=== PATIENT | male | born 1990 | race Caucasian/White ===

== ENCOUNTER 2021-12-08 22:01 | Emergency (ER) | payer MEDICAID, SELFPAY ==
[2021-12-08 22:11] VITALS: BP 129/67; PULSE 93; RESP 18; O2SAT 97; BMI 51.7
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
--- NOTE | 2021-12-08 22:15 | XRR_ITS ---
PROCEDURE INFORMATION: Exam: XR Chest Exam date and time: 12/08/2021 10:15 PM Age: 31 years old Clinical indication: Other: AMS TECHNIQUE: Imaging protocol: XR of the chest. Views: 1 view. COMPARISON: No relevant prior studies available. FINDINGS: Lungs: No CHF/pulmonary edema. Poor inspiration somewhat limits evaluation, especially of the lung bases. Visible lungs appear essentially clear. Pleural spaces: No visible pneumothorax. No definite pleural fluid. Heart/Mediastinum: Heart size is appears upper range of normal. Bones/joints: No significant acute finding. XR/XR chest 1V portable [id number] IMPRESSION: 1. No definite CHF or pneumonia. 2. Other findings discussed above.
--- NOTE | 2021-12-08 22:17 | ECG_ITS ---
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 Measurements Intervals [place] Rate: 84 P: 40 TN: 165 QRS: 76 QRSD: 87 T: 72 QT: 380 QTc: 451 Interpretive Statements SINUS RHYTHM Compared to ECG 03/11/2016 22:43:04 Sinus tachycardia no longer present Electronically Signed On 12-09-2021 16:11:25 DIRECTOR OF SUSTAINABILITY PROGRAMS by Greta Mitchell M.D. [id number]
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
[2021-12-08 22:30] LABS: Basophils % 0.6 %; Eosinophils # 0.3 10^3/uL (0.0-0.8); Eosinophils % 4.2 %; Hematocrit 44.2 % (42.0-52.0); Hemoglobin 14.5 g/dL (11.7-16.6); Lymphocytes # 3.2 10^3/uL (0.8-4.8); Lymphocytes % 46.3 %; Mean Corpuscular HGB Conc 32.8 g/dL (30.0-36.0); Mean Corpuscular Hemoglobin 32.4 pg (28.0-34.0); Mean Corpuscular Volume 98.7 fl (80-94); Mean Platelet Volume 9.6 fL (7.4-10.4); Monocytes # 0.6 10^3/uL (0.2-0.9); Monocytes % 8.8 %; Neutrophils # 2.72 10^3/uL (1.8-7.7); Neutrophils % 39.7 %; Nucleated Red Blood Cells % 0 %; Platelet Count 288 10^3/cmm (130-400); Red Blood Count 4.48 10^6/uL (4.1-5.3); Red Cell Distribution Width 12.5 % (12.1-15.1); White Blood Count 6.9 10^3/uL (4.0-10.0)
[2021-12-08 22:35] LABS: Add Urine Microscopic? NO; Charge for UA Resulting for Rev
[2021-12-08 22:46] LABS: Amphetamines Screen Urine Positive (Negative); Barbiturates Screen Urine Negative (Negative); Benzodiazepines Screen Urine Negative (Negative); Cocaine Screen Urine Negative (Negative); Opiate Screen Urine Negative (Negative); PCP Screen Urine Negative (Negative); THC Screen Urine Positive (Negative)
[2021-12-08 23:01] LABS: Troponin T (5th) Once 15 ng/L (0-15)
[2021-12-08 23:03] LABS: Bilirubin Urine 1+ (Negative); Blood Urine Neg (Negative); Glucose Urine UA Norm (Normal); Ketones Urine Negative (Negative); Leukocyte Esterase Urine Negative (Negative); Nitrate Urine Negative (Negative); Protein Urine Neg (Negative); Urine Appearance Clear (CLEAR); Urine Color Yellow (Yellow); Urobilinogen Urine 4+ mg/dL (Negative); pH Urine 5 (5-7)
[2021-12-08 23:10] LABS: Procalcitonin 0.05 ng/mL (0-0.5); Thyroid Stimulating Hormone 1.98 uIU/mL (0.27-4.20)
[2021-12-08 23:21] LABS: Alanine Aminotransferase 90 U/L (0-41); Albumin Level 3.8 g/dL (3.5-5.2); Alkaline Phosphatase 75 IU/L (40-130); Anion Gap 13.4 (5-19); Aspartate Amino Transferase 98 U/L (0-40); Blood Urea Nitrogen 11 mg/dL (6-20); C Reactive Protein 15.5 mg/L (0.0-4.9); Calcium 9.1 mg/dL (8.5-10.5); Carbon Dioxide 25 mmol/L (22-29); Chloride 102 mmol/L (98-107); Creatine Phosphokinase 182 U/L (39-308); Globulin 3.2 g/dL (1.3-4.6); Glomerular Filtration Rate 193.9 mL/min (90-130); Glucose 92 mg/dL (65-115); Osmolality Calculated 281 mOsm/kg (285-295); Potassium 4.4 mmol/L (3.5-5.1); Sodium 136 mmol/L (136-145); Total Bilirubin 0.4 mg/dL (0.15-1.2)
[2021-12-08 23:23] LABS: Alcohol Level < 10 mg/dL (0-10)
--- NOTE | 2021-12-25 12:41 | DCPLANNER ---
customer manager had message to speak with patient about getting established with a primary care physician. customer manager unable to speak with patient or leave a voicemail at this time.
== END 2021-12-09 | disposition home or self-care (01) ==
PROVIDERS: Emergency Provider Nurse Practitioner Family; PCP Nurse Practitioner Family
DX: R40.0 Somnolence (principal)
CPT/HCPCS: 70450; 71045; 80053; 80306; 80307; 81003; 82550; 83605; 84145; 84443; 84484; 85025; 86140; 87040; 93005; 99283

== ENCOUNTER 2023-01-15 09:47 | Inpatient (IN) | payer MEDICAID, SELFPAY ==
[2023-01-15] VITALS (103 sets, daily range): BP systolic 119–247; BP diastolic 60–196; PULSE 59–130; RESP 8–32; TEMP 36.8; O2SAT 71–100; BMI 54.2
--- NOTE | 2023-01-15 09:53 | ED_ITS ---
Was one of the attending physicians on duty in the emergency department at the time this patient was seen by the advanced nurse practitioner. She briefly reviewed her care and requested advice on how to proceed given his current clinical scenario. She had originally consulted general surgeon at our facility who had recommended transfer to a ERCP capable facility. She consulted Brenda HARDING who reviewed the case with her and did not feel that ERCP was indicated given his clinical picture and that it suggested more pancreatitis. I advised her to reconsult our general surgeon here for his evaluation situation given additional information. I did not personally see or evaluate this patient or have a physician patient relationship. I purely provided consultative advice and per department protocol Bridge orders for admission of this patient. HPI - Abdominal Pain General: Chief Complaint: Abdominal Pain Stated Complaint: abd pain Time Seen by Provider: 01/15/23 09:50 Source: patient and EMS Mode of arrival: EMS Limitations: no limitations History of Present Illness: Patient is a 32-year-old male with a history of homelessness, drug and alcohol abuse, morbid obesity, uncontrolled hypertension, biliary colic, and schizophrenia here after he was brought by EMS for concerns of right upper quadrant abdominal pain. Patient states he had been vomiting all evening. He states approximately a decade ago he was told that he needed to have his gallbladder taken out. He states he will intermittently have flares but has never been this severe. He is having normal bowel movements. Patient reports daily alcohol use. He states he will occasionally use marijuana. EMS states they picked him up from a park where he has been sleeping. He arrives very hypertensive with a BP of 217/153. He tells me he has chronic hypertension and it is not unusual for his systolic readings to be over 200 and diastolic over 100. He takes atenolol daily. elicited complaint: abdominal pain Onset (ago): day(s) Pain Consistency: constant Location: RUQ Severity: severe Quality: sharp Radiation: none Migration to: no migration Relieving factors: eating Associated Symptoms: Reports hematemesis, nausea and vomiting; Denies chills, diarrhea, dysuria, fever(s), hematochezia, hematuria and melena Review of Systems Const: Denies: fever(s), chills, body aches, fatigue or malaise Card: Denies: chest pain Resp: Denies: dyspnea GI: Reports: abdominal pain, nausea, vomiting and hematemesis; Denies: diarrhea, hematochezia or melena : Denies: flank pain, dysuria or hematuria Musc: Denies: neck pain, back pain, extremity pain or joint pain Skin/Breast: Denies: rash Neuro: Denies: headache(s), numbness in extremities, weakness in extremities or sensory changes [facility] ED PFSH: Medical History (Updated 01/15/23 @ 20:01 by Henrique Romero MD) Alcohol use disorder Biliary colic Homelessness HTN (hypertension) Morbid obesity Schizophrenia Smoking addiction Substance use disorder Surgical History H/O esophagogastroduodenoscopy Family History Other Colon cancer Social History Smoking and tobacco status: current every day smoker Alcohol intake: current Substance/Drug Use: current Housing: Homeless Marital status: Physical Exam Const: COMMON NORMALS: patient oriented x3, no limitations and alert GENERAL APPEARANCE: cooperative and in distress (appears uncomfortable secondary to pain) NUTRITIONAL APPEARANCE: obese morbidly obese (BMI is over 54) ORIENTATION/CONSCIOUSNESS: Yes awake, Yes oriented to person, Yes oriented to place and Yes oriented to time HENMT: COMMON NORMALS: normocephalic and atraumatic HEAD & SCALP: normal to inspection, normocephalic and atraumatic Eye: COMMON NORMALS: no scleral icterus Chest: COMMONS NORMALS: normal inspection of the chest and normal palpation of entire chest wall Resp: COMMON NORMALS: normal respiratory effort and clear to auscultation bilaterally AUSCULTATION: clear to auscultation bilaterally Cardio: COMMON NORMALS: regular rhythm RATE: tachycardic RHYTHM: regular rhythm GI: COMMON NORMALS: Normal to inspection, nondistended, normoactive bowel sounds present and Soft to palpation INSPECTION: Yes normal to inspection AUSCULTATION: Yes normoactive bowel sounds PALPATION: Yes Soft to palpation, Yes Tenderness to palpation present (GI) (throughout upper abdomen), Yes Guarding due to palpation present (GI) and No Rigid due to palpation OTHER: exam somewhat limited secondary to body habitus : COMMON NORMALS: Yes no CVA tenderness BLADDER/KIDNEY EXAM: Yes no CVA tenderness Back/Pelvis: COMMON NORMALS: no CVA tenderness Extremity: COMMON NORMALS: normal to inspection GENERAL: Yes normal exam except as noted Neuro: EMILIE COMA SCALE: document GCS findings [place] coma scale eye opening: Spontaneous Emilie coma scale verbal response: Orientated Emilie coma scale motor response: Obey commands Emilie coma scale total score: 15 COMMON NORMALS: patient oriented x3, moves all extremities, no focal motor deficits and no sensory deficits noted SENSORIUM/ORIENTATION: Yes alert, Yes oriented to person, Yes oriented to place and Yes oriented to time Skin: COMMON NORMALS: no rashes or lesions noted GENERAL SKIN EXAM: no rashes or lesions noted Course ED course: Patient is noted to have LFTs with a T. bili of 1.6 as well as elevated AST/ALT at 192/143. Lipase is over 1500. US of his gallbladder was extremely limited secondary to his morbid obesity status. MRCP was obtained due to concerns for choledocholithiasis. Unfortunately this too was suboptimal and the CBD could not be visualized to exclude choledocholithiasis. He did have a distended gallbladder with several stones. Hepatitis panel was added on due elevated LFTs and positive for hepatitis C. Despite patient denying drug use (other than marijuana) he is positive for opiates, amphetamines, benzodiazepines, and marijuana. He does seem to be under the influence of amphetamines as he is very antsy, pacing around his room, constantly taking off his monitor, and was found bathing himself in sterilization wipes. BP/HR have been very elevated some of which I believe is secondary to amphetamine use. I have spoken to general surgeon Dr. Trimble and because we cannot rule out a stone in his CBD he needs transfer to [facility] with ERCP capability. Consultations: Consultation #1: Dr. Trimble-recommends transfer to facility with ERCP capability Consultation #2: Dr. Méndez-[facility]/general surgery; states he does not feel patient has CBD stone and recommends admission here for treatment of acute pancreatitis Consultation #3: Dr. Trimble-spoke to Dr. Trimble again after speaking to Brenda HARDING and he is agreeable to treating patient here; recommends admit to hospitalist and he will consult on patient Vital Signs: Vital signs: Vital Signs Temperature 98.2 F 01/15/23 09:49 Pulse Rate 83 04/14/23 05:44 Respiratory Rate 22 H 01/16/23 04:10 Blood Pressure 141/88 01/16/23 04:10 Pulse Oximetry 94 01/16/23 04:10 Oxygen Delivery Me thod Room Air 01/15/23 18:10 MDM - Abdominal Pain Medical Decision Making Plan was initially to transfer patient based on the possible concern for a choledocholithiasis however after speaking with Dr. Méndez/GI at [facility] he does not feel patient has a CBD stone and can reasonably be treated here for acute pancreatitis. I spoke to Dr. Trimble again who is agreeable to consult on the patient. Request hospitalist admission. I spoke to Dr. Romero who will admit the patient. Lab Data 01/16/23 02:09 01/16/23 02:09 Labs/Radiology: Radiology Impressions Gallbladder Ultrasound 01/15/23 10:00 IMPRESSION: 1. Poor visualization of the gallbladder. No stones are identified. 2. Very limited evaluation of the RIGHT upper quadrant due to patient's body habitus. 3. Hepatomegaly and hepatic steatosis. Incompletely visualized liver. Cholangiopancreatography MRI 01/15/23 10:59 IMPRESSION: 1. Suboptimal evaluation of the bile ducts. Common bile duct cannot be visualized to exclude choledocholithiasis. The pancreatic duct does not appear dilated although this is also limited. 2. Mild gallbladder hydrops with gallstones. 3. There is a small amount of fluid in the peritoneal cavity. Predominantly along the pancreatic tail and LEFT paracolic gutter. This is a minimal amount of ascites. Laboratory Results WBC 9.4 10^3/uL (4.0-10.0) 01/15/23 09:57 RBC 4.75 10^6/uL (4.1-5.3) 01/15/23 09:57 Hgb 16.1 g/dL (11.7-16.6) 01/15/23 09:57 Hct 46.6 % (42.0-52.0) 01/15/23 09:57 MCV 98.1 fl (80-94) H 01/15/23 09:57 MCH 33.9 pg (28.0-34.0) 01/15/23 09:57 MCHC 34.5 g/dL (30.0-36.0) 01/15/23 09:57 RDW 12.7 % (12.1-15.1) 01/15/23 09:57 Plt Count 218 10^3/cmm (130-400) 01/15/23 09:57 MPV 9.8 fL (7.4-10.4) 01/15/23 09:57 Neut % (Auto) 80.7 % 01/15/23 09:57 Lymph % (Auto) 12.7 % 01/15/23 09:57 [place] % (Auto) 5.7 % 01/15/23 09:57 Eos % (Auto) 0.2 % 01/15/23 09:57 Baso % (Auto) 0.4 % 01/15/23 09:57 Neut # (Auto) 7.60 10^3/uL (1.8-7.7) 01/15/23 09:57 Lymph # (Auto) 1.2 10^3/uL (0.8-4.8) 01/15/23 09:57 [place] # (Auto) 0.5 10^3/uL (0.2-0.9) 01/15/23 09:57 Eos # (Auto) 0.0 10^3/uL (0.0-0.8) 01/15/23 09:57 Baso # (Auto) 0.0 10^3/uL (0.0-0.1) 01/15/23 09:57 Nucleated RBC % (auto) 0 % 01/15/23 09:57 Nucleated RBCs # 0.0 /100WBC 01/15/23 09:57 PT 13.50 SECONDS (12.1-14.9) 01/15/23 17:05 INR 1.00 (0.8-1.2) 01/15/23 17:05 APTT 27.3 SECONDS (23.9-36.7) 01/15/23 17:05 Sodium 136 mmol/L (136-145) 01/15/23 09:57 Potassium 3.7 mmol/L (3.5-5.1) 01/15/23 09:57 Chloride 97 mmol/L (98-107) L 01/15/23 09:57 Carbon Dioxide 21 mmol/L (22-29) L 01/15/23 09:57 Anion Gap 21.7 (5-19) H 01/15/23 09:57 BUN 11 mg/dL (6-20) 01/15/23 09:57 Creatinine 0.6 mg/dL (0.7-1.2) L 01/15/23 09:57 GFR Calculation 156.1 mL/min (90-130) H 01/15/23 09:57 Glucose 125 mg/dL (65-115) H 01/15/23 09:57 Calculated Osmolality 283 mOsm/kg (285-295) L 01/15/23 09:57 Lactic Acid 1.4 mmol/L (0.5-2.2) 01/15/23 10:31 Calcium 9.3 mg/dL (8.5-10.5) 01/15/23 09:57 Total Bilirubin 1.6 mg/dL (0.15-1.2) H 01/15/23 09:57 AST 192 U/L (0-40) H 01/15/23 09:57 ALT 143 U/L (0-41) H 01/15/23 09:57 Alkaline Phosphatase 92 U/L (40-130) 01/15/23 09:57 Ammonia 38 umol/L (16-60) 01/15/23 17:05 Creatine Kinase 333 U/L (39-308) H* 01/15/23 09:57 CK-MB (CK-2) 4.2 ng/mL (0-10.4) 01/15/23 09:57 CK-MB (CK-2) Rel Index % (0.0-5.3) 01/15/23 09:57 Total Protein 8.4 g/dL (6.6-8.7) 01/15/23 09:57 Albumin 4.3 g/dL (3.5-5.2) 01/15/23 09:57 Globulin 4.1 g/dL (1.3-4.6) 01/15/23 09:57 Lipase 1539 U/L (13-60) H 01/15/23 09:57 Urine Color [place] (Yellow) 01/15/23 10:52 Urine Appearance Hazy (CLEAR) A 01/15/23 10:52 Urine pH 7 (5-7) 01/15/23 10:52 Ur Specific [place] 1.010 (1.005-1.030) 01/15/23 10:52 Urine Protein 1+ (Negative) H 01/15/23 10:52 Urine Glucose (UA) Norm (Normal) 01/15/23 10:52 Urine Ketones 1+ (Negative) H 01/15/23 10:52 Urine Blood 2+ (Negative) H 01/15/23 10:52 Urine Nitrate Negative (Negative) 01/15/23 10:52 Urine Bilirubin TNP 01/15/23 10:52 Urine Urobilinogen TNP 01/15/23 10:52 Ur Leukocyte Esterase 2+ (Negative) H 01/15/23 10:52 Urine RBC 0-4 /hpf (0-2) H 01/15/23 10:52 Urine WBC 10-15 /hpf (0-5) H 01/15/23 10:52 Ur Squamous Epith Cells 0-4 /hpf (0-5) H 01/15/23 10:52 Amorphous Sediment Not Reportable 01/15/23 10:52 Urine Bacteria 1+ /hpf (NONE) H 01/15/23 10:52 Hyaline Casts 0-4 /lpf H 01/15/23 10:52 Urine Mucus 2+ /hpf 01/15/23 10:52 Urine Opiates Screen Positive ng/mL (Negative) H 01/15/23 10:52 Ur Barbiturates Screen Negative ng/mL (Negative) 01/15/23 10:52 Ur Phencyclidine Scrn Negative ng/mL (Negative) 01/15/23 10:52 Ur Amphetamines Screen Positive ng/mL (Negative) H 01/15/23 10:52 U Benzodiazepines Scrn Positive ng/mL (Negative) H 01/15/23 10:52 Urine Cocaine Screen Negative ng/mL (Negative) 01/15/23 10:52 U Marijuana (THC) Screen Positive ng/mL (Negative) H 01/15/23 10:52 Ethyl Alcohol < 10 mg/dL (0-10) 01/15/23 09:57 Hepatitis A IgM Ab Non-reactive (Nonreactive) 01/15/23 10:45 Hep Bs Antigen Non-reactive (Nonreactive) 01/15/23 10:45 Hep B Core IgM Ab Non-reactive (Nonreactive) 01/15/23 10:45 Hepatitis C Antibody Reactive (Nonreactive) H 01/15/23 10:45 Discharge Plan Discharge Patient Disposition: Admitted As Inpatient Admit Provider: Henrique Romero Clinical Impression: Hepatitis C, Severe uncontrolled hypertension, Elevated LFTs, Elevated lipase, Cholelithiasis, Polysubstance abuse, Rhabdomyolysis, Chronic alcohol abuse Condition: Stable Coding Level of Care Code ED Glass Worker for Levi Bullard
--- NOTE | 2023-01-15 10:00 | US_ITS ---
WS: [id number] RIGHT UPPER QUADRANT ULTRASOUND HISTORY: RUQ pain COMPARISON: 10/21/2018 Extremely limited evaluation of the RIGHT upper quadrant due to patient's body habitus. Liver: 21.7 cm in length. Liver is enlarged but very limited visualization. Marked hepatic steatosis. Portal Vein: Not visualized. Gallbladder: Distended gallbladder. There may be some sludge. It would be difficult to exclude stones . The gallbladder wall is not well visualized. CBD: Not visualized. Pancreas: Not visualized. Right kidney: 11.8 cm in length. Poorly visualized. No obvious hydronephrosis. Aorta and IVC: Not well visualized. No ascites. US/US gall bladder 13413 IMPRESSION: 1. Poor visualization of the gallbladder. No stones are identified. 2. Very limited evaluation of the RIGHT upper quadrant due to patient's body h abitus. 3. Hepatomegaly and hepatic steatosis. Incompletely visualized liver.
[2023-01-15 10:07] LABS: Basophils % 0.4 %; Eosinophils % 0.2 %; Hematocrit 46.6 % (42.0-52.0); Hemoglobin 16.1 g/dL (11.7-16.6); Lymphocytes # 1.2 10^3/uL (0.8-4.8); Lymphocytes % 12.7 %; Mean Corpuscular HGB Conc 34.5 g/dL (30.0-36.0); Mean Corpuscular Hemoglobin 33.9 pg (28.0-34.0); Mean Corpuscular Volume 98.1 fl (80-94); Mean Platelet Volume 9.8 fL (7.4-10.4); Monocytes # 0.5 10^3/uL (0.2-0.9); Monocytes % 5.7 %; Neutrophils % 80.7 %; Nucleated Red Blood Cells % 0 %; Platelet Count 218 10^3/cmm (130-400); Red Blood Count 4.75 10^6/uL (4.1-5.3); Red Cell Distribution Width 12.7 % (12.1-15.1); White Blood Count 9.4 10^3/uL (4.0-10.0)
[2023-01-15 10:28] LABS: Alanine Aminotransferase 143 U/L (0-41); Albumin Level 4.3 g/dL (3.5-5.2); Alkaline Phosphatase 92 U/L (40-130); Anion Gap 21.7 (5-19); Aspartate Amino Transferase 192 U/L (0-40); Blood Urea Nitrogen 11 mg/dL (6-20); Calcium 9.3 mg/dL (8.5-10.5); Carbon Dioxide 21 mmol/L (22-29); Chloride 97 mmol/L (98-107); Globulin 4.1 g/dL (1.3-4.6); Glomerular Filtration Rate 156.1 mL/min (90-130); Glucose 125 mg/dL (65-115); Osmolality Calculated 283 mOsm/kg (285-295); Potassium 3.7 mmol/L (3.5-5.1); Sodium 136 mmol/L (136-145); Total Bilirubin 1.6 mg/dL (0.15-1.2); Total Protein 8.4 g/dL (6.6-8.7)
[2023-01-15] MEDS: morphine 4 mg/mL SDV 1 mL IVP ×2 (10:33→17:05)
[2023-01-15] MEDS: hyDRALAzine 20 mg/mL INJ 1 mL 10 MG IVP ×2 (10:34→13:49)
[2023-01-15] MEDS: ondansetron 2 mg/ML SDV 2 mL 4 MG IVP (10:34)
[2023-01-15 10:35] LABS: Lipase 1539 U/L (13-60)
--- NOTE | 2023-01-15 10:59 | MR_ITS ---
WS: [id number] MRCP (MAGNETIC RESONANCE CHOLANGIOPANCREATOGRAPHY) HISTORY: RUQ pain, elevated LFTs/lipase COMPARISON: Prior gallbladder ultrasound 01/15/2023. TECHNIQUE: Multiple sequences are performed to evaluate the intra and extrahepatic ducts. This is a very limited evaluation of the bile ducts due to patient's body habitus and difficulty susp ending respirations. The gallbladder is moderately distended. Gallbladder measures approximately 4 cm in transverse diamet er. There are several stones within the gallbladder. No significant evidence for pericholecystic flui d. Unfortunately the common bile duct cannot be evaluated due to difficulty suspending respiration. T he pancreatic duct does not appear dilated. Liver is enlarged and dense with hepatic steatosis. There is a small amount of ascites surrounding th e pancreatic body and extending along the paracolic gutter on the LEFT. No fluid collections otherwise. The kidneys appear negative. No adrenal mass. No ascites. MR/MR MRCP 06038 IMPRESSION: 1. Suboptimal evaluation of the bile ducts. Common bile duct cannot be visuali zed to exclude choledocholithiasis. The pancreatic duct does not appear dilated although this is also limited. 2. Mild gallbladder hydrops with gallstones. 3. There is a small amount of fluid in the peritoneal cavity. Predominantly al wilfrido the pancreatic tail and LEFT paracolic gutter. This is a minimal amount of ascites.
[2023-01-15 11:11] LABS: Amphetamines Screen Urine Positive (Negative); Barbiturates Screen Urine Negative (Negative); Benzodiazepines Screen Urine Positive (Negative); Cocaine Screen Urine Negative (Negative); Opiate Screen Urine Positive (Negative); PCP Screen Urine Negative (Negative); THC Screen Urine Positive (Negative)
[2023-01-15 11:23] LABS: Urine Appearance Hazy (CLEAR); Urine Color Orange (Yellow); pH Urine 7 (5-7)
[2023-01-15 11:24] LABS: Blood Urine 2+ (Negative); Glucose Urine UA Norm (Normal); Ketones Urine 1+ (Negative); Leukocyte Esterase Urine 2+ (Negative); Protein Urine 1+ (Negative)
[2023-01-15 11:25] LABS: Add Urine Microscopic? YES; Nitrate Urine Negative (Negative)
[2023-01-15 11:27] LABS: Bacteria Urine 1+ /hpf; RBC Urine 0-4 /hpf (0-2); Squamous Epithelial Cell Urine 0-4 /hpf (0-5)
[2023-01-15 11:28] LABS: Add Urine Culture? Yes; Hyaline Casts Urine 0-4 /lpf; Mucus Urine 2+ /hpf
[2023-01-15] MEDS: HYDROmorphone 1 mg/mL INJ 1 mL IVP ×2 (11:29→13:49)
[2023-01-15] MEDS: sodium chloride 0.9% 1,000 ML 999 ML IV ×2 (11:30→13:33)
[2023-01-15] MEDS: piperacillin-tazobactam 3.375 GM in sodium chloride 0.9% (plus) 50 ML IV ×2 (11:30→20:05)
[2023-01-15 11:33] LABS: Lactic Sepsis W/Reflex 1.4 mmol/L (0.5-2.2)
[2023-01-15 11:48] LABS: Alcohol Level < 10 mg/dL (0-10)
[2023-01-15 11:49] LABS: Creatine Phosphokinase 333 U/L (39-308)
[2023-01-15 12:21] LABS: CKMB 4.2 ng/mL (0-10.4)
[2023-01-15 12:31] LABS: Hepatitis A Antibody IgM Non-Reactive (Nonreactive); Hepatitis B Core IgM Non-Reactive (Nonreactive); Hepatitis B Surface Antigen Non-Reactive (Nonreactive); Hepatitis C Virus Antibody Reactive (Nonreactive)
[2023-01-15] MEDS: metoprolol tartrate 1 mg/1 mL SDV 5 mL 5 MG IVP (13:30)
--- NOTE | 2023-01-15 14:34 | PC.NURSE ---
answered call light. entered room to find pt standing, attached to IVF, requested pt to return to bed due to fall risk. pt states he was cleaning himself with sani-cloth wipes. educated pt that those wipes are not for skin use and showed pt container where it shows not to use on skin. provided pt with babywipes to clean himself with.
[2023-01-15] MEDS: labetalol 5 mg/mL SDV 20mL 10 MG IVP (15:25)
[2023-01-15 17:36] LABS: Partial Thromboplastin Time 27.3 SECONDS (23.9-36.7)
[2023-01-15 17:40] LABS: Ammonia 38 umol/L (16-60)
[2023-01-15] MEDS: PHENobarbital 130 mg/mL SDV 1 mL 260 MG IV ×2 (19:28→21:48)
[2023-01-15] MEDS: lactated ringers 1,000 ML 100 ML IV (19:28)
--- NOTE | 2023-01-15 19:35 | P.HP_ITS ---
Providers/Chief Complaint Admitting Physician: Henrique Romero Primary Care Provider: Gilson Rivas Chief Complaint: abd pain History of Present Illness 32-year-old gentleman came in for evaluation due to severe pain across his upper abdomen, nausea and few episodes of vomiting starting yesterday or day before yesterday. He has history of homelessness, alcoholism, methamphetamine abuse, fentanyl abuse, marijuana, smoking, morbid obesity. History of withdrawal. Reported history of recurrent gallbladder colic, with some recommendation in the past to have his gallbladder removed although had not followed up reportedly. Gallbladder intermittently flares. On presentation additionally severely hypertensive requiring multiple medications, blood pressure as high as 217/153, received several doses of hydralazine, metoprolol, labetalol, morphine with improvement. He is found to have lipase elevation 1539. T. bili elevated 1.6, AST ALT elevated 192, 143. CK elevated at 333. Gallbladder ultrasound was attempted in ER but very limited evaluation. Noted hepatomegaly and hepatic steatosis. Incompletely visualized liver. MRCP was obtained as well, finding of suboptimal evaluation of bile ducts, common bile duct cannot be visualized to exclude choledocholithiasis, pancreatic duct does not appear dilated although this is also limited. Mild gallbladder hydrops with gallstones. Small mount of fluid in peritoneal cavity. Predominantly along the pancreatic tail and left paracolic gutter. Minimal ascites. Surgery was consulted. GI/general currency exchange specialist contacted at [facility] in ER with consideration of arranging for ERCP, but specialist on review of patient condition and findings did not find that CBD obstruction was likely, recommending admission for treatment here. Surgeon agreeing will consult on patient here with hospitalist admit. He is having sinus tachycardia initially 100 teens-120s, with improvement to 105 with initial treatment including fluid challenge. UA with 10-15 WBC. He reports having intertrigo under his pannus and in groins, and feels he may have a UTI as well. Urine directory positive for opiates, phentermine, benzodiazepine, marijuana. Hepatitis C is found positive. He was not aware of having hepatitis. He states he used to inject, but last time it was probably several years back, nothing more recent. He does admit to smoking methamphetamine, occasionally snorting fentanyl, although less frequently and not so much recently, and smoking marijuana. He has gone through withdrawal before. He is currently jittery, restless, with tremor, bothered by nausea, pain. Last drink was 2 days ago. Normally drinks about a gallon or gallon and a half. In case he could not make his own decisions he names his father Kaiser Spears as his surrogate decision-maker. Father's phone number is [phone]. Review of Systems Const: Denies: malaise ENMT: Denies: throat pain Card: Denies: chest pain, edema, pre-syncope or dyspnea on exertion Resp: Denies: dyspnea, productive cough, change in phlegm color or hemoptysis GI: Reports: abdominal pain, nausea and vomiting; Denies: diarrhea, constipation, hematochezia or melena : Reports: other (dysuria); Denies: flank pain, difficulty urinating, urinary frequency or hematuria Musc: Denies: back pain, joint swelling or joint redness Skin/Breast: Denies: rash or new lesions Neuro: Denies: headache(s), numbness in extremities, weakness in extremities or seizure-like activity Medications/Allergies Home Medications Medication Instructions Recorded Confirmed Last Taken Type Unable to Assess 01/15/23 01/15/23 Unknown History Allergies Allergy/AdvReac Type Severity Reaction Status Date / Time fentanyl Allergy Severe ADR-Seizure Verified 01/15/23 19:54 diphenhydramine Allergy Intermediate headache, Verified 01/15/23 19:54 [From Benadryl] restless leg cyclobenzaprine Allergy Nausea, Verified 01/15/23 19:55 [From Flexeril] vomiting, headache PFSH Acute PFSH: Medical History (Updated 01/15/23 @ 20:01 by Henrique Romero MD) Alcohol use disorder Biliary colic Homelessness HTN (hypertension) Morbid obesity Schizophrenia Smoking addiction Substance use disorder Surgical History H/O esophagogastroduodenoscopy Family History Other Colon cancer Social History Smoking and tobacco status: current every day smoker Alcohol intake: current Housing: Homeless Marital status: Vitals/I&O/Wt Last Vital Signs Temp 98.2 F 01/15/23 09:49 Pulse 105 H 01/15/23 18:06 Resp 16 01/15/23 18:06 BP 165/104 01/15/23 18:06 Pulse Ox 94 01/15/23 18:06 O2 Del Method Room Air 01/15/23 18:10 01/15/23 01/15/23 01/15/23 06:59 14:59 22:59 Intake Total 2049 Balance 2049 Weight last 48 hrs Weight 181.437 kg Physical Exam Const: COMMON NORMALS: patient oriented x3 and alert GENERAL APPEARANCE: cooperative and ill appearing NUTRITIONAL APPEARANCE: obese morbidly obese ORIENTATION/CONSCIOUSNESS: Yes awake OTHER: Rapid speech, mild slurring Upper extremity tremors HENMT: COMMON NORMALS: oropharynx normal Neck/C-Spine: COMMON NORMALS: no JVD Resp: COMMON NORMALS: normal respiratory effort and clear to auscultation bilaterally AUSCULTATION: clear to auscultation bilaterally Cardio: COMMON NORMALS: no JVD, regular rhythm, S1 normal heart sound present, S2 normal heart sound present and No murmurs present (Cardio) RATE: tachycardic RHYTHM: regular rhythm HEART SOUNDS: S1 normal heart sound present and S2 normal heart sound present GI: COMMON NORMALS: Normal to inspection, nondistended, normoactive bowel sounds present, Soft to palpation and non-tender PALPATION: Yes Soft to palpation Extremity: COMMON NORMALS: no joint enlargement and no pedal edema Neuro: COMMON NORMALS: patient oriented x3 and moves all extremities SENSORIUM/ORIENTATION: Yes alert Skin: COMMON NORMALS: no rashes or lesions noted GENERAL SKIN EXAM: no rashes or lesions noted Data 01/15/23 09:57 01/15/23 09:57 Micro: Microbiology 01/15/23 11:15 Blood Culture - Preliminary Blood SPECIMEN COLLECTED 01/15/23 11:06 Blood Culture - Preliminary Blood SPECIMEN COLLECTED A&P Assessment and plan (1) Acute pancreatitis: N.p.o., IV fluid, control medications, IV Dilaudid, Tylenol in case of milder pain, antiemetic. IV hydration. Follow-up lipase requested. Further assessment regarding biliary colic, cholelithiasis. Troponin, EKG series. PPI Lovenox VTE prophylaxis (2) Biliary colic: Unable to meaningfully visualize structures on ultrasound. MRCP suboptimal evaluation of the bile ducts. Mild gallbladder hydrops with gallstones. Surgery was contacted in ER and on consult. Conferring with GI/currency exchange specialist at [facility] who reviewed patient condition findings currently MRCP not indicated. Difficult to exclude cholecystitis. Empirically continue Zosyn. Follow blood cultures. History of recurrent biliary colic, patient reports was told previously had to have gallbladder removed. (3) Substance withdrawal: Possible polysubstance withdrawal, definitely alcohol withdrawal, last drink over 2 days ago. Normally drinks a gallon-gallon and a half of liquor in a day. Also frequently uses methamphetamine, discussed with him possible withdrawal from the substance which may be quite severe also protracted. Occasionally snorts fentanyl, possibility of opioid withdrawal as well. Smokes marijuana. Denies any other substance use. Remotely used to inject drugs in the past, but has not done that in the last 2 years at least. Smokes cigarettes as well. Discussed with him treatment of withdrawal. He is transferred to ICU due to withdrawal for further close monitoring and treatment. Phenobarbital loading dose, continue subsequently with taper. Dilaudid is ordered as needed which she is receiving currently due to pain. Timing, folic acid, multivitamin. Telemetry monitoring. Nicotine patch, nicotine lozenges. (4) Nausea and vomiting: With acute pancreatitis, cannot exclude also gastritis with EtOH use. Pancreatitis as above. PPI. Troponin, EKG series. (5) UTI (urinary tract infection): Suspected UTI. Zosyn. Follow-up urine culture. (6) Severe uncontrolled hypertension: Severe hypertension on presentation, blood pressure as high as 217/153. Treat withdrawal as above. Blood pressure should improve with that. Did respond to initial multiple antihypertensive agents. We will add labetalol as needed with parameters. Follow-up blood pressures. (7) Intertrigo: Nystatin cream (8) Smoking addiction: Discussed with him nicotine patch, lozenges and he is happy to have both. Would benefit from cessation. (9) Substance use disorder: Follow-up blood culture. Polysubstance use disorder, case management consultation once he is in better condition to help him with some option for rehabilitation. (10) Alcohol use disorder: Replace vitamins as above. Case management consultation to help with rehabilitation and presents once he is in better condition. (11) Elevated LFTs: Possibility of mild EtOH hepatitis with AST 192, ALT 143. T. bili 1.6. Maddrey discriminant function 3.9. No steroid. Repeat LFTs requested. Hepatitis panel noted, positive hepatitis C Additionally noted hepatic steatosis (12) Rhabdomyolysis: CK 333. Methamphetamine use, currently suspected polysubstance withdrawal. Treat as above. Repeat CK. Troponin EKG series (13) Hepatitis C: Will need follow-up (14) Hepatic steatosis: Will need follow-up, control of risk factors, weight loss. Would benefit from alcohol cessation. Attestations Medical Necessity Statement*: Admission of over 2 midnights anticipated for assessment management of polysubstance withdrawal, biliary colic, acute pancreatitis and additional comorbidities as above. Coding Level of Care Code Critical Care >/= 30 minutes Critical care time (in minutes): 40 The high probability of a clinically significant, sudden or life threatening deterioration, as referenced in this documentation, required my full and direct attention, intervention and personal management. The critical care time shown is in addition to time spent performing any reported separately billable procedures and includes the following: [x] Data and vital sign review and interpretation [x ] Patient assessment, examination and intervention [x] Medication orders and management [x] Patient/Family updates as able [x] Care Coordination and Documentation. Diagnoses Acute pancreatitis K85.90 Biliary colic K80.50 Substance withdrawal F19.939 Nausea and vomiting R11.2 UTI (urinary tract infection) N39.0 Severe uncontrolled hypertension I10 Intertrigo L30.4 Smoking addiction F17.200 Substance use disorder F19.90 Alcohol use disorder F10.90 Elevated LFTs R79.89 Rhabdomyolysis M62.82 Hepatitis C B19.20 Hepatic steatosis K76.0
[2023-01-15] MEDS: enoxaparin 40 mg/0.4 mL Syringe SUBCUT (20:05)
[2023-01-15] MEDS: pantoprazole 40 mg SDV IVP (20:05)
[2023-01-15] MEDS: HYDROmorphone 1 mg/mL INJ 1 mL 0.5 MG IVP (20:06)
[2023-01-15] MEDS: nystatin cream 30 gm 1 APPLIC TOPICAL (20:20)
[2023-01-15 20:49] LABS: Troponin(5th) Baseline 7 ng/L (0-15)
[2023-01-15 22:26] LABS: Troponin 5 2HR 7.38 ng/L (0-15)
[2023-01-15 22:47] LABS: Troponin 5 2HR Delta 0.38 ABS# (0-10)
[2023-01-15] MEDS: dexmedetomidine 400 MCG in sodium chloride 0.9% (100 ml) 100 ML IV (22:50)
--- NOTE | 2023-01-15 23:17 | ECG_ITS ---
[facility] Test Date: 2023-01-15 Pat Name: Radhames Spears Department: Room: ICU02 Gender: Male Booker: : 1990 Requested By: Henrique Romero Order Number: [id number] Yeimy MD: Endy Lee M.D. Measurements Intervals [place] Rate: 93 P: 26 NV: 160 QRS: 69 QRSD: 98 T: 69 QT: 372 QTc: 463 Interpretive Statements SINUS RHYTHM Compared to ECG 12/08/2021 22:19:10 No significant changes Electronically Signed On 01-16-2023 13:55:13 CDT by Endy Lee M.D. [email or web address] [id number]
[2023-01-16] VITALS (92 sets, daily range): BP systolic 90–152; BP diastolic 65–99; PULSE 72–91; RESP 14–29; O2SAT 73–98
[2023-01-16] MEDS: PHENobarbital 130 mg/mL SDV 1 mL 260 MG IV (00:46)
--- NOTE | 2023-01-16 02:00 | ECG_ITS ---
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 Measurements Intervals [place] Rate: 83 P: 17 OR: 153 QRS: 78 QRSD: 92 T: 70 QT: 394 QTc: 465 Interpretive Statements SINUS RHYTHM Compared to ECG 01/15/2023 23:17:49 No significant changes Electronically Signed On 01-16-2023 13:54:13 CDT by Endy Lee M.D. [id number]
[2023-01-16 02:24] LABS: Basophils % 0.5 %; Eosinophils # 0.2 10^3/uL (0.0-0.8); Eosinophils % 1.7 %; Hematocrit 42.3 % (42.0-52.0); Lymphocytes % 22.3 %; Mean Corpuscular HGB Conc 33.1 g/dL (30.0-36.0); Mean Corpuscular Hemoglobin 34.4 pg (28.0-34.0); Mean Corpuscular Volume 103.9 fl (80-94); Mean Platelet Volume 9.7 fL (7.4-10.4); Monocytes # 0.8 10^3/uL (0.2-0.9); Monocytes % 8.8 %; Neutrophils # 5.85 10^3/uL (1.8-7.7); Neutrophils % 66.4 %; Nucleated Red Blood Cells % 0 %; Platelet Count 157 10^3/cmm (130-400); Red Blood Count 4.07 10^6/uL (4.1-5.3); Red Cell Distribution Width 13.1 % (12.1-15.1); White Blood Count 8.8 10^3/uL (4.0-10.0)
[2023-01-16] MEDS: dexmedetomidine 400 MCG in sodium chloride 0.9% (100 ml) 100 ML 23.59 MCG IV ×5 (02:29→22:11)
[2023-01-16 02:40] LABS: Alanine Aminotransferase 99 U/L (0-41); Albumin Level 3.7 g/dL (3.5-5.2); Alkaline Phosphatase 73 U/L (40-130); Aspartate Amino Transferase 115 U/L (0-40); Blood Urea Nitrogen 12 mg/dL (6-20); Calcium 8.4 mg/dL (8.5-10.5); Carbon Dioxide 26 mmol/L (22-29); Chloride 101 mmol/L (98-107); Creatine Phosphokinase 216 U/L (39-308); Globulin 3.1 g/dL (1.3-4.6); Glucose 94 mg/dL (65-115); Osmolality Calculated 286 mOsm/kg (285-295); Sodium 138 mmol/L (136-145); Total Bilirubin 1.7 mg/dL (0.15-1.2); Total Protein 6.8 g/dL (6.6-8.7)
[2023-01-16 02:44] LABS: Troponin 5 6HR 6.81 ng/L (0-15)
[2023-01-16 02:50] LABS: Troponin 5 6HR Delta -0.19 ng/L (0-12)
[2023-01-16 03:01] LABS: Lipase 578 U/L (13-60)
[2023-01-16] MEDS: piperacillin-tazobactam 3.375 GM in sodium chloride 0.9% (plus) 50 ML IV ×3 (05:04→19:33)
[2023-01-16] MEDS: lactated ringers 1,000 ML 100 ML IV ×2 (05:27→15:20)
[2023-01-16] MEDS: PHENobarbital 130 mg/mL SDV 1 mL 64.8 MG IV ×2 (09:14→19:34)
[2023-01-16] MEDS: folic acid 1 mg Tablet PO (09:15)
[2023-01-16] MEDS: nicotine 21 mg Patch 1 PATCH TRANSDERMA (09:15)
[2023-01-16] MEDS: thiamine 100 mg Tablet PO (09:15)
[2023-01-16] MEDS: nystatin cream 30 gm 1 APPLIC TOPICAL ×2 (09:16→17:41)
[2023-01-16] MEDS: multivitamin therapeutic Tablet 1 TAB PO (09:16)
--- NOTE | 2023-01-16 09:30 | PC.NURSE ---
clarified to continue phenobarb order given this am
--- NOTE | 2023-01-16 11:14 | PC.CHAP ---
Pastoral Care Encounter/Spiritual Assessment Type of Contact [] Declined linux developer visit [] Patient/Family/Request visit [] Outpatient visit [] Follow-up visit [] Physician referral [] Code/Alert [x] Routine visit [] Staff referral [] Actively dying [x] Patient sleeping [] Family support [] [] Out of room [] Palliative care [] [] Receiving care in room [] Pre-surgical visit [] Trauma [] Long length of stay [] ICU visit [] Other: Relational/Emotional Strength [] Patient feels connected with others/family/visitors/staff [] Distress [] Loneliness/isolation [] Abandonment Spirituality of Patient [] Person of Mariia [] Attends Uatsdin of their Mariia [] Believes in Prayer [] Reads Bible or Rastafarian materials [] There are Spiritual issues to be addressed Pet Training Instructor Interventions [] Prayer [] Active listening [] Non-anxious presence [] Spiritual/emotional support [] Crisis/trauma care [] Spiritual counseling [] Bereavement support [] Provided bereavement packet [] Provided Bible/devotional materials [] Provided toy/stuffed animal, coloring book to patient or family member [] Provided Communion [] Anointing/[place] [] Salvation [] Completed spiritual assessment [] Other: Impact on Illness or Injury [] Angry [] Fearful [] Anxious [] Often cries [] Exhaustion [] Unable to work [] Unable to attend bahai [] Unable to walk/stand [] Unable to read [] Unable to drive [] Unable to eat/drink [] Unable to sleep [] Unable to be with family [] Patient intubated [] Other: Summary Time spent with patient
--- NOTE | 2023-01-16 15:35 | P.PN_ITS ---
Subjective Subjective: He is feeling slightly better today. Still in pain, pain is epigastric. But not vomiting, no nausea. He is hungry, wants to try to advance diet. He is doing better today in terms of jitteriness, tremulousness, restlessness. Vitals/I&O/Wt Last Vital Signs Temp 98.2 F 01/15/23 09:49 Pulse 81 01/16/23 14:00 Resp 22 H 01/16/23 12:00 BP 99/73 01/16/23 12:00 Pulse Ox 96 01/16/23 12:00 O2 Del Method Room Air 01/15/23 18:10 01/16/23 01/16/23 01/16/23 06:59 14:59 22:59 Intake Total 1539.172 / 3709.172 304 / 304 988.333 / 1292.333 Output Total 500 / 1100 600 / 600 Balance 1039.172 / 2609.172 -296 / -296 988.333 / 692.333 Weight last 48 hrs Weight 181.437 kg Physical Exam Const: COMMON NORMALS: patient oriented x3 and alert GENERAL APPEARANCE: cooperative and ill appearing NUTRITIONAL APPEARANCE: obese morbidly obese ORIENTATION/CONSCIOUSNESS: Yes awake OTHER: Rapid speech, mild slurring Upper extremity tremors HENMT: COMMON NORMALS: oropharynx normal Neck/C-Spine: COMMON NORMALS: no JVD Resp: COMMON NORMALS: normal respiratory effort and clear to auscultation bilaterally AUSCULTATION: clear to auscultation bilaterally Cardio: COMMON NORMALS: no JVD, regular rhythm, S1 normal heart sound present, S2 normal heart sound present and No murmurs present (Cardio) RATE: tachycardic RHYTHM: regular rhythm HEART SOUNDS: S1 normal heart sound present and S2 normal heart sound present GI: COMMON NORMALS: Soft to palpation PALPATION: Yes Soft to palpation and Yes Tenderness to palpation present (GI) (Epigastrium) Extremity: COMMON NORMALS: no joint enlargement and no pedal edema Neuro: COMMON NORMALS: patient oriented x3 and moves all extremities SENSORIUM/ORIENTATION: Yes alert Skin: COMMON NORMALS: no rashes or lesions noted GENERAL SKIN EXAM: no rashes or lesions noted Data 01/16/23 02:09 01/16/23 02:09 Micro: Microbiology 01/15/23 11:15 Blood Culture - Preliminary Blood NEGATIVE TO DATE 01/15/23 11:06 Blood Culture - Preliminary Blood NEGATIVE TO DATE A&P Assessment and plan (1) Acute pancreatitis: He is feeling slightly better today and wants to try to advance his diet to liquid. IV fluid, control medications, IV Dilaudid, Tylenol in case of milder pain, an tiemetic. Continue IV hydration. Lipase noted improving, down to 578 today. Follow-up requested. Further assessment regarding biliary colic, cholelithiasis. Troponin, EKG series. PPI Lovenox VTE prophylaxis (2) Biliary colic: Symptomatically appears to be somewhat better. T. bili is noted increased up to 1.7. Alk phos is normal. AST down to 115, ALT down to 99. Continue empiric antibiotic. Discussed with surgery - finding low suspicion for cholecystitis, follow up in office. Follow blood cultures. On review so far no growth. History of recurrent biliary colic, patient reports was told previously had to have gallbladder removed. (3) Substance withdrawal: Yesterday going into withdrawal, has responded well to loading dose of p henobarbital, continue with taper dose. His symptoms quite significantly improved, tachycardia has resolved. He is feeling better subjectively today as well. IV phenobarbital taper, today for now continuing 64.8 every 12 hours for 4 doses, switch to 32.4 on 01/18. Close monitoring for now. Monitoring. Polysubstance withdrawal, definitely alcohol withdrawal, last drink over 2 days ago. Normally drinks a gallon-gallon and a half of liquor in a day. Also frequently uses methamphetamine, discussed with him possible withdrawal from the substance which may be quite severe also protracted. Occasionally snorts fentanyl, possibility of opioid withdrawal as well. Smokes marijuana. Denies any other substance use. Remotely used to inject drugs in the past, but has not done that in the last 2 years at least. Smokes cigarettes as well. Discussed with him treatment of withdrawal. He is transferred to ICU due to withdrawal for further close monitoring and treatment. Phenobarbital loading dose, continue subsequently with taper. Dilaudid is ordered as needed which she is receiving currently due to pain. Timing, folic acid, multivitamin. Telemetry monitoring. Nicotine patch, nicotine lozenges. Discussed with case management to offer him options for rehabilitation. (4) Nausea and vomiting: Resolved. Trial of oral intake. With acute pancreatitis, cannot exclude also gastritis with EtOH use. Pancreatitis as above. PPI. Troponin, EKG series. (5) UTI (urinary tract infection): Suspected UTI. Zosyn. Follow-up urine culture. So far nothing on urine culture. (6) Severe uncontrolled hypertension: Significantly improved with treatment of withdrawal. Today on the soft side. 99/73. Hold off any further antihypertensives. Severe hypertension on presentation, blood pressure as high as 217/153. Treat withdrawal as above. Blood pressure should improve with that. Follow-up blood pressures. (7) Intertrigo: Nystatin cream (8) Smoking addiction: Discussed with him nicotine patch, lozenges and he is happy to have both. Would benefit from cessation. (9) Substance use disorder: Follow-up blood culture. Polysubstance use disorder, case management consultation once he is in better condition to help him with some option for rehabilitation. (10) Alcohol use disorder: Replace vitamins as above. Case management consultation to help with rehabilitation Discussed with case management (11) Elevated LFTs: Mild EtOH induced hepatitis. Pancreatitis. Improving, but T. bili did note rising up to 1.7. Alk phos is normal. AST and ALT with improvement. Repeat LFTs requested. Maddrey discriminant function 3.9. No steroid. Hepatitis panel noted, positive hepatitis C Additionally noted hepatic steatosis (12) Rhabdomyolysis: Rhabdomyolysis noted resolved. CK down to 216. Methamphetamine use, currently suspected polysubstance withdrawal. Troponin EKG series On my interpretation without evidence of AMI or ischemia. (13) Hepatitis C: Will need follow-up (14) Hepatic steatosis: Will need follow-up, control of risk factors, weight loss. Would benefit from alcohol cessation. Plan Homelessness: Case management consultation, discussed. Attestations Medical Necessity Statement*: Continue admission for assessment management of acute pancreatitis, poly substance withdrawal, UTI. Diagnoses Acute pancreatitis K85.90 Biliary colic K80.50 Substance withdrawal F19.939 Nausea and vomiting R11.2 UTI (urinary tract infection) N39.0 Severe uncontrolled hypertension I10 Intertrigo L30.4 Smoking addiction F17.200 Substance use disorder F19.90 Alcohol use disorder F10.90 Elevated LFTs R79.89 Rhabdomyolysis M62.82 Hepatitis C B19.20 Hepatic steatosis K76.0
--- NOTE | 2023-01-16 16:13 | PM.CONSULT ---
Providers/Reason For Consult Consulting Physician/Specialty*: Dr. Toan Trimble, DO/General surgery Reason for Consult*: pancreatitis and cholelithiasis Attending Physician: Henrique Romero Primary Care Provider: Gilson Rivas History of Present Illness History of Present Illness Radhames Spears is a 32 year old male who is homeless and an alcoholic on multiple illicit drugs, who presented to the hospital with abdominal pain and nausea. He was found to have pancreatitis as well as cholelithiasis and a bilirubin of 1.6. He is morbidly obese and common bile duct cannot be readily identified on ultrasound or MRCP. He reports left upper quadrant abdominal pain. Pain is constant and dull. Palpation makes pain worse. Nothing makes pain better. The pain does not radiate. Review of Systems General: Reports: 10 or more systems reviewed and unremarkable except in HPI and below Medications/Allergies Home Medications Medication Instructions Recorded Confirmed Last Taken Type Unable to Assess 01/15/23 01/15/23 Unknown History Allergies Allergy/AdvReac Type Severity Reaction Status Date / Time fentanyl Allergy Severe ADR-Seizure Verified 01/15/23 19:54 diphenhydramine Allergy Intermediate headache, Verified 01/15/23 19:54 [From Benadryl] restless leg cyclobenzaprine Allergy Nausea, Verified 01/15/23 19:55 [From Flexeril] vomiting, headache Current Medications Generic Name Dose Route Start Last Admin Trade Name Freq PRN Reason Stop Dose Admin Enoxaparin Sodium 40 mg 01/15/23 20:30 01/15/23 20:05 Enoxaparin 40 Mg/0.4 Ml Syringe SUBCUT 40 mg Q24H CA Administration Folic Acid 1 mg 01/16/23 09:00 01/16/23 09:15 Folic Acid 1 Mg Tablet PO 1 mg DAILY CA Administration Hydromorphone HCl 0.5 mg 01/15/23 18:54 01/15/23 20:06 Hydromorphone 1 Mg/Ml Inj 1 Ml IVP 0.5 mg Q4H PRN Administration SEVERE PAIN Lactated Ringer's 1,000 mls @ 100 mls/hr 01/15/23 19:15 01/16/23 15:20 Lactated Ringers IV 100 mls/hr .Q10H CA Administration Piperacillin Sod/Tazobactam 50 mls @ 12.5 mls/hr 01/15/23 20:00 01/16/23 11:31 Sod 3.375 gm/ Sodium Chloride IV 12.5 mls/hr Q8H CA Administration Protocol Dexmedetomidine HCl 400 mcg/ 104 mls @ 0 mls/hr 01/15/23 22:45 01/16/23 12:09 Sodium Chloride IV 0.5 mcg/kg/hr .Q0M CA 23.59 mls/hr Administration Protocol Per Protocol Multivitamins Therapeutic 1 tab 01/16/23 09:00 01/16/23 09:16 Multivitamin Therapeutic Tablet PO 1 tab DAILY CA Administration Nicotine 1 patch 01/16/23 09:00 01/16/23 09:15 Nicotine 21 Mg Patch TRANSDERMA 1 patch DAILY CA Administration Nystatin 1 applic 01/15/23 19:56 01/16/23 09:16 Nystatin Cream 30 Gm TOPICAL 1 applic BID CA Administration Pantoprazole Sodium 40 mg 01/15/23 20:00 01/15/23 20:05 Pantoprazole 40 Mg Sdv IVP 40 mg Q24H CA Administration Phenobarbital Sodium 64.8 mg 01/16/23 08:30 01/16/23 09:14 Phenobarbital 130 Mg/Ml Sdv 1 Ml IV 01/17/23 20:31 64.8 mg Q12H CA Administration Thiamine Mononitrate 100 mg 01/16/23 09:00 01/16/23 09:15 Thiamine 100 Mg Tablet PO 100 mg DAILY CA Administration PFSH Acute PFSH: Medical History Alcohol use disorder Biliary colic Homelessness HTN (hypertension) Morbid obesity Schizophrenia Smoking addiction Substance use disorder Surgical History H/O esophagogastroduodenoscopy Family History Other Colon cancer Social History Smoking and tobacco status: current every day smoker Alcohol intake: current Housing: Homeless Marital status: Vitals/I&O/Wt Last Vital Signs Temp 98.2 F 01/15/23 09:49 Pulse 81 01/16/23 14:00 Resp 22 H 01/16/23 12:00 BP 99/73 01/16/23 12:00 Pulse Ox 96 01/16/23 12:00 O2 Del Method Room Air 01/15/23 18:10 01/16/23 01/16/23 01/16/23 06:59 14:59 22:59 Intake Total 1539.172 / 3709.172 304 / 304 988.333 / 1292.333 Output Total 500 / 1100 600 / 600 Balance 1039.172 / 2609.172 -296 / -296 988.333 / 692.333 Weight last 48 hrs Weight 400 lb Physical Exam Narrative: General : Patient is well developed , morbidly obese, no acute distress, oriented x3 Head : Normal cephalic, a-traumatic. Ears : Pinnae and external canal are normal. Hearing is normal. Eyes : PERRLA, Sclera and injection are normal. No conjunctival discharge. Nose : Mucous membranes are without erythema. Throat : buccal mucosa is normal, gums are without significant recession or hypertrophy. Lungs : Equal chest rise bilaterally, no use of accessory muscles, trachea is midline. Cor : Rate and rhythm are normal. Abdomen : Soft, ND, tender to palpation left upper quadrant. Negative Jackson's, no g/r/m Extremities : No edema, no cyanosis or clubbing, dorsalis pedis pulses are present bilaterally, non-tender to palpation of calves. Upper extremities are normal bilaterally. Back : non-tender to palpation, no CVA tenderness. Neuro : CN II - XII intact, Upper and lower extremities have equal and full strength Data 01/16/23 02:09 01/16/23 02:09 Micro: Microbiology 01/15/23 11:15 Blood Culture - Preliminary Blood NEGATIVE TO DATE 01/15/23 11:06 Blood Culture - Preliminary Blood NEGATIVE TO DATE A&P Assessment and plan (1) Acute pancreatitis: (2) Alcohol use disorder: (3) Substance use disorder: (4) Hepatitis C: (5) Elevated LFTs: (6) Cholelithiasis: Plan No acute surgical intervention Follow-up as outpatient for possible cholecystectomy in the future IV fluids Medical management per hospitalist Coding Level of Care Code Acute Code for Chg Fwd Diagnoses Acute pancreatitis K85.90 Alcohol use disorder F10.90 Substance use disorder F19.90 Hepatitis C B19.20 Elevated LFTs R79.89 Cholelithiasis K80.20
[2023-01-16] MEDS: HYDROmorphone 1 mg/mL INJ 1 mL 0.5 MG IVP ×2 (17:34→23:22)
[2023-01-16 18:12] LABS: Glucose Point of Care 121 mg/dL (70-110)
[2023-01-16] MEDS: pantoprazole 40 mg SDV IVP (19:33)
[2023-01-16] MEDS: enoxaparin 40 mg/0.4 mL Syringe SUBCUT (19:34)
[2023-01-17] VITALS (50 sets, daily range): BP systolic 106–155; BP diastolic 70–117; PULSE 69–118; RESP 12–26; TEMP 36.9; O2SAT 90–97
[2023-01-17] MEDS: lactated ringers 1,000 ML 100 ML IV ×2 (02:29→12:40)
[2023-01-17] MEDS: dexmedetomidine 400 MCG in sodium chloride 0.9% (100 ml) 100 ML 23.59 MCG IV ×2 (02:30→08:05)
[2023-01-17] MEDS: piperacillin-tazobactam 3.375 GM in sodium chloride 0.9% (plus) 50 ML IV ×2 (03:25→12:40)
[2023-01-17] MEDS: HYDROmorphone 1 mg/mL INJ 1 mL 0.5 MG IVP ×6 (03:55→22:43)
[2023-01-17 04:17] LABS: Basophils % 0.4 %; Eosinophils # 0.4 10^3/uL (0.0-0.8); Eosinophils % 3.9 %; Hematocrit 40.1 % (42.0-52.0); Lymphocytes # 2.5 10^3/uL (0.8-4.8); Lymphocytes % 27.1 %; Mean Corpuscular HGB Conc 32.4 g/dL (30.0-36.0); Mean Corpuscular Hemoglobin 33.6 pg (28.0-34.0); Mean Corpuscular Volume 103.6 fl (80-94); Mean Platelet Volume 10.3 fL (7.4-10.4); Monocytes # 0.8 10^3/uL (0.2-0.9); Monocytes % 8.4 %; Neutrophils % 59.9 %; Nucleated Red Blood Cells % 0 %; Platelet Count 144 10^3/cmm (130-400); Red Blood Count 3.87 10^6/uL (4.1-5.3); Red Cell Distribution Width 12.7 % (12.1-15.1); White Blood Count 9.3 10^3/uL (4.0-10.0)
[2023-01-17 04:48] LABS: Alanine Aminotransferase 68 U/L (0-41); Albumin Level 3.3 g/dL (3.5-5.2); Alkaline Phosphatase 67 U/L (40-130); Anion Gap 12.5 (5-19); Aspartate Amino Transferase 89 U/L (0-40); Blood Urea Nitrogen 9 mg/dL (6-20); Carbon Dioxide 24 mmol/L (22-29); Chloride 97 mmol/L (98-107); Globulin 3.1 g/dL (1.3-4.6); Glomerular Filtration Rate 156.1 mL/min (90-130); Glucose 90 mg/dL (65-115); Lipase 125 U/L (13-60); Osmolality Calculated 268 mOsm/kg (285-295); Potassium 3.5 mmol/L (3.5-5.1); Sodium 130 mmol/L (136-145); Total Bilirubin 1.1 mg/dL (0.15-1.2); Total Protein 6.4 g/dL (6.6-8.7)
[2023-01-17] MEDS: thiamine 100 mg Tablet PO ×2 (07:51→07:55)
[2023-01-17] MEDS: PHENobarbital 130 mg/mL SDV 1 mL 64.8 MG IV ×2 (07:54→19:36)
[2023-01-17] MEDS: folic acid 1 mg Tablet PO (07:55)
[2023-01-17] MEDS: nicotine 21 mg Patch 1 PATCH TRANSDERMA (07:55)
--- NOTE | 2023-01-17 08:48 | PC.NURSE ---
restless agitated c/o pain in abdomen iv pain med given and phenobarbital continue to be restless and agitated increase precedex at this time
[2023-01-17] MEDS: HYDROmorphone 1 mg/mL INJ 1 mL 0.4 MG IVP (10:03)
[2023-01-17] MEDS: nystatin cream 30 gm 1 APPLIC TOPICAL ×2 (10:04→17:46)
[2023-01-17] MEDS: dexmedetomidine 400 MCG in sodium chloride 0.9% (100 ml) 100 ML 14.15 MCG IV (13:32)
--- NOTE | 2023-01-17 14:06 | PM.PN ---
Subjective Subjective: Patient seen and examined. Still reporting epigastric abdominal pain. Vitals/I&O/Wt Last Vital Signs Temp 98.2 F 01/15/23 09:49 Pulse 72 01/17/23 08:30 Resp 24 H 01/17/23 13:20 BP 154/101 01/17/23 08:30 Pulse Ox 95 01/17/23 08:30 O2 Del Method Room Air 01/15/23 18:10 01/16/23 01/17/23 01/17/23 22:59 06:59 14:59 Intake Total 1936.333 / 2240.333 1255.83 / 3496.163 1254.000 / 1254.000 Output Total 1050 / 1650 400 / 2050 Balance 886.333 / 590.333 855.83 / 6824.509 4895.000 / 1254.000 Physical Exam Narrative: General: Morbidly obese, no acute distress, awake alert oriented x3 Abdomen: Soft, nondistended, tender to palpation over epigastrium, no guarding rebound or masses Data 01/17/23 03:19 01/17/23 03:19 Micro: Microbiology 01/15/23 11:15 Blood Culture - Preliminary Blood NEGATIVE TO DATE 01/15/23 11:06 Blood Culture - Preliminary Blood NEGATIVE TO DATE A&P Assessment and plan (1) Acute pancreatitis: (2) Alcohol use disorder: (3) Substance use disorder: (4) Hepatitis C: (5) Elevated LFTs: (6) Cholelithiasis: Plan No acute surgical intervention Follow-up as outpatient for possible cholecystectomy in the future IV fluids Medical management per hospitalist Attestations Medical Necessity Statement*: Per primary Coding Level of Care Code Acute Code for g Fwd Diagnoses Acute pancreatitis K85.90 Alcohol use disorder F10.90 Substance use disorder F19.90 Hepatitis C B19.20 Elevated LFTs R79.89 Cholelithiasis K80.20
[2023-01-17] MEDS: FUROsemide 10 mg/mL SDV 2mL 20 MG IVP (14:45)
--- NOTE | 2023-01-17 15:51 | P.PN_ITS ---
Subjective Subjective: He is having more abdominal pain today, says that he stopped eating due to it. It is epigastric, bandlike across the upper abdomen. He is requiring more IV pain medication. Vitals/I&O/Wt Last Vital Signs Temp 98.2 F 01/15/23 09:49 Pulse 79 01/17/23 15:30 Resp 22 H 01/17/23 15:35 BP 128/88 01/17/23 15:00 Pulse Ox 96 01/17/23 15:35 O2 Del Method Room Air 01/15/23 18:10 01/17/23 01/17/23 01/17/23 06:59 14:59 22:59 Intake Total 1255.83 / 3496.163 1494.000 / 1494.000 Output Total 400 / 0 Balance 855.83 / 6345.779 5745.000 / 1494.000 Physical Exam Const: COMMON NORMALS: patient oriented x3 and alert GENERAL APPEARANCE: cooperative and ill appearing NUTRITIONAL APPEARANCE: obese morbidly obese ORIENTATION/CONSCIOUSNESS: Yes awake OTHER: No tremor HENMT: COMMON NORMALS: oropharynx normal Neck/C-Spine: COMMON NORMALS: no JVD Resp: COMMON NORMALS: normal respiratory effort and clear to auscultation bilaterally AUSCULTATION: clear to auscultation bilaterally Cardio: COMMON NORMALS: no JVD, regular rhythm, S1 normal heart sound present, S2 normal heart sound present and No murmurs present (Cardio) RATE: tachycardic RHYTHM: regular rhythm HEART SOUNDS: S1 normal heart sound present and S2 normal heart sound present GI: COMMON NORMALS: Normal to inspection, nondistended, normoactive bowel sounds present, Soft to palpation and non-tender PALPATION: Yes Soft to palpation and Yes Tenderness to palpation present (GI) (Epigastrium) Extremity: COMMON NORMALS: no joint enlargement and no pedal edema Neuro: COMMON NORMALS: patient oriented x3 and moves all extremities SENSORIUM/ORIENTATION: Yes alert Skin: COMMON NORMALS: no rashes or lesions noted GENERAL SKIN EXAM: no rashes or lesions noted Data 01/17/23 03:19 01/17/23 03:19 Micro: Microbiology 01/15/23 11:15 Blood Culture - Preliminary Blood NEGATIVE TO DATE 01/15/23 11:06 Blood Culture - Preliminary Blood NEGATIVE TO DATE A&P Assessment and plan (1) Acute pancreatitis: Discussed with him improving lipase, but he is having persistent pain, worse today, requiring more frequent IV Dilaudid. Says he stopped eating. Will scale back diet to clear liquid for when he is ready. Continue PPI. Later in the afternoon he reports feeling like he is swelling all over including his throat. Stop IVF. Give a dose of IV 20 mg Lasix. No oropharyngeal swelling on exam. Maintaining blood pressure without any significant change. He is receiving Zosyn at this time. Stop Zosyn. Added to allergies just in case. Discussed with RN to monitor for anaphylaxis. Antiemetic as needed, so far has not required. Lipase continues to improve, down to 125 today. Further assessment regarding biliary colic, cholelithiasis. Troponin, EKG series. PPI Lovenox VTE prophylaxis (2) Biliary colic: Hyperbilirubinemia resolved. Zosyn had to be stopped as above. He has no le ukocytosis, afebrile. Hold off antibiotic for now, consider if needed resumption with alternative agent. Blood culture reviewed so far without any growth. T. bili 1.1, AST down to 89, ALT down to 68, alk phos is normal. Discussed with surgery - finding low suspicion for cholecystitis, follow up in office. History of recurrent biliary colic, patient reports was told previously had to have gallbladder removed. (3) Substance withdrawal: On review C-lite doing well. However, was started on Precedex last night, he is weaning down, but still requiring it per RN report otherwise starts getting very restless. Wean off Precedex. Continue phenobarbital taper. Yesterday going into withdrawal, has responded well to loading dose of phenobarbital, continue with taper dose. His symptoms quite significantly improved, tachycardia has resolved. He is feeling better subjectively today as well. IV phenobarbital taper, today for now continuing 64.8 every 12 hours for 4 doses, switch to 32.4 on 01/18. Close monitoring for now. Monitoring. Polysubstance withdrawal, definitely alcohol withdrawal, last drink over 2 days ago. Normally drinks a gallon-gallon and a half of liquor in a day. Also frequently uses methamphetamine, discussed with him possible withdrawal from the substance which may be quite severe also protracted. Occasionally snorts fentanyl, possibility of opioid withdrawal as well. Smokes marijuana. Denies any other substance use. Remotely used to inject drugs in the past, but has not done that in the last 2 years at least. Smokes cigarettes as well. Discussed with him treatment of withdrawal. He is transferred to ICU due to withdrawal for further close monitoring and treatment. Phenobarbital loading dose, continue subsequently with taper. Dilaudid is ordered as needed which she is receiving currently due to pain. Timing, folic acid, multivitamin. Telemetry monitoring. Nicotine patch, nicotine lozenges. Discussed with case management to offer him options for rehabilitation. (4) Nausea and vomiting: Resolved. With acute pancreatitis, cannot exclude also gastritis with EtOH use. Pancreatitis as above. PPI. Troponin, EKG series. (5) UTI (urinary tract infection): Suspected UTI. Stop Zosyn. So far nothing on urine culture. Follow-up urine culture. (6) Severe uncontrolled hypertension: Blood pressure at target. Severe hypertension on presentation, blood pressure as high as 217/153. Treat withdrawal as above. Blood pressure should improve with that. Follow-up blood pressures. (7) Intertrigo: Nystatin cream (8) Smoking addiction: Discussed with him nicotine patch, lozenges and he is happy to have both. Would benefit from cessation. (9) Substance use disorder: Follow-up blood culture. Per discussion with CM declines rehabilitation (10) Alcohol use disorder: Replace vitamins as above. Per discussion with CM declines for rehabilitation (11) Elevated LFTs: Mild EtOH induced hepatitis. Pancreatitis. Improving, but T. bili did note rising up to 1.7. Alk phos is normal. AST and ALT with improvement. Repeat LFTs requested. Maddrey discriminant function 3.9. No steroid. Hepatitis panel noted, positive hepatitis C Additionally noted hepatic steatosis (12) Rhabdomyolysis: Rhabdomyolysis noted resolved. CK down to 216. Methamphetamine use, currently suspected polysubstance withdrawal. Troponin EKG series On my interpretation without evidence of AMI or ischemia. (13) Hepatitis C: Will need follow-up (14) Hepatic steatosis: Will need follow-up, control of risk factors, weight loss. Would benefit from alcohol cessation. Plan Homelessness: Case management consultation, discussed. Attestations Medical Necessity Statement*: Continue admission for assessment management of acute pancreatitis, requiring parenteral opioid, polysubstance withdrawal, tapering off Precedex. Coding Level of Care Code Critical Care >/= 30 minutes Critical care time (in minutes): 35 The high probability of a clinically significant, sudden or life threatening deterioration, as referenced in this documentation, required my full and direct attention, intervention and personal management. The critical care time shown is in addition to time spent performing any reported separately billable procedures and includes the following: [x] Data and vital sign review and interpretation [x ] Patient assessment, examination and intervention [x] Medication orders and management [x] Patient/Family updates as able [x] Care Coordination and Docume ntation. Diagnoses Acute pancreatitis K85.90 Biliary colic K80.50 Substance withdrawal F19.939 Nausea and vomiting R11.2 UTI (urinary tract infection) N39.0 Severe uncontrolled hypertension I10 Intertrigo L30.4 Smoking addiction F17.200 Substance use disorder F19.90 Alcohol use disorder F10.90 Elevated LFTs R79.89 Rhabdomyolysis M62.82 Hepatitis C B19.20 Hepatic steatosis K76.0
[2023-01-17] MEDS: HYDROmorphone 1 mg/mL INJ 1 mL IVP ×2 (17:07→19:25)
--- NOTE | 2023-01-17 19:07 | CTR_ITS ---
PROCEDURE INFORMATION: Exam: CT Abdomen And Pelvis Without Contrast Exam date and time: 01/17/2023 8:57 PM Age: 32 years old Clinical indication: Abdominal pain; Epigastric; Additional info: Abdinal pain worsened, pancreatitis TECHNIQUE: Imaging protocol: Computed tomography of the abdomen and pelvis without contrast. Radiation optimization: All CT scans at this facility use at least one of these dose optimization techniques: automated exposure control; mA and/or kV adjustment per patient size (includes targeted exams where dose is matched to clinical indication); or iterative reconstruction. REPORTING DATA: Count of CT and Cardiac NM exams in prior 12 months: This patient has received 0 known CTs and 0 known cardiac nuclear medicine studies in the 12 months prior to the current study. COMPARISON: MR MRCP [id number] 01/15/2023 12:20 PM RADIATION DOSE METRICS: Total DLP (mGy-cm): 1520.73 FINDINGS: Lungs: [id number] lung base atelectasis. Diaphragm: Tiny hiatal hernia. Liver: Large and very fatty liver. Gallbladder and bile ducts: Large gallbladder. Few gallstones are visualized. Pancreas: There is moderate fat stranding around the proximal pancreas with enlargement. No fluid collection noted. Spleen: The spleen is not enlarged. No suspicious mass is noted. Adrenal glands: Normal. No mass. Kidneys and ureters: No solid renal mass or hydronephrosis. Stomach and bowel: Fecal filled colon. No high-grade small bowel obstruction. Appendix: No evidence of appendicitis. Intraperitoneal space: Mild abdominal and pelvic free fluid. Vasculature: No AAA or acute vascular lesion identified. Lymph nodes: A few reactive nodes about the pancreas and periportal region. Urinary bladder: Unremarkable as visualized. Reproductive: Unremarkable as visualized. Bones/joints: No acute fracture. Advanced for age at least mild diffuse spine DJD. Congenital and acquired moderately severe lumbar spinal stenosis. Soft tissues: No acute or suspicious finding noted. CT/CT abdomen pelvis wo con [id number] IMPRESSION: 1. Aaoy-on-racrjvng pancreatitis, especially of the proximal pancreas. No fluid collection. Mild free fluid. These findings do seem progressed from the 01/15/2023 MRI. 2. Cholelithiasis. 3. Large and fatty liver. 4. Lung base atelectasis and other chronic findings above.
[2023-01-17] MEDS: pantoprazole 40 mg SDV IVP (19:25)
[2023-01-17] MEDS: enoxaparin 40 mg/0.4 mL Syringe SUBCUT (19:36)
[2023-01-17] MEDS: nicotine 4 mg lozenge MUCOUS MEM (20:20)
[2023-01-17] MEDS: ondansetron 2 mg/ML SDV 2 mL 4 MG IVP (20:35)
[2023-01-17 21:45] LABS: HEP C RNA Viral Load Quant 14300000 IU/mL (NOT DETECTED); HEP C RNA Viral Load Quant 7.16 Log IU/mL (NOT DETECTED)
--- NOTE | 2023-01-17 22:39 | PC.NURSE ---
Patient complaining of severe pain. Dr. Sosa on unit. Dilaudid order changed to [address] Sosa.
--- NOTE | 2023-01-17 23:13 | PC.NURSE ---
Rash Red bumpy rash noticeable on patient's right arm and right leg. Patient states he has poison boo; Dr. Sosa contacted and order placed for 1% hydrocortisone topical cream BID.
[2023-01-17] MEDS: hydrocortisone 1% cream 28 gm 1 APPLIC TOPICAL (23:56)
[2023-01-18] VITALS (44 sets, daily range): BP systolic 142–180; BP diastolic 81–112; PULSE 77–135; RESP 15–27; TEMP 36.6–37; O2SAT 87–97
--- NOTE | 2023-01-18 00:17 | PC.NURSE ---
Tick removed from patients left axially region.
[2023-01-18] MEDS: HYDROmorphone 1 mg/mL INJ 1 mL 2 MG IVP ×7 (01:46→23:41)
[2023-01-18] MEDS: ondansetron 2 mg/ML SDV 2 mL 4 MG IVP ×2 (05:26→19:50)
[2023-01-18] MEDS: nicotine 4 mg lozenge MUCOUS MEM (05:56)
[2023-01-18 06:00] LABS: Basophils % 0.5 %; Eosinophils # 0.3 10^3/uL (0.0-0.8); Eosinophils % 3.4 %; Hematocrit 40.3 % (42.0-52.0); Hemoglobin 13.2 g/dL (11.7-16.6); Lymphocytes % 23.5 %; Mean Corpuscular HGB Conc 32.8 g/dL (30.0-36.0); Mean Corpuscular Hemoglobin 33.9 pg (28.0-34.0); Mean Corpuscular Volume 103.6 fl (80-94); Mean Platelet Volume 10.3 fL (7.4-10.4); Monocytes # 0.8 10^3/uL (0.2-0.9); Monocytes % 9.5 %; Neutrophils # 5.29 10^3/uL (1.8-7.7); Neutrophils % 62.5 %; Nucleated Red Blood Cells % 0 %; Platelet Count 178 10^3/cmm (130-400); Red Blood Count 3.89 10^6/uL (4.1-5.3); Red Cell Distribution Width 12.8 % (12.1-15.1); White Blood Count 8.5 10^3/uL (4.0-10.0)
[2023-01-18 06:27] LABS: Alanine Aminotransferase 71 U/L (0-41); Albumin Level 3.4 g/dL (3.5-5.2); Alkaline Phosphatase 68 U/L (40-130); Anion Gap 15.5 (5-19); Aspartate Amino Transferase 90 U/L (0-40); Blood Urea Nitrogen 8 mg/dL (6-20); Calcium 8.5 mg/dL (8.5-10.5); Carbon Dioxide 23 mmol/L (22-29); Chloride 98 mmol/L (98-107); Globulin 3.5 g/dL (1.3-4.6); Glomerular Filtration Rate 156.1 mL/min (90-130); Glucose 63 mg/dL (65-115); Lipase 108 U/L (13-60); Osmolality Calculated 272 mOsm/kg (285-295); Potassium 3.5 mmol/L (3.5-5.1); Sodium 133 mmol/L (136-145); Total Bilirubin 1.1 mg/dL (0.15-1.2); Total Protein 6.9 g/dL (6.6-8.7)
[2023-01-18] MEDS: PHENobarbital 32.4 mg Tablet PO ×2 (08:53→20:08)
[2023-01-18] MEDS: nicotine 21 mg Patch 1 PATCH TRANSDERMA (08:53)
[2023-01-18] MEDS: multivitamin therapeutic Tablet 1 TAB PO (08:54)
[2023-01-18] MEDS: folic acid 1 mg Tablet PO (08:54)
[2023-01-18] MEDS: thiamine 100 mg Tablet PO (08:54)
[2023-01-18] MEDS: hydrocortisone 1% cream 28 gm 1 APPLIC TOPICAL ×2 (10:37→17:50)
[2023-01-18] MEDS: nystatin cream 30 gm 1 APPLIC TOPICAL ×2 (10:38→17:50)
--- NOTE | 2023-01-18 11:05 | PM.PN ---
Subjective Subjective: Patient began having worsening epigastric and left upper quadrant pain with clear liquids yesterday so liquids were held. He also reported the feeling of swelling, so IV fluids were shut off and he was given Lasix. Vitals/I&O/Wt Last Vital Signs Temp 98 F 01/18/23 10:00 Pulse 90 01/18/23 10:00 Resp 19 H 01/18/23 10:00 BP 143/94 01/18/23 10:00 Pulse Ox 97 01/18/23 07:00 O2 Del Method Room Air 01/17/23 20:00 01/17/23 01/18/23 01/18/23 22:59 06:59 14:59 Intake Total 777.353 / 2271.353 Output Total 1625 / 1625 300 / 1925 Balance -847.647 / 646.353 -300 / 346.353 Weight last 48 hrs Weight 401 lb 3.2 oz Physical Exam Narrative: General: Morbidly obese, no acute distress, awake alert oriented x3 Abdomen: Soft, nondistended, tender to palpation over epigastrium, no guarding rebound or masses Data 01/18/23 04:53 01/18/23 04:53 A&P Assessment and plan (1) Acute pancreatitis: (2) Alcohol use disorder: (3) Substance use disorder: (4) Hepatitis C: (5) Elevated LFTs: (6) Cholelithiasis: Plan No acute surgical intervention Follow-up as outpatient for possible cholecystectomy in the future IV fluids are typically the treatment for pancreatitis Recommend clear liquids when patient can tolerate Medical management per hospitalist Attestations Medical Necessity Statement*: Per primary Coding Level of Care Code Acute Code for Chg Fwd Diagnoses Acute pancreatitis K85.90 Alcohol use disorder F10.90 Substance use disorder F19.90 Hepatitis C B19.20 Elevated LFTs R79.89 Cholelithiasis K80.20
--- NOTE | 2023-01-18 12:40 | PC.NURSE ---
requesting frequent pain medication for abd pain now requesting mashed potates as it will make my abdomen feel better doctor notified
[2023-01-18] MEDS: sucralfate 1 gm Tablet PO ×3 (12:59→20:08)
--- NOTE | 2023-01-18 14:41 | PC.NURSE ---
large amt of liguids taken now off npo caution pt at this time continue to drink liquids
--- NOTE | 2023-01-18 17:32 | PC.NURSE ---
continue to request pain medication every 4 hours... taking full liquids large amts at this time
[2023-01-18] MEDS: pantoprazole 40 mg SDV IVP (19:45)
[2023-01-18] MEDS: enoxaparin 40 mg/0.4 mL Syringe SUBCUT (19:47)
--- NOTE | 2023-01-18 19:56 | P.PN_ITS ---
Subjective Subjective: He states he still hurting this morning. Did not want to eat. States he is also itching/burning all over his arms, legs from poison boo. Requesting for poison boo shot . Vitals/I&O/Wt Last Vital Signs Temp 98 F 01/18/23 10:00 Pulse 91 01/18/23 19:00 Resp 19 H 01/18/23 19:40 BP 150/100 01/18/23 19:00 Pulse Ox 95 01/18/23 19:40 O2 Del Method Room Air 01/17/23 20:00 01/18/23 01/18/23 01/18/23 06:59 14:59 22:59 Intake Total 980 / 980 1100 / 2080 Output Total 300 / 1925 300 / 300 550 / 850 Balance -300 / 346.353 680 / 680 550 / 1230 Weight last 48 hrs Weight 181.981 kg Physical Exam Const: COMMON NORMALS: patient oriented x3 and alert GENERAL APPEARANCE: cooperative and ill appearing NUTRITIONAL APPEARANCE: obese morbidly obese ORIENTATION/CONSCIOUSNESS: Yes awake OTHER: No tremor HENMT: COMMON NORMALS: oropharynx normal Neck/C-Spine: COMMON NORMALS: no JVD Resp: COMMON NORMALS: normal respiratory effort and clear to auscultation bilaterally AUSCULTATION: clear to auscultation bilaterally Cardio: COMMON NORMALS: no JVD, regular rhythm, S1 normal heart sound present, S2 normal heart sound present and No murmurs present (Cardio) RATE: tachycard ic RHYTHM: regular rhythm HEART SOUNDS: S1 normal heart sound present and S2 normal heart sound present GI: COMMON NORMALS: Normal to inspection, nondistended, normoactive bowel sounds present, Soft to palpation and non-tender PALPATION: Yes Soft to palpation and Yes Tenderness to palpation present (GI) (Epigastrium) Extremity: COMMON NORMALS: no joint enlargement and no pedal edema Neuro: COMMON NORMALS: patient oriented x3 and moves all extremities SENSORIUM/ORIENTATION: Yes alert Skin: COMMON NORMALS: no rashes or lesions noted GENERAL SKIN EXAM: no rashes or lesions noted Data 01/18/23 04:53 01/18/23 04:53 A&P Assessment and plan (1) Acute pancreatitis: Pain worsened again this morning. Not eating. Made NPO. Discussed with him lipase does look better. He does feel he is having acid reflux as well, discussed with him he is on twice daily PPI, add sucralfate. Later in the day requesting for mashed potatoes. Still requiring IV Dilaudid for pain. Pain medication dose was increased drew mckeon. CT results appreciated. Follow-up lipase. CBC. CMP. Swelling has resolved. Antiemetic as needed Lipase continues to improve, down to 108 Lovenox VTE prophylaxis (2) Biliary colic: Hyperbilirubinemia resolved. Zosyn had to be stopped as above. He has no leslie kocytosis, afebrile. Hold off antibiotic for now, consider if needed resumption with alternative agent. Reassess CMP, CBC. Monitor symptoms. Blood culture reviewed so far without any growth. Liver parameters appreciated. Discussed with surgery - finding low suspicion for cholecystitis, follow up in office. History of recurrent biliary colic, patient reports was told previously had to have gallbladder removed. (3) Substance withdrawal: Stop Precedex. Continue phenobarbital taper. Transfer out of ICU. Polysubstance withdrawal, definitely alcohol withdrawal, last drink over 2 days ago. Normally drinks a gallon-gallon and a half of liquor in a day. Also frequently uses methamphetamine, discussed with him possible withdrawal from the substance which may be quite severe also protracted. Occasionally snorts fentanyl, possibility of opioid withdrawal as well. Smokes marijuana. Denies any other substance use. Remotely used to inject drugs in the past, but has not done that in the last 2 years at least. Smokes cigarettes as well. Timing, folic acid, multivitamin. Telemetry monitoring. Nicotine patch, nicotine lozenges. Discussed with case management to offer him options for rehabilitation. (4) Nausea and vomiting: Resolved. With acute pancreatitis, cannot exclude also gastritis with EtOH use. Pancreatitis as above. PPI. Troponin, EKG series. (5) UTI (urinary tract infection): Suspected UTI. Stop Zosyn. So far nothing on urine culture. Follow-up urine culture. (6) Severe uncontrolled hypertension: Better than presentation, but now fluctuating with some increase. Add amlodipine. Severe hypertension on presentation, blood pressure as high as 217/153. Treat withdrawal as above. Blood pressure should improve with that. Follow-up blood pressures. (7) Intertrigo: Nystatin cream (8) Smoking addiction: Discussed with him nicotine patch, lozenges and he is happy to have both. Would benefit from cessation. (9) Substance use disorder: Follow-up blood culture. Per discussion with CM declines rehabilitation (10) Alcohol use disorder: Replace vitamins as above. Per discussion with CM declines for rehabilitation (11) Elevated LFTs: Mild EtOH induced hepatitis. Pancreatitis. Improving, but T. bili did note rising up to 1.7. Alk phos is normal. AST and ALT with improvement. Repeat LFTs requested. Maddrey discriminant function 3.9. No steroid. Hepatitis panel noted, positive hepatitis C Additionally noted hepatic steatosis (12) Rhabdomyolysis: Rhabdomyolysis noted resolved. CK down to 216. Methamphetamine use, currently suspected polysubstance withdrawal. Troponin EKG series On my interpretation without evidence of AMI or ischemia. (13) Hepatitis C: Will need follow-up (14) Hepatic steatosis: Will need follow-up, control of risk factors, weight loss. Would benefit from alcohol cessation. Plan Homelessness: Case management consultation, discussed. Attestations Medical Necessity Statement*: Continue admission for assessment and management of acute pancreatitis, polysubstance withdrawal. Diagnoses Acute pancreatitis K85.90 Biliary colic K80.50 Substance withdrawal F19.939 Nausea and vomiting R11.2 UTI (urinary tract infection) N39.0 Severe uncontrolled hypertension I10 Intertrigo L30.4 Smoking addiction F17.200 Substance use disorder F19.90 Alcohol use disorder F10.90 Elevated LFTs R79.89 Rhabdomyolysis M62.82 Hepatitis C B19.20 Hepatic steatosis K76.0
[2023-01-18] MEDS: acetaminophen 325 mg Tablet 650 MG PO (21:56)
[2023-01-19] VITALS (12 sets, daily range): BP systolic 134–166; BP diastolic 83–96; PULSE 85–98; RESP 15–20; TEMP 36.7–36.9; O2SAT 91–98
[2023-01-19] MEDS: HYDROmorphone 1 mg/mL INJ 1 mL 2 MG IVP ×2 (03:57→08:07)
[2023-01-19 04:04] LABS: Basophils % 0.6 %; Eosinophils # 0.3 10^3/uL (0.0-0.8); Eosinophils % 4.5 %; Hematocrit 40.4 % (42.0-52.0); Hemoglobin 13.2 g/dL (11.7-16.6); Lymphocytes # 1.9 10^3/uL (0.8-4.8); Mean Corpuscular HGB Conc 32.7 g/dL (30.0-36.0); Mean Corpuscular Hemoglobin 34.4 pg (28.0-34.0); Mean Corpuscular Volume 105.2 fl (80-94); Mean Platelet Volume 9.9 fL (7.4-10.4); Monocytes # 0.8 10^3/uL (0.2-0.9); Monocytes % 11.6 %; Neutrophils # 3.55 10^3/uL (1.8-7.7); Neutrophils % 53.8 %; Nucleated Red Blood Cells % 0 %; Platelet Count 181 10^3/cmm (130-400); Red Blood Count 3.84 10^6/uL (4.1-5.3); Red Cell Distribution Width 12.8 % (12.1-15.1); White Blood Count 6.6 10^3/uL (4.0-10.0)
[2023-01-19 04:28] LABS: Alanine Aminotransferase 66 U/L (0-41); Albumin Level 3.2 g/dL (3.5-5.2); Alkaline Phosphatase 66 U/L (40-130); Anion Gap 14.8 (5-19); Aspartate Amino Transferase 82 U/L (0-40); Blood Urea Nitrogen 5 mg/dL (6-20); Calcium 8.4 mg/dL (8.5-10.5); Carbon Dioxide 25 mmol/L (22-29); Chloride 95 mmol/L (98-107); Globulin 3.7 g/dL (1.3-4.6); Glomerular Filtration Rate 192.7 mL/min (90-130); Glucose 84 mg/dL (65-115); Lipase 105 U/L (13-60); Osmolality Calculated 268 mOsm/kg (285-295); Potassium 3.8 mmol/L (3.5-5.1); Sodium 131 mmol/L (136-145); Total Bilirubin 0.9 mg/dL (0.15-1.2); Total Protein 6.9 g/dL (6.6-8.7)
[2023-01-19] MEDS: sucralfate 1 gm Tablet PO ×4 (06:10→20:50)
[2023-01-19] MEDS: folic acid 1 mg Tablet PO (08:07)
[2023-01-19] MEDS: thiamine 100 mg Tablet PO (08:07)
[2023-01-19] MEDS: nicotine 21 mg Patch 1 PATCH TRANSDERMA (08:07)
[2023-01-19] MEDS: PHENobarbital 32.4 mg Tablet PO ×2 (08:08→20:50)
[2023-01-19] MEDS: ondansetron 2 mg/ML SDV 2 mL 4 MG IVP (08:08)
[2023-01-19] MEDS: multivitamin therapeutic Tablet 1 TAB PO (08:08)
[2023-01-19] MEDS: amlodipine 5 mg Tablet PO (08:08)
[2023-01-19] MEDS: hydrocortisone 1% cream 28 gm 1 APPLIC TOPICAL ×2 (08:11→17:43)
[2023-01-19] MEDS: nystatin cream 30 gm 1 APPLIC TOPICAL ×2 (08:20→17:42)
--- NOTE | 2023-01-19 10:19 | PC.CHAP ---
Pastoral Care Encounter/Spiritual Assessment Type of Contact [] Declined [employer] visit [] Patient/Family/Request visit [] Outpatient visit [] Follow-up visit [] Physician referral [] Code/Alert [x] Routine visit [] Staff referral [] Actively dying [] Patient sleeping [] Family support [] [] Out of room [] Palliative care [] [] Receiving care in room [] Pre-surgical visit [] Trauma [] Long length of stay [] ICU visit [] Other: Relational/Emotional Strength [x] Patient feels connected with others/family/visitors/staff [] Distress [] Loneliness/isolation [] Abandonment Spirituality of Patient [x] Person of Mariia [] Attends Anabaptism of their Mariia [x] Believes in Prayer [x] Reads Bible or Anabaptist materials [] There are Spiritual issues to be addressed [employer]ch[employer] Interventions [x] Prayer [] Active listening [] Non-anxious presence [] Spiritual/emotional support [] Crisis/trauma care [] Spiritual counseling [] Bereavement support [] Provided bereavement packet [] Provided Bible/devotional materials [] Provided toy/stuffed animal, coloring book to patient or family member [] Provided Communion [] Anointing/[place] [] Salvation [x] Completed spiritual assessment [] Other: Impact on Illness or Injury [] Angry [] Fearful [] Anxious [] Often cries [] Exhaustion [] Unable to work [] Unable to attend nondenominational [] Unable to walk/stand [] Unable to read [] Unable to drive [] Unable to eat/drink [] Unable to sleep [] Unable to be with family [] Patient intubated [] Other: Summary Time spent with patient 10 min
--- NOTE | 2023-01-19 13:57 | P.PN_ITS ---
Subjective Subjective: Patient tolerating liquid diet today. Vitals/I&O/Wt Last Vital Signs Temp 98.3 F 01/19/23 11:34 Pulse 98 01/19/23 11:34 Resp 18 01/19/23 12:36 BP 161/83 01/19/23 11:34 Pulse Ox 91 01/19/23 11:34 O2 Del Method Room Air 01/19/23 11:34 O2 Flow Rate 2 01/18/23 20:00 01/18/23 01/19/23 01/19/23 22:59 06:59 14:59 Intake Total 1550 / 2530 240 / 240 Output Total 800 / 1100 750 / 1850 Balance 750 / 1430 -750 / 680 240 / 240 Weight last 48 hrs Weight 412 lb Weight 401 lb 3.2 oz Physical Exam Narrative: General: Morbidly obese, no acute distress, awake alert oriented x3 Abdomen: Soft, nondistended, tender to palpation over epigastrium, no guarding rebound or masses Data 01/19/23 03:24 01/19/23 03:24 A&P Assessment and plan (1) Acute pancreatitis: (2) Alcohol use disorder: (3) Substance use disorder: (4) Hepatitis C: (5) Elevated LFTs: (6) Cholelithiasis: Plan No acute surgical intervention Follow-up as outpatient for possible cholecystectomy in the future IV fluids are typically the treatment for pancreatitis Advance diet as tolerated Medical management per hospitalist Attestations Medical Necessity Statement*: Per primary Coding Level of Care Code Acute Code for [facility] Fwd Diagnoses Acute pancreatitis K85.90 Alcohol use disorder F10.90 Substance use disorder F19.90 Hepatitis C B19.20 Elevated LFTs R79.89 Cholelithiasis K80.20
--- NOTE | 2023-01-19 20:31 | P.PN_ITS ---
Subjective Subjective: He is overall doing better, now eating, but still hurting in epigastrium. Nursing staff reports has been requesting pain medications every 4 hours. Vitals/I&O/Wt Last Vital Signs Temp 98.5 F 01/19/23 19:30 Pulse 85 01/19/23 19:30 Resp 19 H 01/19/23 19:30 BP 159/96 01/19/23 19:30 Pulse Ox 95 01/19/23 19:30 O2 Del Method Room Air 01/19/23 15:47 O2 Flow Rate 2 01/18/23 20:00 01/19/23 01/19/23 01/19/23 06:59 14:59 22:59 Intake Total 240 / 240 Output Total 750 / 1850 600 / 600 Balance -750 / 680 -360 / -360 Weight last 48 hrs Weight 186.88 kg Weight 181.981 kg Physical Exam Const: COMMON NORMALS: patient oriented x3 and alert GENERAL APPEARANCE: cooperative and ill appearing NUTRITIONAL APPEARANCE: obese morbidly obese ORIENTATION/CONSCIOUSNESS: Yes awake OTHER: No tremor HENMT: COMMON NORMALS: oropharynx normal Neck/C-Spine: COMMON NORMALS: no JVD Resp: COMMON NORMALS: normal respiratory effort and clear to auscultation bilaterally AUSCULTATION: clear to auscultation bilaterally Cardio: COMMON NORMALS: no JVD, regular rhythm, S1 normal heart sound present, S2 normal heart sound present and No murmurs present (Cardio) RATE: tachycardic RHYTHM: regular rhythm HEART SOUNDS: S1 normal heart sound present and S2 normal heart sound present GI: COMMON NORMALS: Normal to inspection, nondistended, normoactive bowel sounds present and Soft to palpation PALPATION: Yes Soft to palpation and Yes Tenderness to palpation present (GI) (Epigastrium) Extremity: COMMON NORMALS: no joint enlargement and no pedal edema Neuro: COMMON NORMALS: patient oriented x3 and moves all extremities SENSORIUM/ORIENTATION: Yes alert Skin: COMMON NORMALS: no rashes or lesions noted GENERAL SKIN EXAM: no rashes or lesions noted Data 01/19/23 03:24 01/19/23 03:24 A&P Assessment and plan (1) Acute pancreatitis: Still in pain but does not appear quite as uncomfortable, eating. Just will request for talent development consultant transfer as soon as they become available. Switch over to p.o. Dilaudid. Follow-up lipase, liver parameters. Noted lipase slow improvement but still slightly better. Discussed with him. CBC without leukocytosis. Afebrile. Continue PPI, sucralfate for possible degree of gastritis. Swelling has resolved. Antiemetic as needed Lipase continues to improve, down to 108 Lovenox VTE prophylaxis (2) Biliary colic: Liver parameters reviewed noted improving. Hyperbilirubinemia resolved. Off antibiotic. He has no leukocytosis, afebrile. Hold off antibiotic for now, consider if needed resumption with alternative agent. Reassess CMP, CBC. Monitor symptoms. Blood culture reviewed so far without any growth. Liver parameters appreciated. Discussed with surgery - finding low suspicion for cholecystitis, follow up in office. History of recurrent biliary colic, patient reports was told previously had to have gallbladder removed. (3) Substance withdrawal: Tapering down on phenobarbital. Last dose tonight. Polysubstance withdrawal, definitely alcohol withdrawal, last drink over 2 days ago. Normally drinks a gallon-gallon and a half of liquor in a day. Also frequently uses methamphetamine, discussed with him possible withdrawal from the substance which may be quite severe also protracted. Occasionally snorts fentanyl, possibility of opioid withdrawal as well. Smokes marijuana. Denies any other substance use. Remotely used to inject drugs in the past, but has not done that in the last 2 years at least. Smokes cigarettes as well. Timing, folic acid, multivitamin. Telemetry monitoring. Nicotine patch, nicotine lozenges. Discussed with case management to offer him options for rehabilitation. (4) Nausea and vomiting: Resolved. With acute pancreatitis, cannot exclude also gastritis with EtOH use. Pancreatitis as above. PPI. Troponin, EKG series. (5) UTI (urinary tract infection): Received a short course of Zosyn. Without urinary complaints. (6) Severe uncontrolled hypertension: Increase amlodipine dose. Severe hypertension on presentation, blood pressure as high as 217/153. Treat withdrawal as above. Blood pressure should improve with that. Follow-up blood pressures. (7) Intertrigo: Nystatin cream (8) Smoking addiction: Discussed with him nicotine patch, lozenges. Would benefit from cessation. (9) Substance use disorder: Follow-up blood culture. On review so far. Per discussion with CM [facility] (10) Alcohol use disorder: Replace vitamins as above. Per discussion with CM declines for rehabilitation (11) Elevated LFTs: Mild EtOH induced hepatitis. Pancreatitis. Improving, hyperbilirubinemia resolved. Alk phos is normal. AST and ALT improving. Repeat LFTs requested. Maddrey discriminant function 3.9. No steroid. Hepatitis panel noted, positive hepatitis C Additionally noted hepatic steatosis (12) Rhabdomyolysis: Rhabdomyolysis noted resolved. Methamphetamine use, currently suspected polysubstance withdrawal. Troponin EKG series without evidence of AMI or ischemia. (13) Hepatitis C: Will need follow-up (14) Hepatic steatosis: Will need follow-up, control of risk factors, weight loss. Would benefit from alcohol cessation. Plan Homelessness: Case management consultation, discussed. Consideration of homeless [facility] in [place], although he would rather not leave the area if possible. Attestations Medical Necessity Statement*: Continue admission for assessment management of acute pancreatitis, taper off phenobarbital after polysubstance withdrawal. Diagnoses Acute pancreatitis K85.90 Biliary colic K80.50 Substance withdrawal F19.939 Nausea and vomiting R11.2 UTI (urinary tract infection) N39.0 Severe uncontrolled hypertension I10 Intertrigo L30.4 Smoking addiction F17.200 Substance use disorder F19.90 Alcohol use disorder F10.90 Elevated LFTs R79.89 Rhabdomyolysis M62.82 Hepatitis C B19.20 Hepatic steatosis K76.0
[2023-01-19] MEDS: pantoprazole 40 mg SDV IVP (20:49)
[2023-01-19] MEDS: enoxaparin 40 mg/0.4 mL Syringe SUBCUT (20:49)
[2023-01-20] VITALS (7 sets, daily range): BP systolic 144–159; BP diastolic 88–96; PULSE 66–99; RESP 16–20; TEMP 36.6–37; O2SAT 91–99
[2023-01-20] MEDS: sucralfate 1 gm Tablet PO ×2 (06:20→12:37)
[2023-01-20 07:45] LABS: Basophils % 0.6 %; Eosinophils # 0.3 10^3/uL (0.0-0.8); Eosinophils % 4.1 %; Hematocrit 39.5 % (42.0-52.0); Hemoglobin 13.1 g/dL (11.7-16.6); Lymphocytes % 29.8 %; Mean Corpuscular HGB Conc 33.2 g/dL (30.0-36.0); Mean Corpuscular Hemoglobin 33.6 pg (28.0-34.0); Mean Corpuscular Volume 101.3 fl (80-94); Mean Platelet Volume 10.2 fL (7.4-10.4); Monocytes # 0.9 10^3/uL (0.2-0.9); Monocytes % 13.1 %; Neutrophils % 52.1 %; Nucleated Red Blood Cells % 0 %; Platelet Count 219 10^3/cmm (130-400); Red Cell Distribution Width 12.5 % (12.1-15.1); White Blood Count 6.5 10^3/uL (4.0-10.0)
[2023-01-20 08:07] LABS: Alanine Aminotransferase 60 U/L (0-41); Albumin Level 3.4 g/dL (3.5-5.2); Alkaline Phosphatase 65 U/L (40-130); Aspartate Amino Transferase 68 U/L (0-40); Blood Urea Nitrogen 4 mg/dL (6-20); Calcium 8.7 mg/dL (8.5-10.5); Carbon Dioxide 27 mmol/L (22-29); Chloride 99 mmol/L (98-107); Globulin 3.4 g/dL (1.3-4.6); Glomerular Filtration Rate 192.7 mL/min (90-130); Glucose 96 mg/dL (65-115); Lipase 135 U/L (13-60); Osmolality Calculated 275 mOsm/kg (285-295); Sodium 134 mmol/L (136-145); Total Bilirubin 0.6 mg/dL (0.15-1.2); Total Protein 6.8 g/dL (6.6-8.7)
[2023-01-20] MEDS: nicotine 21 mg Patch 1 PATCH TRANSDERMA (08:15)
[2023-01-20] MEDS: folic acid 1 mg Tablet PO (08:16)
[2023-01-20] MEDS: amlodipine 5 mg Tablet 10 MG PO (08:16)
[2023-01-20] MEDS: thiamine 100 mg Tablet PO (08:16)
[2023-01-20] MEDS: multivitamin therapeutic Tablet 1 TAB PO (08:16)
[2023-01-20] MEDS: nystatin cream 30 gm 1 APPLIC TOPICAL (08:17)
[2023-01-20] MEDS: hydrocortisone 1% cream 28 gm 1 APPLIC TOPICAL (08:33)
--- NOTE | 2023-01-20 12:10 | P.DS_ITS ---
Discharge Providers Date of Admission: 01/15/23 17:31 Date of Discharge: January 20, 2023 Attending Provider at Admission: Henrique Romero Attending Provider at Discharge: Henrique Romero Primary Care Provider: Gilson Rivas Diagnoses at Discharge Discharge Diagnosis (1) Acute pancreatitis: Status: Acute (2) Biliary colic: Status: Acute (3) Substance withdrawal: Status: Acute (4) Nausea and vomiting: Status: Acute (5) UTI (urinary tract infection): Status: Acute (6) Severe uncontrolled hypertension: Status: Acute (7) Intertrigo: Status: Acute (8) Smoking addiction: Status: Acute (9) Substance use disorder: Status: Acute (10) Alcohol use disorder: Status: Acute (11) Elevated LFTs: Status: Acute (12) Rhabdomyolysis: Status: Acute (13) Hepatitis C: Status: Acute (14) Hepatic steatosis: Status: Acute Reason for Visit Reason for Visit: abd pain Brief History: 32-year-old gentleman came in for evaluation due to severe pain across his upper abdomen, nausea and few episodes of vomiting starting yesterday or day before yesterday.? He has history of homelessness, alcoholism, methamphetamine abuse, fentanyl abuse, marijuana, smoking, morbid obesity.? History of withdrawal.? Reported history of recurrent gallbladder colic, with some recommendation in the past to have his gallbladder removed although had not followed up reportedly.? Gallbladder intermittently flares.? On presentation additionally severely hypertensive requiring multiple medications, blood pressure as high as 217/153, received several doses of hydralazine, metoprolol, labetalol, morphine with improvement. He is found to have lipase elevation 1539.? T. bili elevated 1.6, AST ALT elevated 192, 143.? CK elevated at 333. Gallbladder ultrasound was attempted in ER but very limited evaluation.? Noted hepatomegaly and hepatic steatosis.? Incompletely visualized liver. MRCP was obtained as well, finding of suboptimal evaluation of bile ducts, common bile duct cannot be visualized to exclude choledocholithiasis, pancreatic duct does not appear dilated although this is also limited.? Mild gallbladder hydrops with gallstones.? Small mount of fluid in peritoneal cavity.? Predominantly along the pancreatic tail and left paracolic gutter.? Minimal ascites. Surgery was consulted.? GI/general intervention specialist contacted at [facility] in ER with consideration of arranging for ERCP, but specialist on review of patient condition and findings did not find that CBD obstruction was likely, recommending admission for treatment here.? Surgeon agreeing will consult on patient here with hospitalist admit. He is having sinus tachycardia initially 100 teens-120s, with improvement to 105 with initial treatment including fluid challenge. UA with 10-15 WBC.? He reports having intertrigo under his pannus and in groins, and feels he may have a UTI as well. Urine directory positive for opiates, amphetamine, benzodiazepine, marijuana. Hepatitis C is found positive.? He was not aware of having hepatitis.? He states he used to inject, but last time it was probably several years back, nothing more recent.? He does admit to smoking methamphetamine, occasionally snorting fentanyl, although less frequently and not so much recently, and smoking marijuana. He has gone through withdrawal before.? He is currently jittery, restless, with tremor, bothered by nausea, pain.? Last drink was 2 days ago.? Normally drinks about a gallon or gallon and a half. In case he could not make his own decisions he names his father Kaiser Spears as his surrogate decision-maker.? Father's phone number is [phone]. Hospital Course Hospital Course He was treated for acute pancreatitis, received pain and nausea medicine, kept on bowel rest, IV hydration, was assessed by surgery for biliary colic with recommendation for follow-up in outpatient side for cholecystectomy with without need for current surgical intervention. On presentation also with questionable UTI with abnormal UA. Initially empirically covered with Zosyn, however, after complaint of some swelling, diffuse in arms, legs, but also felt swelling in his throat, Zosyn was discontinued in case of possible reaction. No rash, and no hemodynamic instability noted. Just in case Zosyn added to his list of aller gies. IV fluids discontinued at that time as well and received a dose of Lasix. Symptoms resolved without any recurrence. Recently with polysubstance abuse, presentation with withdrawal treated with phenobarbital loading and taper with good response, withdrawal resolved. Offered options for rehabilitation for EtOH and polysubstance use. He is additionally homeless, offered to be set up with [facility] in [place] as needed. He is unable to go to any of the shelters here in town. Still he prefers to stay in town with his children being here and also to follow-up with physicians here. His epigastric pain was improving gradually. Still some persistence of pain, but overall much better. He has been tolerating oral intake. On presentation with significant hypertension, with improvement with resolution of withdrawal, improvement in pain. Still hypertensive, started on amlodipine and continues on 10 mg at discharge. Will need further follow-up and optimization. Encouraged to stop smoking as well. Elevated LFTs noted likely secondary to EtOH, improving. T. bili initially elevated, normalized. Epigastric pain during hospitalization with possible gastritis secondary to EtOH, was treated with PPI, sucralfate, continues on PPI. At discharge follow- up with surgery for both gallbladder and consideration of endoscopic evaluation. Incidentally found to have hepatitis C antibody for which will need further follow-up assessment and management. Incidentally noted hepatic steatosis, will benefit from lifestyle improvement, alcohol cessation, weight loss. Nystatin for intertrigo. Physical Exam Const: COMMON NORMALS: patient oriented x3 and alert GENERAL APPEARANCE: cooperative and ill appearing NUTRITIONAL APPEARANCE: obese morbidly obese ORIENTATION/CONSCIOUSNESS: Yes awake OTHER: Smiling, in good spirits, pleasant and conversant. HENMT: COMMON NORMALS: oropharynx normal Neck/C-Spine: COMMON NORMALS: no JVD Resp: COMMON NORMALS: normal respiratory effort and clear to auscultation bilaterally AUSCULTATION: clear to auscultation bilaterally Cardio: COMMON NORMALS: no JVD, regular rhythm, S1 normal heart sound present, S2 normal heart sound present and No murmurs present (Cardio) RATE: tachycardic RHYTHM: regular rhythm HEART SOUNDS: S1 normal heart sound present and S2 normal heart sound present GI: COMMON NORMALS: Normal to inspection, nondistended, normoactive bowel sounds present, Soft to palpation and non-tender PALPATION: Yes Soft to palpation and Yes Tenderness to palpation present (GI) (Improving epigastrium tenderness) Extremity: COMMON NORMALS: no joint enlargement and no pedal edema Neuro: COMMON NORMALS: patient oriented x3 and moves all extremities SENSORIUM/ORIENTATION: Yes alert Skin: COMMON NORMALS: no rashes or lesions noted GENERAL SKIN EXAM: no rashes or lesions noted Discharge Data Studies Completed and Pending Completed Studies During Hospitalization Category Date Time Status CT abdomen pelvis wo con [id number] Stat Cat Scan 01/17/23 19:07 Completed MR MRCP [id number] Stat MRI 01/15/23 10:59 Completed US gall bladder [id number] Stat Ultrasound 01/15/23 10:00 Completed Pending at discharge Category Date Time Status Complete Blood Count w/Auto AM LABS Lab 01/21/23 04:00 Ordered Comprehensive Metabolic Panel AM LABS Lab 01/21/23 04:00 Ordered Radiology Impressions Gallbladder Ultrasound 01/15/23 10:00 IMPRESSION: 1. Poor visualization of the gallbladder. No stones are identified. 2. Very limited evaluation of the RIGHT upper quadrant due to patient's body habitus. 3. Hepatomegaly and hepatic steatosis. Incompletely visualized liver. Cholangiopancreatography MRI 01/15/23 10:59 IMPRESSION: 1. Suboptimal evaluation of the bile ducts. Common bile duct cannot be visualized to exclude choledocholithiasis. The pancreatic duct does not appear dilated although this is also limited. 2. Mild gallbladder hydrops with gallstones. 3. There is a small amount of fluid in the peritoneal cavity. Predominantly along the pancreatic tail and LEFT paracolic gutter. This is a minimal amount of ascites. Abdomen/Pelvis CT 01/17/23 19:07 IMPRESSION: 1. Ekso-xy-fzgsfhbs pancreatitis, especially of the proximal pancreas. No fluid collection. Mild free fluid. These findings do seem progressed from the 01/15/2023 MRI. 2. Cholelithiasis. 3. Large and fatty liver. 4. Lung base atelectasis and other chronic findings above. Laboratory Results WBC 6.5 10^3/uL (4.0-10.0) 01/20/23 07:07 RBC 3.90 10^6/uL (4.1-5.3) L 01/20/23 07:07 Hgb 13.1 g/dL (11.7-16.6) 01/20/23 07:07 Hct 39.5 % (42.0-52.0) L 01/20/23 07:07 MCV 101.3 fl (80-94) H 01/20/23 07:07 MCH 33.6 pg (28.0-34.0) 01/20/23 07:07 MCHC 33.2 g/dL (30.0-36.0) 01/20/23 07:07 RDW 12.5 % (12.1-15.1) 01/20/23 07:07 Plt Count 219 10^3/cmm (130-400) 01/20/23 07:07 MPV 10.2 fL (7.4-10.4) 01/20/23 07:07 Neut % (Auto) 52.1 % 01/20/23 07:07 Lymph % (Auto) 29.8 % 01/20/23 07:07 [place] % (Auto) 13.1 % 01/20/23 07:07 Eos % (Auto) 4.1 % 01/20/23 07:07 Baso % (Auto) 0.6 % 01/20/23 07:07 Neut # (Auto) 3.40 10^3/uL (1.8-7.7) 01/20/23 07:07 Lymph # (Auto) 2.0 10^3/uL (0.8-4.8) 01/20/23 07:07 [place] # (Auto) 0.9 10^3/uL (0.2-0.9) 01/20/23 07:07 Eos # (Auto) 0.3 10^3/uL (0.0-0.8) 01/20/23 07:07 Baso # (Auto) 0.0 10^3/uL (0.0-0.1) 01/20/23 07:07 Nucleated RBC % (auto) 0 % 01/20/23 07:07 Nucleated RBCs # 0.0 /100WBC 01/20/23 07:07 PT 13.50 SECONDS (12.1-14.9) 01/15/23 17:05 INR 1.00 (0.8-1.2) 01/15/23 17:05 APTT 27.3 SECONDS (23.9-36.7) 01/15/23 17:05 Sodium 134 mmol/L (136-145) L 01/20/23 07:07 Potassium 4.0 mmol/L (3.5-5.1) 01/20/23 07:07 Chloride 99 mmol/L (98-107) 01/20/23 07:07 Carbon Dioxide 27 mmol/L (22-29) 01/20/23 07:07 Anion Gap 12.0 (5-19) 01/20/23 07:07 BUN 4 mg/dL (6-20) L 01/20/23 07:07 Creatinine 0.5 mg/dL (0.7-1.2) L 01/20/23 07:07 GFR Calculation 192.7 mL/min (90-130) H 01/20/23 07:07 Glucose 96 mg/dL (65-115) 01/20/23 07:07 POC Glucose 121 mg/dL (70-110) H 01/16/23 18:10 Calculated Osmolality 275 mOsm/kg (285-295) L 01/20/23 07:07 Lactic Acid 1.4 mmol/L (0.5-2.2) 01/15/23 10:31 Calcium 8.7 mg/dL (8.5-10.5) 01/20/23 07:07 Total Bilirubin 0.6 mg/dL (0.15-1.2) 01/20/23 07:07 AST 68 U/L (0-40) H 01/20/23 07:07 ALT 60 U/L (0-41) H 01/20/23 07:07 Alkaline Phosphatase 65 U/L (40-130) 01/20/23 07:07 Ammonia 38 umol/L (16-60) 01/15/23 17:05 Creatine Kinase 216 U/L (39-308) 01/16/23 02:09 CK-MB (CK-2) 4.2 ng/mL (0-10.4) 01/15/23 09:57 CK-MB (CK-2) Rel Index % (0.0-5.3) 01/15/23 09:57 Troponin T Baseline 7 ng/L (0-15) 01/15/23 20:15 Troponin T 120 Minute 7.38 ng/L (0-15) 01/15/23 22:04 Delta Troponin T 0.38 ABS# (0-10) 01/15/23 22:04 Troponin T Hi Sens 6Hr 6.81 ng/L (0-15) 01/16/23 02:09 Troponin T Hi Sens 6Hr Delta -0.19 ng/L (0-12) L 01/16/23 02:09 Total Protein 6.8 g/dL (6.6-8.7) 01/20/23 07:07 Albumin 3.4 g/dL (3.5-5.2) L 01/20/23 07:07 Globulin 3.4 g/dL (1.3-4.6) 01/20/23 07:07 Lipase 135 U/L (13-60) H 01/20/23 07:07 Urine Color [place] (Yellow) 01/15/23 10:52 Urine Appearance Hazy (CLEAR) A 01/15/23 10:52 Urine pH 7 (5-7) 01/15/23 10:52 Ur Specific [place] 1.010 (1.005-1.030) 01/15/23 10:52 Urine Protein 1+ (Negative) H 01/15/23 10:52 Urine Glucose (UA) Norm (Normal) 01/15/23 10:52 Urine Ketones 1+ (Negative) H 01/15/23 10:52 Urine Blood 2+ (Negative) H 01/15/23 10:52 Urine Nitrate Negative (Negative) 01/15/23 10:52 Urine Bilirubin TNP 01/15/23 10:52 Urine Urobilinogen TNP 01/15/23 10:52 Ur Leukocyte Esterase 2+ (Negative) H 01/15/23 10:52 Urine RBC 0-4 /hpf (0-2) H 01/15/23 10:52 Urine WBC 10-15 /hpf (0-5) H 01/15/23 10:52 Ur Squamous Epith Cells 0-4 /hpf (0-5) H 01/15/23 10:52 Amorphous Sediment Not Reportable 01/15/23 10:52 Urine Bacteria 1+ /hpf (NONE) H 01/15/23 10:52 Hyaline Casts 0-4 /lpf H 01/15/23 10:52 Urine Mucus 2+ /hpf 01/15/23 10:52 Urine Opiates Screen Positive ng/mL (Negative) H 01/15/23 10:52 Ur Barbiturates Screen Negative ng/mL (Negative) 01/15/23 10:52 Ur Phencyclidine Scrn Negative ng/mL (Negative) 01/15/23 10:52 Ur Amphetamines Screen Positive ng/mL (Negative) H 01/15/23 10:52 U Benzodiazepines Scrn Positive ng/mL (Negative) H 01/15/23 10:52 Urine Cocaine Screen Negative ng/mL (Negative) 01/15/23 10:52 U Marijuana (THC) Screen Positive ng/mL (Negative) H 01/15/23 10:52 Ethyl Alcohol < 10 mg/dL (0-10) 01/15/23 09:57 Hepatitis A IgM Ab Non-reactive (Nonreactive) 01/15/23 10:45 Hep Bs Antigen Non-reactive (Nonreactive) 01/15/23 10:45 Hep B Core IgM Ab Non-reactive (Nonreactive) 01/15/23 10:45 Hepatitis C Antibody Reactive (Nonreactive) H 01/15/23 10:45 HCV RNA (PCR) IUs/ml 7.16 Log IU/mL (NOT DETECTED) H 01/15/23 13:08 HCV RNA (PCR) IU log10 [id number] IU/mL (NOT DETECTED) H 01/15/23 13:08 Vitals Last Vital Signs Temp 98 F 01/20/23 08:00 Pulse 91 01/20/23 08:00 Resp 18 01/20/23 08:00 BP 144/91 01/20/23 08:00 Pulse Ox 99 01/20/23 08:00 O2 Del Method Nasal Cannula 01/20/23 08:00 O2 Flow Rate 2 01/18/23 20:00 Discharge Plan Discharge Patient Disposition: Home Condition: Stable Prescriptions: New hydromorphone 4 mg Tablet 4 mg PO Q6H PRN (Reason: Severe Pain) Qty: 12 0RF folic acid 1 mg Tablet 1 mg PO DAILY Qty: 90 0RF multivitamin with folic acid [Thera] 400 mcg Tablet 1 tab PO DAILY Qty: 90 0RF thiamine mononitrate (vit B1) [Vitamin B-1 (mononitrate)] 100 mg Tablet 100 mg PO DAILY Qty: 90 0RF nicotine 21 mg/24 hr Patch 24 Hour 1 patch transdermal DAILY Qty: 90 0RF nicotine (polacrilex) 4 mg Lozenge 4 mg mucous membrane Q2H PRN (Reason: Nicotine Cravings) Qty: 90 0RF nystatin 100,000 unit/gram Cream 1 applic topical BID Qty: 30 0RF Rx Instructions: Groin and under pannus amlodipine 5 mg Tablet 10 mg PO DAILY Qty: 90 0RF pantoprazole 40 mg tablet,delayed release (DR/EC) 40 mg PO DAILY 42 Days Qty: 42 0RF Discharge Orders: Discharge Order (Routine); Ordered 01/20/23 Ordered By: Henrique Romero Referrals: [facility] [Other] Toan Trimble DO [Physician] - 2 weeks Mk Garcia MD [Physician] - 01/23/23 10:00 am Discharge Diet: Advance as tolerated, Low Cholesterol and Low Fat Patient Instructions: How to Stop Smoking (DC), Pancreatitis (GEN), Gallstones (GEN), Cannabis Use Disorder (DC), Methamphetamine Use Disorder (DC), Hypertension (GEN), Skin Yeast Infection (GEN), Opioid Safety Activity Restrictions/Additional Instructions: Follow-up with your primary doctor for reassessment of acute pancreatitis, gallstones. Follow-up with surgery in office in 2 weeks to plan for gallbladder removal. Both alcohol and gallstones will put you at risk of additional episodes of acute pancreatitis. Maintain low-fat/low-cholesterol diet in the meantime. High-fat diet may trigger additional gallbladder symptoms. The cusp of the surgeon also consideration assessment with gastroscopy with suspicion of gastritis. You are started on Protonix. Avoid alcohol as it can cause worsening of gastritis. Abstain from any alcohol or any drug use. Further alcohol use and drug use will lead to serious potentially life-threatening complications. Seek rehabilitation to help you. Follow-up with your primary doctor for hypertension. Follow-up with your primary doctor for reassessment of skin yeast infection. Consider stopping smoking to prevent risk of lung disease, heart disease including heart attack, stroke, cancer and other problems associated with smoking. Follow-up with your primary doctor for treatment of hepatitis C. Follow-up with your primary doctor for reassessment of hepatic steatosis, maintain low-cholesterol diet, pursue weight loss, speak with your primary doctor regarding options to help you. Thiamine, folic acid and vitamins were prescribed to you as continue consumption of large quantities of alcohol also because risk of permanently altering brain function and dementia. Discharge Attestations Time Spent in Discharge Care*: greater than 30 min Quality Metrics Clinical Quality Measures [ No reported AMI, CVA or VTE this stay] Coding Level of Care Code Acute Code for Chg Fwd Diagnoses Acute pancreatitis K85.90 Biliary colic K80.50 Substance withdrawal F19.939 Nausea and vomiting R11.2 UTI (urinary tract infection) N39.0 Severe uncontrolled hypertension I10 Intertrigo L30.4 Smoking addiction F17.200 Substance use disorder F19.90 Alcohol use disorder F10.90 Elevated LFTs R79.89 Rhabdomyolysis M62.82 Hepatitis C B19.20 Hepatic steatosis K76.0
--- NOTE | 2023-01-20 13:09 | PC.NURSE ---
Educated patient on drug and alcohol cessation. Patient stated he would quit drinking and doing drugs but would not quit smoking. Patient provided with tent and creams that were used during his hospital stay. Patient states he has a friend that he can stay with that lives near [address] [place] [address]. The hospital cargo supervisor stated he would provide him a ride if the patient could not find one. Magnetic Resonance Imaging Director notified.
--- NOTE | 2023-01-20 13:13 | PC.NURSE ---
Discharge Note Patient discharged to [address] via [employer] vehicle accompanied by Chaplain Enriquez. Discharge instructions reviewed with patient and/or field support representative. Mobile pharmacy medications and/or prescriptions provided. Belongings/home medications returned.
== END 2023-01-20 14:50 | disposition home or self-care (01) | DRG 439 ==
LOC: ER 16:53 → ICU 17:31 → MEDSURG 01-18 23:22
PROVIDERS: Admitting Provider Internal Medicine; Emergency Provider Physician Assistant; PCP Nurse Practitioner Family; Visit Provider Internal Medicine
DX: K85.90 Acute pancreatitis without necrosis or infection, unspecified (principal); F10.939 Alcohol use, unspecified with withdrawal, unspecified; F19.939 Other psychoactive substance use, unspecified with withdrawal, unspecified; N39.0 Urinary tract infection, site not specified; M62.82 Rhabdomyolysis; Z68.43 Body mass index [BMI] 50.0-59.9, adult; K80.50 Calculus of bile duct without cholangitis or cholecystitis without obstruction; I10 Essential (primary) hypertension; L30.4 Erythema intertrigo; K70.10 Alcoholic hepatitis without ascites; K76.0 Fatty (change of) liver, not elsewhere classified; B19.20 Unspecified viral hepatitis C without hepatic coma; R00.0 Tachycardia, unspecified; R22.1 Localized swelling, mass and lump, neck; T36.0X5A Adverse effect of penicillins, initial encounter; Y92.239 Unspecified place in hospital as the place of occurrence of the external cause; E66.01 Morbid (severe) obesity due to excess calories; K29.20 Alcoholic gastritis without bleeding; F20.9 Schizophrenia, unspecified; F17.210 Nicotine dependence, cigarettes, uncomplicated; Z59.01 Sheltered homelessness
CPT/HCPCS: 36415; 36416; 74176; 74181; 76705; 80053; 80074; 80306; 80307; 81001; 82140; 82550; 82553; 82962; 83605; 83690; 84484; 85025; 85610; 85730; 87040; 87086; 87522; 93005; 96365; 96372; 96375; 96376; 99285; C9113; J0360; J1170; J1650; J1940; J2270; J2405; J2543; J2560; J3411; J3490; J7030; J7120

== ENCOUNTER 2023-04-13 08:49 | Inpatient (IN) | payer MEDICAID, SELFPAY ==
[2023-04-13] VITALS (31 sets, daily range): BP systolic 96–209; BP diastolic 68–133; PULSE 76–115; RESP 15–29; O2SAT 88–98; BMI 61.0
--- NOTE | 2023-04-13 08:56 | XRR_ITS ---
PROCEDURE INFORMATION: Exam: XR Chest Exam date and time: 04/13/2023 9:18 AM Age: 32 years old Clinical indication: Pain; Angina pectoris; Additional info: Chest pain TECHNIQUE: Imaging protocol: Radiologic exam of the chest. Views: 1 view. COMPARISON: CR XR chest 1V portable [id number] 12/08/2021 10:33 PM FINDINGS: Lungs: Unremarkable. No consolidation. Pleural spaces: Unremarkable. No pleural effusion. No pneumothorax. Heart/Mediastinum: Unremarkable. No cardiomegaly. Bones/joints: Unremarkable. XR/XR chest 1V portable [id number] IMPRESSION: No acute findings.
--- NOTE | 2023-04-13 08:57 | ECG_ITS ---
[facility] Test Date: 2023-04-13 Pat Name: Radahmes Spears Department: Room: Gender: Male Hat Measurer: : 1990 Requested By: Tiana Leon Order Number: [id number] Gaffney MD: Kashmir Trinidad M.D. Measurements Intervals [place] Rate: 104 P: 56 AK: 162 QRS: 68 QRSD: 90 T: 37 QT: 361 QTc: 476 Interpretive Statements SINUS TACHYCARDIA ABNORMAL RHYTHM ECG Compared to ECG 01/16/2023 02:12:41 Sinus rhythm no longer present Electronically Signed On 04-13-2023 16:17:54 CDT by Kashmir Trinidad M.D. [id number]
--- NOTE | 2023-04-13 08:57 | W.ED.CHESTPA ---
Documented by User: DARA Castro 04/13/23 12:37 HPI - Chest Pain General: Chief Complaint: Chest Pain Stated Complaint: chest pain Time Seen by Provider: 04/13/23 08:51 Source: patient and EMS Mode of arrival: EMS Limitations: no limitations History of Present Illness: Patient is a 32-year-old male with a history of homelessness, poly substance drug and alcohol abuse, morbid obesity, uncontrolled hypertension, biliary colic, pancreatitis and schizophrenia here for complaints of chest and abdominal pain that started about 30-45 minutes ago and awoke him from sleep. He arrives via EMS who administered two nitro in route and gave 325 aspirin. Upon arrival to the emergency department patient appears incredibly uncomfortable. He complains of pain throughout his chest and upper abdomen. I have seen patient previously for pancreatitis with a similar presentation. Patient denies nausea, vomiting, diarrhea. He has not been running fevers recently. He tells me at some point he had a heart attack and was seen a hospital in [place]-cannot elaborate on any details/treatment in regards to that event. He reports drinking a half a gallon of vodka yesterday evening. When asked what drugs he is still using he responds anything I can get my hands on . Pharmacy verifies patient has not been taking any of his home medications in months. MD complaint: chest pain Onset (ago): minute(s) Onset: awoke with symptoms Pain location: substernal and epigastric Pain radiation: none Severity: severe Pain scale (0-10): 10 Quality: sharp Relieving factors: nothing Exacerbating factors: nothing Associated symptoms: Reports abdominal pain and dyspnea; Deny fever(s), nausea, palpitations, syncope or vomiting Treatment prior to arrival: aspirin and nitroglycerin Risk Factors: Thoracic aortic dissection risk factors: longstanding hypertension Review of Systems Const: Denies: fever(s), chills, body aches, fatigue or malaise Eyes: Denies: change in vision, blurry vision, photophobia, floaters or seeing flashes Card: Reports: chest pain; Denies: palpitations, irregular heart rhythm, edema, swelling of feet/ankles, lightheadedness, syncope, pre-syncope, leg pain with exertion or acrocyanosis Resp: Reports: dyspnea; Denies: productive cough, non-productive cough, change in phlegm color, hemoptysis or chest congestion GI: Reports: abdominal pain; Denies: nausea, vomiting or diarrhea : Denies: flank pain, dysuria or hematuria Musc: Denies: neck pain, back pain, extremity pain, extremity swelling, joint pain, joint swelling, joint redness or joint warmth Skin/Breast: Denies: rash Neuro: Denies: headache(s), numbness in extremities, weakness in extremities or sensory changes PFSH ED PFSH: Medical History Alcohol use disorder Biliary colic Homelessness HTN (hypertension) Morbid obesity Schizophrenia Smoking addiction Substance use disorder Surgical History H/O esophagogastroduodenoscopy Family History Other Colon cancer Social History Smoking and tobacco status: current every day smoker Alcohol intake: current Substance/Drug Use: current Housing: Homeless Marital status: Physical Exam Const: COMMON NORMALS: patient oriented x3 and alert GENERAL APPEARANCE: cooperative and in distress (due to discomfort) NUTRITIONAL APPEARANCE: obese morbidly obese (BMI is over 60) ORIENTATION/CONSCIOUSNESS: Yes awake, Yes oriented to person, Yes oriented to place and Yes oriented to time OTHER: patient is very antsy-rolling around on the table and almost impossible to get to sit still-I saw patient on his last visit to ED and presentation was similar-there was methamphetamine use onboard on that visit HENMT: COMMON NORMALS: normocephalic and atraumatic HEAD & SCALP: normal to inspection, normocephalic and atraumatic Eye: GENERAL EYE: appearance normal, both eyes and all related structures Neck/C-Spine: COMMON NORMALS: full ROM, no lymphadenopathy, no meningeal signs and no JVD Chest: COMMONS NORMALS: normal inspection of the chest and normal palpation of entire chest wall Resp: COMMON NORMALS: normal respiratory effort and clear to auscultation bilaterally AUSCULTATION: clear to auscultation bilaterally Cardio: COMMON NORMALS: no JVD, regular rate and regular rhythm RATE: regular rate RHYTHM: regular rhythm GI: INSPECTION: Yes normal to inspection and Yes central obesity AUSCULTATION: Yes normoactive bowel sounds PALPATION: Yes Tenderness to palpation present (GI) (patient grabs my hand and flings it away at any attempt of palpation), No Guarding due to palpation present (GI) and No Rigid due to palpation : COMMON NORMALS: Yes no CVA tenderness BLADDER/KIDNEY EXAM: Yes no CVA tenderness Back/Pelvis: COMMON NORMALS: no CVA tenderness, thoracic and lumbar spine normal to inspection, no thoracic nor lumbar tenderness and thoraco-lumbar ROM normal Extremity: COMMON NORMALS: normal to inspection, full ROM, capillary refill normal, no joint enlargement, no clubbing, cyanosis or edema, no calf tenderness and no pedal edema NARRATIVE EXTREMITY EXAM: bilateral UE pressures are equal; radial pulses are equal to UEs; DP/PT pulses easily palpated to bilateral LEs GENERAL: Yes normal exam except as noted Neuro: EMILIE COMA SCALE: document GCS findings Emilie coma scale eye opening: Spontaneous [place] coma scale verbal response: Orientated [place] coma scale motor response: Obey commands Emilie coma scale total score: 15 COMMON NORMALS: patient oriented x3, moves all extremities, no focal motor deficits and no sensory deficits noted SENSORIUM/ORIENTATION: Yes alert, Yes oriented to person, Yes oriented to place and Yes oriented to time MENINGEAL SIGNS: Yes no meningeal signs Course Reevaluation(s): Reevaluation #1: Patient still complaining of incredible discomfort. His CT scan consistent with pancreatitis. He has been given 4 mg of morphine and 1 mg of dilaudid without improvement of pain. Patient's alcohol is significantly elevated at 342. He states he drinks a gallon of vodka daily. He does report significant withdrawal symptoms including tremors, vomiting, diarrhea, and seizures. This most likely will complicate his inpatient stay. Spoke to Dr. Centeno who will evaluate patient speak to hospitalist for admission. Vital Signs: Vital signs: Vital Signs Pulse Rate 110 H 04/13/23 12:28 Respiratory Rate 24 H 04/13/23 12:28 Blood Pressure 182/116 04/13/23 12:28 Pulse Oximetry 92 04/13/23 12:28 Oxygen Delivery Me thod Nasal Cannula 04/13/23 12:28 Oxygen Flow Rate 3 04/13/23 12:28 MDM - Chest Pain Medical Decision Making Patient will be an admit for pain control related to pancreatitis. Course anticipated to be complicated by acute alcohol withdrawal symptoms as patient states he drinks approximately a gallon of vodka daily and reportedly becomes very symptomatic when he does not drink including alcoholic withdrawal seizures. Course also complicated by his polysubstance abuse, high tolerance for opiate pain medications, and homelessness. ES Lab Data 04/13/23 09:38 07 09:38 Radiology Impressions Chest X-Ray 04/13/23 08:56 IMPRESSION: No acute findings. Chest/Abdomen/Pelvis CT 04/13/23 10:27 IMPRESSION: 1. Mild acute progressive pancreatitis involving the pancreatic head, uncinate process and neck since 01/17/2023. No pseudocyst. 2. Common bile duct top normal size at 8 mm. 3. Mildly hydropic gallbladder. Stones have been previously described within the gallbladder. Gallstones are not identified by CT. 4. Marked hepatic steatosis and hepatomegaly. 5. Quality of this examination is compromised by body habitus. Laboratory Results WBC 7.1 10^3/uL (4.0-10.0) 04/13/23 09:38 RBC 4.09 10^6/uL (4.1-5.3) L 04/13/23 09:38 Hgb 14.0 g/dL (11.7-16.6) 04/13/23 09:38 Hct 42.4 % (42.0-52.0) 04/13/23 09:38 MCV 103.7 fl (80-94) H 04/13/23 09:38 MCH 34.2 pg (28.0-34.0) H 04/13/23 09:38 MCHC 33.0 g/dL (30.0-36.0) 04/13/23 09:38 RDW 14.0 % (12.1-15.1) 04/13/23 09:38 Plt Count 207 10^3/cmm (130-400) 04/13/23 09:38 MPV 8.9 fL (7.4-10.4) 04/13/23 09:38 Neut % (Auto) 49.0 % 04/13/23 09:38 Lymph % (Auto) 39.9 % 04/13/23 09:38 [place] % (Auto) 7.8 % 04/13/23 09:38 Eos % (Auto) 1.7 % 04/13/23 09:38 Baso % (Auto) 1.0 % 04/13/23 09:38 Neut # (Auto) 3.50 10^3/uL (1.8-7.7) 04/13/23 09:38 Lymph # (Auto) 2.9 10^3/uL (0.8-4.8) 04/13/23 09:38 [place] # (Auto) 0.6 10^3/uL (0.2-0.9) 04/13/23 09:38 Eos # (Auto) 0.1 10^3/uL (0.0-0.8) 04/13/23 09:38 Baso # (Auto) 0.1 10^3/uL (0.0-0.1) 04/13/23 09:38 Nucleated RBC % (auto) 0 % 04/13/23 09:38 Nucleated RBCs # 0.0 /100WBC 04/13/23 09:38 Sodium 139 mmol/L (136-145) 04/13/23 09:38 Potassium 4.0 mmol/L (3.5-5.1) 04/13/23 09:38 Chloride 104 mmol/L (98-107) 04/13/23 09:38 Carbon Dioxide 22 mmol/L (22-29) 04/13/23 09:38 Anion Gap 17.0 (5-19) 04/13/23 09:38 BUN 7 mg/dL (6-20) 04/13/23 09:38 Creatinine 0.6 mg/dL (0.7-1.2) L 04/13/23 09:38 GFR Calculation 156.1 mL/min (90-130) H 04/13/23 09:38 Glucose 121 mg/dL (65-115) H 04/13/23 09:38 Calculated Osmolality 287 mOsm/kg (285-295) 04/13/23 09:38 Calcium 8.2 mg/dL (8.5-10.5) L 04/13/23 09:38 Total Bilirubin 0.4 mg/dL (0.15-1.2) 04/13/23 09:38 AST 254 U/L (0-40) H 04/13/23 09:38 ALT 121 U/L (0-41) H 04/13/23 09:38 Alkaline Phosphatase 82 U/L (40-130) 04/13/23 09:38 Troponin T Baseline 7 ng/L (0-15) 04/13/23 09:38 Troponin T 120 Minute 6.65 ng/L (0-15) 04/13/23 12:00 Delta Troponin T -0.35 ABS# (0-10) L 04/13/23 12:00 Total Protein 6.8 g/dL (6.6-8.7) 04/13/23 09:38 Albumin 3.5 g/dL (3.5-5.2) 04/13/23 09:38 Globulin 3.3 g/dL (1.3-4.6) 04/13/23 09:38 Triglycerides 145 mg/dL (0-150) 04/13/23 09:38 Lipase 296 U/L (13-60) H 04/13/23 09:38 Urine Color Dark yellow (Yellow) 04/13/23 11:30 Urine Appearance Clear (CLEAR) 04/13/23 11:30 Urine pH 6 (5-7) 04/13/23 11:30 Ur Specific [place] 1.020 (1.005-1.030) 04/13/23 11:30 Urine Protein Neg (Negative) 04/13/23 11:30 Urine Glucose (UA) Norm (Normal) 04/13/23 11:30 Urine Ketones Negative (Negative) 04/13/23 11:30 Urine Blood Neg (Negative) 04/13/23 11:30 Urine Nitrate Negative (Negative) 04/13/23 11:30 Urine Bilirubin Neg (Negative) 04/13/23 11:30 Urine Urobilinogen 1 mg/dL (Negative) H 04/13/23 11:30 Ur Leukocyte Esterase Negative (Negative) 04/13/23 11:30 Urine Opiates Screen Positive ng/mL (Negative) H 04/13/23 11:30 Ur Barbiturates Screen Negative ng/mL (Negative) 04/13/23 11:30 Ur Phencyclidine Scrn Negative ng/mL (Negative) 04/13/23 11:30 Ur Amphetamines Screen Positive ng/mL (Negative) H 04/13/23 11:30 U Benzodiazepines Scrn Negative ng/mL (Negative) 04/13/23 11:30 Urine Cocaine Screen Negative ng/mL (Negative) 04/13/23 11:30 U Marijuana (THC) Screen Positive ng/mL (Negative) H 04/13/23 11:30 Ethyl Alcohol 342 mg/dL (0-10) H* 04/13/23 09:38 Discharge Plan Discharge Patient Disposition: Admitted As Inpatient Admit Provider: George Holt Clinical Impression: Chronic alcohol abuse, Polysubstance abuse, Morbid obesity, Homelessness Acute alcohol intoxication Qualifiers: Complication of substance-induced condition: uncomplicated Qualified Code(s): F10.920 - Alcohol use, unspecified with intoxication, uncomplicated Acute alcoholic pancreatitis Qualifiers: Acute pancreatitis complication: no infection or necrosis Qualified Code(s): K85.20 - Alcohol induced acute pancreatitis without necrosis or infection Condition: Stable Coding Level of Care Code ED [place] Sequ[place] for Chg Fwd Documented by User: Augustine Centeno DO 04/13/23 13:11 HPI - Chest Pain General: Chief Complaint: Chest Pain Stated Complaint: chest pain Time Seen by Provider: 04/13/23 08:51 PFS ED PFSH: Medical History Alcohol use disorder Biliary colic Homelessness HTN (hypertension) Morbid obesity Schizophrenia Smoking addiction Substance use disorder Surgical History H/O esophagogastroduodenoscopy Family History Other Colon cancer Social History Smoking and tobacco status: current every day smoker Alcohol intake: current Substance/Drug Use: current Housing: Homeless Marital status: Physical Exam Neuro: EMILIE COMA SCALE: document GCS findings [place] coma scale total score: 15 Course Vital Signs: Vital signs: Vital Signs Pulse Rate 110 H 04/13/23 12:28 Respiratory Rate 24 H 04/13/23 12:28 Blood Pressure 182/116 04/13/23 12:28 Pulse Oximetry 92 04/13/23 12:28 Oxygen Delivery Me thod Nasal Cannula 04/13/23 12:28 Oxygen Flow Rate 3 04/13/23 12:28 MDM - Chest Pain Medical Decision Making Patient will be an admit for pain control related to pancreatitis. Course anticipated to be complicated by acute alcohol withdrawal symptoms as patient states he drinks approximately a gallon of vodka daily and reportedly becomes very symptomatic when he does not drink including alcoholic withdrawal seizures. Course also complicated by his polysubstance abuse, high tolerance for opiate pain medications, and homelessness. ES Patient seen and evaluated after initially being seen by Tiana Leon. Patient is awake alert and oriented complaining of severe abdominal pain in the epigastric left upper quadrant region. Remainder of exam is unremarkable. Patient is morbidly obese he tells me he drinks 3-1/2 L of vodka per day. He has had withdrawal seizures in the past. He has not drank for nearly 12 to 15 hours now he was given Ativan and started on a CIWA protocol I will hold n.p.o. and admit for acute pancreatitis orders written have discussed with Dr. Brooks. Medical Records I reviewed the patient's medical records. Lab Data I reviewed the patient's lab results. 04/13/23 09:38 04/13/23 09:38 Radiology Impressions Chest X-Ray 04/13/23 08:56 IMPRESSION: No acute findings. Chest/Abdomen/Pelvis CT 04/13/23 10:27 IMPRESSION: 1. Mild acute progressive pancreatitis involving the pancreatic head, uncinate process and neck since 01/17/2023. No pseudocyst. 2. Common bile duct top normal size at 8 mm. 3. Mildly hydropic gallbladder. Stones have been previously described within the gallbladder. Gallstones are not identified by CT. 4. Marked hepatic steatosis and hepatomegaly. 5. Quality of this examination is compromised by body habitus. Laboratory Results WBC 7.1 10^3/uL (4.0-10.0) 04/13/23 09:38 RBC 4.09 10^6/uL (4.1-5.3) L 04/13/23 09:38 Hgb 14.0 g/dL (11.7-16.6) 04/13/23 09:38 Hct 42.4 % (42.0-52.0) 04/13/23 09:38 MCV 103.7 fl (80-94) H 04/13/23 09:38 MCH 34.2 pg (28.0-34.0) H 04/13/23 09:38 MCHC 33.0 g/dL (30.0-36.0) 04/13/23 09:38 RDW 14.0 % (12.1-15.1) 04/13/23 09:38 Plt Count 207 10^3/cmm (130-400) 04/13/23 09:38 MPV 8.9 fL (7.4-10.4) 04/13/23 09:38 Neut % (Auto) 49.0 % 04/13/23 09:38 Lymph % (Auto) 39.9 % 04/13/23 09:38 [place] % (Auto) 7.8 % 04/13/23 09:38 Eos % (Auto) 1.7 % 04/13/23 09:38 Baso % (Auto) 1.0 % 04/13/23 09:38 Neut # (Auto) 3.50 10^3/uL (1.8-7.7) 04/13/23 09:38 Lymph # (Auto) 2.9 10^3/uL (0.8-4.8) 04/13/23 09:38 [place] # (Auto) 0.6 10^3/uL (0.2-0.9) 04/13/23 09:38 Eos # (Auto) 0.1 10^3/uL (0.0-0.8) 04/13/23 09:38 Baso # (Auto) 0.1 10^3/uL (0.0-0.1) 04/13/23 09:38 Nucleated RBC % (auto) 0 % 04/13/23 09:38 Nucleated RBCs # 0.0 /100WBC 04/13/23 09:38 Sodium 139 mmol/L (136-145) 04/13/23 09:38 Potassium 4.0 mmol/L (3.5-5.1) 04/13/23 09:38 Chloride 104 mmol/L (98-107) 04/13/23 09:38 Carbon Dioxide 22 mmol/L (22-29) 04/13/23 09:38 Anion Gap 17.0 (5-19) 04/13/23 09:38 BUN 7 mg/dL (6-20) 04/13/23 09:38 Creatinine 0.6 mg/dL (0.7-1.2) L 04/13/23 09:38 GFR Calculation 156.1 mL/min (90-130) H 04/13/23 09:38 Glucose 121 mg/dL (65-115) H 04/13/23 09:38 Calculated Osmolality 287 mOsm/kg (285-295) 04/13/23 09:38 Calcium 8.2 mg/dL (8.5-10.5) L 04/13/23 09:38 Total Bilirubin 0.4 mg/dL (0.15-1.2) 04/13/23 09:38 AST 254 U/L (0-40) H 04/13/23 09:38 ALT 121 U/L (0-41) H 04/13/23 09:38 Alkaline Phosphatase 82 U/L (40-130) 04/13/23 09:38 Troponin T Baseline 7 ng/L (0-15) 04/13/23 09:38 Troponin T 120 Minute 6.65 ng/L (0-15) 04/13/23 12:00 Delta Troponin T -0.35 ABS# (0-10) L 04/13/23 12:00 Total Protein 6.8 g/dL (6.6-8.7) 04/13/23 09:38 Albumin 3.5 g/dL (3.5-5.2) 04/13/23 09:38 Globulin 3.3 g/dL (1.3-4.6) 04/13/23 09:38 Triglycerides 145 mg/dL (0-150) 04/13/23 09:38 Lipase 296 U/L (13-60) H 04/13/23 09:38 Urine Color Dark yellow (Yellow) 04/13/23 11:30 Urine Appearance Clear (CLEAR) 04/13/23 11:30 Urine pH 6 (5-7) 04/13/23 11:30 Ur Specific [place] 1.020 (1.005-1.030) 04/13/23 11:30 Urine Protein Neg (Negative) 04/13/23 11:30 Urine Glucose (UA) Norm (Normal) 04/13/23 11:30 Urine Ketones Negative (Negative) 04/13/23 11:30 Urine Blood Neg (Negative) 04/13/23 11:30 Urine Nitrate Negative (Negative) 04/13/23 11:30 Urine Bilirubin Neg (Negative) 04/13/23 11:30 Urine Urobilinogen 1 mg/dL (Negative) H 04/13/23 11:30 Ur Leukocyte Esterase Negative (Negative) 04/13/23 11:30 Urine Opiates Screen Positive ng/mL (Negative) H 04/13/23 11:30 Ur Barbiturates Screen Negative ng/mL (Negative) 04/13/23 11:30 Ur Phencyclidine Scrn Negative ng/mL (Negative) 04/13/23 11:30 Ur Amphetamines Screen Positive ng/mL (Negative) H 04/13/23 11:30 U Benzodiazepines Scrn Negative ng/mL (Negative) 04/13/23 11:30 Urine Cocaine Screen Negative ng/mL (Negative) 04/13/23 11:30 U Marijuana (THC) Screen Positive ng/mL (Negative) H 04/13/23 11:30 Ethyl Alcohol 342 mg/dL (0-10) H* 04/13/23 09:38 Discharge Plan Discharge Patient Disposition: Admitted As Inpatient Admit Provider: George Holt Clinical Impression: Chronic alcohol abuse, Polysubstance abuse, Morbid obesity, Homelessness Acute alcohol intoxication Qualifiers: Complication of substance-induced condition: uncomplicated Qualified Code(s): F10.920 - Alcohol use, unspecified with intoxication, uncomplicated Acute alcoholic pancreatitis Qualifiers: Acute pancreatitis complication: no infection or necrosis Qualified Code(s): K85.20 - Alcohol induced acute pancreatitis without necrosis or infection Condition: Stable Coding Level of Care Code ED [place] for Levi Bullard
[2023-04-13] MEDS: morphine 4 mg/mL SDV 1 mL IVP (09:03)
[2023-04-13] MEDS: ondansetron 2 mg/ML SDV 2 mL 4 MG IVP (09:03)
[2023-04-13] MEDS: HYDROmorphone 1 mg/mL INJ 1 mL IVP (09:50)
[2023-04-13 09:54] LABS: Basophils # 0.1 10^3/uL (0.0-0.1); Eosinophils # 0.1 10^3/uL (0.0-0.8); Eosinophils % 1.7 %; Hematocrit 42.4 % (42.0-52.0); Lymphocytes # 2.9 10^3/uL (0.8-4.8); Lymphocytes % 39.9 %; Mean Corpuscular Hemoglobin 34.2 pg (28.0-34.0); Mean Corpuscular Volume 103.7 fl (80-94); Mean Platelet Volume 8.9 fL (7.4-10.4); Monocytes # 0.6 10^3/uL (0.2-0.9); Monocytes % 7.8 %; Nucleated Red Blood Cells % 0 %; Platelet Count 207 10^3/cmm (130-400); Red Blood Count 4.09 10^6/uL (4.1-5.3); White Blood Count 7.1 10^3/uL (4.0-10.0)
[2023-04-13 10:13] LABS: Alanine Aminotransferase 121 U/L (0-41); Albumin Level 3.5 g/dL (3.5-5.2); Alkaline Phosphatase 82 U/L (40-130); Aspartate Amino Transferase 254 U/L (0-40); Blood Urea Nitrogen 7 mg/dL (6-20); Calcium 8.2 mg/dL (8.5-10.5); Carbon Dioxide 22 mmol/L (22-29); Chloride 104 mmol/L (98-107); Globulin 3.3 g/dL (1.3-4.6); Glomerular Filtration Rate 156.1 mL/min (90-130); Glucose 121 mg/dL (65-115); Lipase 296 U/L (13-60); Osmolality Calculated 287 mOsm/kg (285-295); Sodium 139 mmol/L (136-145); Total Bilirubin 0.4 mg/dL (0.15-1.2); Total Protein 6.8 g/dL (6.6-8.7)
[2023-04-13 10:14] LABS: Troponin(5th) Baseline 7 ng/L (0-15)
[2023-04-13 10:20] LABS: Alcohol Level 342 mg/dL (0-10)
--- NOTE | 2023-04-13 10:27 | CT_ITS ---
WS: [id number] CT CHEST, ABDOMEN AND PELVIS WITH CONTRAST. HISTORY: reports severe pain TECHNIQUE: Contiguous 5 mm axial imaging performed through the chest, abdomen and pelvis with IV cont rast, oral contrast has not been provided. Coronal and sagittal reformats chest. Coronal and sagittal reformats through the abdomen and pelvis. All CT scans at [facility] use at least one of the se dose optimization techniques: automated exposure control; mA and/or kV adjustment per patient size (includes targeted exams where dose is matched to clinical indication); or iterative reconstruction. CONTRAST: Omnipaque 350; 100 mL IV. DLP: 1880.98 mGy.cm COMPARISON: 01/17/[address]: Lungs are clear. No pneumonia. Normal size heart. No pericardial or pleural effusions. No a denopathy. Normal size aorta. Abdomen CT: Marked enlargement of the liver. Diffuse low attenuation from hepatic steatosis. No mass identified. The portal vein is normally enhancing. Gallbladder similar attenuation as the liver. No a djacent inflammation but the gallbladder is mildly hydropic. Less dilated as compared to 01/17/2023. N ormal spleen with granulomata. Normal adrenal glands. Pancreas is abnormal. Mild progression of inflammatory changes surrounding the pancreas. There is sig nificant enlargement with fat stranding involving the uncinate process, pancreatic head and neck into the proximal body. Pancreatic duct is not dilated. No pseudocyst. Common bile duct at 8 mm. Normal kidneys. Normal aorta. No ascites or adenopathy. Nondistended stomach. Duodenal C-loop is partially encased with the inflammation related to the acute pancreatitis. No GI tract obstruction. Pelvic CT: Mildly distended urinary bladder. No free fluid or adenopathy. No destructive bone lesions. CT/CT chest abdpel [id number] IMPRESSION: 1. Mild acute progressive pancreatitis involving the pancreatic head, uncinate process and neck since 01/17/2023. No pseudocyst. 2. Common bile duct top normal size at 8 mm. 3. Mildly hydropic gallbladder. Stones have been previously described within t he gallbladder. Gallstones are not identified by CT. 4. Marked hepatic steatosis and hepatomegaly. 5. Quality of this examination is compromised by body habitus.
[2023-04-13] MEDS: alum-mag-hydroxide-sime 30 mL UDC PO (10:39)
[2023-04-13] MEDS: sucralfate 1 gm/10 mL Oral Liq UDC PO (10:39)
[2023-04-13] MEDS: sodium chloride 0.9% 1,000 ML 999 ML IV (10:44)
--- NOTE | 2023-04-13 10:57 | ECG_ITS ---
[facility] Test Date: 2023-04-13 Pat Name: Radhames Spears Department: Room: Gender: Male Manager Foreign: : 1990 Requested By: Tiana Leon Order Number: [id number] Gaffney MD: Kashmir Trinidad M.D. Measurements Intervals [place] Rate: 108 P: 55 UT: 160 QRS: 64 QRSD: 92 T: 48 QT: 351 QTc: 472 Interpretive Statements SINUS TACHYCARDIA ABNORMAL RHYTHM ECG Compared to ECG 04/13/2023 09:01:26 No significant changes Electronically Signed On 04-13-2023 16:19:11 CDT by Kashmir Trinidad M.D. [id number]
[2023-04-13] MEDS: iohexol 350 mg/mL 500 mL Btl (per mL) IV (11:18)
[2023-04-13 11:42] LABS: Add Urine Microscopic? NO; Charge for UA Resulting for Rev
[2023-04-13 11:46] LABS: Bilirubin Urine Neg (Negative); Blood Urine Neg (Negative); Glucose Urine UA Norm (Normal); Ketones Urine Negative (Negative); Leukocyte Esterase Urine Negative (Negative); Nitrate Urine Negative (Negative); Protein Urine Neg (Negative); Urine Appearance Clear (CLEAR); Urine Color Dark Yellow (Yellow); Urobilinogen Urine 1 mg/dL (Negative); pH Urine 6 (5-7)
[2023-04-13 11:53] LABS: Amphetamines Screen Urine Positive (Negative); Barbiturates Screen Urine Negative (Negative); Benzodiazepines Screen Urine Negative (Negative); Cocaine Screen Urine Negative (Negative); Opiate Screen Urine Positive (Negative); PCP Screen Urine Negative (Negative); THC Screen Urine Positive (Negative)
[2023-04-13] MEDS: LORazepam 2 mg/mL INJ 1 mL IVP ×2 (12:18→13:45)
[2023-04-13 12:37] LABS: Troponin 5 2HR 6.65 ng/L (0-15)
[2023-04-13 12:38] LABS: Troponin 5 2HR Delta -0.35 ABS# (0-10)
[2023-04-13 12:46] LABS: Triglycerides 145 mg/dL (0-150)
--- NOTE | 2023-04-13 14:02 | PC.NURSE ---
Arrived from ED, C/O of severe abdominal pain. Dr. Holt came to bedside, placed orders per MAR
[2023-04-13] MEDS: dextrose 5%-sod chloride 0.9% 1,000 ML 100 ML IV ×2 (14:07→21:34)
[2023-04-13] MEDS: heparin 5,000 unit/mL INJ 1 mL 5000 UNIT SUBCUT (14:08)
[2023-04-13] MEDS: HYDROmorphone 1 mg/mL INJ 1 mL 2 MG IVP ×2 (14:08→20:15)
[2023-04-13] MEDS: pantoprazole 40 mg SDV IVP (14:08)
[2023-04-13 14:49] LABS: Lactic Sepsis W/Reflex 1.2 mmol/L (0.5-2.2)
[2023-04-13 15:08] LABS: Procalcitonin 0.09 ng/mL (0-0.5); Thyroid Stimulating Hormone 3.22 uIU/mL (0.27-4.20); Vitamin B12 481 pg/mL (232-1245)
[2023-04-13 15:19] LABS: Iron 125 ug/dL (59-158); Percent Saturation 30.7 % (20-50); Total Iron Binding Capacity 406 mcg/dl; Unsaturated Iron Binding 281 ug/dL (112-347)
[2023-04-13] MEDS: folic acid 1 MG, multivitamin inj 10 ML, thiamine 100 MG in sodium chloride 0.9% 1,000 ML 252.8 MG IV (16:05)
--- NOTE | 2023-04-13 17:37 | PM.HP ---
Providers/Chief Complaint Admitting Physician: George Holt MD Chief Complaint: chest pain History of Present Illness Radhames Spears is a 32 year old male, morbidly obese with past medical history of alcohol abuse, alcohol induced pancreatitis, meth abuse, hepatitis C, uncontrolled hypertension who presents to the ER with abdominal pain which started today morning along with nausea. As per patient he drinks around 2 gallon of vodka daily with last alcohol use yesterday. Gives history of alcohol withdrawal seizures. Abdominal pain is epigastric radiating to back, 07/14, constructive in nature. Received Ativan for pain control in ER along with 1 mg of IV Dilaudid. Complains of nausea without any vomiting. Review of Systems General: Reports: 10 or more systems reviewed and unremarkable except in HPI and below Const: Denies: fever(s), chills, body aches, change in appetite, change in weight, malaise, night sweats, diaphoresis, change in sleep pattern, daytime sleepiness or snoring Eyes: Denies: change in vision, blurry vision, photophobia, eye discomfort or eye discharge ENMT: Denies: throat pain, enlarged tonsils, hoarseness, mouth pain, oral sores, dry mouth, tinnitus, nasal congestion or post nasal drip Card: Denies: chest pain, palpitations, irregular heart rhythm, edema, swelling of feet/ankles, lightheadedness, syncope, pre-syncope, dyspnea on exertion, orthopnea, leg pain with exertion or acrocyanosis Resp: Denies: dyspnea, productive cough, non-productive cough, wheezing, stridor, pain on inspiration, change in phlegm color, hemoptysis or chest congestion GI: Denies: abdominal pain, nausea, vomiting, hematemesis, coffee ground emesis, dysphagia, heartburn, diarrhea, constipation, bloating, GI cramping, change in bowel habits, pain on defecation, hematochezia or melena : Denies: flank pain, difficulty urinating, dysuria, urinary frequency, urinary urgency, urinary hesitancy, urinary dribbling, difficulty starting urination, change in urine stream, nocturia or hematuria Musc: Denies: neck pain, back pain, extremity pain, joint pain, joint swelling, joint redness, joint stiffness or limited range of motion Neuro: Denies: headache(s), numbness in extremities, weakness in extremities, sensory changes, lack of coordination, difficulty walking, frequent falls, dizziness, vertigo, confusion, Slurred speech present, difficulty communicating thoughts or seizure-like activity Psych: Denies: anxiety, depression, mood swings, panic attacks, hopelessness or irritability Endo: Denies: polyuria, polydipsia, tired all the time, cold intolerance, excessive sweating, flushing or heat intolerance Ajit/Lymph: Denies: easy bruising or easy bleeding All/Imm: Denies: tongue swelling, facial swelling or acute wheezing Medications/Allergies Home Medications Medication Instructions Recorded Confirmed Last Taken Type amlodipine 5 mg tablet 10 mg PO DAILY #90 tabs 01/20/23 04/13/23 Unknown Rx folic acid 1 mg tablet 1 mg PO DAILY #90 tabs 01/20/23 04/13/23 Unknown Rx hydromorphone 4 mg tablet 4 mg PO Q6H PRN Severe Pain #12 01/20/23 04/13/23 Unknown Rx tabs multivitamin with folic acid 400 1 tab PO DAILY #90 tabs 01/20/23 04/13/23 Unknown Rx mcg tablet (Thera) nicotine (polacrilex) 4 mg buccal 4 mg mucous membrane Q2H PRN 01/20/23 04/13/23 Unknown Rx lozenge Nicotine Cravings #90 ea nicotine 21 mg/24 hr daily 1 patch transdermal DAILY #90 ea 01/20/23 04/13/23 Unknown Rx transdermal patch nystatin 100,000 unit/gram topical 1 applic topical BID #30 grams 01/20/23 04/13/23 Unknown Rx cream thiamine mononitrate (vit B1) 100 100 mg PO DAILY #90 tabs 01/20/23 04/13/23 Unknown Rx mg tablet (Vitamin B-1 (mononitrate)) naloxone 4 mg/actuation nasal 1 spray intranasal Q2M PRN Opioid 04/13/23 04/13/23 Unknown History spray (Narcan) Overdose pantoprazole 40 mg tablet,delayed 40 mg PO DAILY 04/13/23 04/13/23 Unknown History release Allergies Allergy/AdvReac Type Severity Reaction Status Date / Time fentanyl Allergy Severe ADR-Seizure Verified 04/13/23 10:11 piperacillin [From Zosyn] Allergy Severe ALGY-Swell Verified 04/13/23 10:11 Lip/Tongue/Throat tazobactam [From Zosyn] Allergy Severe ALGY-Swell Verified 04/13/23 10:11 Lip/Tongue/Throat diphenhydramine Allergy Intermediate headache, Verified 04/13/23 10:11 [From Benadryl] restless leg cyclobenzaprine Allergy Nausea, Verified 04/13/23 10:11 [From Flexeril] vomiting, headache PFSH Acute PFSH: Medical History (Updated 04/13/23 @ 17:39 by George Holt MD) Alcohol use disorder Alcohol withdrawal seizure Biliary colic Homelessness HTN (hypertension) Morbid obesity Polysubstance abuse Schizophrenia Smoking addiction Substance use disorder Surgical History H/O esophagogastroduodenoscopy Family History Other Colon cancer Social History Smoking and tobacco status: current every day smoker Alcohol intake: current Substance/Drug Use: current Housing: Homeless Marital status: Vitals/I&O/Wt Last Vital Signs Pulse 106 H 04/13/23 16:00 Resp 19 H 04/13/23 16:00 BP 145/104 04/13/23 16:00 Pulse Ox 88 L 04/13/23 16:00 O2 Del Method Nasal Cannula 04/13/23 14:47 O2 Flow Rate 2 04/13/23 14:03 Weight last 48 hrs Weight 204.117 kg Physical Exam Narrative: General: Acute distress because of abdominal pain, AOx3, morbidly obese HEENT: PERRLA, pupils bilaterally equal and reactive Chest: Normal vesicular breath sounds, no added sounds, equal good air entry bilaterally CVS: S1-S2 regular, no murmurs, no tachycardia, no gallops, no rubs Abdomen: Soft, generalized tenderness more in epigastric area, no organomegaly, bowel sounds present Neuro: No focal deficits, no facial deformity, AO x3, power 5/5 in all limbs Data 04/13/23 09:38 04/13/23 09:38 Micro: Microbiology 04/13/23 14:24 Blood Culture - Preliminary Blood SPECIMEN COLLECTED 04/13/23 14:16 Blood Culture - Preliminary Blood SPECIMEN COLLECTED A&P Assessment and plan (1) Acute alcoholic pancreatitis: Most likely in setting of chronic alcohol use. Triglyceride levels normal. Patient does have history of gallstones but alkaline phosphatase on current admission normal. CT abdomen pelvis negative for duct dilatation. Continue treatment. Keep NPO. IV hydration with D5 NS at 100 cc/h. Protonix daily, Zofran as needed. Dilaudid IV 2 mg every 2 hour for pain control Qualifiers: Acute pancreatitis complication: no infection or necrosis Qualified Code(s): K85.20 - Alcohol induced acute pancreatitis without necrosis or infection (2) Acute alcohol intoxication: With history of alcohol withdrawal seizures. Start on Precedex drip. Banana bag. Start on phenobarbital 3 mg/kg body weight every 12 hours. [facility] protocol. 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 Watch for withdrawal. Check blood cultures. (4) Alcohol withdrawal seizure: (5) Morbid obesity: Watch for sleep apnea. Plan Full code. NPO. Protonix for PUD prophylaxis Heparin for DVT prophylaxis. Admit to ICU. Attestations Medical Necessity Statement*: Admission for more than 2 midnights for management of acute alcoholic pancreatitis in a patient with history of severe alcohol abuse, alcohol intoxication, amphetamine abuse with intoxication Coding Level of Care Code Critical Care >/= 30 minutes Critical care time (in minutes): 50 The high probability of a clinically significant, sudden or life threatening deterioration, as referenced in this documentation, required my full and direct attention, intervention and personal management. The critical care time shown is in addition to time spent performing any reported separately billable procedures and includes the following: [x] Data and vital sign review and interpretation [x] Patient assessment, examination and intervention [x] Medication orders and management [x] Patient/Family updates as able [x] Care Coordination and Documentation. Diagnoses Acute alcoholic pancreatitis K85.20 Acute pancreatitis complication: no infection or necrosis Acute alcohol intoxication F10.920 Complication of substance-induced condition: uncomplicated Amphetamine abuse F15.10 Alcohol withdrawal seizure F10.939; R56.9 Morbid obesity E66.01
[2023-04-13] MEDS: LORazepam 2 mg/mL INJ 1 mL IM (20:20)
[2023-04-14] VITALS (57 sets, daily range): BP systolic 100–161; BP diastolic 55–110; PULSE 72–85; RESP 13–29; TEMP 36.7–38.7; O2SAT 87–98
[2023-04-14] MEDS: HYDROmorphone 1 mg/mL INJ 1 mL 2 MG IVP ×5 (00:02→19:40)
[2023-04-14] MEDS: pantoprazole 40 mg SDV IVP ×2 (02:34→13:13)
[2023-04-14] MEDS: heparin 5,000 unit/mL INJ 1 mL 5000 UNIT SUBCUT ×2 (02:34→13:15)
[2023-04-14 04:45] LABS: Basophils % 0.3 %; Eosinophils # 0.2 10^3/uL (0.0-0.8); Eosinophils % 1.7 %; Hematocrit 44.5 % (42.0-52.0); Hemoglobin 14.4 g/dL (11.7-16.6); Lymphocytes # 0.9 10^3/uL (0.8-4.8); Lymphocytes % 7.9 %; Mean Corpuscular HGB Conc 32.4 g/dL (30.0-36.0); Mean Corpuscular Hemoglobin 33.9 pg (28.0-34.0); Mean Corpuscular Volume 104.7 fl (80-94); Monocytes # 0.6 10^3/uL (0.2-0.9); Monocytes % 5.3 %; Neutrophils # 9.91 10^3/uL (1.8-7.7); Neutrophils % 84.5 %; Nucleated Red Blood Cells % 0 %; Platelet Count 167 10^3/cmm (130-400); Red Blood Count 4.25 10^6/uL (4.1-5.3); Red Cell Distribution Width 13.6 % (12.1-15.1); White Blood Count 11.7 10^3/uL (4.0-10.0)
[2023-04-14 05:12] LABS: Alanine Aminotransferase 111 U/L (0-41); Albumin Level 3.4 g/dL (3.5-5.2); Alkaline Phosphatase 86 U/L (40-130); Anion Gap 12.9 (5-19); Aspartate Amino Transferase 204 U/L (0-40); Blood Urea Nitrogen 10 mg/dL (6-20); Calcium 8.1 mg/dL (8.5-10.5); Carbon Dioxide 24 mmol/L (22-29); Chloride 105 mmol/L (98-107); Globulin 3.5 g/dL (1.3-4.6); Glomerular Filtration Rate 156.1 mL/min (90-130); Glucose 105 mg/dL (65-115); Magnesium 1.5 mg/dL (1.7-2.3); Osmolality Calculated 283 mOsm/kg (285-295); Phosphorus 3.7 mg/dL (2.5-4.5); Potassium 4.9 mmol/L (3.5-5.1); Sodium 137 mmol/L (136-145); Total Bilirubin 1.1 mg/dL (0.15-1.2); Total Protein 6.9 g/dL (6.6-8.7)
[2023-04-14 05:19] LABS: Chol HDL Ratio 3.08 mg/dL (1.0-5.00); Cholesterol 148 mg/dL (0-200); HDL Cholesterol 48 mg/dL (60-100); LDL Cholesterol Calculated 81 mg/dL (50-129); Triglycerides 93 mg/dL (0-150); VLDL Cholestrol Calculation 19 mg/dL (0-30)
[2023-04-14 05:21] LABS: Estmated Average Glucose 108; Hemoglobin A1C 5.4 % (4.0-6.0)
[2023-04-14 05:31] LABS: Folate Level 13.1 ng/mL (4.5-32.2)
[2023-04-14] MEDS: dextrose 5%-sod chloride 0.9% 1,000 ML 100 ML IV ×2 (07:14→19:52)
[2023-04-14 10:52] LABS: Glucose Point of Care 90 mg/dL (70-110)
--- NOTE | 2023-04-14 11:18 | PC.NURSE ---
Patient complains of pain to sacrum. Nurse has attempted to reposition patient for comfort, but he is resistant position changes and repositions himself back to supine. Nurse attempted to assess backside, but due to lack of cooperation, nurse was unable to complete a full assessment. No skin issues observed at this time, nurse will attempt to asses again later.
--- NOTE | 2023-04-14 11:29 | PC.PHAR ---
Vanc trough to be drawn prior to 4th dose. Patient: Floor: Age: 32 yo Serum creatinine: 0.6 mg/dL Height: 71.7 Inches Weight (kg): 189 IBW (kg): 76.91 Dosing wt(kg): 121.7 Estimated Creatinine clearance (ml/min): 130 Clearance limited to 130 ml/min to reduce risk of overdosing. CRCL method: Cockcroft and Gault using adjusted body weight Drug selected: Vancomycin Loading dose (mg): Vd (liters): 85.2 (factor used: 0.7 L/kg) Lukas (hr-1): 0.112 Half life (hrs): 6.19 CLvanco=?? 9.542 L/hr Recommended dose: 2000 mg Interval: 8 hrs Infusion time (hrs): 1 Predicted peak (mcg/mL): 37.5 Predicted trough (mcg/mL): 17.12 Adjusted body weight was selected for vancomycin dosing. To switch back, select the total body weight option above. Recommendations: Give Vancomycin 2000 mg q 8 hrs with an expected Cpeak of 37.5 mcg/ml and an expected Ctrough of 17.12 mcg/ml AUC 0-24 /JAE Data: JAE 0.5 mcg/mL:?? AUC/JAE:? 1257.6 JAE 1.0 mcg/mL:?? AUC/JAE:? 628.8 --------- JAE 1.5 mcg/mL:?? AUC/JAE:? 419.2 JAE 2.0 mcg/mL:?? AUC/JAE:? 314.4 Renal dosing of other antibiotics (review renal dosing of other medications and list guidelines here): Thank you for the consult, will continue to follow. Signature: Dave Menchaca PharmD
[2023-04-14] MEDS: meropenem 1,000 MG in sodium chloride 0.9% (plus) 50 ML 100 MG IV ×2 (11:47→18:40)
[2023-04-14] MEDS: vancomycin 2,000 MG/400 ML PIGGYBACK 200 MG IV ×2 (13:16→20:26)
[2023-04-14] MEDS: LORazepam 2 mg/mL INJ 1 mL IVP ×2 (14:21→22:17)
--- NOTE | 2023-04-14 14:37 | PC.NURSE ---
Patient is allowed ice chips to allow for oral hydration, but also to slow intake to not aggravate pancreatitis. This has been explained to the patient but he keeps demanding sodas. Patient has been attempting to get out of bed to get something to drink so nurse provided a small cup of water with instructions to slowly sip on which patient agreed to follow, however he immediately drank the entire cup and complained of increased stomach pain a short while later. Patient did this again despite the nurse explaining that if he increases oral intake too quickly he will worsen his pancreatitis. When nurse then would only allow ice chips to slow intake but still provide oral hydration, patient would immediately eat the entire cup of ice chips and then have increased stomach pain a short while afterwards. This happened multiple times. Nurse then explained he can still have ice chips and they will be provided by the nurse when requested rather than left at bedside, this is to allow the nurse to closely track and control rate of intake to not aggravate his condition. Patient agrees to this and states he understands, but then shortly after will attempt to leave bed to get a drink. Patient is getting increasingly agitated, unable to follow safety instructions, keeps trying to get out of bed despite being too unsteady to safely walk. Nurse has attempted reorientation, reeducation, and different options for oral intake but patient keeps forgetting or disregarding teachings. Precedex increased due to agitation, see MARElizabeth
--- NOTE | 2023-04-14 16:17 | P.PN_ITS ---
Subjective Subjective: Overnight. Today morning patient is drowsy but wakes up and complete conversation. Complaining of mild pain in belly. States he is hungry and wants to drink water. Denies any vomiting. Overnight Precedex was increased to 0.8. Today morning turned down to 0.3. During the day patient was noncompliant and encouraged with oral intake and was slightly confused with concerns for alcohol withdrawal hence Precedex was turned up. Patient has remained hemodynamically stable with Tmax of 101.7 Fahrenheit earlier today morning. Currently saturating more than 95% on 4 L of oxygen supplementation. Patient having bouts of cough and bringing up expectoration. High concerns for sleep apnea. Vitals/I&O/Wt Last Vital Signs Temp 99.1 F 04/14/23 13:30 Pulse 74 04/14/23 14:20 Resp 18 04/14/23 14:20 BP 161/106 04/14/23 13:30 Pulse Ox 97 04/14/23 14:20 O2 Del Method Nasal Cannula 04/14/23 14:20 O2 Flow Rate 4 04/14/23 14:20 04/14/23 04/14/23 04/14/23 06:59 14:59 22:59 Intake Total 264.7104 / 3208.6328 2207.990 / 2207.990 55.726 / 2263.716 Output Total 450 / 1000 300 / 300 Balance -185.2896 / 2208.6328 1907.990 / 1907.990 55.726 / 1963.716 Weight last 48 hrs Weight 189.148 kg Weight 204.117 kg Physical Exam Narrative: General: Acute distress because of abdominal pain, AOx3, drowsy, morbidly obese HEENT: PERRLA, pupils bilaterally equal and reactive Chest: Normal vesicular breath sounds, no added sounds, equal good air entry bi laterally CVS: S1-S2 regular, no murmurs, no tachycardia, no gallops, no rubs Abdomen: Soft, generalized tenderness more in epigastric area, no organomegaly, bowel sounds present Neuro: No focal deficits, no facial deformity, AO x3, power 5/5 in all limbs Data 04/14/23 04:30 04/14/23 04:30 Micro: Microbiology 04/13/23 10:40 MRSA Culture - Final Nose 04/13/23 14:24 Blood Culture - Preliminary Blood NEGATIVE TO DATE 04/13/23 14:16 Blood Culture - Preliminary Blood NEGATIVE TO DATE A&P Assessment and plan (1) Acute alcoholic pancreatitis: Most likely in setting of chronic alcohol use. Triglyceride levels normal. Patient does have history of gallstones but alkaline phosphatase on current admission normal. CT abdomen pelvis negative for duct dilatation. Conservative treatment. Advance very gradually to clear liquid diet for now and monitor. If patient has more abdominal pain or nausea we will turn him back to NPO. Continue IV hydration with D5 NS at 100 cc/h. Protonix daily, Zofran as needed. Dilaudid IV 2 mg every 2 hour for pain control Qualifiers: Acute pancreatitis complication: no infection or necrosis Qualified Code(s): K85.20 - Alcohol induced acute pancreatitis without necrosis or infection (2) Acute alcohol intoxication: With history of alcohol withdrawal seizures. Wean Precedex as per mental status. Hold off on phenobarbital for now as patient is drowsy. We will continue to monitor if needed will restart. [facility] protocol. 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 Watch for withdrawal. (4) Alcohol withdrawal seizure: (5) Morbid obesity: Watch for sleep apnea. Plan Fever: Mild leukocytosis today. Urine drug screen positive for amphetamines. Blood cultures taken on admission. Follow-up blood culture. Check sputum culture. MRSA positive. Empirically for now start on IV vancomycin and meropenem. Clear liquid diet. Protonix for PUD prophylaxis Heparin for DVT prophylaxis. Continue care at ICU. Attestations Medical Necessity Statement*: Requires further hospitalization for management of alcohol withdrawal in a patient with history of alcohol intoxication, polysubstance abuse while he is being treated for acute pancreatitis Coding Level of Care Code Critical Care >/= 30 minutes Critical care time (in minutes): 50 The high probability of a clinically significant, sudden or life threatening deterioration, as referenced in this documentation, required my full and direct attention, intervention and personal management. The critical care time shown is in addition to time spent performing any reported separately billable procedures and includes the following: [x] Data and vital sign review and interpretation [x ] Patient assessment, examination and intervention [x] Medication orders and management [x] Patient/Family updates as able [x] Care Coordination and Documentation. Diagnoses Acute alcoholic pancreatitis K85.20 Acute pancreatitis complication: no infection or necrosis Acute alcohol intoxication F10.920 Complication of substance-induced condition: uncomplicated Amphetamine abuse F15.10 Alcohol withdrawal seizure F10.939; R56.9 Morbid obesity E66.01
--- NOTE | 2023-04-14 17:39 | PC.NURSE ---
Patient has only had 300mL of urine output today. BLadder scan shows 50-60mL retained. Nurse alerted Dr knight. No new orders received at this time.
--- NOTE | 2023-04-14 17:54 | PC.NURSE ---
SHift SUmmary: uneventful shift. Patient has rested in bed throughout the day. Often refusing, or undoing position changes by the nurse. Patient has been able to make minor position readjustments. Patient has been confused, usually only able to answer name and date of . precedex rate has varied throughout the day due to periods of agitation (see mar and nurse notes). Nurse has had to manage oral intake whenever patient wants something because he not been compliant with oral intake restrictions, whenever he was given ice or water with instructions to drink or eat it slowly he will immediately take in the entire amount all at once and then complain of stomach pain afterwards, but then demand more water and will repeat the same action even when repeatedly educated on what aggravates his symptoms. Urine output has only been 300mL, bladder scan shows 50mL retained.
[2023-04-15] VITALS (35 sets, daily range): BP systolic 107–185; BP diastolic 65–114; PULSE 75–110; RESP 14–26; TEMP 36.5–36.8; O2SAT 93–100
[2023-04-15] MEDS: HYDROmorphone 1 mg/mL INJ 1 mL 2 MG IVP ×2 (01:34→04:30)
[2023-04-15] MEDS: LORazepam 2 mg/mL INJ 1 mL IVP ×2 (02:02→08:03)
[2023-04-15] MEDS: heparin 5,000 unit/mL INJ 1 mL 5000 UNIT SUBCUT ×2 (02:02→13:14)
[2023-04-15] MEDS: pantoprazole 40 mg SDV IVP ×2 (02:02→13:13)
[2023-04-15] MEDS: meropenem 1,000 MG in sodium chloride 0.9% (plus) 50 ML 100 MG IV ×3 (03:29→17:08)
[2023-04-15] MEDS: vancomycin 2,000 MG/400 ML PIGGYBACK 200 MG IV ×3 (03:50→20:46)
[2023-04-15 04:39] LABS: Basophils # 0.1 10^3/uL (0.0-0.1); Basophils % 0.4 %; Eosinophils # 0.4 10^3/uL (0.0-0.8); Eosinophils % 3.8 %; Hematocrit 41.3 % (42.0-52.0); Hemoglobin 13.3 g/dL (11.7-16.6); Lymphocytes # 2.2 10^3/uL (0.8-4.8); Lymphocytes % 18.9 %; Mean Corpuscular HGB Conc 32.2 g/dL (30.0-36.0); Mean Corpuscular Hemoglobin 33.9 pg (28.0-34.0); Mean Corpuscular Volume 105.4 fl (80-94); Mean Platelet Volume 9.7 fL (7.4-10.4); Monocytes # 0.6 10^3/uL (0.2-0.9); Neutrophils # 8.31 10^3/uL (1.8-7.7); Neutrophils % 71.6 %; Nucleated Red Blood Cells % 0 %; Platelet Count 139 10^3/cmm (130-400); Red Blood Count 3.92 10^6/uL (4.1-5.3); Red Cell Distribution Width 13.2 % (12.1-15.1); White Blood Count 11.6 10^3/uL (4.0-10.0)
[2023-04-15 05:03] LABS: Alanine Aminotransferase 79 U/L (0-41); Alkaline Phosphatase 73 U/L (40-130); Anion Gap 14.1 (5-19); Aspartate Amino Transferase 144 U/L (0-40); Blood Urea Nitrogen 14 mg/dL (6-20); Calcium 8.2 mg/dL (8.5-10.5); Carbon Dioxide 21 mmol/L (22-29); Chloride 103 mmol/L (98-107); Globulin 3.7 g/dL (1.3-4.6); Glomerular Filtration Rate 130.7 mL/min (90-130); Glucose 73 mg/dL (65-115); Osmolality Calculated 277 mOsm/kg (285-295); Potassium 4.1 mmol/L (3.5-5.1); Sodium 134 mmol/L (136-145); Total Bilirubin 1.3 mg/dL (0.15-1.2); Total Protein 6.7 g/dL (6.6-8.7)
[2023-04-15 05:06] LABS: Lipase 71 U/L (13-60)
--- NOTE | 2023-04-15 06:00 | XRR_ITS ---
PROCEDURE INFORMATION: Exam: XR Chest Exam date and time: 04/15/2023 6:08 AM Age: 32 years old Clinical indication: Pain; Chest pressure TECHNIQUE: Imaging protocol: Radiologic exam of the chest. Views: 1 view. COMPARISON: CT chest abdpel w/*[id number] 04/13/2023 11:01 AM FINDINGS: Lungs: Unremarkable. No consolidation. Pleural spaces: Unremarkable. No pleural effusion. No pneumothorax. Heart/Mediastinum: Cardiomegaly. Bones/joints: Unremarkable. XR/XR chest 1V portable [id number] IMPRESSION: Cardiomegaly with no acute process
[2023-04-15] MEDS: multivitamin therapeutic Tablet 1 TAB PO (08:02)
[2023-04-15] MEDS: HYDROmorphone 1 mg/mL INJ 1 mL IVP ×6 (11:29→23:36)
[2023-04-15 12:36] LABS: Vancomycin Trough 12.8 ug/mL (10-15)
[2023-04-15 15:01] LABS: Acinetobacter baumannii Not Detected (NOT DETECT); Bacteroides fragilis Not Detected (NOT DETECT); Citrobacter Not Detected (NOT DETECT); Cronobacter sakazakii Not Detected (NOT DETECT); Enterobacter cloacae complex Not Detected (NOT DETECT); Enterobacter non cloacae Not Detected (NOT DETECT); Fusobacterium necrophorum Not Detected (NOT DETECT); Fusobacterium nucleatum Not Detected (NOT DETECT); Haemophilus influenzae Detected (NOT DETECT); Klebsiella pneumoniae group Not Detected (NOT DETECT); Morganella morganii Not Detected (NOT DETECT); Neisseria meningitidis Not Detected (NOT DETECT); Pan Candida Not Detected (NOT DETECT); Pan Gram-Positive Not Detected (NOT DETECT); Proteus mirabilis Not Detected (NOT DETECT); Pseudomonas aeruginosa Not Detected (NOT DETECT); Salmonella Not Detected (NOT DETECT); Serratia Not Detected (NOT DETECT); Serratia marcescens Not Detected (NOT DETECT); Stenotrophomonas maltophilia Not Detected (NOT DETECT)
--- NOTE | 2023-04-15 15:21 | PC.NURSE ---
[facility] accompanied by this nurse and nurse mike Sykes. Pt complained of pain and this nurse explained that next pain medication couldn't be given for another hour. Pt refused to try any other methods of pain relief at this time. KATY Amezquita was noted to be at bedside at time of transfer.
--- NOTE | 2023-04-15 16:12 | PM.PN ---
Subjective Subjective: Today morning patient seen on Precedex 0.4. Patient is awake but drowsy asking for water. Precedex was turned off during the day. Patient mentation improved and was advanced on liquid diet. Patient found to be impulsive while drinking liquids and not following the guidance of drinking slowly with multiple small meals. Patient complaining of abdominal pain after drinking but no vomiting. Having nausea. Vitals appreciated for blood pressure elevated with tachycardia. Blood work appreciated for a stable CBC, CMP showing mild hyponatremia, mild resolution of AST and ALT, elevated bilirubin to 1.3, normal alkaline phosphatase with improvement of lipase to 71. Vitals/I&O/Wt Last Vital Signs Temp 97.7 F 04/15/23 15:54 Pulse 110 H 04/15/23 15:54 Resp 19 H 04/15/23 15:54 BP 185/98 04/15/23 15:54 Pulse Ox 97 04/15/23 15:54 O2 Del Method Nasal Cannula 04/15/23 15:54 O2 Flow Rate 3 04/15/23 08:00 04/15/23 04/15/23 04/15/23 06:59 14:59 22:59 Intake Total 640.716 / 5014.172 750.068 / 165.772 0202 / 2150.068 Output Total 0 / 750 575 / 575 500 / 1075 Balance 640.716 / 4264.172 175.068 / 175.068 900 / 1075.068 Weight last 48 hrs Weight 189.148 kg Physical Exam Narrative: General: Acute distress because of abdominal pain, AOx3, drowsy, morbidly obese HEENT: PERRLA, pupils bilaterally equal and reactive Chest: Normal vesicular breath sounds, no added sounds, equal good air entry bilaterally CVS: S1-S2 regular, no murmurs, no tachycardia, no gallops, no rubs Abdomen: Soft, generalized tenderness more in epigastric area, no organomegaly, bowel sounds present Neuro: No focal deficits, no facial deformity, AO x3, power 5/5 in all limbs Data 04/15/23 04:26 04/15/23 04:26 Micro: Microbiology 04/14/23 11:00 Gram Stain - Final Sputum - Expectorated Sputum Sputum Culture - Preliminary Haemophilus Influenzae 04/13/23 10:40 MRSA Culture - Final Nose 04/13/23 14:24 Blood Culture - Preliminary Blood NEGATIVE TO DATE 04/13/23 14:16 Blood Culture - Preliminary Blood NEGATIVE TO DATE A&P Assessment and plan (1) Acute alcoholic pancreatitis: Most likely in setting of chronic alcohol use. Triglyceride levels normal. Patient does have history of gallstones but alkaline phosphatase on current admission normal. CT abdomen pelvis negative for duct dilatation. Conservative treatment. Advance to clear liquid diet today. Continue IV hydration with D5 NS at 100 cc/h. Protonix daily, Zofran as needed. Dilaudid IV 1 mg mg every 2 hour for pain control Qualifiers: Acute pancreatitis complication: no infection or necrosis Qualified Code(s): K85.20 - Alcohol induced acute pancreatitis without necrosis or infection (2) Acute alcohol intoxication: With history of alcohol withdrawal seizures. Stop Precedex drip. Start on phenobarbital as per alcohol withdrawal protocol. 130 mg twice daily. We will plan to continue for next 2 days and then come down to 65 mg twice daily. Watch for alcohol withdrawal seizures. [facility] protocol. 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 Watch for withdrawal. (4) Alcohol withdrawal seizure: (5) Morbid obesity: Watch for sleep apnea. (6) Pneumonia: Not requiring oxygen. Mild leukocytosis. Afebrile in last 24 hours. Follow-up sputum culture. MRSA positive. For now continue with IV vancomycin and meropenem. Patient is allergic to penicillins. Plan Hypertension: Goal blood pressure less than 140/90 mmHg. Blood pressure elevated. Does have a history of hypertension past. Slight component of drug withdrawal as well. For now start with home dose of amlodipine 10 mg daily. Add metoprolol 25 mg twice daily. Clear liquid diet. Protonix for PUD prophylaxis Heparin for DVT prophylaxis. Transfer to [facility] floor. Attestations Medical Necessity Statement*: Requires further hospitalization for management of acute alcoholic pancreatitis in a patient with alcohol intoxication, amphetamine abuse while diet is gradually advanced, pneumonia Diagnoses Acute alcoholic pancreatitis K85.20 Acute pancreatitis complication: no infection or necrosis Acute alcohol intoxication F10.920 Complication of substance-induced condition: uncomplicated Amphetamine abuse F15.10 Alcohol withdrawal seizure F10.939; R56.9 Morbid obesity E66.01 Pneumonia J18.9
[2023-04-15] MEDS: dextrose 5%-sod chloride 0.9% 1,000 ML 100 ML IV (17:09)
[2023-04-15] MEDS: amlodipine 10 mg Tablet PO (17:09)
[2023-04-15] MEDS: metoprolol tartrate 25 mg Tablet PO (20:52)
[2023-04-16] VITALS (12 sets, daily range): BP systolic 148–176; BP diastolic 72–100; PULSE 78–98; RESP 16–20; TEMP 36.4–37.2; O2SAT 92–98
[2023-04-16] MEDS: ketorolac 30 mg/mL INJ 15 MG IVP ×3 (01:08→22:55)
[2023-04-16] MEDS: HYDROmorphone 1 mg/mL INJ 1 mL IVP ×4 (01:36→08:31)
[2023-04-16] MEDS: pantoprazole 40 mg SDV IVP ×2 (02:03→13:16)
[2023-04-16] MEDS: meropenem 1,000 MG in sodium chloride 0.9% (plus) 50 ML 100 MG IV ×3 (02:03→17:26)
[2023-04-16] MEDS: heparin 5,000 unit/mL INJ 1 mL 5000 UNIT SUBCUT ×2 (02:08→13:16)
[2023-04-16] MEDS: dextrose 5%-sod chloride 0.9% 1,000 ML 100 ML IV ×3 (03:02→23:30)
[2023-04-16] MEDS: vancomycin 2,000 MG/400 ML PIGGYBACK 200 MG IV ×3 (04:52→21:14)
[2023-04-16 07:03] LABS: Basophils % 0.5 %; Eosinophils # 0.4 10^3/uL (0.0-0.8); Eosinophils % 5.1 %; Hematocrit 38.5 % (42.0-52.0); Hemoglobin 12.5 g/dL (11.7-16.6); Lymphocytes # 1.6 10^3/uL (0.8-4.8); Lymphocytes % 20.4 %; Mean Corpuscular HGB Conc 32.5 g/dL (30.0-36.0); Mean Corpuscular Hemoglobin 33.6 pg (28.0-34.0); Mean Corpuscular Volume 103.5 fl (80-94); Mean Platelet Volume 9.5 fL (7.4-10.4); Monocytes # 0.5 10^3/uL (0.2-0.9); Monocytes % 5.8 %; Neutrophils # 5.35 10^3/uL (1.8-7.7); Neutrophils % 67.8 %; Nucleated Red Blood Cells % 0 %; Platelet Count 139 10^3/cmm (130-400); Red Blood Count 3.72 10^6/uL (4.1-5.3); Red Cell Distribution Width 13.3 % (12.1-15.1); White Blood Count 7.9 10^3/uL (4.0-10.0)
[2023-04-16 07:21] LABS: Alanine Aminotransferase 65 U/L (0-41); Alkaline Phosphatase 75 U/L (40-130); Anion Gap 11.7 (5-19); Aspartate Amino Transferase 113 U/L (0-40); Blood Urea Nitrogen 7 mg/dL (6-20); Calcium 8.2 mg/dL (8.5-10.5); Carbon Dioxide 25 mmol/L (22-29); Chloride 100 mmol/L (98-107); Globulin 3.7 g/dL (1.3-4.6); Glomerular Filtration Rate 192.7 mL/min (90-130); Glucose 110 mg/dL (65-115); Osmolality Calculated 275 mOsm/kg (285-295); Potassium 3.7 mmol/L (3.5-5.1); Sodium 133 mmol/L (136-145); Total Bilirubin 1.1 mg/dL (0.15-1.2); Total Protein 6.7 g/dL (6.6-8.7)
[2023-04-16] MEDS: acetaminophen 325 mg Tablet 650 MG PO (08:31)
[2023-04-16] MEDS: amlodipine 10 mg Tablet PO (08:31)
[2023-04-16] MEDS: metoprolol tartrate 25 mg Tablet PO (08:31)
[2023-04-16] MEDS: multivitamin therapeutic Tablet 1 TAB PO (08:31)
[2023-04-16] MEDS: HYDROcodone-acetaminophen 5-325 mg Tablet 1 TAB PO ×2 (11:10→18:23)
[2023-04-16] MEDS: HYDROmorphone 1 mg/mL INJ 1 mL 0.5 MG IVP ×2 (13:16→20:47)
--- NOTE | 2023-04-16 15:12 | P.PN_ITS ---
Subjective Subjective: Today morning patient seen on [facility]. Patient is drowsy but awake. Tolerating clear liquid diet well with some nausea but no vomiting. Complaining of abdominal pain. States abdominal pain is getting worse again. Asking for more pain medications. Yesterday in the evening patient did have an episode of agitation when he wanted more pain medications but could not get. Patient threatened to leave AGAINST MEDICAL ADVICE but decided to do against and stayed. No further episodes of agitation since then. Blood pressures today morning slightly elevated. Otherwise patient has remained afebrile. Blood work appreciated to be stable. Vitals/I&O/Wt Last Vital Signs Temp 98.2 F 04/16/23 11:54 Pulse 82 04/16/23 11:54 Resp 18 04/16/23 11:54 BP 167/97 04/16/23 11:54 Pulse Ox 98 04/16/23 11:54 O2 Del Method Nasal Cannula 04/16/23 07:28 O2 Flow Rate 3 04/16/23 07:40 04/16/23 04/16/23 04/16/23 06:59 14:59 22:59 Intake Total 1679.333 / 4839.401 2155.5 / 2155.5 400 / 2555.5 Output Total 875 / 2550 Balance 804.333 / 2289.401 2155.5 / 2155.5 400 / 2555.5 Physical Exam Narrative: General: Acute distress because of abdominal pain, AOx3, drowsy, morbidly obese HEENT: PERRLA, pupils bilaterally equal and reactive Chest: Normal vesicular breath sounds, no added sounds, equal good air entry bilaterally CVS: S1-S2 regular, no murmurs, no tachycardia, no gallops, no rubs Abdomen: Soft, generalized tenderness more in epigastric area, no organomegaly, bowel sounds present Neuro: No focal deficits, no facial deformity, AO x3, power 5/5 in all limbs Data 04/16/23 06:25 04/16/23 06:25 Micro: Microbiology 04/14/23 11:00 Gram Stain - Final Sputum - Expectorated Sputum Sputum Culture - Preliminary Haemophilus Influenzae A&P Assessment and plan (1) Acute alcoholic pancreatitis: Most likely in setting of chronic alcohol use. Triglyceride levels normal. Patient does have history of gallstones but alkaline phosphatase on current admission normal. CT abdomen pelvis negative for duct dilatation. Conservative treatment. Advance to clear liquid diet today. Continue IV hydration with D5 NS at 100 cc/h. Protonix daily, Zofran as needed. Dilaudid IV 1 mg mg every 2 hour for pain control Qualifiers: Acute pancreatitis complication: no infection or necrosis Qualified Code(s): K85.20 - Alcohol induced acute pancreatitis without necrosis or infection (2) Acute alcohol intoxication: With history of alcohol withdrawal seizures. Stop Precedex drip. Start on phenobarbital as per alcohol withdrawal protocol. 130 mg twice daily. We will plan to continue for next 2 days and then come down to 65 mg twice daily. Watch for alcohol withdrawal seizures. [facility] protocol. 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 Watch for withdrawal. (4) Alcohol withdrawal seizure: (5) Morbid obesity: Watch for sleep apnea. (6) Pneumonia: Not requiring oxygen. Mild leukocytosis. Afebrile in last 24 hours. Follow-up sputum culture. MRSA positive. For now continue with IV vancomycin and meropenem. Patient is allergic to penicillins. (7) Haemophilus infection: Plan Hypertension: Goal blood pressure less than 140/90 mmHg. Blood pressure elevated. Does have a history of hypertension past. Slight component of drug withdrawal as well. For now start with home dose of amlodipine 10 mg daily. Add metoprolol 25 mg twice daily. Clear liquid diet. Protonix for PUD prophylaxis Heparin for DVT prophylaxis. Plan for the day: Advance diet to full liquid diet. Change pain medication to 0.5 mg every 4 hours, [place] 5 mg every 6 hours as needed. Continue with IV vancomycin and meropenem. Patient slightly drowsy. Decrease phenobarbital to 65 mg IV twice daily. Sputum culture growing haemophilus. Blood cultures so far negative. Continue with oral amlodipine and metoprolol 25 mg twice daily while monitoring blood pressures. If patient remains hemodynamically stable and afebrile and cultures remain negative, patient tolerating full liquid diet well we will plan to discharge tomorrow on full liquid diet for next 3 days followed by mechanical soft diet for a week with advice for abstinence from alcohol and amphetamines. Attestations Medical Necessity Statement*: Requires further hospitalization for management of acute alcoholic pancreatitis requiring IV pain medications while diet is gradually advanced, pneumonia in a patient with history of severe alcohol abuse, amphetamine abuse, morbid obesity Diagnoses Acute alcoholic pancreatitis K85.20 Acute pancreatitis complication: no infection or necrosis Acute alcohol intoxication F10.920 Complication of substance-induced condition: uncomplicated Amphetamine abuse F15.10 Alcohol withdrawal seizure F10.939; R56.9 Morbid obesity E66.01 Pneumonia J18.9 Haemophilus infection A49.2
[2023-04-16] MEDS: bisacodyl 5 mg Tablet 10 MG PO (18:35)
[2023-04-16] MEDS: lactulose oral liq 20 gm/30 mL UDC 10 GM PO (18:35)
[2023-04-16] MEDS: LORazepam 2 mg/mL INJ 1 mL 1 MG IVP (18:41)
[2023-04-17] VITALS (10 sets, daily range): BP systolic 163–204; BP diastolic 104–124; PULSE 81–98; RESP 16–22; TEMP 36.4–36.9; O2SAT 95–99
[2023-04-17] MEDS: HYDROmorphone 1 mg/mL INJ 1 mL 0.5 MG IVP ×5 (01:27→22:42)
[2023-04-17] MEDS: meropenem 1,000 MG in sodium chloride 0.9% (plus) 50 ML 100 MG IV ×3 (02:18→17:45)
[2023-04-17] MEDS: heparin 5,000 unit/mL INJ 1 mL 5000 UNIT SUBCUT ×2 (02:27→13:26)
[2023-04-17] MEDS: pantoprazole 40 mg SDV IVP ×2 (02:59→13:26)
[2023-04-17] MEDS: HYDROcodone-acetaminophen 5-325 mg Tablet 1 TAB PO ×3 (04:27→21:20)
[2023-04-17 04:31] LABS: Basophils % 0.4 %; Eosinophils # 0.3 10^3/uL (0.0-0.8); Eosinophils % 3.6 %; Hematocrit 38.9 % (42.0-52.0); Hemoglobin 12.8 g/dL (11.7-16.6); Lymphocytes # 1.3 10^3/uL (0.8-4.8); Lymphocytes % 18.4 %; Mean Corpuscular HGB Conc 32.9 g/dL (30.0-36.0); Mean Corpuscular Hemoglobin 33.6 pg (28.0-34.0); Mean Corpuscular Volume 102.1 fl (80-94); Mean Platelet Volume 9.6 fL (7.4-10.4); Monocytes # 0.4 10^3/uL (0.2-0.9); Monocytes % 6.4 %; Neutrophils # 4.87 10^3/uL (1.8-7.7); Neutrophils % 70.8 %; Nucleated Red Blood Cells % 0 %; Platelet Count 177 10^3/cmm (130-400); Red Blood Count 3.81 10^6/uL (4.1-5.3); Red Cell Distribution Width 13.2 % (12.1-15.1); White Blood Count 6.9 10^3/uL (4.0-10.0)
[2023-04-17 04:55] LABS: Alanine Aminotransferase 79 U/L (0-41); Albumin Level 3.2 g/dL (3.5-5.2); Alkaline Phosphatase 84 U/L (40-130); Anion Gap 13.7 (5-19); Aspartate Amino Transferase 145 U/L (0-40); Blood Urea Nitrogen 4 mg/dL (6-20); Calcium 8.5 mg/dL (8.5-10.5); Carbon Dioxide 25 mmol/L (22-29); Chloride 100 mmol/L (98-107); Globulin 3.8 g/dL (1.3-4.6); Glomerular Filtration Rate 249.3 mL/min (90-130); Glucose 89 mg/dL (65-115); Osmolality Calculated 276 mOsm/kg (285-295); Potassium 3.7 mmol/L (3.5-5.1); Sodium 135 mmol/L (136-145); Total Bilirubin 1.2 mg/dL (0.15-1.2)
[2023-04-17 04:56] LABS: Vancomycin Trough 11.4 ug/mL (10-15)
[2023-04-17] MEDS: vancomycin 2,000 MG/400 ML PIGGYBACK 200 MG IV ×3 (05:00→21:21)
[2023-04-17] MEDS: amlodipine 10 mg Tablet PO (09:31)
[2023-04-17] MEDS: metoprolol tartrate 25 mg Tablet PO ×2 (09:31→21:20)
[2023-04-17] MEDS: multivitamin therapeutic Tablet 1 TAB PO (09:32)
[2023-04-17] MEDS: dextrose 5%-sod chloride 0.9% 1,000 ML 100 ML IV ×2 (09:32→18:04)
[2023-04-17] MEDS: ketorolac 30 mg/mL INJ 15 MG IVP ×2 (09:34→17:45)
[2023-04-17] MEDS: magnesium hydroxide 30 mL UDC PO (11:42)
[2023-04-17] MEDS: nicotine 4 mg lozenge MUCOUS MEM ×2 (11:46→22:50)
[2023-04-17] MEDS: PHENobarbital 130 mg/mL SDV 1 mL 65 MG IV ×2 (13:26→23:40)
--- NOTE | 2023-04-17 15:31 | P.PN_ITS ---
Subjective Subjective: 8. Patient has remained hemodynamically stable afebrile. The morning on examination slightly more awake. Able to tolerate full liquid diet. Continues to complain of abdominal pain. Mild nausea. Continues to remain on room air. States he has not had a bowel movement in 2 weeks though small bowel movement reported regular morning by the nurse. Blood work appreciated for stable CBC with no leukocytosis, stable CMP with improvement in hyponatremia, AST mildly elevated to 145 and 113 yesterday, resolution of hyperbilirubinemia. Required 10 mg of 4 Harriet and 1.5 mg of IV Dilaudid in last 24 hours till today morning. Vitals/I&O/Wt Last Vital Signs Temp 97.8 F 04/17/23 15: Pulse 87 04/17/23 15:23 Resp 16 04/17/23 15:23 BP 163/104 04/17/23 15:23 Pulse Ox 99 04/17/23 15:23 O2 Del Method Room Air 04/17/23 15:23 O2 Flow Rate 3 04/16/23 07:40 04/17/23 04/17/23 04/17/23 06:59 14:59 22:59 Intake Total 450.5 / 4056.0 2614 / 2614 Output Total 1400 / 1400 Balance 450.5 / 4056.0 1214 / 1214 Weight last 48 hrs Weight 194.166 kg Weight 194.166 kg Physical Exam Narrative: General: Acute distress because of abdominal pain, AOx3, drowsy, morbidly obese HEENT: PERRLA, pupils bilaterally equal and reactive Chest: Normal vesicular breath sounds, no added sounds, equal good air entry bilaterally CVS: S1-S2 regular, no murmurs, no tachycardia, no gallops, no rubs Abdomen: Soft, generalized tenderness more in epigastric area, no organomegaly, bowel sounds present but sluggish Neuro: No focal deficits, no facial deformity, AO x3, power 5/5 in all limbs Data 04/17/23 03:55 04/17/23 03:55 Micro: Microbiology 04/14/23 11:00 Gram Stain - Final Sputum - Expectorated Sputum Sputum Culture - Final Haemophilus Influenzae Methicillin Resis Staph Aureus A&P Assessment and plan (1) Acute alcoholic pancreatitis: Most likely in setting of chronic alcohol use. Triglyceride levels normal. Patient does have history of gallstones but alkaline phosphatase on current admission normal. CT abdomen pelvis negative for duct dilatation. Conservative treatment. Advance to clear liquid diet today. Continue IV hydration with D5 NS at 100 cc/h. Protonix daily, Zofran as needed. Dilaudid IV 1 mg mg every 2 hour for pain control Qualifiers: Acute pancreatitis complication: no infection or necrosis Qualified Code(s): K85.20 - Alcohol induced acute pancreatitis without necrosis or infection (2) Acute alcohol intoxication: With history of alcohol withdrawal seizures. Stop Precedex drip. Start on phenobarbital as per alcohol withdrawal protocol. 130 mg twice daily. We will plan to continue for next 2 days and then come down to 65 mg twice daily. Watch for alcohol withdrawal seizures. [facility] protocol. 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 Watch for withdrawal. (4) Alcohol withdrawal seizure: (5) Morbid obesity: Watch for sleep apnea. (6) Pneumonia: Not requiring oxygen. Mild leukocytosis. Afebrile in last 24 hours. Follow-up sputum culture. MRSA positive. For now continue with IV vancomycin and meropenem. Patient is allergic to penicillins. (7) Haemophilus infection: Plan Hypertension: Goal blood pressure less than 140/90 mmHg. Blood pressure elevated. Does have a history of hypertension past. Slight component of drug withdrawal as well. For now start with home dose of amlodipine 10 mg daily. Add metoprolol 25 mg twice daily. Clear liquid diet. Protonix for PUD prophylaxis Heparin for DVT prophylaxis. Plan for the day: Continue on full liquid diet. Continue with current pain management of 0.5 of Dilaudid every 4 hour and Harriet 5 mg for 6-hour. Blood culture negative, sputum culture growing heavy haemophilus and MRSA. For now continue with IV vancomycin and meropenem. Plan to discharge on oral Bactrim for 10 more days to finish a course of antibiotics. Continue with current antihypertensive including amlodipine and metoprolol. Plan to discharge in next 24 hours if remains hemodynamically stable and continues to have low pain medication requirement. Attestations Medical Necessity Statement*: Requires further hospitalization for management of acute alcoholic pancreatitis in a patient with history of severe alcohol abuse, amphetamine abuse, sepsis in setting of haemophilus and MRSA pneumonia Diagnoses Acute alcoholic pancreatitis K85.20 Acute pancreatitis complication: no infection or necrosis Acute alcohol intoxication F10.920 Complication of substance-induced condition: uncomplicated Amphetamine abuse F15.10 Alcohol withdrawal seizure F10.939; R56.9 Morbid obesity E66.01 Pneumonia J18.9 Haemophilus infection A49.2
[2023-04-17] MEDS: acetaminophen 325 mg Tablet 650 MG PO (16:58)
[2023-04-18] VITALS (8 sets, daily range): BP systolic 165–201; BP diastolic 85–123; PULSE 84–95; RESP 17–20; TEMP 36.8–37.2; O2SAT 90–96
[2023-04-18] MEDS: pantoprazole 40 mg SDV IVP (01:57)
[2023-04-18] MEDS: meropenem 1,000 MG in sodium chloride 0.9% (plus) 50 ML 100 MG IV ×2 (01:57→10:39)
[2023-04-18] MEDS: heparin 5,000 unit/mL INJ 1 mL 5000 UNIT SUBCUT (01:57)
[2023-04-18] MEDS: ketorolac 30 mg/mL INJ 15 MG IVP (01:58)
[2023-04-18] MEDS: dextrose 5%-sod chloride 0.9% 1,000 ML 100 ML IV (03:59)
[2023-04-18] MEDS: vancomycin 2,000 MG/400 ML PIGGYBACK 200 MG IV (04:01)
[2023-04-18] MEDS: HYDROcodone-acetaminophen 5-325 mg Tablet 1 TAB PO ×2 (04:01→11:17)
[2023-04-18] MEDS: HYDROmorphone 1 mg/mL INJ 1 mL 0.5 MG IVP (07:55)
[2023-04-18] MEDS: amlodipine 10 mg Tablet PO (09:19)
[2023-04-18] MEDS: multivitamin therapeutic Tablet 1 TAB PO (09:19)
[2023-04-18] MEDS: metoprolol tartrate 25 mg Tablet PO (09:19)
--- NOTE | 2023-04-18 12:09 | P.DS_ITS ---
Discharge Providers Date of Admission: 04/13/23 12:29 Date of Discharge: April 18, 2023 Attending Provider at Admission: George Holt MD Attending Provider at Discharge: Siva Cartrwight MD Consults: None Diagnoses at Discharge Discharge Diagnosis (1) Acute alcoholic pancreatitis: Status: Resolved Qualifiers: Acute pancreatitis complication: no infection or necrosis Qualified Code(s): K85.20 - Alcohol induced acute pancreatitis without necrosis or infection (2) Acute alcohol intoxication: Status: Resolved Qualifiers: Complication of substance-induced condition: uncomplicated Qualified Code(s): F10.920 - Alcohol use, unspecified with intoxication, uncomplicated (3) Amphetamine abuse: Status: Acute (4) Alcohol withdrawal seizure: Status: Acute (5) Morbid obesity: Status: Acute (6) Pneumonia: Status: Resolved (7) Haemophilus infection: Status: Resolved Reason for Visit Reason for Visit: chest pain Hospital Course Hospital Course Radhames Spears is a 32-year-old female with a past medical history significant for uncontrolled hypertension, alcohol use disorder with abuse, alcohol indued pancreatitis, methamphetamine abuse, hepatitis C, and tobacco use disorder who presented with chest pain, found to have acute alcoholic pancreatitis, acute alcoholic intoxication with alcohol abuse, and community acquired pneumonia. Patient was treated with IV antibiotics, CIWA, IV analgesics and supportive care. Symptoms improved. Patient tolerating regular fluid intake. Patient discharged in stable condition. Physical Exam Const: COMMON NORMALS: no acute distress and alert HENMT: COMMON NORMALS: normocephalic HEAD & SCALP: normocephalic Eye: COMMON NORMALS: EOMs intact bilaterally Neck/C-Spine: COMMON NORMALS: supple and no JVD Chest: COMMONS NORMALS: normal inspection of the chest Resp: COMMON NORMALS: normal respiratory effort and No use of accessory muscles Cardio: COMMON NORMALS: no JVD, S1 normal heart sound present, S2 normal heart sound present, No murmurs present (Cardio) and No rub (Cardio) HEART SOUNDS: S1 normal heart sound present and S2 normal heart sound present GI: COMMON NORMALS: Normal to inspection, nondistended, normoactive bowel sounds present and non-tender Extremity: COMMON NORMALS: normal to inspection Neuro: SENSORIUM/ORIENTATION: Yes alert Discharge Data Studies Completed and Pending Completed Studies During Hospitalization Category Date Time Status CT chest abdomen pelvis [CT chest abdpel w/*[id number] Cat Scan 04/13/23 10:27 Completed ] Stat XR chest 1V portable [id number] Routine Exams 04/15/23 06:00 Completed XR chest 1V portable [id number] Urgent Exams 04/13/23 08:56 Completed Pending at discharge Category Date Time Status Blood Culture Stat Lab 04/13/23 14:24 Results Radiology Impressions Chest/Abdomen/Pelvis CT 04/13/23 10:27 IMPRESSION: 1. Mild acute progressive pancreatitis involving the pancreatic head, uncinate process and neck since 01/17/2023. No pseudocyst. 2. Common bile duct top normal size at 8 mm. 3. Mildly hydropic gallbladder. Stones have been previously described within the gallbladder. Gallstones are not identified by CT. 4. Marked hepatic steatosis and hepatomegaly. 5. Quality of this examination is compromised by body habitus. Chest X-Ray 04/15/23 06:00 IMPRESSION: Cardiomegaly with no acute process Laboratory Results WBC 6.9 10^3/uL (4.0-10.0) 04/17/23 03:55 RBC 3.81 10^6/uL (4.1-5.3) L 04/17/23 03:55 Hgb 12.8 g/dL (11.7-16.6) 04/17/23 03:55 Hct 38.9 % (42.0-52.0) L 04/17/23 03:55 MCV 102.1 fl (80-94) H 04/17/23 03:55 MCH 33.6 pg (28.0-34.0) 04/17/23 03:55 MCHC 32.9 g/dL (30.0-36.0) 04/17/23 03:55 RDW 13.2 % (12.1-15.1) 04/17/23 03:55 Plt Count 177 10^3/cmm (130-400) 04/17/23 03:55 MPV 9.6 fL (7.4-10.4) 04/17/23 03:55 Neut % (Auto) 70.8 % 04/17/23 03:55 Lymph % (Auto) 18.4 % 04/17/23 03:55 [place] % (Auto) 6.4 % 04/17/23 03:55 Eos % (Auto) 3.6 % 04/17/23 03:55 Baso % (Auto) 0.4 % 04/17/23 03:55 Neut # (Auto) 4.87 10^3/uL (1.8-7.7) 04/17/23 03:55 Lymph # (Auto) 1.3 10^3/uL (0.8-4.8) 04/17/23 03:55 [place] # (Auto) 0.4 10^3/uL (0.2-0.9) 04/17/23 03:55 Eos # (Auto) 0.3 10^3/uL (0.0-0.8) 04/17/23 03:55 Baso # (Auto) 0.0 10^3/uL (0.0-0.1) 04/17/23 03:55 Nucleated RBC % (auto) 0 % 04/17/23 03:55 Nucleated RBCs # 0.0 /100WBC 04/17/23 03:55 Sodium 135 mmol/L (136-145) L 04/17/23 03:55 Potassium 3.7 mmol/L (3.5-5.1) 04/17/23 03:55 Chloride 100 mmol/L (98-107) 04/17/23 03:55 Carbon Dioxide 25 mmol/L (22-29) 04/17/23 03:55 Anion Gap 13.7 (5-19) 04/17/23 03:55 BUN 4 mg/dL (6-20) L 04/17/23 03:55 Creatinine 0.4 mg/dL (0.7-1.2) L 04/17/23 03:55 GFR Calculation 249.3 mL/min (90-130) H 04/17/23 03:55 Glucose 89 mg/dL (65-115) 04/17/23 03:55 POC Glucose 90 mg/dL (70-110) 04/14/23 10:48 Estimat Average Glucose 108 04/14/23 04:30 Hemoglobin A1c 5.4 % (4.0-6.0) 04/14/23 04:30 Calculated Osmolality 276 mOsm/kg (285-295) L 04/17/23 03:55 Lactic Acid 1.2 mmol/L (0.5-2.2) 04/13/23 14:16 Calcium 8.5 mg/dL (8.5-10.5) 04/17/23 03:55 Phosphorus 3.7 mg/dL (2.5-4.5) 04/14/23 04:30 Magnesium 1.5 mg/dL (1.7-2.3) L 04/14/23 04:30 Iron 125 ug/dL (59-158) 04/13/23 14:16 TIBC 406 mcg/dl 04/13/23 14:16 % Saturation 30.7 % (20-50) 04/13/23 14:16 Unsat Iron Binding 281 ug/dL (112-347) 04/13/23 14:16 Total Bilirubin 1.2 mg/dL (0.15-1.2) 04/17/23 03:55 AST 145 U/L (0-40) H 04/17/23 03:55 ALT 79 U/L (0-41) H 04/17/23 03:55 Alkaline Phosphatase 84 U/L (40-130) 04/17/23 03:55 Troponin T Baseline 7 ng/L (0-15) 04/13/23 09:38 Troponin T 120 Minute 6.65 ng/L (0-15) 04/13/23 12:00 Delta Troponin T -0.35 ABS# (0-10) L 04/13/23 12:00 Troponin T Hi Sens 6Hr 7.40 ng/L (0-15) 04/13/23 15:37 Troponin T Hi Sens 6Hr Delta 0.40 ng/L (0-12) 04/13/23 15:37 Total Protein 7.0 g/dL (6.6-8.7) 04/17/23 03:55 Albumin 3.2 g/dL (3.5-5.2) L 04/17/23 03:55 Globulin 3.8 g/dL (1.3-4.6) 04/17/23 03:55 Triglycerides 93 mg/dL (0-150) 04/14/23 04:30 Cholesterol 148 mg/dL (0-200) 04/14/23 04:30 LDL Cholesterol, Calc 81 mg/dL (50-129) 04/14/23 04:30 Total VLDL Cholesterol 19 mg/dL (0-30) 04/14/23 04:30 HDL Cholesterol 48 mg/dL (60-100) L 04/14/23 04:30 Cholesterol/HDL Ratio 3.08 mg/dL (1.0-5.00) 04/14/23 04:30 Lipase 71 U/L (13-60) H 04/15/23 04:26 Vitamin B12 481 pg/mL (232-1245) 04/13/23 14:16 Folate 13.1 ng/mL (4.5-32.2) 04/14/23 04:30 Procalcitonin 0.09 ng/mL (0-0.5) 04/13/23 14:16 TSH 3.22 uIU/mL (0.27-4.20) 04/13/23 14:16 Urine Color Dark yellow (Yellow) 04/13/23 11:30 Urine Appearance Clear (CLEAR) 04/13/23 11:30 Urine pH 6 (5-7) 04/13/23 11:30 Ur Specific [place] 1.020 (1.005-1.030) 04/13/23 11:30 Urine Protein Neg (Negative) 04/13/23 11:30 Urine Glucose (UA) Norm (Normal) 04/13/23 11:30 Urine Ketones Negative (Negative) 04/13/23 11:30 Urine Blood Neg (Negative) 04/13/23 11:30 Urine Nitrate Negative (Negative) 04/13/23 11:30 Urine Bilirubin Neg (Negative) 04/13/23 11:30 Urine Urobilinogen 1 mg/dL (Negative) H 04/13/23 11:30 Ur Leukocyte Esterase Negative (Negative) 04/13/23 11:30 Vancomycin Trough 11.4 ug/mL (10-15) 04/17/23 03:55 Urine Opiates Screen Positive ng/mL (Negative) H 04/13/23 11:30 Ur Barbiturates Screen Negative ng/mL (Negative) 04/13/23 11:30 Ur Phencyclidine Scrn Negative ng/mL (Negative) 04/13/23 11:30 Ur Amphetamines Screen Positive ng/mL (Negative) H 04/13/23 11:30 U Benzodiazepines Scrn Negative ng/mL (Negative) 04/13/23 11:30 Urine Cocaine Screen Negative ng/mL (Negative) 04/13/23 11:30 U Marijuana (THC) Screen Positive ng/mL (Negative) H 04/13/23 11:30 Ethyl Alcohol 342 mg/dL (0-10) H* 04/13/23 09:38 Vitals Last Vital Signs Temp 98.2 F 04/18/23 08:00 Pulse 95 04/18/23 08:00 Resp 20 H 04/18/23 08:00 BP 165/85 04/18/23 08:00 Pulse Ox 96 04/18/23 08:00 O2 Del Method Room Air 04/18/23 04:00 O2 Flow Rate 3 04/18/23 08:00 Discharge Plan Discharge Patient Disposition: Home Condition: Stable Prescriptions: New Bactrim DS 800-160 mg tablet 1 tab PO BID 7 Days Qty: 14 0RF Vistaril 25 mg capsule 25 mg PO Q8H PRN (Reason: anxiety) Qty: 90 0RF Continued amlodipine 5 mg Tablet 10 mg PO DAILY Qty: 90 0RF nystatin 100,000 unit/gram Cream 1 applic topical BID Qty: 30 0RF Rx Instructions: Groin and under pannus nicotine 21 mg/24 hr Patch 24 Hour 1 patch transdermal DAILY Qty: 90 0RF folic acid 1 mg Tablet 1 mg PO DAILY Qty: 90 0RF nicotine (polacrilex) 4 mg Lozenge 4 mg mucous membrane Q2H PRN (Reason: Nicotine Cravings) Qty: 90 0RF thiamine mononitrate (vit B1) [Vitamin B-1 (mononitrate)] 100 mg Tablet 100 mg PO DAILY Qty: 90 0RF multivitamin with folic acid [Thera] 400 mcg Tablet 1 tab PO DAILY Qty: 90 0RF pantoprazole 40 mg tablet,delayed release (DR/EC) 40 mg PO DAILY Narcan 4 mg/actuation spray,non-aerosol 1 spray INTRANASAL Q2M PRN (Reason: Opioid Overdose) Changed hydromorphone 4 mg Tablet 4 mg PO Q4H PRN (Reason: Severe Pain) Qty: 15 0RF Discharge Orders: Discharge Order (Routine); Ordered 04/18/23 Ordered By: Siva Cartwright Referrals: Gilson Rivas FNP [Nurse Practitioner] - 1-3 days (Clinic will call with appointment. ) Discharge Diet: Advance as tolerated and Usual diet Discharge Activity: Resume usual activity and Increase activity as tolerated Patient Instructions: Alcohol Withdrawal, Sulfamethoxazole/Trimethoprim (By mouth), Hydroxyzine (By mouth), Hydromorphone (By mouth), Abuse of Alcohol (GEN), Methamphetamine Use Disorder (GEN), Opioid Safety Activity Restrictions/Additional Instructions: 1. Alcohol cessation 2. Take medications as prescribed 3. Follow up with PCP Discharge Attestations Time Spent in Discharge Care*: greater than 30 min Quality Metrics Clinical Quality Measures [ No reported AMI, CVA or VTE this stay] Coding Level of Care Code Acute Code for [facility] Fwd Diagnoses Acute alcoholic pancreatitis K85.20 Acute pancreatitis complication: no infection or necrosis Acute alcohol intoxication F10.920 Complication of substance-induced condition: uncomplicated Amphetamine abuse F15.10 Alcohol withdrawal seizure F10.939; R56.9 Morbid obesity E66.01 Pneumonia J18.9 Haemophilus infection A49.2
[2023-04-18] MEDS: sulfamethoxazole-trimeth DS 160-800 mg Tablet 1 TAB PO (13:21)
--- NOTE | 2023-04-18 13:30 | PC.NURSE ---
Discharge Note Patient discharged to the [facility] (homeless) via walking accompanied by self. Discharge instructions reviewed with patient and/or truck sales representative. Mobile pharmacy medications and/or prescriptions provided. Belongings/home medications returned. Gave po antibiotic
== END 2023-04-18 13:38 | disposition home or self-care (01) | DRG 438 ==
LOC: ER 12:03 → ICU 13:10 → MEDSURG 04-15 15:13
PROVIDERS: Physician Assistant; Admitting Provider Student in an Organized Health Care Education/Training Program; Emergency Provider Family Medicine; Visit Provider Internal Medicine
DX: K85.20 Alcohol induced acute pancreatitis without necrosis or infection (principal); J18.9 Pneumonia, unspecified organism; Z68.43 Body mass index [BMI] 50.0-59.9, adult; E87.1 Hypo-osmolality and hyponatremia; F10.129 Alcohol abuse with intoxication, unspecified; Y90.9 Presence of alcohol in blood, level not specified; I10 Essential (primary) hypertension; F19.10 Other psychoactive substance abuse, uncomplicated; B19.20 Unspecified viral hepatitis C without hepatic coma; E66.01 Morbid (severe) obesity due to excess calories; F20.9 Schizophrenia, unspecified; F17.200 Nicotine dependence, unspecified, uncomplicated; B95.62 Methicillin resistant Staphylococcus aureus infection as the cause of diseases classified elsewhere; B96.3 Hemophilus influenzae [H. influenzae] as the cause of diseases classified elsewhere; Z88.0 Allergy status to penicillin; Z59.00 Homelessness unspecified
CPT/HCPCS: 36415; 36416; 71045; 71260; 74177; 80053; 80061; 80202; 80306; 80307; 81003; 82607; 82746; 82962; 83036; 83540; 83550; 83605; 83690; 83735; 84100; 84145; 84443; 84478; 84484; 85025; 87040; 87070; 87077; 87186; 87205; 87641; 93005; 94664; 96372; 96374; 96375; 99285; C9113; J1170; J1644; J1885; J2060; J2185; J2270; J2405; J2560; J3372; J3411; J3490; J7030; J7042; J7050; Q9967

== ENCOUNTER 2023-05-01 11:12 | Emergency (ER) | payer MEDICAID, SELFPAY ==
[2023-05-01 11:13] VITALS: BP 132/114; PULSE 107; RESP 18; TEMP 37.5; O2SAT 92; BMI 56.0
[2023-05-01 11:30] LABS: Basophils # 0.1 10^3/uL (0.0-0.1); Basophils % 1.2 %; Eosinophils # 0.2 10^3/uL (0.0-0.8); Hematocrit 42.7 % (42.0-52.0); Hemoglobin 14.8 g/dL (11.7-16.6); Lymphocytes % 51.3 %; Mean Corpuscular HGB Conc 34.7 g/dL (30.0-36.0); Mean Corpuscular Hemoglobin 34.2 pg (28.0-34.0); Mean Corpuscular Volume 98.6 fl (80-94); Mean Platelet Volume 9.7 fL (7.4-10.4); Monocytes % 9.9 %; Neutrophils # 3.44 10^3/uL (1.8-7.7); Neutrophils % 35.2 %; Nucleated Red Blood Cells % 0 %; Platelet Count 349 10^3/cmm (130-400); Red Blood Count 4.33 10^6/uL (4.1-5.3); Red Cell Distribution Width 12.9 % (12.1-15.1); White Blood Count 9.8 10^3/uL (4.0-10.0)
[2023-05-01] MEDS: sodium chloride 0.9% 1,000 ML 999 ML IV (11:33)
[2023-05-01 11:47] VITALS: BP 132/114; PULSE 105; RESP 21; O2SAT 92
[2023-05-01] MEDS: ketorolac 30 mg/mL INJ IVP (11:47)
--- NOTE | 2023-05-01 11:49 | ED_ITS ---
HPI - Weakness General: Chief complaint: Weakness Stated complaint: heat exhaustion Time Seen by Provider: 05/01/23 11:22 History of Present Illness: Patient presents to the ER by EMS with complaints of heat exhaustion headache and possible pancreatitis. Patient states he has been staying sanding wood outside since about 6 AM this morning. He started getting hot and sweaty having a headache like is going to pass out. Patient does have a history of pancreatitis and states he has not been drinking any water. He feels tired now and states that his stomach hurts. Patient refused IV Toradol after stating he wanted pain medicine. Review of Systems General: Reports: 10 or more systems reviewed and unremarkable except in HPI and below PFSH ED PFSH: Medical History Alcohol use disorder Alcohol withdrawal seizure Biliary colic Homelessness HTN (hypertension) Morbid obesity Polysubstance abuse Schizophrenia Smoking addiction Substance use disorder Surgical History H/O esophagogastroduodenoscopy Family History Other Colon cancer Social History Smoking and tobacco status: current every day smoker Alcohol intake: current Substance/Drug Use: current Housing: Homeless Marital status: Physical Exam Const: COMMON NORMALS: no acute distress, average body habitus, patient oriented x3, no limitations, healthy appearing, alert and well nourished HENMT: COMMON NORMALS: normocephalic, atraumatic, hearing grossly normal bilaterally, external ears normal, Normal external nose present and moist oral mucous membranes HEAD & SCALP: normocephalic and atraumatic NOSE: Normal external nose present EXTERNAL EAR: Yes external ears normal Eye: COMMON NORMALS: Equal, round and reactive pupils present, EOMs intact bilaterally, conjunctivae normal and no scleral icterus CONJUNCTIVA: Yes conjunctivae normal PUPIL: Yes Equal, round and reactive pupils present Neck/C-Spine: COMMON NORMALS: full ROM, no lymphadenopathy, supple, no meningeal signs, no JVD and Thyroid normal THYROID: Thyroid normal Chest: COMMONS NORMALS: normal inspection of the chest and normal palpation of entire chest wall Resp: COMMON NORMALS: normal respiratory effort, No retractions and No use of accessory muscles Cardio: COMMON NORMALS: no JVD, regular rate, regular rhythm, S1 normal heart sound present, S2 normal heart sound present, No gallops present (Cardio), No clicks present (Cardio), No murmurs present (Cardio) and No rub (Cardio) RATE: regular rate RHYTHM: regular rhythm HEART SOUNDS: S1 normal heart sound present and S2 normal heart sound present GI: COMMON NORMALS: Normal to inspection, nondistended, normoactive bowel sounds present, Soft to palpation, No hepatosplenomegaly present and no masses; negative for non-tender (Generalized tenderness) PALPATION: Yes Soft to palpation and Yes No hepatosplenomegaly present : COMMON NORMALS: Yes no CVA tenderness BLADDER/KIDNEY EXAM: Yes no CVA tenderness Back/Pelvis: COMMON NORMALS: no CVA tenderness Neuro: COMMON NORMALS: patient oriented x3 SENSORIUM/ORIENTATION: Yes alert MENINGEAL SIGNS: Yes no meningeal signs Course Vital Signs: Vital signs: Vital Signs Temperature 99.5 F 05/01/23 11:13 Pulse Rate 102 H 05/01/23 12:32 Respiratory Rate 21 H 05/01/23 11:47 Blood Pressure 128/97 05/01/23 12:32 Pulse Oximetry 90 05/01/23 12:32 Oxygen Delivery Me thod Room Air 05/01/23 11:47 MDM - Weakness Medical Decision Making Patient presents to the ER with complaints of probable heat exhaustion and pancreatitis. Patient was tachycardic with a heart rate of about 107 bpm, patient was given 2 L normal saline and 40 mEq of oral potassium. Patient's potassium was down at 3.0. Patient's lipase was slightly elevated at 83, we did obtain an abdomen and pelvis CT scan that showed his previously described pancreatitis has improved. Patient feels much better after getting of the 2 L of fluid. Patient asked if he can eat and drink. Patient be discharged home on oral potassium. Differential Diagnosis Likely dehydration; Unlikely acute myocardial infarction, anemia, hypoglycemia, hypothyroidism, rhabdomyolysis or sepsis Medical Records I reviewed the patient's medical records. Lab Data I reviewed the patient's lab results. 05/01/23 11:03 05/01/23 11:03 Radiology Impressions Abdomen/Pelvis CT 05/01/23 11:55 IMPRESSION: 1. Previously described pancreatitis has improved compared to previous. Small amount of residual induration and edema in the pancreas. 2. No peripancreatic fluid collections. 3. Hepatomegaly with diffuse fatty infiltration. 4. No other suspicious findings. Laboratory Results WBC 9.8 10^3/uL (4.0-10.0) 05/01/23 11:03 RBC 4.33 10^6/uL (4.1-5.3) 05/01/23 11:03 Hgb 14.8 g/dL (11.7-16.6) 05/01/23 11:03 Hct 42.7 % (42.0-52.0) 05/01/23 11:03 MCV 98.6 fl (80-94) H 05/01/23 11:03 MCH 34.2 pg (28.0-34.0) H 05/01/23 11:03 MCHC 34.7 g/dL (30.0-36.0) 05/01/23 11:03 RDW 12.9 % (12.1-15.1) 05/01/23 11:03 Plt Count 349 10^3/cmm (130-400) 05/01/23 11:03 MPV 9.7 fL (7.4-10.4) 05/01/23 11:03 Neut % (Auto) 35.2 % 05/01/23 11:03 Lymph % (Auto) 51.3 % 05/01/23 11:03 [place] % (Auto) 9.9 % 05/01/23 11:03 Eos % (Auto) 2.0 % 05/01/23 11:03 Baso % (Auto) 1.2 % 05/01/23 11:03 Neut # (Auto) 3.44 10^3/uL (1.8-7.7) 05/01/23 11:03 Lymph # (Auto) 5.0 10^3/uL (0.8-4.8) H 05/01/23 11:03 [place] # (Auto) 1.0 10^3/uL (0.2-0.9) H 05/01/23 11:03 Eos # (Auto) 0.2 10^3/uL (0.0-0.8) 05/01/23 11:03 Baso # (Auto) 0.1 10^3/uL (0.0-0.1) 05/01/23 11:03 Nucleated RBC % (auto) 0 % 05/01/23 11:03 Nucleated RBCs # 0.0 /100WBC 05/01/23 11:03 Sodium 138 mmol/L (136-145) 05/01/23 11:03 Potassium 3.0 mmol/L (3.5-5.1) L 05/01/23 11:03 Chloride 96 mmol/L (98-107) L 05/01/23 11:03 Carbon Dioxide 24 mmol/L (22-29) 05/01/23 11:03 Anion Gap 21.0 (5-19) H 05/01/23 11:03 BUN 6 mg/dL (6-20) 05/01/23 11:03 Creatinine 0.7 mg/dL (0.7-1.2) 05/01/23 11:03 GFR Calculation 130.7 mL/min (90-130) H 05/01/23 11:03 Glucose 155 mg/dL (65-115) H 05/01/23 11:03 Calculated Osmolality 287 mOsm/kg (285-295) 05/01/23 11:03 Calcium 9.2 mg/dL (8.5-10.5) 05/01/23 11:03 Magnesium 1.7 mg/dL (1.7-2.3) 05/01/23 11:03 Total Bilirubin 0.4 mg/dL (0.15-1.2) 05/01/23 11:03 AST 193 U/L (0-40) H 05/01/23 11:03 ALT 167 U/L (0-41) H 05/01/23 11:03 Alkaline Phosphatase 93 U/L (40-130) 05/01/23 11:03 Creatine Kinase 181 U/L (39-308) 05/01/23 11:03 Total Protein 8.1 g/dL (6.6-8.7) 05/01/23 11:03 Albumin 4.1 g/dL (3.5-5.2) 05/01/23 11:03 Globulin 4.0 g/dL (1.3-4.6) 05/01/23 11:03 Lipase 83 U/L (13-60) H 05/01/23 11:03 Urine Color Dark yellow (Yellow) 05/01/23 11:49 Urine Appearance Clear (CLEAR) 05/01/23 11:49 Urine pH 5 (5-7) 05/01/23 11:49 Ur Specific [place] 1.020 (1.005-1.030) 05/01/23 11:49 Urine Protein Trace (Negative) 05/01/23 11:49 Urine Glucose (UA) Norm (Normal) 05/01/23 11:49 Urine Ketones Negative (Negative) 05/01/23 11:49 Urine Blood Neg (Negative) 05/01/23 11:49 Urine Nitrate Negative (Negative) 05/01/23 11:49 Urine Bilirubin Neg (Negative) 05/01/23 11:49 Urine Urobilinogen 1 mg/dL (Negative) H 05/01/23 11:49 Ur Leukocyte Esterase Negative (Negative) 05/01/23 11:49 Urine RBC 0-4 /hpf (0-2) H 05/01/23 11:49 Urine WBC 0-4 /hpf (0-5) H 05/01/23 11:49 Ur Squamous Epith Cells 5-10 /hpf (0-5) H 05/01/23 11:49 Amorphous Sediment Not Reportable 05/01/23 11:49 Urine Bacteria None /hpf (NONE) 05/01/23 11:49 Hyaline Casts 0-4 /lpf H 05/01/23 11:49 Urine Mucus 1+ /hpf 05/01/23 11:49 Discharge Plan Discharge Patient Disposition: Home Clinical Impression: Dehydration, Acute hypokalemia Condition: Stable Prescriptions: New potassium chloride 20 mEq tablet extended release 20 meq PO BID Qty: 10 0RF No Action amlodipine 5 mg Tablet 10 mg PO DAILY Qty: 90 0RF nystatin 100,000 unit/gram Cream 1 applic topical BID Qty: 30 0RF Rx Instructions: Groin and under pannus nicotine 21 mg/24 hr Patch 24 Hour 1 patch transdermal DAILY Qty: 90 0RF folic acid 1 mg Tablet 1 mg PO DAILY Qty: 90 0RF nicotine (polacrilex) 4 mg Lozenge 4 mg mucous membrane Q2H PRN (Reason: Nicotine Cravings) Qty: 90 0RF thiamine mononitrate (vit B1) [Vitamin B-1 (mononitrate)] 100 mg Tablet 100 mg PO DAILY Qty: 90 0RF multivitamin with folic acid [Thera] 400 mcg Tablet 1 tab PO DAILY Qty: 90 0RF pantoprazole 40 mg tablet,delayed release (DR/EC) 40 mg PO DAILY Narcan 4 mg/actuation spray,non-aerosol 1 spray INTRANASAL Q2M PRN (Reason: Opioid Overdose) Vistaril 25 mg capsule 25 mg PO Q8H PRN (Reason: anxiety) Qty: 90 0RF hydromorphone 4 mg Tablet 4 mg PO Q4H PRN (Reason: Severe Pain) Qty: 15 0RF Discharge Orders: Discharge ED (Routine); Ordered 05/01/23 Ordered By: Jai Rosenthal Patient Instructions: Dehydration - Adult, Hypokalemia (ED) Activity Restrictions/Additional Instructions: Push plenty of fluids. Take all your medicine as prescribed. Follow-up with your family practice doctor in approximately 7 days or sooner as needed. Coding Level of Care Code ED Ssn/Ssbn Assistant Navigator for Levi Bullard
[2023-05-01 11:51] LABS: Alanine Aminotransferase 167 U/L (0-41); Albumin Level 4.1 g/dL (3.5-5.2); Alkaline Phosphatase 93 U/L (40-130); Aspartate Amino Transferase 193 U/L (0-40); Blood Urea Nitrogen 6 mg/dL (6-20); Calcium 9.2 mg/dL (8.5-10.5); Carbon Dioxide 24 mmol/L (22-29); Chloride 96 mmol/L (98-107); Creatine Phosphokinase 181 U/L (39-308); Glomerular Filtration Rate 130.7 mL/min (90-130); Glucose 155 mg/dL (65-115); Lipase 83 U/L (13-60); Magnesium 1.7 mg/dL (1.7-2.3); Osmolality Calculated 287 mOsm/kg (285-295); Sodium 138 mmol/L (136-145); Total Bilirubin 0.4 mg/dL (0.15-1.2); Total Protein 8.1 g/dL (6.6-8.7)
--- NOTE | 2023-05-01 11:55 | CT_ITS ---
WS: [id number] CT ABDOMEN PELVIS TECHNIQUE: Contrast-enhanced CT of the abdomen and pelvis with coronal and sagittal reformatted image s. CLINICAL INFORMATION: elevated lfts, lipase, abd pain, n/v COMPARISON: None. DLP: 1413.[address] scans at [facility] use at least one of these dose optimization techniques: automated e xposure control; mA and/or kV adjustment per patient size (includes targeted exams where dose is matc hed to clinical indication); or iterative reconstruction. FINDINGS: Previously described pancreatitis is significantly improved with a tiny amount of residual induration and edema in the pancreas. No evidence of progression. No pancreatic fluid collections or pseudocysts. Normal pancreatic parenchymal enhancement. Portal vein and splenic vein are patent. Hepatomegaly. Diffuse fatty infiltration liver. Normal GE junction. Normal pancreatic parenchymal enh ancement. Normal celiac and SMA. Normal caliber abdominal aorta. Adrenal glands are normal. No hydron ephrosis in either kidney. Normal caliber abdominal aorta. CT/CT abdomen pelvis w con* [id number] IMPRESSION: 1. Previously described pancreatitis has improved compared to previous. Small amount of residual induration and edema in the pancreas. 2. No peripancreatic fluid collections. 3. Hepatomegaly with diffuse fatty infiltration. 4. No other suspicious findings.
[2023-05-01 12:00] LABS: Add Urine Microscopic? YES; Bilirubin Urine Neg (Negative); Blood Urine Neg (Negative); Glucose Urine UA Norm (Normal); Ketones Urine Negative (Negative); Leukocyte Esterase Urine Negative (Negative); Nitrate Urine Negative (Negative); Protein Urine Trace (Negative); Urine Appearance Clear (CLEAR); Urine Color Dark Yellow (Yellow); Urobilinogen Urine 1 mg/dL (Negative); pH Urine 5 (5-7)
[2023-05-01 12:01] LABS: Add Urine Culture? No; Hyaline Casts Urine 0-4 /lpf; Mucus Urine 1+ /hpf; RBC Urine 0-4 /hpf (0-2); WBC Urine 0-4 /hpf (0-5)
[2023-05-01] MEDS: iohexol 350 mg/mL 500 mL Btl (per mL) IV (12:08)
[2023-05-01 12:32] VITALS: BP 128/97; PULSE 102; O2SAT 90
[2023-05-01] MEDS: potassium chloride ER 20 mEq Tablet 40 MEQ PO (13:30)
[2023-05-01 14:13] VITALS: BP 128/97; PULSE 102; O2SAT 90
--- NOTE | 2023-05-01 14:14 | PC.NURSE ---
I went to administer 2nd bag of fluids for patient, upon arrival to room, pt had taken his own IV out and was standing with his belongings and stated that he was ready to go. I notified Dr. Rosenthal and discharged pt.
== END 2023-05-01 14:15 | disposition home or self-care (01) ==
PROVIDERS: Emergency Provider Emergency Medicine
DX: E87.6 Hypokalemia (principal); E86.0 Dehydration; I10 Essential (primary) hypertension; E66.01 Morbid (severe) obesity due to excess calories; Z68.43 Body mass index [BMI] 50.0-59.9, adult; F17.200 Nicotine dependence, unspecified, uncomplicated; Z79.899 Other long term (current) drug therapy
CPT/HCPCS: 74177; 80053; 81001; 82550; 83690; 83735; 85025; 96361; 96374; 99285; J1885; J7030; Q9967

== ENCOUNTER 2023-05-09 21:46 | Emergency (ER) | payer MEDICAID, SELFPAY ==
[2023-05-09 21:56] VITALS: BP 125/102; PULSE 116; RESP 24; TEMP 36.7; O2SAT 95; BMI 61.0
--- NOTE | 2023-05-09 22:00 | ED_ITS ---
HPI - Chest Pain General: Chief Complaint: Chest Pain Stated Complaint: CP Time Seen by Provider: 05/09/23 21:48 History of Present Illness: 32-year-old male patient comes in today with complaints of chest pain and shortness of breath. Patient has a history of pancreatitis and alcoholism. Patient is also homeless. Patient endorses drinking about a half a gallon of vodka today without anything to eat. Patient reports pain started about 2 hours ago. Patient was brought in by EMS and was given nitro and aspirin in route. EKG shows a sinus tachycardia with a rate in the 120s. Patient has been prescribed medication for blood pressure but does not take anything routinely at this time. Associated symptoms: Reports abdominal pain and nausea; Deny dyspnea or vomiting Review of Systems General: Reports: 10 or more systems reviewed and unremarkable except in HPI a nd below Card: Reports: chest pain Resp: Denies: dyspnea GI: Reports: abdominal pain and nausea; Denies: vomiting : Denies: difficulty urinating Skin/Breast: Denies: rash PFSH ED PFSH: Medical History Alcohol use disorder Alcohol withdrawal seizure Biliary colic Homelessness HTN (hypertension) Morbid obesity Polysubstance abuse Schizophrenia Smoking addiction Substance use disorder Surgical History H/O esophagogastroduodenoscopy Family History Other Colon cancer Social History Smoking and tobacco status: current every day smoker Alcohol intake: current Substance/Drug Use: current Housing: Homeless Marital status: Physical Exam Const: COMMON NORMALS: alert HENMT: COMMON NORMALS: normocephalic HEAD & SCALP: normocephalic MOUTH: Normal oral and palatal mucosa present THROAT: posterior oropharynx abnormal erythema Neck/C-Spine: COMMON NORMALS: full ROM Chest: COMMONS NORMALS: normal inspection of the chest Resp: COMMON NORMALS: normal respiratory effort and clear to auscultation bilaterally AUSCULTATION: clear to auscultation bilaterally Cardio: COMMON NORMALS: regular rhythm RATE: tachycardic RHYTHM: regular rhythm GI: COMMON NORMALS: Soft to palpation and non-tender (Epigastric) PALPATION: Yes Soft to palpation : COMMON NORMALS: Yes no CVA tenderness BLADDER/KIDNEY EXAM: Yes no CVA tenderness Back/Pelvis: COMMON NORMALS: no CVA tenderness and thoracic and lumbar spine normal to inspection Extremity: COMMON NORMALS: normal to inspection Neuro: SENSORIUM/ORIENTATION: Yes alert Skin: COMMON NORMALS: turgor normal GENERAL SKIN EXAM: turgor normal Course Vital Signs: Vital signs: Vital Signs Temperature 98.1 F 05/09/23 21:56 Pulse Rate 103 H 05/10/23 01:26 Respiratory Rate 18 05/10/23 00:00 Blood Pressure 138/101 05/10/23 01:26 Pulse Oximetry 92 05/10/23 01:26 Oxygen Delivery Me thod Nasal Cannula 05/10/23 01:26 Oxygen Flow Rate 2 05/10/23 01:26 MDM - Chest Pain Medical Decision Making 32-year-old male patient was brought in by EMS for complaints of chest pain and shortness of breath. Patient is homeless and endorses drinking a large amount of alcohol today without eating. Patient does have also have a history of pancreatitis. On exam patient is in mild to moderate pain that is episodic. Patient reports nothing makes pain better or worse. Vital signs are normal except for some elevation in pulse at 120s. Lungs are clear to auscultation. No edema is noted. Differential diagnosis includes but not limited to ACS, pancreatitis, alcoholic gastritis, PE, anxiety, substance abuse disorder, gallbladder disease. Laboratory values noted a normal white blood cell count. CMP was unremarkable except for some mild elevation in AST's ALT's. Calcium was low at 7.8. Magnesium was then done and noted to be 1.3. Patient most likely has low mag nesium secondary to his alcohol abuse. Encourage patient to decrease alcohol use and try to eat more healthy diet. Patient was given 2 L of IV fluids with improvement of symptoms. Patient was treated for gastritis with pantoprazole. Patient was written a prescription for magnesium 200 mg twice a day. Patient reported understanding of care plan and need for follow-up. Lab Data 05/09/23 23:00 05/09/23 23:00 Laboratory Results WBC 7.3 10^3/uL (4.0-10.0) 05/09/23 23:00 Corrected WBC Cancelled 05/09/23 22:05 RBC 3.88 10^6/uL (4.1-5.3) L 05/09/23 23:00 Hgb 13.2 g/dL (11.7-16.6) 05/09/23 23:00 Hct 40.1 % (42.0-52.0) L 05/09/23 23:00 MCV 103.4 fl (80-94) H 05/09/23 23:00 MCH 34.0 pg (28.0-34.0) 05/09/23 23:00 MCHC 32.9 g/dL (30.0-36.0) 05/09/23 23:00 RDW 13.9 % (12.1-15.1) 05/09/23 23:00 Plt Count 208 10^3/cmm (130-400) 05/09/23 23:00 MPV 9.5 fL (7.4-10.4) 05/09/23 23:00 Gran % Cancelled 05/09/23 22:05 Neut % (Auto) 39.4 % 05/09/23 23:00 Lymph % (Auto) 46.4 % 05/09/23 23:00 [place] % (Auto) 9.5 % 05/09/23 23:00 Eos % (Auto) 3.2 % 05/09/23 23:00 Baso % (Auto) 1.1 % 05/09/23 23:00 Neut # (Auto) 2.87 10^3/uL (1.8-7.7) 05/09/23 23:00 Lymph # (Auto) 3.4 10^3/uL (0.8-4.8) 05/09/23 23:00 [place] # (Auto) 0.7 10^3/uL (0.2-0.9) 05/09/23 23:00 Eos # (Auto) 0.2 10^3/uL (0.0-0.8) 05/09/23 23:00 Baso # (Auto) 0.1 10^3/uL (0.0-0.1) 05/09/23 23:00 Absolute Gran (auto) Cancelled 05/09/23 22:05 Nucleated RBC % (auto) 0 % 05/09/23 23:00 Nucleated RBCs # 0.0 /100WBC 05/09/23 23:00 Sodium 141 mmol/L (136-145) 05/09/23 23:00 Potassium 4.3 mmol/L (3.5-5.1) 05/09/23 23:00 Chloride 102 mmol/L (98-107) 05/09/23 23:00 Carbon Dioxide 25 mmol/L (22-29) 05/09/23 23:00 Anion Gap 18.3 (5-19) 05/09/23 23:00 BUN 5 mg/dL (6-20) L 05/09/23 23:00 Creatinine 0.7 mg/dL (0.7-1.2) 05/09/23 23:00 GFR Calculation 130.7 mL/min (90-130) H 05/09/23 23:00 Glucose 168 mg/dL (65-115) H 05/09/23 23:00 Calculated Osmolality 293 mOsm/kg (285-295) 05/09/23 23:00 Calcium 7.8 mg/dL (8.5-10.5) L 05/09/23 23:00 Magnesium 1.3 mg/dL (1.7-2.3) L 05/10/23 00:12 Total Bilirubin 0.3 mg/dL (0.15-1.2) 05/09/23 23:00 AST 224 U/L (0-40) H 05/09/23 23:00 ALT 143 U/L (0-41) H 05/09/23 23:00 Alkaline Phosphatase 86 U/L (40-130) 05/09/23 23:00 Troponin T Baseline 9 ng/L (0-15) 05/09/23 22:05 Troponin T 120 Minute 14.68 ng/L (0-15) 05/10/23 00:12 Delta Troponin T 5.68 ABS# (0-10) 05/10/23 00:12 Total Protein 6.6 g/dL (6.6-8.7) 05/09/23 23:00 Albumin 3.4 g/dL (3.5-5.2) L 05/09/23 23:00 Globulin 3.2 g/dL (1.3-4.6) 05/09/23 23:00 Lipase 54 U/L (13-60) 05/09/23 23:00 Ethyl Alcohol 203 mg/dL (0-10) H 05/09/23 23:00 EKG Data EKG 1: EKG interpretation date: 05/09/23 EKG interpretation time: 22:14 Prior EKG tracings: not available for review Interpretation: EKG shows a sinus tachycardia regular rate at [address] elevation or ectopy otherwise noted. No prior exam was available for comparison. Computer generated interpretation: Sinus tachycardia Abnormal rhythm EKG, unconfirmed report. EKG 2: EKG interpretation date: 05/09/23 EKG interpretation time: 23:53 Prior EKG tracings: available for review Interpretation: EKG shows sinus tachycardia with a regular rate at [address] elevation or ectopy is noted. No significant changes from prior exam done 2 hours ago. Computer generated interpretation: Sinus tachycardia, abnormal rhythm EKG, unconfirmed report. Discharge Plan Discharge Patient Disposition: Home Clinical Impression: Alcohol use disorder, Dehydration, Hypomagnesemia Gastritis Qualifiers: Gastritis type: alcoholic Chronicity: unspecified Gastritis bleeding: without bleeding Qualified Code(s): K29.20 - Alcoholic gastritis without bleeding Condition: Stable Prescriptions: New magnesium 200 mg tablet 200 mg PO BID Qty: 60 0RF No Action amlodipine 5 mg Tablet 10 mg PO DAILY Qty: 90 0RF nystatin 100,000 unit/gram Cream 1 applic topical BID Qty: 30 0RF Rx Instructions: Groin and under pannus nicotine 21 mg/24 hr Patch 24 Hour 1 patch transdermal DAILY Qty: 90 0RF folic acid 1 mg Tablet 1 mg PO DAILY Qty: 90 0RF nicotine (polacrilex) 4 mg Lozenge 4 mg mucous membrane Q2H PRN (Reason: Nicotine Cravings) Qty: 90 0RF thiamine mononitrate (vit B1) [Vitamin B-1 (mononitrate)] 100 mg Tablet 100 mg PO DAILY Qty: 90 0RF multivitamin with folic acid [Thera] 400 mcg Tablet 1 tab PO DAILY Qty: 90 0RF pantoprazole 40 mg tablet,delayed release (DR/EC) 40 mg PO DAILY Narcan 4 mg/actuation spray,non-aerosol 1 spray INTRANASAL Q2M PRN (Reason: Opioid Overdose) Vistaril 25 mg capsule 25 mg PO Q8H PRN (Reason: anxiety) Qty: 90 0RF hydromorphone 4 mg Tablet 4 mg PO Q4H PRN (Reason: Severe Pain) Qty: 15 0RF potassium chloride 20 mEq tablet extended release 20 meq PO BID Qty: 10 0RF Discharge Orders: Discharge ED (Routine); Ordered 05/10/23 Ordered By: Reagan Reid Discharge Diet: Usual diet Discharge Activity: Increase activity as tolerated Patient Instructions: Hypomagnesemia (ED) Activity Restrictions/Additional Instructions: Decrease alcohol consumption. Take magnesium twice a day as ordered. Healthy diet. Follow-up with primary care for further instructions. Coding Level of Care Code ED Financial Investment Manager for Levi Bullard
--- NOTE | 2023-05-09 22:09 | ECG_ITS ---
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 Measurements Intervals [place] Rate: 114 P: 58 [place]: 164 QRS: 79 QRSD: 81 T: 19 QT: 330 QTc: 456 Interpretive Statements SINUS TACHYCARDIA ABNORMAL RHYTHM ECG Compared to ECG 04/13/2023 10:52:54 No significant changes Electronically Signed On 05-10-2023 19:49:50 CDT by Vanita Patel M.D. [id number]
[2023-05-09] MEDS: sodium chloride 0.9% 1,000 ML 999 ML IV ×2 (22:16→23:12)
[2023-05-09] MEDS: famotidine 20 mg/2 mL INJ 40 MG IVP (22:17)
[2023-05-09 22:18] VITALS: RESP 22
[2023-05-09] MEDS: alum-mag-hydroxide-sime 30 mL UDC PO (22:18)
[2023-05-09] MEDS: morphine 4 mg/mL SDV 1 mL 2 MG IVP (22:18)
[2023-05-09] MEDS: ondansetron 2 mg/ML SDV 2 mL 4 MG IVP (22:18)
--- NOTE | 2023-05-09 22:25 | PC.NURSE ---
PT HOOKED UP TO CONTINUOUS BEDSIDE CARDIAC MONITORING.
[2023-05-09 23:07] LABS: Troponin(5th) Baseline 9 ng/L (0-15)
[2023-05-09 23:12] VITALS: RESP 20
[2023-05-09] MEDS: morphine 4 mg/mL SDV 1 mL IVP (23:12)
[2023-05-09 23:15] VITALS: BP 121/85; PULSE 108; RESP 20; O2SAT 93
[2023-05-09 23:30] VITALS: BP 111/90; PULSE 110; O2SAT 95
[2023-05-09 23:31] LABS: Basophils # 0.1 10^3/uL (0.0-0.1); Basophils % 1.1 %; Eosinophils # 0.2 10^3/uL (0.0-0.8); Eosinophils % 3.2 %; Hematocrit 40.1 % (42.0-52.0); Hemoglobin 13.2 g/dL (11.7-16.6); Lymphocytes # 3.4 10^3/uL (0.8-4.8); Lymphocytes % 46.4 %; Mean Corpuscular HGB Conc 32.9 g/dL (30.0-36.0); Mean Corpuscular Volume 103.4 fl (80-94); Mean Platelet Volume 9.5 fL (7.4-10.4); Monocytes # 0.7 10^3/uL (0.2-0.9); Monocytes % 9.5 %; Neutrophils # 2.87 10^3/uL (1.8-7.7); Neutrophils % 39.4 %; Nucleated Red Blood Cells % 0 %; Platelet Count 208 10^3/cmm (130-400); Red Blood Count 3.88 10^6/uL (4.1-5.3); Red Cell Distribution Width 13.9 % (12.1-15.1); White Blood Count 7.3 10^3/uL (4.0-10.0)
[2023-05-09 23:46] LABS: Albumin Level 3.4 g/dL (3.5-5.2); Alcohol Level 203 mg/dL (0-10); Alkaline Phosphatase 86 U/L (40-130); Anion Gap 18.3 (5-19); Blood Urea Nitrogen 5 mg/dL (6-20); Calcium 7.8 mg/dL (8.5-10.5); Carbon Dioxide 25 mmol/L (22-29); Chloride 102 mmol/L (98-107); Globulin 3.2 g/dL (1.3-4.6); Glomerular Filtration Rate 130.7 mL/min (90-130); Glucose 168 mg/dL (65-115); Lipase 54 U/L (13-60); Osmolality Calculated 293 mOsm/kg (285-295); Potassium 4.3 mmol/L (3.5-5.1); Sodium 141 mmol/L (136-145); Total Bilirubin 0.3 mg/dL (0.15-1.2); Total Protein 6.6 g/dL (6.6-8.7)
[2023-05-09 23:49] LABS: Alanine Aminotransferase 143 U/L (0-41); Aspartate Amino Transferase 224 U/L (0-40)
--- NOTE | 2023-05-09 23:49 | ECG_ITS ---
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 Measurements Intervals [place] Rate: 101 P: 52 [place]: 140 QRS: 80 QRSD: 85 T: 38 QT: 362 QTc: 471 Interpretive Statements SINUS TACHYCARDIA ABNORMAL RHYTHM ECG Compared to ECG 05/09/2023 22:09:21 No significant changes Electronically Signed On 05-10-2023 20:03:23 CDT by Vanita Patel M.D. [id number]
[2023-05-10] VITALS: BP 113/88; PULSE 106; RESP 18; O2SAT 93
[2023-05-10 00:54] LABS: Troponin 5 2HR 14.68 ng/L (0-15)
[2023-05-10 00:57] LABS: Magnesium 1.3 mg/dL (1.7-2.3)
[2023-05-10 01:08] LABS: Troponin 5 2HR Delta 5.68 ABS# (0-10)
[2023-05-10 01:26] VITALS: BP 138/101; PULSE 103; O2SAT 92
[2023-05-10] MEDS: magnesium oxide 400 mg tablet PO (01:35)
== END 2023-05-10 01:38 | disposition home or self-care (01) ==
PROVIDERS: Emergency Provider Nurse Practitioner Family
DX: K29.20 Alcoholic gastritis without bleeding (principal); F10.10 Alcohol abuse, uncomplicated; E86.0 Dehydration; E83.42 Hypomagnesemia; I10 Essential (primary) hypertension; F17.210 Nicotine dependence, cigarettes, uncomplicated; Z59.00 Homelessness unspecified
CPT/HCPCS: 36415; 80053; 80307; 83690; 83735; 84484; 85025; 93005; 96361; 96374; 96375; 96376; 99285; J2270; J2405; J3411; J3490; J7030

== ENCOUNTER 2023-05-15 22:14 | Emergency (ER) | payer MEDICAID, SELFPAY ==
[2023-05-15 22:16] VITALS: BP 161/101; PULSE 122; RESP 18; TEMP 36.6; O2SAT 97; BMI 54.2
--- NOTE | 2023-05-15 22:20 | W.ED.ABDPA2 ---
HPI - Abdominal Pain General: Chief Complaint: Abdominal Pain Stated Complaint: ABD PAIN Time Seen by Provider: 05/15/23 22:15 History of Present Illness: 32-year-old male patient comes in today for complaints of epigastric abdominal pain. Patient reports difficulty holding food down. Patient is homeless and is a known alcoholic. Patient reports not eating anything today but drinking to [employer] . Patient does have a history of pancreatitis, hypokalemia, hypomagnesia, and gastritis. Patient does not take any routine medications because he cannot afford them. Associated Symptoms: Reports vomiting; Denies constipation and diarrhea Review of Systems General: Reports: 10 or more systems reviewed and unremarkable except in HPI and below GI: Reports: abdominal pain and vomiting; Denies: diarrhea or constipation PFSH ED PFSH: Medical History Alcohol use disorder Alcohol withdrawal seizure Biliary colic Homelessness HTN (hypertension) Morbid obesity Polysubstance abuse Schizophrenia Smoking addiction Substance use disorder Surgical History H/O esophagogastroduodenoscopy Family History Other Colon cancer Social History Smoking and tobacco status: current every day smoker Alcohol intake: current Substance/Drug Use: current Housing: Homeless Marital status: Physical Exam Const: COMMON NORMALS: alert HENMT: COMMON NORMALS: normocephalic and Normal external nose present HEAD & SCALP: normocephalic NOSE: Normal external nose present Neck/C-Spine: COMMON NORMALS: full ROM Resp: COMMON NORMALS: normal respiratory effort and clear to auscultation bilaterally AUSCULTATION: clear to auscultation bilaterally Cardio: COMMON NORMALS: regular rate and regular rhythm RATE: regular rate RHYTHM: regular rhythm GI: AUSCULTATION: Yes normoactive bowel sounds PALPATION: Yes Tenderness to palpation present (GI) (Generalized) Extremity: COMMON NORMALS: normal to inspection Neuro: SENSORIUM/ORIENTATION: Yes alert Skin: COMMON NORMALS: turgor normal GENERAL SKIN EXAM: turgor normal Course Vital Signs: Vital signs: Vital Signs Temperature 98 F 05/15/23 22:16 Pulse Rate 122 H 05/15/23 22:16 Respiratory Rate 18 05/15/23 22:16 Blood Pressure 161/101 05/15/23 22:16 Pulse Oximetry 97 05/15/23 22:16 MDM - Abdominal Pain Medical Decision Making 32-year-old male patient comes in today with some abdominal pain. Patient has a history of gallstones, pancreatitis, gastritis, and alcoholism. On exam patient has some epigastric tenderness. Bowel sounds are active. Vital signs are normal except for some elevation in blood pressure. Differential diagnosis includes gallbladder colic, pancreatitis, gastritis, dehydration. Laboratory values did note mild elevation in bilirubin, no significant elevation in lipase, and mild elevation in ALT's and AST's. Patient was given medications and fluids. CT was performed and noted dilated gallbladder and some mild edema at the pancreatic head. Discussed with with Dr. Menon he agreed with plan for pain medications and nausea medication and follow-up with surgeon for gallbladder removal. Patient appears nontoxic and no signs of cholecystitis was noted at this time. Patient understands problem and will follow-up but has a barrier to health due to his homelessness. Lab Data 05/15/23 22:20 05/15/23 22:20 Labs/Radiology: Radiology Impressions Abdomen/Pelvis CT 05/15/23 23:44 IMPRESSION: 1. Edema seen about the pancreatic head and body suggestive of a pancreatitis, please correlate clinically. 2. Gallbladder is somewhat prominent with suspected cholelithiasis, ultrasound could further evaluate this. 3. Minimal diverticulosis without diverticulitis suspected. 4. Mild anasarca suspected. 5. Hepatic steatosis. Laboratory Results WBC 8.1 10^3/uL (4.0-10.0) 05/15/23 22:20 RBC 4.19 10^6/uL (4.1-5.3) 05/15/23 22:20 Hgb 14.4 g/dL (11.7-16.6) 05/15/23 22:20 Hct 42.5 % (42.0-52.0) 05/15/23 22:20 MCV 101.4 fl (80-94) H 05/15/23 22:20 MCH 34.4 pg (28.0-34.0) H 05/15/23 22:20 MCHC 33.9 g/dL (30.0-36.0) 05/15/23 22:20 RDW 14.5 % (12.1-15.1) 05/15/23 22:20 Plt Count 227 10^3/cmm (130-400) 05/15/23 22:20 MPV 9.3 fL (7.4-10.4) 05/15/23 22:20 Neut % (Auto) 53.3 % 05/15/23 22:20 Lymph % (Auto) 34.9 % 05/15/23 22:20 [place] % (Auto) 8.8 % 05/15/23 22:20 Eos % (Auto) 1.7 % 05/15/23 22:20 Baso % (Auto) 0.9 % 05/15/23 22:20 Neut # (Auto) 4.33 10^3/uL (1.8-7.7) 05/15/23 22:20 Lymph # (Auto) 2.8 10^3/uL (0.8-4.8) 05/15/23 22:20 [place] # (Auto) 0.7 10^3/uL (0.2-0.9) 05/15/23 22:20 Eos # (Auto) 0.1 10^3/uL (0.0-0.8) 05/15/23 22:20 Baso # (Auto) 0.1 10^3/uL (0.0-0.1) 05/15/23 22:20 Nucleated RBC % (auto) 0.2 % 05/15/23 22:20 Nucleated RBCs # 0.0 /100WBC 05/15/23 22:20 Sodium 140 mmol/L (136-145) 05/15/23 22:20 Potassium 3.5 mmol/L (3.5-5.1) 05/15/23 22:20 Chloride 99 mmol/L (98-107) 05/15/23 22:20 Carbon Dioxide 24 mmol/L (22-29) 05/15/23 22:20 Anion Gap 20.5 (5-19) H 05/15/23 22:20 BUN 7 mg/dL (6-20) 05/15/23 22:20 Creatinine 0.7 mg/dL (0.7-1.2) 05/15/23 22:20 GFR Calculation 130.7 mL/min (90-130) H 08/11/23 22:20 Glucose 127 mg/dL (65-115) H 05/15/23 22:20 Calculated Osmolality 290 mOsm/kg (285-295) 05/15/23 22:20 Calcium 8.9 mg/dL (8.5-10.5) 05/15/23 22:20 Magnesium 1.5 mg/dL (1.7-2.3) L 05/15/23 22:20 Total Bilirubin 1.9 mg/dL (0.15-1.2) H 05/15/23 22:20 AST 330 U/L (0-40) H 05/15/23 22:20 ALT 174 U/L (0-41) H 05/15/23 22:20 Alkaline Phosphatase 118 U/L (40-130) 05/15/23 22:20 Total Protein 8.0 g/dL (6.6-8.7) 05/15/23 22:20 Albumin 4.0 g/dL (3.5-5.2) 05/15/23 22:20 Globulin 4.0 g/dL (1.3-4.6) 05/15/23 22:20 Lipase 64 U/L (13-60) H 05/15/23 22:20 Ethyl Alcohol < 10 mg/dL (0-10) 05/15/23 22:20 Discharge Plan Discharge Patient Disposition: Home Clinical Impression: Biliary colic Condition: Stable Prescriptions: New hydrocodone-acetaminophen 5-325 mg tablet 1 tab PO Q6H PRN (Reason: pain) Qty: 10 0RF ondansetron 4 mg tablet,disintegrating 4 mg PO Q8H PRN (Reason: nausea and vomiting) Qty: 10 0RF No Action amlodipine 5 mg Tablet 10 mg PO DAILY Qty: 90 0RF nystatin 100,000 unit/gram Cream 1 applic topical BID Qty: 30 0RF Rx Instructions: Groin and under pannus nicotine 21 mg/24 hr Patch 24 Hour 1 patch transdermal DAILY Qty: 90 0RF folic acid 1 mg Tablet 1 mg PO DAILY Qty: 90 0RF nicotine (polacrilex) 4 mg Lozenge 4 mg mucous membrane Q2H PRN (Reason: Nicotine Cravings) Qty: 90 0RF thiamine mononitrate (vit B1) [Vitamin B-1 (mononitrate)] 100 mg Tablet 100 mg PO DAILY Qty: 90 0RF multivitamin with folic acid [Thera] 400 mcg Tablet 1 tab PO DAILY Qty: 90 0RF pantoprazole 40 mg tablet,delayed release (DR/EC) 40 mg PO DAILY Narcan 4 mg/actuation spray,non-aerosol 1 spray INTRANASAL Q2M PRN (Reason: Opioid Overdose) Vistaril 25 mg capsule 25 mg PO Q8H PRN (Reason: anxiety) Qty: 90 0RF hydromorphone 4 mg Tablet 4 mg PO Q4H PRN (Reason: Severe Pain) Qty: 15 0RF potassium chloride 20 mEq tablet extended release 20 meq PO BID Qty: 10 0RF magnesium 200 mg tablet 200 mg PO BID Qty: 60 0RF Discharge Orders: Discharge ED (Routine); Ordered 05/16/23 Ordered By: Reagan Reid Discharge Diet: Advance as tolerated Discharge Activity: Increase activity as tolerated Patient Instructions: Biliary Colic (ED) Activity Restrictions/Additional Instructions: Clear liquid diet until abdominal pain resolves. Use medication as directed for pain and nausea. Follow-up with primary care. Follow-up with surgeon for further evaluation and treatment of gallbladder disease. Return to ER for worsening symptoms such as high fever greater than 100.4, blood in vomit or stool, or new concerns. Coding Level of Care Code ED Recycling Collections Driver for Levi Bullard
[2023-05-15 22:30] LABS: Basophils # 0.1 10^3/uL (0.0-0.1); Basophils % 0.9 %; Eosinophils # 0.1 10^3/uL (0.0-0.8); Eosinophils % 1.7 %; Hematocrit 42.5 % (42.0-52.0); Hemoglobin 14.4 g/dL (11.7-16.6); Lymphocytes # 2.8 10^3/uL (0.8-4.8); Lymphocytes % 34.9 %; Mean Corpuscular HGB Conc 33.9 g/dL (30.0-36.0); Mean Corpuscular Hemoglobin 34.4 pg (28.0-34.0); Mean Corpuscular Volume 101.4 fl (80-94); Mean Platelet Volume 9.3 fL (7.4-10.4); Monocytes # 0.7 10^3/uL (0.2-0.9); Monocytes % 8.8 %; Neutrophils # 4.33 10^3/uL (1.8-7.7); Neutrophils % 53.3 %; Nucleated Red Blood Cells % 0.2 %; Platelet Count 227 10^3/cmm (130-400); Red Blood Count 4.19 10^6/uL (4.1-5.3); Red Cell Distribution Width 14.5 % (12.1-15.1); White Blood Count 8.1 10^3/uL (4.0-10.0)
[2023-05-15] MEDS: morphine 4 mg/mL SDV 1 mL 2 MG IVP (22:50)
[2023-05-15] MEDS: sodium chloride 0.9% 1,000 ML 999 ML IV (22:50)
[2023-05-15] MEDS: pantoprazole 40 mg SDV IVP (22:50)
[2023-05-15 22:52] LABS: Alanine Aminotransferase 174 U/L (0-41); Alkaline Phosphatase 118 U/L (40-130); Anion Gap 20.5 (5-19); Aspartate Amino Transferase 330 U/L (0-40); Blood Urea Nitrogen 7 mg/dL (6-20); Calcium 8.9 mg/dL (8.5-10.5); Carbon Dioxide 24 mmol/L (22-29); Chloride 99 mmol/L (98-107); Glomerular Filtration Rate 130.7 mL/min (90-130); Glucose 127 mg/dL (65-115); Lipase 64 U/L (13-60); Magnesium 1.5 mg/dL (1.7-2.3); Osmolality Calculated 290 mOsm/kg (285-295); Potassium 3.5 mmol/L (3.5-5.1); Sodium 140 mmol/L (136-145); Total Bilirubin 1.9 mg/dL (0.15-1.2)
[2023-05-15 23:03] LABS: Alcohol Level < 10 mg/dL (0-10)
--- NOTE | 2023-05-15 23:44 | CTR_ITS ---
PROCEDURE INFORMATION: Exam: CT Abdomen And Pelvis With Contrast Exam date and time: 05/15/2023 11:54 PM Age: 32 years old Clinical indication: Abdominal pain; Generalized; Patient HX: Diffuse abd pain with elevated lipase and liver enzymes. TECHNIQUE: Imaging protocol: Computed tomography of the abdomen and pelvis with contrast. Radiation optimization: All CT scans at this facility use at least one of these dose optimization techniques: automated exposure control; mA and/or kV adjustment per patient size (includes targeted exams where dose is matched to clinical indication); or iterative reconstruction. Contrast material: OMNI 350; Contrast volume: 100 ml; Contrast route: INTRAVENOUS (IV); REPORTING DATA: Count of CT and Cardiac NM exams in prior 12 months: This patient has received 3 known CTs and 0 known cardiac nuclear medicine studies in the 12 months prior to the current study. COMPARISON: CT abdomen pelvis w con* [id number] 05/01/2023 12:07 PM RADIATION DOSE METRICS: Total DLP (mGy-cm): 1221.24 FINDINGS: Liver: Hepatic steatosis. Gallbladder and bile ducts: Gallbladder is somewhat prominent with suspected cholelithiasis, ultrasound could further evaluate this. Pancreas: Edema seen about the pancreatic head and body suggestive of a pancreatitis, please correlate clinically. Spleen: Normal. No splenomegaly. Adrenal glands: Normal. No mass. Kidneys and ureters: Normal. No hydronephrosis. Stomach and bowel: Minimal diverticulosis without diverticulitis suspected. Appendix: No evidence of appendicitis. Intraperitoneal space: Unremarkable. No free air. No significant fluid collection. Vasculature: Unremarkable. No abdominal aortic aneurysm. Lymph nodes: Unremarkable. No enlarged lymph nodes. Urinary bladder: Unremarkable as visualized. Reproductive: Unremarkable as visualized. Bones/joints: Unremarkable. No acute fracture. Soft tissues: Mild anasarca suspected. CT/CT abdomen pelvis w con* [id number] IMPRESSION: 1. Edema seen about the pancreatic head and body suggestive of a pancreatitis, please correlate clinically. 2. Gallbladder is somewhat prominent with suspected cholelithiasis, ultrasound could further evaluate this. 3. Minimal diverticulosis without diverticulitis suspected. 4. Mild anasarca suspected. 5. Hepatic steatosis.
[2023-05-15] MEDS: ketorolac 30 mg/mL INJ 15 MG IVP (23:49)
[2023-05-15] MEDS: HYDROmorphone 1 mg/mL INJ 1 mL IVP (23:49)
[2023-05-15] MEDS: iohexol 350 mg/mL 500 mL Btl (per mL) IV (23:55)
[2023-05-16 00:17] VITALS: BP 171/100; PULSE 111; RESP 18; O2SAT 99
--- NOTE | 2023-05-18 10:34 | DCPLANNER ---
Addendum entered by Riana Davenport 05/21/23 15:08: military technology manager received the following message from the general surgery clinic regarding follow up appointment: still no luck on getting ahold of patient. Numbers on file haven't seen him. Mailed a paper to the address on file stating we have tried getting ahold of him and to contact us to make an pee. On 05/20/23 @ 11:16 Damaris De Wrote To General Surgery Front Off Still not able to contact pt. 05/20/23 On 05/19/23 @ 14:49 Damaris De Wrote To General Surgery [facility] called numbers on file was told [place] on streets and no way to contacr him. Addendum entered by Riana Davenport 05/20/23 13:14: military technology manager received the following message from the general surgery clinic regarding follow up appointment: Still not able to contact pt. 05/20/23 On 05/19/23 @ 14:49 Damaris De Wrote To General Surgery Front [facility] called numbers on file was told [place] on streets and no way to contacr him. Original Note: military technology manager had message to schedule a follow up appointment for patient with general surgery. military technology manager sent patients information to the front office staff at general surgery. Patients information will be printed and reviewed. Clinic will call patient with appointment information.
--- NOTE | 2023-05-19 13:41 | DCPLANNER ---
ecommerce manager had message to speak with patient about getting established with a primary care physician - unable to speak with patient.
== END 2023-05-16 00:34 | disposition home or self-care (01) ==
PROVIDERS: Emergency Provider Nurse Practitioner Family
DX: K80.50 Calculus of bile duct without cholangitis or cholecystitis without obstruction (principal); Z59.00 Homelessness unspecified; I10 Essential (primary) hypertension; F17.210 Nicotine dependence, cigarettes, uncomplicated
CPT/HCPCS: 74177; 80053; 80307; 83690; 83735; 85025; 96374; 96375; 99285; C9113; J1170; J1885; J2270; J7030; Q9967

== ENCOUNTER 2023-05-21 17:36 | Inpatient (IN) | payer MEDICAID, SELFPAY ==
[2023-05-21 18:10] VITALS: BMI 42.0
[2023-05-21 18:14] VITALS: BP 165/92; PULSE 94; RESP 16; TEMP 36.6; O2SAT 97
--- NOTE | 2023-05-21 18:19 | ED.C_ITS ---
HPI - Psych General: Chief Complaint: Psychiatric Symptoms Stated Complaint: SI Time Seen by Provider: 05/21/23 18:10 History of Present Illness: Patient presents to the ER for evaluation from [facility] for paranoia and hallucinations. 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 Patient denies being suicidal or homicidal. Patient does admit to smoking dabs and snorting meth and drinking all day yesterday when these symptoms started. Patient says he is just not in a good place in his life and wants to get help. Patient does state he is a schizophrenic and has not taken any of his medicine in a long time. Review of Systems General: Reports: 10 or more systems reviewed and unremarkable except in HPI and below PFSH ED PFSH: Medical History Alcohol use disorder Alcohol withdrawal seizure Biliary colic Homelessness HTN (hypertension) Morbid obesity Polysubstance abuse Schizophrenia Smoking addiction Substance use disorder Surgical History H/O esophagogastroduodenoscopy Family History Other Colon cancer Social History Smoking and tobacco status: current every day smoker Alcohol intake: current Substance/Drug Use: current Housing: Homeless Marital status: Physical Exam Const: COMMON NORMALS: no acute distress, average body habitus, patient oriented x3, no limitations, healthy appearing, alert and well nourished HENMT: COMMON NORMALS: normocephalic, atraumatic, hearing grossly normal bilaterally, external ears normal, Normal external nose present and moist oral mucous membranes HEAD & SCALP: normocephalic and atraumatic NOSE: Normal external nose present EXTERNAL EAR: Yes external ears normal Eye: COMMON NORMALS: Equal, round and reactive pupils present, EOMs intact bilaterally, conjunctivae normal and no scleral icterus CONJUNCTIVA: Yes conjunctivae normal PUPIL: Yes Equal, round and reactive pupils present Neck/C-Spine: COMMON NORMALS: full ROM, no lymphadenopathy, supple, no meningeal signs, no JVD and Thyroid normal THYROID: Thyroid normal Chest: COMMONS NORMALS: normal inspection of the chest and normal palpation of entire chest wall Resp: COMMON NORMALS: normal respiratory effort, No retractions, No use of accessory muscles and clear to auscultation bilaterally AUSCULTATION: clear to auscultation bilaterally Cardio: COMMON NORMALS: no JVD, regular rate, regular rhythm, S1 normal heart sound present, S2 normal heart sound present, No gallops present (Cardio), No clicks present (Cardio), No murmurs present (Cardio) and No rub (Cardio) RATE: regular rate RHYTHM: regular rhythm HEART SOUNDS: S1 normal heart sound present and S2 normal heart sound present GI: COMMON NORMALS: Normal to inspection, nondistended, normoactive bowel sounds present, Soft to palpation, non-tender, No hepatosplenomegaly present and no masses PALPATION: Yes Soft to palpation and Yes No hepatosplenomegaly present : COMMON NORMALS: Yes no CVA tenderness BLADDER/KIDNEY EXAM: Yes no CVA tenderness Back/Pelvis: COMMON NORMALS: no CVA tenderness Neuro: COMMON NORMALS: patient oriented x3 SENSORIUM/ORIENTATION: Yes alert MENINGEAL SIGNS: Yes no meningeal signs Course Vital Signs: Vital signs: Vital Signs Temperature 97.9 F 05/21/23 18:14 Pulse Rate 94 05/21/23 18:14 Respiratory Rate 16 05/21/23 18:14 Blood Pressure 165/92 05/21/23 18:14 Pulse Oximetry 97 05/21/23 18:14 Oxygen Delivery Me thod Room Air 05/21/23 18:14 MDM - Psych Medical Decision Making Patient comes to the ER for evaluation of paranoia, hallucinations, mitts to snorting meth smoking dabs and drinking alcohol and not taking his medicine for a long time. Dr. Weiss was consulted after lab work came back and patient was deemed to be medically stable. Patient will be admitted to the [facility]. Differential Diagnosis Likely acute psychosis, chronic schizophrenia and drug-induced psychotic disorder; Unlikely suicidal ideation, bipolar disorder, depression or acute anxiety Medical Records I reviewed the patient's medical records. Lab Data I reviewed the patient's lab results. 05/21/23 18:43 05/21/23 18:43 Laboratory Results WBC 7.4 10^3/uL (4.0-10.0) 05/21/23 18:43 RBC 3.69 10^6/uL (4.1-5.3) L 05/21/23 18:43 Hgb 13.0 g/dL (11.7-16.6) 05/21/23 18:43 Hct 39.7 % (42.0-52.0) L 05/21/23 18:43 MCV 107.6 fl (80-94) H 05/21/23 18:43 MCH 35.2 pg (28.0-34.0) H 05/21/23 18:43 MCHC 32.7 g/dL (30.0-36.0) 05/21/23 18:43 RDW 14.6 % (12.1-15.1) 05/21/23 18:43 Plt Count 198 10^3/cmm (130-400) 05/21/23 18:43 MPV 9.6 fL (7.4-10.4) 05/21/23 18:43 Neut % (Auto) 54.4 % 05/21/23 18:43 Lymph % (Auto) 32.1 % 05/21/23 18:43 Day % (Auto) 9.4 % 05/21/23 18:43 Eos % (Auto) 2.7 % 05/21/23 18:43 Baso % (Auto) 0.9 % 05/21/23 18:43 Neut # (Auto) 4.03 10^3/uL (1.8-7.7) 05/21/23 18:43 Lymph # (Auto) 2.4 10^3/uL (0.8-4.8) 05/21/23 18:43 Day # (Auto) 0.7 10^3/uL (0.2-0.9) 05/21/23 18:43 Eos # (Auto) 0.2 10^3/uL (0.0-0.8) 05/21/23 18:43 Baso # (Auto) 0.1 10^3/uL (0.0-0.1) 05/21/23 18:43 Nucleated RBC % (auto) 0 % 05/21/23 18:43 Nucleated RBCs # 0.0 /100WBC 05/21/23 18:43 Sodium 136 mmol/L (136-145) 05/21/23 18:43 Potassium 3.8 mmol/L (3.5-5.1) 05/21/23 18:43 Chloride 99 mmol/L (98-107) 05/21/23 18:43 Carbon Dioxide 27 mmol/L (22-29) 05/21/23 18:43 Anion Gap 13.8 (5-19) 05/21/23 18:43 BUN 13 mg/dL (6-20) 05/21/23 18:43 Creatinine 0.5 mg/dL (0.7-1.2) L 05/21/23 18:43 GFR Calculation 192.7 mL/min (90-130) H 05/21/23 18:43 Glucose 91 mg/dL (65-115) 05/21/23 18:43 Calculated Osmolality 282 mOsm/kg (285-295) L 05/21/23 18:43 Calcium 8.9 mg/dL (8.5-10.5) 05/21/23 18:43 Total Bilirubin 1.5 mg/dL (0.15-1.2) H 05/21/23 18:43 AST 167 U/L (0-40) H 05/21/23 18:43 ALT 107 U/L (0-41) H 05/21/23 18:43 Alkaline Phosphatase 98 U/L (40-130) 05/21/23 18:43 Total Protein 7.4 g/dL (6.6-8.7) 05/21/23 18:43 Albumin 3.7 g/dL (3.5-5.2) 05/21/23 18:43 Globulin 3.7 g/dL (1.3-4.6) 05/21/23 18:43 Urine Color Dark yellow (Yellow) 05/21/23 19:15 Urine Appearance Clear (CLEAR) 05/21/23 19:15 Urine pH 6 (5-7) 05/21/23 19:15 Ur Specific [place] 1.015 (1.005-1.030) 05/21/23 19:15 Urine Protein Trace (Negative) 05/21/23 19:15 Urine Glucose (UA) Norm (Normal) 05/21/23 19:15 Urine Ketones 1+ (Negative) H 05/21/23 19:15 Urine Blood Neg (Negative) 05/21/23 19:15 Urine Nitrate Positive (Negative) H 05/21/23 19:15 Urine Bilirubin 1+ (Negative) H 05/21/23 19:15 Urine Urobilinogen 4+ mg/dL (Negative) H 05/21/23 19:15 Ur Leukocyte Esterase Trace (Negative) H 05/21/23 19:15 Urine RBC 0-4 /hpf (0-2) H 05/21/23 19:15 Urine WBC 0-4 /hpf (0-5) H 05/21/23 19:15 Ur Squamous Epith Cells 0-4 /hpf (0-5) H 05/21/23 19:15 Amorphous Sediment 1+ /hpf 05/21/23 19:15 Urine Bacteria Trace /hpf (NONE) 05/21/23 19:15 Urine Mucus 2+ /hpf 05/21/23 19:15 Salicylates < 0.3 mg/dL (3-10) L 05/21/23 18:43 Urine Opiates Screen Positive ng/mL (Negative) H 05/21/23 19:15 Acetaminophen < 5.0 ug/mL (10-30) L 05/21/23 18:43 Ur Barbiturates Screen Positive ng/mL (Negative) H 05/21/23 19:15 Ur Phencyclidine Scrn Negative ng/mL (Negative) 05/21/23 19:15 Ur Amphetamines Screen Positive ng/mL (Negative) H 05/21/23 19:15 U Benzodiazepines Scrn Negative ng/mL (Negative) 05/21/23 19:15 Urine Cocaine Screen Negative ng/mL (Negative) 05/21/23 19:15 U Marijuana (THC) Screen Positive ng/mL (Negative) H 05/21/23 19:15 Ethyl Alcohol < 10 mg/dL (0-10) 05/21/23 18:43 Discharge Plan Discharge Patient Disposition: Admitted As Inpatient Clinical Impression: Drug-induced psychotic disorder, Chronic schizophrenia, Polysubstance abuse Condition: Stable Prescriptions: No Action amlodipine 5 mg Tablet 10 mg PO DAILY Qty: 90 0RF nystatin 100,000 unit/gram Cream 1 applic topical BID Qty: 30 0RF Rx Instructions: Groin and under pannus nicotine 21 mg/24 hr Patch 24 Hour 1 patch transdermal DAILY Qty: 90 0RF folic acid 1 mg Tablet 1 mg PO DAILY Qty: 90 0RF nicotine (polacrilex) 4 mg Lozenge 4 mg mucous membrane Q2H PRN (Reason: Nicotine Cravings) Qty: 90 0RF thiamine mononitrate (vit B1) [Vitamin B-1 (mononitrate)] 100 mg Tablet 100 mg PO DAILY Qty: 90 0RF multivitamin with folic acid [Thera] 400 mcg Tablet 1 tab PO DAILY Qty: 90 0RF pantoprazole 40 mg tablet,delayed release (DR/EC) 40 mg PO DAILY Narcan 4 mg/actuation spray,non-aerosol 1 spray INTRANASAL Q2M PRN (Reason: Opioid Overdose) Vistaril 25 mg capsule 25 mg PO Q8H PRN (Reason: anxiety) Qty: 90 0RF hydromorphone 4 mg Tablet 4 mg PO Q4H PRN (Reason: Severe Pain) Qty: 15 0RF potassium chloride 20 mEq tablet extended release 20 meq PO BID Qty: 10 0RF magnesium 200 mg tablet 200 mg PO BID Qty: 60 0RF hydrocodone-acetaminophen 5-325 mg tablet 1 tab PO Q6H PRN (Reason: pain) Qty: 10 0RF ondansetron 4 mg tablet,disintegrating 4 mg PO Q8H PRN (Reason: nausea and vomiting) Qty: 10 0RF Coding Level of Care Code ED Cableway Operator for Chg Juan Miguel
[2023-05-21 18:59] LABS: Basophils # 0.1 10^3/uL (0.0-0.1); Basophils % 0.9 %; Eosinophils # 0.2 10^3/uL (0.0-0.8); Eosinophils % 2.7 %; Hematocrit 39.7 % (42.0-52.0); Lymphocytes # 2.4 10^3/uL (0.8-4.8); Lymphocytes % 32.1 %; Mean Corpuscular HGB Conc 32.7 g/dL (30.0-36.0); Mean Corpuscular Hemoglobin 35.2 pg (28.0-34.0); Mean Corpuscular Volume 107.6 fl (80-94); Mean Platelet Volume 9.6 fL (7.4-10.4); Monocytes # 0.7 10^3/uL (0.2-0.9); Monocytes % 9.4 %; Neutrophils # 4.03 10^3/uL (1.8-7.7); Neutrophils % 54.4 %; Nucleated Red Blood Cells % 0 %; Platelet Count 198 10^3/cmm (130-400); Red Blood Count 3.69 10^6/uL (4.1-5.3); Red Cell Distribution Width 14.6 % (12.1-15.1); White Blood Count 7.4 10^3/uL (4.0-10.0)
--- NOTE | 2023-05-21 19:06 | PC.NURSE ---
Report received from KATY Baugh at this time
[2023-05-21 19:15] LABS: Alanine Aminotransferase 107 U/L (0-41); Albumin Level 3.7 g/dL (3.5-5.2); Alkaline Phosphatase 98 U/L (40-130); Anion Gap 13.8 (5-19); Aspartate Amino Transferase 167 U/L (0-40); Blood Urea Nitrogen 13 mg/dL (6-20); Calcium 8.9 mg/dL (8.5-10.5); Carbon Dioxide 27 mmol/L (22-29); Chloride 99 mmol/L (98-107); Globulin 3.7 g/dL (1.3-4.6); Glomerular Filtration Rate 192.7 mL/min (90-130); Glucose 91 mg/dL (65-115); Osmolality Calculated 282 mOsm/kg (285-295); Potassium 3.8 mmol/L (3.5-5.1); Sodium 136 mmol/L (136-145); Total Bilirubin 1.5 mg/dL (0.15-1.2); Total Protein 7.4 g/dL (6.6-8.7)
[2023-05-21 19:16] LABS: Acetaminophen < 5.0 ug/mL (10-30); Alcohol Level < 10 mg/dL (0-10); Salicylate < 0.3 mg/dL (3-10)
[2023-05-21 19:47] LABS: Amphetamines Screen Urine Positive (Negative); Barbiturates Screen Urine Positive (Negative); Benzodiazepines Screen Urine Negative (Negative); Cocaine Screen Urine Negative (Negative); Opiate Screen Urine Positive (Negative); PCP Screen Urine Negative (Negative); THC Screen Urine Positive (Negative)
[2023-05-21 19:51] LABS: Bilirubin Urine 1+ (Negative); Blood Urine Neg (Negative); Glucose Urine UA Norm (Normal); Ketones Urine 1+ (Negative); Leukocyte Esterase Urine Trace (Negative); Nitrate Urine Positive (Negative); Protein Urine Trace (Negative); Specific Gravity, Urine 1.015 (1.005-1.030); Urine Appearance Clear (CLEAR); Urine Color Dark yellow (Yellow); Urobilinogen Urine 4+ mg/dL (Negative); pH Urine 6 (5-7)
[2023-05-21 19:52] LABS: Add Urine Culture? Yes; Add Urine Microscopic? YES; Amorphous Sediment Urine 1+ /hpf; Bacteria Urine TRACE /hpf; Mucus Urine 2+ /hpf; RBC Urine 0-4 /hpf (0-2); Squamous Epithelial Cell Urine 0-4 /hpf (0-5); WBC Urine 0-4 /hpf (0-5)
--- NOTE | 2023-05-21 21:20 | PC.NURSE ---
Report called to KATY Sanders; all questions answered at time of report. Pt was transferred via wheelchair to [id number], with all paperwork and belongings.
[2023-05-21 21:24] VITALS: BP 169/98; PULSE 92; RESP 20; TEMP 36.7; O2SAT 95
[2023-05-21] MEDS: OLANZapine 5 mg ODT PO (21:56)
[2023-05-21] MEDS: LORazepam 2 mg Tablet PO (21:56)
[2023-05-21 22:00] VITALS: BP 169/98; PULSE 92; RESP 20; TEMP 36.7; O2SAT 95
[2023-05-22 06:00] VITALS: RESP 18
[2023-05-22] MEDS: multivitamin therapeutic Tablet 1 TAB PO (08:29)
[2023-05-22] MEDS: folic acid 1 mg Tablet PO (08:29)
[2023-05-22] MEDS: thiamine 100 mg Tablet PO (08:29)
--- NOTE | 2023-05-22 11:19 | P.NPUHP_ITS ---
Providers/Chief Complaint Admitting Physician: Mitchel Weiss MD Chief Complaint: SI HPI NPU History of Present Illness Radhames Spears is a 32 year old male who presented to the emergency department with the following report: Chief Complaint: Psychiatric Symptoms Stated Complaint: SI Time Seen by Provider: 05/21/23 18:10 History of Present Illness: Patient presents to the ER for evaluation from [facility] for paranoia and hallucinations. 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 Patient denies being suicidal or homicidal. Patient does admit to smoking dabs and snorting meth and drinking all day yesterday when these symptoms started. Patient says he is just not in a good place in his life and wants to get help. Patient does state he is a schizophrenic and has not taken any of his medicine in a long time. He was admitted to the neuropsychiatric unit He was admitted to the neuropsychiatric unit for definitive treatment of those issues. He presents today as a limited historian secondary to altered mental status likely due to addiction. He confirms data that is available in the chart. He reports that he has been hospitalized at least 5 times here the last hospitalization that we can find is 2014. He started coming to [facility] as a child back in 2005. He had his first hospitalization in 2011 here. He reports that he has had significant struggles with addiction reporting challenges from alcohol and methamphetamine. Current drug screen positive for opioids, barbiturates, amphetamines, cannabis. He reports that he has not been taking his medication and that he has had previous treatment with different things for his psychosis and anxiety. He endorses that he does have auditory and visual hallucinations and we were able to have a short conversation about the impact of amphetamines on psychosis. We discussed the risks, benefits and alternatives of initiating Abilify for the psychosis and Lexapro for his anxiety and he understood and agreed to proceed as is documented in this note. He did lobby for a benzodiazepine reporting that he had that before that would really work we discussed concerns about his addiction and polysubstance challenges including alcohol 22 benzodiazepines being a bad option. He was fairly poor historian as he was clearly distraught and exasperated with each question we agreed to work with the social work team to get a better picture of his psychosocial circumstances right now so that we can give him the best treatment. Meds NPU Home Medications Medication Instructions Recorded Confirmed Last Taken Type No Known Home Medications 05/21/23 05/21/23 Unknown History Allergies Allergy/AdvReac Type Severity Reaction Status Date / Time fentanyl Allergy Severe ADR-Seizure Verified 05/01/23 11:17 piperacillin [From Zosyn] Allergy Severe ALGY-Swell Verified 05/01/23 11:17 Lip/Tongue/Throat tazobactam [From Zosyn] Allergy Severe ALGY-Swell Verified 05/01/23 11:17 Lip/Tongue/Throat diphenhydramine Allergy Intermediate headache, Verified 05/01/23 11:17 [From Benadryl] restless leg cyclobenzaprine Allergy Nausea, Verified 05/01/23 11:17 [From Flexeril] vomiting, headache PFSH NPU PFSH: Medical History Alcohol use disorder Alcohol withdrawal seizure Biliary colic Homelessness HTN (hypertension) Morbid obesity Polysubstance abuse Schizophrenia Smoking addiction Substance use disorder Surgical History H/O esophagogastroduodenoscopy Family History Other Colon cancer Social History Smoking and tobacco status: current every day smoker Alcohol intake: current Substance/Drug Use: current Housing: Homeless Marital status: Mental Status Exam MSE Comments: This is a morbidly obese white male in hospital scrubs with limited grooming and eye contact. Patient unkempt with significant body odor but did except encour agement to shower. No abnormal movements except for psychomotor agitation with constant movement near tweaking. Somewhat cooperative with exam in moderate distress. Speech was limited and slightly increased rate but decreased volume. Mood described as anxious, affect congruent and hyperkinetic. Thought process linear and mostly organized. Thought content: Patient denies suicidal or homicidal ideation, no delusions reported but some paranoia noted, he endorsed auditory and visual hallucinations. Attention and concentration were limited and memory somewhat reliable but none were formally tested. He is alert and oriented x person and place. Insight, judgment and impulse control impaired. Vitals/I&O/Wt Last Vital Signs Temp 98.0 F 05/21/23 22:00 Pulse 92 05/21/23 22:00 Resp 20 H 05/21/23 22:00 BP 169/98 05/21/23 22:00 Pulse Ox 95 05/21/23 22:00 O2 Del Method Room Air 05/21/23 22:00 Weight last 48 hrs Weight 140.614 kg Data NPU 05/21/23 18:43 05/21/23 18:43 A&P Assessment and plan (1) Drug-induced psychotic disorder: (2) Chronic schizophrenia: (3) Alcohol use disorder: (4) Homelessness: (5) Morbid obesity: (6) Methamphetamine use disorder, severe: Plan This is a 32-year-old white male with a long history of addiction to polysubstances and mental health challenges going back to his childhood with various diagnoses some including psychosis however unclear knowledge of these had psychotic illness after clear abstinence from amphetamines who presents with psychosis and anxiety endorsing an openness to medication. 1. Initiate Lexapro 10 mg p.o. every morning and Abilify 5 mg p.o. daily with a plan to increase the Abilify likely tomorrow or the next day. 2. Continue every 15 minute checks for safety. 3. Encourage individual, group and milieu therapy. 4. Encourage sober living treatment after discharge at the highest level of care to which she is willing to commit. Involuntary Hold Information 96 Hour Hold: 96 Hour Involuntary Admission: No Attestations NPU Medical Necessity Statement*: Inpatient hospitalization is medically necessary and the clinically appropriate intervention at this time. We will monitor medications and make changes as indicated. He will be in the hospital for over 2 midnights. Likely length of stay 5 to 7 days. Coding Level of Care Code Acute Code for [facility] Fwd Diagnoses Drug-induced psychotic disorder F19.959 Chronic schizophrenia F20.9 Alcohol use disorder F10.90 Homelessness Z59.00 Morbid obesity E66.01 Methamphetamine use disorder, severe F15.20
[2023-05-22] MEDS: OLANZapine 5 mg ODT PO (11:44)
[2023-05-22 14:00] VITALS: BP 157/75; PULSE 86; RESP 20; TEMP 36.7; O2SAT 95
[2023-05-22] MEDS: ARIPiprazole 10 mg Tablet 5 MG PO (20:23)
[2023-05-22] MEDS: escitalopram 10 mg Tablet PO (20:23)
[2023-05-23 06:00] VITALS: BP 170/89; PULSE 69; RESP 17; O2SAT 95
[2023-05-23] MEDS: folic acid 1 mg Tablet PO (08:13)
[2023-05-23] MEDS: nicotine 21 mg Patch 1 PATCH TRANSDERMA (08:13)
[2023-05-23] MEDS: multivitamin therapeutic Tablet 1 TAB PO (08:13)
[2023-05-23] MEDS: ARIPiprazole 10 mg Tablet 5 MG PO (08:13)
[2023-05-23] MEDS: thiamine 100 mg Tablet PO (08:13)
[2023-05-23] MEDS: escitalopram 10 mg Tablet PO (08:13)
[2023-05-23] MEDS: hyDROXYzine 25 mg Capsule 50 MG PO (08:13)
--- NOTE | 2023-05-23 11:48 | W.PM.NPUPNS ---
Subjective NPU Subjective: Patient presented today reporting he is feeling pretty anxious and crappy. We continued to discuss the importance of him identifying the role that his addiction played in his anxiety and presentation. He was denying that the medications have been effective reporting that he still anxious still having hallucinations. We talked about the possibility of increasing his Abilify which he was resistant to and we also talked about having to give the medication time. He continued to be leaning towards attempts to get a benzodiazepine started. Mental Status Exam MSE Comments: This is a morbidly obese white male in hospital scrubs with limited grooming and eye contact. Patient unkempt with significant body odor but did except encouragement to shower. No abnormal movements except for psychomotor agitation with constant movement near tweaking. Somewhat cooperative with exam in moderate distress. Speech was limited and slightly increased rate but decreased volume. Mood described as anxious, affect congruent and hyperkinetic. Thought process linear and mostly organized. Thought content: Patient denies suicidal or homicidal ideation, no delusions reported but some paranoia noted, he endorsed auditory and visual hallucinations. Attention and concentration were limited and memory somewhat reliable but none were formally tested. He is alert and oriented x person and place. Insight, judgment and impulse control impaired. Vitals/I&O/Wt Last Vital Signs Temp 98.1 F 05/22/23 14:00 Pulse 69 05/23/23 06:00 Resp 17 05/23/23 06:00 BP 170/89 05/23/23 06:00 Pulse Ox 95 05/23/23 06:00 O2 Del Method Room Air 05/23/23 06:00 Weight last 48 hrs Weight 140.614 kg Data NPU 05/21/23 18:43 05/21/23 18:43 Micro: Microbiology 05/21/23 19:15 Urine Culture - Preliminary Urine,Clean Catch Microbiology 05/21/23 19:15 Urine,Clean Catch Urine Culture - Preliminary A&P Assessment and plan (1) Drug-induced psychotic disorder: (2) Chronic schizophrenia: (3) Alcohol use disorder: (4) Homelessness: (5) Morbid obesity: (6) Methamphetamine use disorder, severe: Plan This is a 32-year-old white male with a long history of addiction to polysubstances and mental health challenges going back to his childhood with various diagnoses some including psychosis however unclear knowledge of these had psychotic illness after clear abstinence from amphetamines who presents with psychosis and anxiety endorsing an openness to medication. 1. Initiated Lexapro 10 mg p.o. every morning and Abilify 5 mg p.o. daily with a plan to increase the Abilify likely tomorrow. 2. Continue every 15 minute checks for safety. 3. Encourage individual, group and milieu therapy. 4. Encourage sober living treatment after discharge at the highest level of care to which she is willing to commit. Involuntary Hold Information 96 Hour Hold: 96 Hour Involuntary Admission: No Attestations NPU Medical Necessity Statement*: Inpatient hospitalization is medically necessary and the clinically appropriate intervention at this time. We will monitor medications and make changes as indicated. Likely length of stay 5 to 7 days. Coding Level of Care Code Acute Code for [facility] Fwd Diagnoses Drug-induced psychotic disorder F19.959 Chronic schizophrenia F20.9 Alcohol use disorder F10.90 Homelessness Z59.00 Morbid obesity E66.01 Methamphetamine use disorder, severe F15.20
[2023-05-23] MEDS: acetaminophen 325 mg Tablet 650 MG PO (13:52)
[2023-05-23 14:00] VITALS: BP 162/84; PULSE 71; RESP 16; TEMP 36.6; O2SAT 92
[2023-05-23] MEDS: LORazepam 2 mg Tablet PO (17:58)
[2023-05-23 21:46] VITALS: RESP 16
[2023-05-24 06:00] VITALS: RESP 18
[2023-05-24] MEDS: multivitamin therapeutic Tablet 1 TAB PO (07:56)
[2023-05-24] MEDS: folic acid 1 mg Tablet PO (07:56)
[2023-05-24] MEDS: thiamine 100 mg Tablet PO (07:56)
[2023-05-24] MEDS: hyDROXYzine 25 mg Capsule 50 MG PO ×2 (07:56→14:41)
[2023-05-24] MEDS: ARIPiprazole 10 mg Tablet 5 MG PO (07:57)
[2023-05-24] MEDS: escitalopram 10 mg Tablet PO (07:57)
[2023-05-24 14:00] VITALS: BP 150/82; PULSE 80; RESP 16; TEMP 36.6; O2SAT 98
[2023-05-24] MEDS: acetaminophen 325 mg Tablet 650 MG PO (15:52)
--- NOTE | 2023-05-24 18:57 | P.NPUPN_ITS ---
Subjective NPU Subjective: Patient presented today reporting that his anxiety is not being managed by the medication thus far. He continues to suggest that the solution was a benzodiazepine. Continue to discuss the fact that this was a clinically problematic solution given his addiction history. Shortly after this he was seen going into the bathroom vomiting or at least appearing to have emesis and then telling staff that he was having alcohol withdrawal and needed something for alcohol withdrawal. We discussed the risk benefits and alternatives of starting Neurontin and he understood and reluctantly agreed to proceed as is documented in this note. Mental Status Exam MSE Comments: This is a morbidly obese white male in hospital scrubs with limited grooming and eye contact. Patient unkempt with significant body odor. No abnormal movements except for psychomotor agitation with constant movement near tweaking. Somewhat cooperative with exam in moderate distress. Speech was limited and slightly increased rate but decreased volume. Mood described as extremely anxious, affect congruent and hyperkinetic. Thought process linear and mostly organized. Thought content: Patient denies suicidal or homicidal ideation, no delusions reported but some paranoia noted, he endorsed auditory and visual hallucina tions. Attention and concentration were limited and memory somewhat reliable but none were formally tested. He is alert and oriented x person and place. Insight, judgment and impulse control impaired. Vitals/I&O/Wt Last Vital Signs Temp 98 F 05/24/23 14:00 Pulse 68 05/24/23 20:49 Resp 16 05/24/23 20:49 BP 160/89 05/24/23 20:49 Pulse Ox 90 05/24/23 20:49 O2 Del Method Room Air 05/24/23 20:49 Weight last 48 hrs Weight 172.478 kg Data NPU 05/21/23 18:43 05/21/23 18:43 Micro: Microbiology 05/21/23 19:15 Urine Culture - Final Urine,Clean Catch Microbiology 05/21/23 19:15 Urine,Clean Catch Urine Culture - Final A&P Assessment and plan (1) Drug-induced psychotic disorder: (2) Chronic schizophrenia: (3) Alcohol use disorder: (4) Homelessness: (5) Morbid obesity: (6) Methamphetamine use disorder, severe: Plan This is a 32-year-old white male with a long history of addiction to polysubstances and mental health challenges going back to his childhood with various diagnoses some including psychosis however unclear knowledge of these had psychotic illness after clear abstinence from amphetamines who presents with psychosis and anxiety endorsing an openness to medication. 1. Initiated Lexapro 10 mg p.o. every morning and Abilify 5 mg p.o. daily with a plan to increase the Abilify to 10 mg p.o. daily. Started Neurontin 200 mg p.o. 3 times daily as needed versus scheduled. 2. Continue every 15 minute checks for safety. 3. Encourage individual, group and milieu therapy. 4. Encourage sober living treatment after discharge at the highest level of care to which she is willing to commit. Involuntary Hold Information 96 Hour Hold: 96 Hour Involuntary Admission: No Attestations NPU Medical Necessity Statement*: Inpatient hospitalization is medically necessary and the clinically appropriate intervention at this time. We will monitor medications and make changes as indicated. Likely length of stay 4-6 days. Coding Level of Care Code Acute Code for [facility] Fwd Diagnoses Drug-induced psychotic disorder F19.959 Chronic schizophrenia F20.9 Alcohol use disorder F10.90 Homelessness Z59.00 Morbid obesity E66.01 Methamphetamine use disorder, severe F15.20
--- NOTE | 2023-05-24 20:14 | PC.NURSE ---
PT IN ROOM RESTING, AROUSES FOR ASSESSMENT. THIS RN CAN SMELL YEAST WHEN ENTERING ROOM. PT WAS OFFERED A SHOWER SO THIS RN COULD APPLY NYSTATIN ORDERED. PT STATES HE SHOWERED ALREADY TODAY AND I'M NOT DOING IT AGAIN. PT HAS NOT SHOWERED IN TWO DAYS AND ALSO REFUSES HIS NYSTATIN THAT IS ORDERED. EDUCATION WAS PROVIDED THAT THE NYSTATIN WILL RELIEVE THE YEAST AND WORKS BEST WHEN APPLIED TO FRESH, CLEAN SKIN. PT STILL REFUSES DESPITE EDUCATION. PT DENIES PAIN, DENIES SI/HI AND AVH AT THIS TIME. PT REQUESTS MEDICATION FOR SLEEP AND ANXIETY. THIS RN WILL ADMINISTER TRAZODONE 50 MG FOR SLEEP AND VISTARIL 50 MG FOR INCREASED ANXIETY. WILL REASSESS AFTER ANXIETY MEDICATIONS IF PT WILL CLEAN SKIN AND USE THE NYSTATIN. ALL QUESTIONS WERE ANSWERED AND SUPPORT WAS VOICED.
[2023-05-24] MEDS: trazodone 50 mg Tablet PO (20:16)
[2023-05-24] MEDS: OLANZapine 5 mg ODT PO (20:16)
--- NOTE | 2023-05-24 20:17 | PC.NURSE ---
PT DID EVENTUALLY GET UP TO SHOWER, REFUSES TO USE NYSTATIN STILL. PT REFUSES TO TAKE VISTARIL AT THIS TIME STATES IT DOESN'T WORK, I'VE HAD IT AND THAT SHIT DON'T WORK. PT WAS OFFERED HALDOL BUT STATES HE IS SCARED. ZYDIS 5 MG WAS GIVEN ORDERED FOR 10 ANXIETY. PT WAS GIVEN TRAZODONE 50 MG FOR INSOMNIA. PT DID TAKE MEDICATIONS PRESCRIBED AND IS CLEARLY AGITATED AND RESTLESS. PT WAS EDUCATED TO NOTIFY STAFF OR THIS RN IF ANXIETY MEDICATIONS ARE INEFFECTIVE. PT STATES HE WILL NOTIFY. ALL QUESTIONS WERE ANSWERED AND SUPPORT VOICED.
[2023-05-24 20:49] VITALS: BP 160/89; PULSE 68; RESP 16; O2SAT 90
[2023-05-25] MEDS: escitalopram 10 mg Tablet PO (08:08)
[2023-05-25] MEDS: thiamine 100 mg Tablet PO (08:08)
[2023-05-25] MEDS: ARIPiprazole 10 mg Tablet PO (08:08)
[2023-05-25] MEDS: folic acid 1 mg Tablet PO (08:08)
[2023-05-25] MEDS: multivitamin therapeutic Tablet 1 TAB PO (08:08)
[2023-05-25] MEDS: nicotine 21 mg Patch 1 PATCH TRANSDERMA (08:09)
[2023-05-25 11:47] VITALS: BP 160/89; PULSE 68; RESP 16; O2SAT 90
== END 2023-05-25 12:05 | disposition home or self-care (01) | DRG 897 ==
LOC: ER 20:19 → NP 20:46
PROVIDERS: Admitting Provider Psychiatry & Neurology Psychiatry; Emergency Provider Emergency Medicine; Visit Provider Psychiatry & Neurology Psychiatry
DX: F15.151 Other stimulant abuse with stimulant-induced psychotic disorder with hallucinations (principal); Z59.00 Homelessness unspecified; F20.9 Schizophrenia, unspecified; F41.9 Anxiety disorder, unspecified; F10.10 Alcohol abuse, uncomplicated; F11.10 Opioid abuse, uncomplicated; F17.210 Nicotine dependence, cigarettes, uncomplicated
CPT/HCPCS: 36415; 80053; 80306; 80307; 81001; 85025; 87086; 96372; 97165; 99285; J3411

== ENCOUNTER 2023-05-30 00:02 | Emergency (ER) | payer MEDICAID, SELFPAY ==
[2023-05-30 00:17] VITALS: BP 148/100; PULSE 113; RESP 18; TEMP 36.9; O2SAT 95; BMI 54.2
[2023-05-30 00:52] LABS: Basophils # 0.1 10^3/uL (0.0-0.1); Basophils % 1.2 %; Eosinophils # 0.1 10^3/uL (0.0-0.8); Eosinophils % 0.8 %; Hematocrit 43.5 % (37-53); Lymphocytes # 4.4 10^3/uL (0.8-4.8); Lymphocytes % 37.2 %; Mean Corpuscular HGB Conc 34.3 g/dL (30-55); Mean Corpuscular Hemoglobin 35.1 pg (27-33); Mean Corpuscular Volume 102.4 fl (82-101); Mean Platelet Volume 10.2 fL (7.4-10.4); Monocytes # 1.3 10^3/uL (0.2-0.9); Monocytes % 10.5 %; Neutrophils # 5.92 10^3/uL (1.8-7.7); Nucleated Red Blood Cells % 0 %; Platelet Count 331 10^3/cmm (157-399); Red Blood Count 4.25 10^6/uL (3.85-5.65); Red Cell Distribution Width 13.4 % (12.1-15.1); White Blood Count 11.87 10^3/uL (3.29-11.43)
[2023-05-30 00:52] LABS: Add Urine Culture? No; Add Urine Microscopic? YES; Amorphous Sediment Urine 1+ /hpf; Bacteria Urine TRACE /hpf; Bilirubin Urine 1+ (Negative); Blood Urine Neg (Negative); Glucose Urine UA Norm (Normal); Ketones Urine 1+ (Negative); Leukocyte Esterase Urine Trace (Negative); Mucus Urine TRACE /hpf; Nitrate Urine Positive (Negative); Protein Urine 1+ (Negative); RBC Urine 0-4 /hpf (0-2); Urine Appearance Hazy (CLEAR); Urine Color Yellow (Yellow); Urobilinogen Urine 4 mg/dL (Negative); WBC Urine 0-4 /hpf (0-5); pH Urine 6 (5-7)
[2023-05-30 00:56] LABS: Cocaine Screen Urine Negative (Negative); Opiate Screen Urine Negative (Negative); PCP Screen Urine Negative (Negative); THC Screen Urine Positive (Negative)
[2023-05-30] MEDS: aluminum-mag hydrox-simethicon 30 ML, sucralfate oral liq 1 GM PO (01:02)
[2023-05-30 01:03] VITALS: BP 136/114; PULSE 112; O2SAT 95
[2023-05-30 01:07] LABS: Amphetamines Screen Urine Negative (Negative); Barbiturates Screen Urine Negative (Negative); Benzodiazepines Screen Urine Negative (Negative)
[2023-05-30 01:18] LABS: Alanine Aminotransferase 176 U/L (0-41); Albumin Level 4.1 g/dL (3.5-5.2); Alcohol Level 229 mg/dL (0-10); Alkaline Phosphatase 102 U/L (40-130); Anion Gap 19.9 (5-19); Aspartate Amino Transferase 179 U/L (0-40); Blood Urea Nitrogen 13 mg/dL (6-20); Carbon Dioxide 22 mmol/L (22-29); Chloride 94 mmol/L (98-107); Globulin 3.7 g/dL (1.3-4.6); Glomerular Filtration Rate 156.1 mL/min (90-130); Glucose 213 mg/dL (65-115); Lipase 152 U/L (13-60); Osmolality Calculated 282 mOsm/kg (285-295); Sodium 133 mmol/L (136-145); Total Bilirubin 0.6 mg/dL (0.15-1.2); Total Protein 7.8 g/dL (6.6-8.7)
[2023-05-30 01:27] LABS: Potassium 2.9 mmol/L (3.5-5.1)
[2023-05-30] MEDS: haloperidol inj 5 mg/mL INJ 1 mL IVP (02:02)
[2023-05-30] MEDS: morphine 4 mg/mL SDV 1 mL IVP (02:04)
[2023-05-30 02:05] VITALS: BP 155/99; PULSE 107; RESP 22; O2SAT 96
[2023-05-30] MEDS: potassium chloride oral liq 20 mEq/15 mL UDC 40 MEQ PO (02:09)
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
== END 2023-05-30 02:52 | disposition home or self-care (01) ==
PROVIDERS: Emergency Provider Emergency Medicine
DX: F10.129 Alcohol abuse with intoxication, unspecified (principal); Y90.7 Blood alcohol level of 200-239 mg/100 ml; K85.20 Alcohol induced acute pancreatitis without necrosis or infection; F17.210 Nicotine dependence, cigarettes, uncomplicated; I10 Essential (primary) hypertension
CPT/HCPCS: 80053; 80306; 80307; 81001; 83690; 85025; 96374; 96375; 99284; J1630; J2270

== ENCOUNTER 2023-06-07 23:51 | Emergency (ER) | payer MEDICAID, SELFPAY ==
[2023-06-07 23:55] VITALS: BP 179/97; PULSE 107; RESP 26; TEMP 36.3; O2SAT 92; BMI 51.5
--- NOTE | 2023-06-08 | ECG_ITS ---
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 Measurements Intervals [place] Rate: 103 P: 2 IA: 163 QRS: -10 QRSD: 85 T: 5 QT: 369 QTc: 484 Interpretive Statements SINUS TACHYCARDIA Compared to ECG 05/09/2023 23:41:21 No significant changes Electronically Signed On 06-08-2023 22:31:23 CDT by Endy Lee M.D. [email or web address]
--- NOTE | 2023-06-08 00:02 | XRR_ITS ---
PROCEDURE INFORMATION: Exam: XR Chest Exam date and time: 06/08/2023 12:19 AM Age: 32 years old Clinical indication: Cough and shortness of breath; Chest pressure; Patient HX: C/O chest pain with cough and SOB. ; Additional info: Cp TECHNIQUE: Imaging protocol: Radiologic exam of the chest. Views: 1 view. COMPARISON: CR (CHEST, ) 04/15/2023 6:08 AM FINDINGS: Limitations: Evaluation limited by patient body habitus. Lungs: No consolidation, mass, or pulmonary edema. Pleural spaces: No pneumothorax or obvious pleural effusion. Heart/Mediastinum: Cardiomediastinal silhouette is stable. Bones/joints: Unremarkable. XR/XR chest 1V portable [id number] IMPRESSION: No acute findings.
[2023-06-08 00:15] VITALS: BP 184/128; PULSE 101; RESP 26; O2SAT 93
[2023-06-08] MEDS: LORazepam 2 mg/mL INJ 1 mL 1 MG IVP (00:16)
[2023-06-08] MEDS: dexamethasone 10 mg/mL INJ IVP (00:18)
--- NOTE | 2023-06-08 00:18 | W.ED.SOB ---
HPI - SOB/Dyspnea General: Chief Complaint: Shortness of Breath/Dyspnea Stated Complaint: SOB Time Seen by Provider: 06/07/23 23:55 Source: patient Mode of arrival: ambulatory Limitations: no limitations History of Present Illness: HPI Narrative: 32-year-old male who is well-known to the ER states he has been having some shortness of breath throughout the day states that he feels like he just cannot get his breath. He states he has been having a sharp right-sided chest pain he denies any cough or fever denies any worsening proving factors. Associated symptoms: Deny abdominal pain, chest pain, fever(s), nausea or vomiting Review of Systems Const: Denies: fever(s) or chills ENMT: Denies: throat pain or dental pain Card: Denies: chest pain Resp: Reports: dyspnea GI: Denies: abdominal pain, nausea, vomiting or diarrhea : Denies: dysuria Musc: Denies: neck pain or back pain Skin/Breast: Denies: rash Neuro: Denies: headache(s) PFSH ED PFSH: Medical History Alcohol use disorder Alcohol withdrawal seizure Biliary colic Homelessness HTN (hypertension) Morbid obesity Polysubstance abuse Schizophrenia Smoking addiction Substance use disorder Surgical History H/O esophagogastroduodenoscopy Family History Other Colon cancer Social History Smoking and tobacco status: current every day smoker Alcohol intake: current Substance/Drug Use: current Housing: Homeless Marital status: Physical Exam Const: COMMON NORMALS: no acute distress, patient oriented x3 and healthy appearing HENMT: COMMON NORMALS: normocephalic and atraumatic HEAD & SCALP: normocephalic and atraumatic Neck/C-Spine: COMMON NORMALS: full ROM and supple Chest: COMMONS NORMALS: normal inspection of the chest and normal palpation of entire chest wall Resp: COMMON NORMALS: normal respiratory effort, No retractions, No use of accessory muscles and clear to auscultation bilaterally AUSCULTATION: clear to auscultation bilaterally Cardio: COMMON NORMALS: regular rate, regular rhythm and No murmurs present (Cardio) RATE: regular rate RHYTHM: regular rhythm GI: COMMON NORMALS: Normal to inspection, nondistended, normoactive bowel sounds present, Soft to palpation, non-tender and no masses PALPATION: Yes Soft to palpation Extremity: COMMON NORMALS: normal to inspection and full ROM Neuro: COMMON NORMALS: patient oriented x3, moves all extremities and no focal motor deficits Psych: COMMON NORMALS: mental status grossly normal, Normal thought process present and cooperative THOUGHT PROCESS: Normal thought process present Skin: COMMON NORMALS: no rashes or lesions noted and no wounds GENERAL SKIN EXAM: no rashes or lesions noted Course Vital Signs: Vital signs: Vital Signs Temperature 97.4 F L 06/07/23 23:55 Pulse Rate 101 H 06/08/23 00:33 Respiratory Rate 20 H 06/08/23 00:33 Blood Pressure 184/128 06/08/23 00:15 Pulse Oximetry 94 06/08/23 00:33 Oxygen Delivery Me thod Room Air 06/08/23 00:33 MDM - SOB/Dyspnea Medical Decision Making Patient presents here with dyspnea he has been well-appearing here in no distress x-ray is normal blood work here is all normal no signs of pneumonia he is stable for discharge she is follow-up with PCP and return if worsening. Medical Records I reviewed the patient's medical records. Lab Data I reviewed the patient's lab results. 06/08/23 00:05 06/08/23 00:05 Labs/Radiology: Radiology Impressions Chest X-Ray 06/08/23 00:02 IMPRESSION: No acute findings. Laboratory Results WBC 6.97 10^3/uL (3.29-11.43) 06/08/23 00:05 RBC 3.83 10^6/uL (3.85-5.65) L 06/08/23 00:05 Hgb 13.30 g/dL (11.27-16.99) 06/08/23 00:05 Hct 40.0 % (37-53) 06/08/23 00:05 MCV 104.4 fl (82-101) H 06/08/23 00:05 MCH 34.7 pg (27-33) H 06/08/23 00:05 MCHC 33.3 g/dL (30-55) 06/08/23 00:05 RDW 13.6 % (12.1-15.1) 06/08/23 00:05 Plt Count 235 10^3/cmm (157-399) 06/08/23 00:05 MPV 9.1 fL (7.4-10.4) 06/08/23 00:05 Neut % (Auto) 51.3 % 06/08/23 00:05 Lymph % (Auto) 35.9 % 06/08/23 00:05 [place] % (Auto) 7.9 % 06/08/23 00:05 Eos % (Auto) 3.2 % 06/08/23 00:05 Baso % (Auto) 1.0 % 06/08/23 00:05 Neut # (Auto) 3.58 10^3/uL (1.8-7.7) 06/08/23 00:05 Lymph # (Auto) 2.5 10^3/uL (0.8-4.8) 06/08/23 00:05 [place] # (Auto) 0.6 10^3/uL (0.2-0.9) 06/08/23 00:05 Eos # (Auto) 0.2 10^3/uL (0.0-0.8) 06/08/23 00:05 Baso # (Auto) 0.1 10^3/uL (0.0-0.1) 06/08/23 00:05 Nucleated RBC % (auto) 0 % 06/08/23 00:05 Nucleated RBCs # 0.0 /100WBC 06/08/23 00:05 Sodium 139 mmol/L (136-145) 06/08/23 00:05 Potassium 4.0 mmol/L (3.5-5.1) 06/08/23 00:05 Chloride 101 mmol/L (98-107) 06/08/23 00:05 Carbon Dioxide 27 mmol/L (22-29) 06/08/23 00:05 Anion Gap 15.0 (5-19) 06/08/23 00:05 BUN 6 mg/dL (6-20) 06/08/23 00:05 Creatinine 0.6 mg/dL (0.7-1.2) L 06/08/23 00:05 GFR Calculation 156.1 mL/min (90-130) H 06/08/23 00:05 Glucose 108 mg/dL (65-115) 06/08/23 00:05 Calculated Osmolality 286 mOsm/kg (285-295) 06/08/23 00:05 Calcium 8.6 mg/dL (8.5-10.5) 06/08/23 00:05 Total Bilirubin 0.6 mg/dL (0.15-1.2) 06/08/23 00:05 AST 341 U/L (0-40) H 06/08/23 00:05 ALT 189 U/L (0-41) H 06/08/23 00:05 Alkaline Phosphatase 108 U/L (40-130) 06/08/23 00:05 Troponin T Baseline 9 ng/L (0-15) 06/08/23 00:05 NT-Pro-B Natriuret Pep 265 pg/mL (0-125) H 06/08/23 00:05 Total Protein 6.8 g/dL (6.6-8.7) 06/08/23 00:05 Albumin 3.8 g/dL (3.5-5.2) 06/08/23 00:05 Globulin 3.0 g/dL (1.3-4.6) 06/08/23 00:05 SARS-CoV-2 Ag (Rapid) negative (Negative) 06/08/23 00:17 EKG Data EKG 1: I personally reviewed and interpreted this EKG as follows: EKG Interpretation Date: 06/08/23 EKG interpretation time: 00:00 Interpretation: sinus tach hr [address] or t wave abnormalities qrs 85 qtc 429 Discharge Plan Discharge Patient Disposition: Home Clinical Impression: Shortness of breath Condition: Stable Prescriptions: No Action ketorolac 10 mg tablet 10 mg PO TID PRN (Reason: pain) Qty: 10 0RF ondansetron 4 mg film 4 mg PO DAILY PRN (Reason: nausea and vomiting) Qty: 10 0RF Discharge Orders: Discharge ED (Routine); Ordered 06/08/23 Ordered By: Armando Menon Discharge Diet: Advance as tolerated Discharge Activity: Resume usual activity Patient Instructions: Shortness of Breath (ED) Coding Level of Care Code ED Associate Professor Of Geology for [employer] Juan Miguel
[2023-06-08 00:22] LABS: Basophils # 0.1 10^3/uL (0.0-0.1); Eosinophils # 0.2 10^3/uL (0.0-0.8); Eosinophils % 3.2 %; Lymphocytes # 2.5 10^3/uL (0.8-4.8); Lymphocytes % 35.9 %; Mean Corpuscular HGB Conc 33.3 g/dL (30-55); Mean Corpuscular Hemoglobin 34.7 pg (27-33); Mean Corpuscular Volume 104.4 fl (82-101); Mean Platelet Volume 9.1 fL (7.4-10.4); Monocytes # 0.6 10^3/uL (0.2-0.9); Monocytes % 7.9 %; Neutrophils # 3.58 10^3/uL (1.8-7.7); Neutrophils % 51.3 %; Nucleated Red Blood Cells % 0 %; Platelet Count 235 10^3/cmm (157-399); Red Blood Count 3.83 10^6/uL (3.85-5.65); Red Cell Distribution Width 13.6 % (12.1-15.1); White Blood Count 6.97 10^3/uL (3.29-11.43)
[2023-06-08] MEDS: ipratropium-albuterol 3 mL Neb INHALATION (00:32)
[2023-06-08 00:33] VITALS: PULSE 101; RESP 20; O2SAT 94
[2023-06-08 00:43] LABS: Troponin(5th) Baseline 9 ng/L (0-15)
[2023-06-08 00:50] LABS: Alanine Aminotransferase 189 U/L (0-41); Albumin Level 3.8 g/dL (3.5-5.2); Alkaline Phosphatase 108 U/L (40-130); Aspartate Amino Transferase 341 U/L (0-40); Blood Urea Nitrogen 6 mg/dL (6-20); Calcium 8.6 mg/dL (8.5-10.5); Carbon Dioxide 27 mmol/L (22-29); Chloride 101 mmol/L (98-107); Glomerular Filtration Rate 156.1 mL/min (90-130); Glucose 108 mg/dL (65-115); NT Pro B Type Natriuretic Pept 265 pg/mL (0-125); Osmolality Calculated 286 mOsm/kg (285-295); Sodium 139 mmol/L (136-145); Total Bilirubin 0.6 mg/dL (0.15-1.2); Total Protein 6.8 g/dL (6.6-8.7)
[2023-06-08 00:51] LABS: SARS Covid-2 Antigen negative (Negative)
--- NOTE | 2023-06-11 10:31 | DCPLANNER ---
physician relations manager called patient due to no primary care physician - spoke with patients mother, who stated that patient is homeless and goes to where ever he can be seen.
== END 2023-06-08 01:10 | disposition home or self-care (01) ==
PROVIDERS: Emergency Provider Emergency Medicine
DX: R06.02 Shortness of breath (principal); Z20.822 Contact with and (suspected) exposure to COVID-19; I10 Essential (primary) hypertension; F17.210 Nicotine dependence, cigarettes, uncomplicated
CPT/HCPCS: 71045; 80053; 83880; 84484; 85025; 87426; 93005; 94640; 96374; 96375; 99285; J1100; J2060

== ENCOUNTER 2023-11-06 13:58 | Emergency (ER) | payer MEDICAID, SELFPAY ==
[2023-11-06 14:00] VITALS: BP 162/79; PULSE 87; RESP 17; TEMP 36.6; O2SAT 95
--- NOTE | 2023-11-06 14:06 | ECG_ITS ---
[facility] Test Date: 2023-11-06 Pat Name: Radhames Spears Department: Room: Gender: Male Manager College: : 1990 Requested By: Kevin Eason Order Number: [id number] Gaffney MD: Endy Lee M.D. Measurements Intervals [place] Rate: 88 P: 27 LA: 171 QRS: 37 QRSD: 114 T: 48 QT: 378 QTc: 459 Interpretive Statements SINUS RHYTHM MODERATE INTRAVENTRICULAR CONDUCTION DELAY [110+ ms QRS DURATION] Compared to ECG 06/08/2023 00:00:14 Intraventricular conduction delay now present Sinus tachycardia no longer present Electronically Signed On 11-07-2023 23:14:04 [employer] by Endy Lee M.D. [id number]
--- NOTE | 2023-11-06 14:06 | XR_ITS ---
WS: [id number] Portable AP semiupright chest, 11/06/2023 Clinical Data: CXP Comparison: Portable chest, 06/08/2023 Findings: No nodules, masses or effusions are seen. The heart is enlarged. The pulmonary vascularity is not increased. No pneumonia or pneumothorax is seen. Impression: Cardiomegaly
[2023-11-06 14:15] VITALS: BP 131/81; BP 133/78; BP 135/106; PULSE 90; PULSE 93; PULSE 99
[2023-11-06] MEDS: aspirin 81 mg Chew Tablet 324 MG PO (14:22)
[2023-11-06 14:37] LABS: Basophils # 0.1 10^3/uL (0.0-0.1); Basophils % 0.6 %; Eosinophils # 0.1 10^3/uL (0.0-0.8); Eosinophils % 1.2 %; Hematocrit 41.4 % (37-53); Lymphocytes % 21.9 %; Mean Corpuscular HGB Conc 34.1 g/dL (30-55); Mean Corpuscular Hemoglobin 31.8 pg (27-33); Mean Corpuscular Volume 93.2 fl (82-101); Mean Platelet Volume 9.5 fL (7.4-10.4); Monocytes # 0.7 10^3/uL (0.2-0.9); Monocytes % 7.9 %; Neutrophils # 6.06 10^3/uL (1.8-7.7); Nucleated Red Blood Cells % 0 %; Platelet Count 275 10^3/cmm (157-399); Red Blood Count 4.44 10^6/uL (3.85-5.65); Red Cell Distribution Width 12.3 % (12.1-15.1); White Blood Count 8.91 10^3/uL (3.29-11.43)
[2023-11-06 14:50] LABS: INR 1.02 (0.8-1.2)
--- NOTE | 2023-11-06 14:53 | PC.PHAR ---
pt states he takes care of his own medications-pt states he gets methadone from [facility] called to verify dose but [facility] was closed-pt states zyprexa 10mg was dced states just takes 15mg hs-ext shows cipro 500mg bid filled 10/24/23 7d/s pt states he never took states he didnt think he needed it-
[2023-11-06 14:58] LABS: Troponin(5th) Baseline < 6 ng/L (0-15)
[2023-11-06 15:00] VITALS: BP 133/78; PULSE 76; RESP 18; O2SAT 90
[2023-11-06 15:07] LABS: Alanine Aminotransferase 75 U/L (0-41); Albumin Level 3.7 g/dL (3.5-5.2); Alkaline Phosphatase 117 U/L (40-130); Anion Gap 15.8 (5-19); Aspartate Amino Transferase 75 U/L (0-40); Blood Urea Nitrogen 6 mg/dL (6-20); Calcium 9.2 mg/dL (8.5-10.5); Carbon Dioxide 25 mmol/L (22-29); Chloride 97 mmol/L (98-107); Globulin 4.2 g/dL (1.3-4.6); Glomerular Filtration Rate 191.5 mL/min (90-130); Glucose 154 mg/dL (65-115); NT Pro B Type Natriuretic Pept < 36 pg/mL (0-125); Osmolality Calculated 279 mOsm/kg (285-295); Potassium 3.8 mmol/L (3.5-5.1); Sodium 134 mmol/L (136-145); Total Bilirubin 0.3 mg/dL (0.15-1.2); Total Protein 7.9 g/dL (6.6-8.7)
--- NOTE | 2023-11-06 15:14 | W.ED.CHESTPA ---
HPI - Chest Pain General: Chief Complaint: Chest Pain Stated Complaint: chest pains/ light headed Time Seen by Provider: 11/06/23 14:07 History of Present Illness: 33-year-old male presents emergency department with complaints of sudden onset chest pain to the middle of his chest [facility] He states that he became lightheaded and dizzy and felt slightly short of breath. He denies any nausea or vomiting or diaphoresis at this time. He states that the pain does not radiate and was initially a 4 out of 10 at present. Associated symptoms: Reports dyspnea Review of Systems General: Reports: 10 or more systems reviewed and unremarkable except in HPI and below Card: Reports: chest pain Resp: Reports: dyspnea PFSH ED PFSH: Medical History (Updated 11/06/23 @ 15:17 by Kevin Eason MD) Psychiatric care Alcohol withdrawal seizure Polysubstance abuse Biliary colic Morbid obesity Homelessness Schizophrenia Smoking addiction Alcohol use disorder Substance use disorder HTN (hypertension) Surgical History H/O esophagogastroduodenoscopy Family History Other Colon cancer Social History Smoking and tobacco/nicotine status: current every day tobacco/nicotine user Alcohol intake: current Substance/Drug Use: current Housing: Homeless Marital status: Physical Exam Narrative: EXAM NARRATIVE: Constitutional: the patient appears well nourished and of normal development. Vital signs as documented. No acute distress at present. Alert and oriented-to person, place, time and situation. Head, eyes, ears, nose, mouth, throat: Normocephalic, atraumatic. Pupils-equal, round, reactive to light. No scleral icterus. Normal-appearing external ears. Normal appearing nasal turbinates, no drainage. No obvious oral lesions, posterior oropharynx without erythema or exudates. Neck: Supple, trachea is midline, no lymphadenopathy, no jugular venous distension, thyromegaly, or carotid bruits. Carotid upstrokes are brisk bilaterally. Lungs: clear to auscultation to all lung goode. Symmetrical rise and fall of chest, no obvious signs of increased work of breathing at present. Cardiac: Regular rate and rhythm, positive S1, S2. No murmurs, rubs or gallops that I can appreciate Abdomen: Soft, non-tender to palpation, normal active bowel sounds to all quadrants. No palpable masses, no organomegaly and abdominal bruits. Extremities: 2+ pulses in the upper extremities that are equal bilaterally, 2+ pulses in the lower extremities that are equal bilaterally. Non-edematous. Moves all extremities well, sensation to all extremities are noted. Skin: Warm, dry, intact. Course Reevaluation(s): Reevaluation #1: Patient has remained comfortable and pain-free his vital signs have remained stable in the emergency department. I will have him follow-up with his primary care provider and have provided him cardiology contact information. Time: 15:19 Vital Signs: Vital signs: Vital Signs Temperature 97.9 F 11/06/23 15:25 Pulse Rate 76 11/06/23 15:25 Respiratory Rate 18 11/06/23 15:25 Blood Pressure 133/78 11/06/23 15:25 Pulse Oximetry 90 11/06/23 15:25 Oxygen Delivery Me thod Room Air 11/06/23 15:00 MDM - Chest Pain Medical Decision Making Physical exam completed and documented, I will obtain serial cardiac enzymes, serial twelve-lead EKGs, chest x-ray, CBC, CMP, urinalysis, B-type natriuretic peptide, PT/PTT/INR, and a chest x-ray. I have reviewed previous and pertinent medical records for assist in obtaining beneficial medical information to improved the care and treatment of the patient. Medical Records I reviewed the patient's medical records. Lab Data I reviewed the patient's lab results. 11/06/23 14:20 11/06/23 14:20 Laboratory Results WBC 8.91 10^3/uL (3.29-11.43) 11/06/23 14:20 RBC 4.44 10^6/uL (3.85-5.65) 11/06/23 14:20 Hgb 14.10 g/dL (11.27-16.99) 11/06/23 14:20 Hct 41.4 % (37-53) 11/06/23 14:20 MCV 93.2 fl (82-101) 11/06/23 14:20 MCH 31.8 pg (27-33) 11/06/23 14:20 MCHC 34.1 g/dL (30-55) 11/06/23 14:20 RDW 12.3 % (12.1-15.1) 11/06/23 14:20 Plt Count 275 10^3/cmm (157-399) 11/06/23 14:20 MPV 9.5 fL (7.4-10.4) 11/06/23 14:20 Neut % (Auto) 68.0 % 11/06/23 14:20 Lymph % (Auto) 21.9 % 11/06/23 14:20 [place] % (Auto) 7.9 % 11/06/23 14:20 Eos % (Auto) 1.2 % 11/06/23 14:20 Baso % (Auto) 0.6 % 11/06/23 14:20 Neut # (Auto) 6.06 10^3/uL (1.8-7.7) 11/06/23 14:20 Lymph # (Auto) 2.0 10^3/uL (0.8-4.8) 11/06/23 14:20 [place] # (Auto) 0.7 10^3/uL (0.2-0.9) 11/06/23 14:20 Eos # (Auto) 0.1 10^3/uL (0.0-0.8) 11/06/23 14:20 Baso # (Auto) 0.1 10^3/uL (0.0-0.1) 11/06/23 14:20 Nucleated RBC % (auto) 0 % 11/06/23 14:20 Nucleated RBCs # 0.0 /100WBC 11/06/23 14:20 PT 13.70 SECONDS (12.1-14.9) 11/06/23 14:20 INR 1.02 (0.8-1.2) 11/06/23 14:20 Sodium 134 mmol/L (136-145) L 11/06/23 14:20 Potassium 3.8 mmol/L (3.5-5.1) 11/06/23 14:20 Chloride 97 mmol/L (98-107) L 11/06/23 14:20 Carbon Dioxide 25 mmol/L (22-29) 11/06/23 14:20 Anion Gap 15.8 (5-19) 11/06/23 14:20 BUN 6 mg/dL (6-20) 11/06/23 14:20 Creatinine 0.5 mg/dL (0.7-1.2) L 11/06/23 14:20 GFR Calculation 191.5 mL/min (90-130) H 11/06/23 14:20 Glucose 154 mg/dL (65-115) H 11/06/23 14:20 Calculated Osmolality 279 mOsm/kg (285-295) L 11/06/23 14:20 Calcium 9.2 mg/dL (8.5-10.5) 11/06/23 14:20 Total Bilirubin 0.3 mg/dL (0.15-1.2) 11/06/23 14:20 AST 75 U/L (0-40) H 11/06/23 14:20 ALT 75 U/L (0-41) H 11/06/23 14:20 Alkaline Phosphatase 117 U/L (40-130) 11/06/23 14:20 Troponin T Baseline < 6 ng/L (0-15) 11/06/23 14:20 NT-Pro-B Natriuret Pep < 36 pg/mL (0-125) 11/06/23 14:20 Total Protein 7.9 g/dL (6.6-8.7) 11/06/23 14:20 Albumin 3.7 g/dL (3.5-5.2) 11/06/23 14:20 Globulin 4.2 g/dL (1.3-4.6) 11/06/23 14:20 All radiology interpretation(s) finalized by discharge EKG Data EKG 1: Interpretation: Twelve-lead EKG obtained at 1404 and reviewed at 1405 demonstrates sinus rhythm, 88 bpm, SC interval 171, QRS duration 114, QT 378, QTc [address] elevation or depression at present to demonstrate acute ischemia or infarction. Discharge Plan Discharge Patient Disposition: Home Clinical Impression: Atypical chest pain Condition: Stable Prescriptions: No Action methadone 40 mg tablet,soluble 120 mg PO QAM cetirizine 10 mg tablet 10 mg PO DAILY Stimulant Laxative Plus 8.6-50 mg tablet 2 tab PO DAILY ciprofloxacin HCl 500 mg tablet 500 mg PO BID Rx Instructions: for 7 days (rx filled 10/24/23 pt never started) olanzapine 15 mg tablet 15 mg PO BEDTIME Rx Instructions: stop 10 mg dose escitalopram oxalate 10 mg tablet 10 mg PO QAM Discharge Orders: Discharge ED (Routine); Ordered 11/06/23 Ordered By: Kevin Eason Referrals: Endy Lee M.D [Physician] - Discharge Diet: Low Salt Discharge Activity: Resume usual activity Patient Instructions: Opioid Safety, Pain Management Activity Restrictions/Additional Instructions: Activity Restrictions/Additional Instructions: Thank you for choosing [facility] for your healthcare needs today. Please realize that you were seen in the Emergency Department and that we are providing you with an emergency medical screening exam and this may not be a complete and all inclusive of all the testing and or medical work-up that you may need to determine your ailment or severity of your illness. It is very important that you follow-up as instructed with your Primary care provider or Specialist for additional evaluation and to discuss your medical treatment plan. You may return to the Emergency Department should you have concerns or if your condition changes or worsens in any way. Coding Level of Care Code ED Collar Folder Operator for Levi Bullard
[2023-11-06 15:25] VITALS: BP 133/78; PULSE 76; RESP 18; TEMP 36.6; O2SAT 90
== END 2023-11-06 15:25 | disposition home or self-care (01) ==
PROVIDERS: Emergency Provider Internal Medicine
DX: R07.89 Other chest pain (principal); Z79.891 Long term (current) use of opiate analgesic; I10 Essential (primary) hypertension; Z72.0 Tobacco use
CPT/HCPCS: 71045; 80053; 83880; 84484; 85025; 85610; 93005; 99285

== ENCOUNTER → 2024-01-14 13:13 | Outpatient (BNVA) | payer OTHER, SELFPAY | PROVIDERS: Visit Provider Psychiatry & Neurology Psychiatry | DX: F20.9 Schizophrenia, unspecified (principal); Z79.899 Other long term (current) drug therapy | CPT/HCPCS: 80061; 83036 ==

== ENCOUNTER 2024-05-15 10:51 | Inpatient (IN) | payer MEDICAID, SELFPAY ==
[2024-01-29 13:32] VITALS: BP 153/105; BMI 59.1
[2024-05-15 10:55] VITALS: BP 147/90; PULSE 105; RESP 18; TEMP 36.7; O2SAT 96; BMI 61.0
[2024-05-15 11:21] LABS: Basophils # 0.1 10^3/uL (0.0-0.1); Basophils % 0.6 %; Eosinophils # 0.2 10^3/uL (0.0-0.8); Eosinophils % 1.6 %; Lymphocytes # 3.4 10^3/uL (0.8-4.8); Lymphocytes % 34.9 %; Mean Corpuscular HGB Conc 33.8 g/dL (30-55); Mean Corpuscular Hemoglobin 31.8 pg (27-33); Mean Corpuscular Volume 94.1 fl (82-101); Mean Platelet Volume 9.5 fL (7.4-10.4); Monocytes # 0.5 10^3/uL (0.2-0.9); Monocytes % 5.2 %; Neutrophils % 57.3 %; Nucleated Red Blood Cells % 0 %; Platelet Count 263 10^3/cmm (157-399); Red Cell Distribution Width 12.6 % (12.1-15.1); White Blood Count 9.79 10^3/uL (3.29-11.43)
--- NOTE | 2024-05-15 11:21 | ED_ITS ---
HPI - Anxiety 2 General: Chief Complaint: Anxiety Stated Complaint: Anxiety Time Seen by Provider: 05/15/24 10:55 Source: patient Mode of arrival: ambulatory Limitations: no limitations History of Present Illness: 33-year-old male states that he has mult iple psychiatric issues including schizophrenia states he feels like his meds have been working he has some increased hallucinations states been feeling very anxious as well along with some depression. He denies any suicidal homicidal ideations but states he wants to be admitted to the [facility] to get help. Associated symptoms: Deny chest pain, chills, fever(s), headache(s), nausea or vomiting Related Data Home Medications Medication Instructions Recorded Confirmed cetirizine 10 mg tablet 10 mg PO DAILY 11/06/23 04/05/24 sennosides 8.6 mg-docusate sodium 2 tab PO DAILY 11/06/23 04/05/24 50 mg tablet (Stimulant Laxative Plus) phentermine 37.5 mg capsule 37.5 mg PO DAILY 12/08/23 04/05/24 pseudoephedrine HCl 60 mg tablet 60 mg PO Q4H PRN 12/08/23 04/05/24 Previous Rx's Medication Instructions Recorded aripiprazole 30 mg tablet (Abilify) 30 mg PO .HS #30 tabs 04/22/24 escitalopram oxalate 20 mg tablet 20 mg PO .q am #30 tabs 04/22/24 Allergies Allergy/AdvReac Type Severity Reaction Status Date / Time fentanyl Allergy Severe ADR-Seizure Verified 01/19/24 10:53 piperacillin [From Zosyn] Allergy Severe ALGY-Swell Verified 01/19/24 10:53 Lip/Tongue/Throat tazobactam [From Zosyn] Allergy Severe ALGY-Swell Verified 01/19/24 10:53 Lip/Tongue/Throat diphenhydramine Allergy Intermediate headache, Verified 01/19/24 10:53 [From Benadryl] restless leg cyclobenzaprine Allergy Nausea, Verified 01/19/24 10:53 [From Flexeril] vomiting, headache hydroxyzine AdvReac Intermediate Muscle Verified 01/19/24 10:53 spasms in arms & legs & increased anxiety. Review of Systems 2 Const: Denies: fever(s), chills, body aches or change in appetite ENMT: Denies: throat pain or dental pain Card: Denies: chest pain Resp: Denies: dyspnea GI: Denies: abdominal pain, nausea, vomiting or diarrhea Musc: Denies: neck pain or back pain Skin/Breast: Denies: rash Neuro: Denies: headache(s) Psych: Reports: anxiety, depression and auditory hallucinations PFSH ED 2 PFSH: Medical History Psychiatric care Alcohol withdrawal seizure Polysubstance abuse Biliary colic Morbid obesity Homelessness Schizophrenia Smoking addiction Alcohol use disorder Substance use disorder HTN (hypertension) Surgical History H/O esophagogastroduodenoscopy Family History Other Alcohol use disorder Colon cancer Social History Smoking and tobacco/nicotine status: current every day tobacco/nicotine user cigarettes Packs smoked per day: 3 Years cigarettes smoked: 25 and e-cigarettes E-Cigarette Details: e-cigarette and with nicotine E-cig/vape details: 20,000 puffs disposable goes through it in a week or two Quit status (tobacco/nicotine): considering quitting Second hand smoke exposure: No Alcohol intake: former Former alcohol use details: 05/2023 Substance/Drug Use: current Substance/Drug use frequency: daily Adopted: No Caregiver/support person: No Lives independently: Yes Household members: none Housing: Manufactured/Mobile home Marital status: Number of children: 3 Number of grandchildren: 0 Highest education level completed: GED or Equivalent service: No Current occupational status: disabled Current occupation: trying to get disability Pets and animals: Yes Pets & animals: cat(s), dog(s), fish and farm animals Farm Animals: horses/donkey/mule Pets & animal details: cows Leisure activites: other Leisure activities details: watch TV Sexually active: No Do you think of yourself as: Straight/Heterosexual Current gender identity: Male Mariia/Pentecostalism: Gnosticist Special mariia needs: No Agree to transfusion: Yes Physical Exam 2 Const: COMMON NORMALS: no acute distress, patient oriented x3 and healthy appearing HENMT: COMMON NORMALS: normocephalic and atraumatic HEAD & SCALP: n ormocephalic and atraumatic Neck/C-Spine: COMMON NORMALS: full ROM and supple Chest: COMMONS NORMALS: normal inspection of the chest Resp: COMMON NORMALS: normal respiratory effort Cardio: COMMON NORMALS: regular rate, regular rhythm and No murmurs present (Cardio) RATE: regular rate RHYTHM: regular rhythm Extremity: COMMON NORMALS: normal to inspection and full ROM Neuro: COMMON NORMALS: patient oriented x3, moves all extremities and no focal motor deficits Psych: COMMON NORMALS: mental status grossly normal, Normal thought process present and cooperative THOUGHT PROCESS: Normal thought process present Skin: COMMON NORMALS: no rashes or lesions noted and no wounds GENERAL SKIN EXAM: no rashes or lesions noted Course 2 Vital Signs: Vital signs: Vital Signs Temperature 98.1 F 05/15/24 10:55 Pulse Rate 105 H 05/15/24 10:55 Respiratory Rate 18 05/15/24 10:55 Blood Pressure 147/90 05/15/24 10:55 Pulse Oximetry 96 05/15/24 10:55 Oxygen Delivery Me thod Room Air 05/15/24 10:55 MDM - Anxiety Medical Decision Making Patient presents with anxiety depression along with hallucinations he is medically cleared he voluntarily wants to be admitted I spoke to psychiatrist will admit to the [facility]. Medical Records I reviewed the patient's medical records. Lab Data I reviewed the patient's lab results. 05/15/24 11:12 05/15/24 11:12 Laboratory Results WBC 9.79 10^3/uL (3.29-11.43) 05/15/24 11:12 RBC 5.10 10^6/uL (3.85-5.65) 05/15/24 11:12 Hgb 16.20 g/dL (11.27-16.99) 05/15/24 11:12 Hct 48.0 % (37-53) 05/15/24 11:12 MCV 94.1 fl (82-101) 05/15/24 11:12 MCH 31.8 pg (27-33) 05/15/24 11:12 MCHC 33.8 g/dL (30-55) 05/15/24 11:12 RDW 12.6 % (12.1-15.1) 05/15/24 11:12 Plt Count 263 10^3/cmm (157-399) 05/15/24 11:12 MPV 9.5 fL (7.4-10.4) 05/15/24 11:12 Neut % (Auto) 57.3 % 05/15/24 11:12 Lymph % (Auto) 34.9 % 05/15/24 11:12 [place] % (Auto) 5.2 % 05/15/24 11:12 Eos % (Auto) 1.6 % 05/15/24 11:12 Baso % (Auto) 0.6 % 05/15/24 11:12 Neut # (Auto) 5.60 10^3/uL (1.8-7.7) 05/15/24 11:12 Lymph # (Auto) 3.4 10^3/uL (0.8-4.8) 05/15/24 11:12 [place] # (Auto) 0.5 10^3/uL (0.2-0.9) 05/15/24 11:12 Eos # (Auto) 0.2 10^3/uL (0.0-0.8) 05/15/24 11:12 Baso # (Auto) 0.1 10^3/uL (0.0-0.1) 05/15/24 11:12 Nucleated RBC % (auto) 0 % 05/15/24 11:12 Nucleated RBCs # 0.0 /100WBC 05/15/24 11:12 Sodium 140 mmol/L (136-145) 05/15/24 11:12 Potassium 4.0 mmol/L (3.5-5.1) 05/15/24 11:12 Chloride 104 mmol/L (98-107) 05/15/24 11:12 Carbon Dioxide 21 mmol/L (22-29) L 05/15/24 11:12 Anion Gap 19.0 (5-19) 05/15/24 11:12 BUN 13 mg/dL (6-20) 05/15/24 11:12 Creatinine 0.8 mg/dL (0.7-1.2) 05/15/24 11:12 GFR Calculation 111.3 mL/min (90-130) 05/15/24 11:12 Glucose 134 mg/dL (65-115) H 05/15/24 11:12 Calculated Osmolality 292 mOsm/kg (285-295) 05/15/24 11:12 Calcium 8.9 mg/dL (8.5-10.5) 05/15/24 11:12 Total Bilirubin 0.4 mg/dL (0.15-1.2) 05/15/24 11:12 AST 68 U/L (0-40) H 05/15/24 11:12 ALT 84 U/L (0-41) H 05/15/24 11:12 Alkaline Phosphatase 131 U/L (40-130) H 05/15/24 11:12 Total Protein 7.9 g/dL (6.6-8.7) 05/15/24 11:12 Albumin 3.6 g/dL (3.5-5.2) 05/15/24 11:12 Globulin 4.3 g/dL (1.3-4.6) 05/15/24 11:12 Salicylates < 0.3 mg/dL (3-10) L 05/15/24 11:12 Urine Opiates Screen Negative ng/mL (Negative) 05/15/24 11:16 Acetaminophen < 5.0 ug/mL (10-30) L 05/15/24 11:12 Ur Barbiturates Screen Negative ng/mL (Negative) 05/15/24 11:16 Ur Phencyclidine Scrn Negative ng/mL (Negative) 05/15/24 11:16 Ur Amphetamines Screen Positive ng/mL (Negative) H 05/15/24 11:16 U Benzodiazepines Scrn Positive ng/mL (Negative) H 05/15/24 11:16 Urine Cocaine Screen Negative ng/mL (Negative) 05/15/24 11:16 U Marijuana (THC) Screen Positive ng/mL (Negative) H 05/15/24 11:16 Ethyl Alcohol < 10 mg/dL (0-10) 05/15/24 11:12 No radiology studies performed this visit Discharge Plan Discharge Admit Provider: Mitchel Weiss Condition: Stable Coding Level of Care Code ED [employer] for Levi Bullard
[2024-05-15] MEDS: LORazepam 2 mg/mL INJ 1 mL IM (11:31)
[2024-05-15] MEDS: nicotine 21 mg Patch 1 PATCH TRANSDERMA (11:42)
[2024-05-15 11:43] LABS: Acetaminophen < 5.0 ug/mL (10-30); Alanine Aminotransferase 84 U/L (0-41); Albumin Level 3.6 g/dL (3.5-5.2); Alcohol Level < 10 mg/dL (0-10); Alkaline Phosphatase 131 U/L (40-130); Aspartate Amino Transferase 68 U/L (0-40); Blood Urea Nitrogen 13 mg/dL (6-20); Calcium 8.9 mg/dL (8.5-10.5); Carbon Dioxide 21 mmol/L (22-29); Chloride 104 mmol/L (98-107); Creatinine Clr Calc Pharmacy 238.1619; Globulin 4.3 g/dL (1.3-4.6); Glomerular Filtration Rate 111.3 mL/min (90-130); Glucose 134 mg/dL (65-115); Osmolality Calculated 292 mOsm/kg (285-295); Salicylate < 0.3 mg/dL (3-10); Sodium 140 mmol/L (136-145); Total Bilirubin 0.4 mg/dL (0.15-1.2); Total Protein 7.9 g/dL (6.6-8.7)
[2024-05-15 11:46] LABS: Amphetamines Screen Urine Positive (Negative); Barbiturates Screen Urine Negative (Negative); Benzodiazepines Screen Urine Positive (Negative); Cocaine Screen Urine Negative (Negative); Opiate Screen Urine Negative (Negative); PCP Screen Urine Negative (Negative); THC Screen Urine Positive (Negative)
[2024-05-15] MEDS: LORazepam 1 mg Tablet PO (13:37)
[2024-05-15 13:52] VITALS: BP 147/90; PULSE 105; RESP 18; TEMP 36.7; O2SAT 96
[2024-05-15 14:05] VITALS: BP 181/98; PULSE 91; RESP 20; TEMP 36.6; O2SAT 96
[2024-05-15] MEDS: acetaminophen 325 mg Tablet 650 MG PO (14:26)
[2024-05-15] MEDS: OLANZapine 5 mg ODT PO ×2 (14:38→18:58)
[2024-05-15] MEDS: nicotine 2 mg Gum BUCCAL ×2 (15:06→18:58)
--- NOTE | 2024-05-15 15:21 | PC.NURSE ---
Patient arrived to unit in a pleasant mood. He stated he came to the hospital because he didn't feel like his medications were working, he was becoming increasingly anxious, and has started having auditory and visual hallucinations. Patient says his mother has stage 4 cirrhosis of the liver and it has been causing him great stress. He states he is currently homeless, but will occasionally (approx 1-2 days per week) stay the night at his parents' home. He says he hears the devil talking in his ear, someone repeating what he is saying, and people talking crap about him. He says he also has visual hallucinations of shadows moving past him. Patient has been to drug treatment twice without success. He endorses utilizing alcohol, heroin, marijuana, and methamphetamine within this last year. He does say he would do LSD any time he could get it if he had enough money to because he loves it . He has been admitted to the unit before back in 2022. Patient requested this RN ask the doctor to restart his suboxone because he believes that is part of the reason he is so anxious.
--- NOTE | 2024-05-15 16:44 | PC.NURSE ---
Dr. Weiss requested this RN restart the patient's abilify 30mg po once daily at bedtime, lexapro 20mg po once daily in the morning, and zyprexa 10mg po once daily. He requested this RN not restart the patient's suboxone as it appears Dr. Verma had discontinued it due to the patient misusing the medication.
[2024-05-15 20:20] VITALS: RESP 20
[2024-05-15] MEDS: ARIPiprazole 30 mg Tablet PO (20:38)
[2024-05-16 06:00] VITALS: BP 153/110; PULSE 101; RESP 20; TEMP 36.7; O2SAT 97
[2024-05-16] MEDS: OLANZapine 5 mg ODT PO ×4 (06:36→19:12)
[2024-05-16 07:33] VITALS: BP 138/78; PULSE 80; RESP 18; TEMP 36.7; O2SAT 91
[2024-05-16] MEDS: OLANZapine 10 mg TABLET PO (07:49)
[2024-05-16] MEDS: nicotine 2 mg Gum BUCCAL ×5 (07:49→20:20)
[2024-05-16] MEDS: escitalopram 10 mg Tablet 20 MG PO (07:49)
--- NOTE | 2024-05-16 08:31 | W.PM.NPUH&PS ---
Providers/Chief Complaint Admitting Physician: Mitchel Weiss MD Chief Complaint: Anxiety HPI NPU History of Present Illness Radhames Spears is a 33 year old male who presented to the emergency department with the following report: Chief Complaint: Anxiety Stated Complaint: Anxiety Time Seen by Provider: 05/15/24 10:55 Source: patient Mode of arrival: ambulatory Limitations: no limitations History of Present Illness: 33-year-old male states that he has multiple psychiatric issues including schizophrenia states he feels like his meds have been working he has some increased hallucinations states been feeling very anxious as well along with some depression. He denies any suicidal homicidal ideations but states he wants to be admitted to the psych [facility] to get help. Associated symptoms: Deny chest pain, chills, fever(s), headache(s), nausea or vomiting. He was admitted to the neuropsychiatric unit for definitive treatment of those issues. He is known to [facility] through inpatient and outpatient services. His last inpatient stay was in May 2023. An excerpt of his psychiatric evaluation from that stay is included below for history and context. He presented today reporting: Chief complaint The patient is experiencing anxiety and distress related to his mother's declining health and his struggle with substance use. He is also struggling with the effects of his current medication, Lansopine, which he feels is exacerbating his anxiety and making him feel trapped. He is seeking help with managing these issues and is interested in obtaining Suboxone to aid in his recovery from substance use. History of the present complaint The patient expressed significant distress and anxiety related to his current situation. He mentioned that he had been stretching out the medication prescribed by a previous doctor, Suboxone, for two months. The patient reported that his mother's health is deteriorating, which has been a source of stress and anxiety for him. He also expressed concerns about his substance use, specifically mentioning a desire to avoid using heroin or Fentanyl. The patient reported experiencing auditory hallucinations, describing them as voices in his head that won't stop. He also mentioned feeling trapped or confined, likening his experience to being in a coffin. He expressed a desire to quit using substances and seemed frustrated with his current medication regimen, stating that it either doesn't work or makes his symptoms worse. The patient has been previously treated with Suboxone for substance use but reported difficulties in accessing the medication regularly due to logistical issues related to his living situation and the location of the clinic. He expressed a desire to return to using Suboxone and believes it would be more beneficial than his current anxiety medication. The patient reported having been hospitalized for psychiatric issues multiple times in the past, estimating around 30-40 times. He also mentioned having been in rehab twice, with the last time being either last year or the year before. The patient has a history of legal issues, including two DUIs and multiple intermediate sentences. The patient reported experiencing hallucinations and paranoia since around the age of 14 or 15. He described seeing what he calls shadow people, which he believes may be spirits or ghosts. His mental health diagnosis has varied over time, initially being identified as schizoaffective but later shifting to an unspecified condition involving persistent hallucinations and paranoia. Regarding his current medications, the patient reported taking Sofia and another unidentified medication. He also mentioned taking Phenergan for the past three to four months. The patient expressed dissatisfaction with his current medications, stating that they either don't work at all or make his symptoms worse. In terms of substance use, the patient reported vaping for about three to four months after previously smoking cigarettes. He also reported drinking alcohol heavily in the past but stopped about four or five months ago. The patient admitted to daily marijuana use when he can access it but noted that he avoids it when on Suboxone due to adverse interactions. He denied current use of cocaine, methamphetamines, and opiates but acknowledged past issues with opiate use. The patient's mood during the consultation was described as anxious. He denied any current thoughts of self-harm or harm towards others but did report experiencing hallucinations and feelings of paranoia. The patient expressed dissatisfaction with his current antipsychotic medication regimen, stating that it initially worked but has become less effective over time. Mental health history The patient has a history of mental health issues beginning around the age of 14 or 15. He has been diagnosed with schizoaffective disorder, but he believes he may be experiencing paranormal phenomena rather than hallucinations. He has been hospitalized for psychiatric issues multiple times, with estimates ranging from 10 to 40 times. His most recent hospitalization was last year. Social history The patient has a history of substance use, including alcohol, cannabis, and opiates. He has been to rehab twice, with the last time being four years ago. He has had two DUIs and has spent time in intermediate on multiple occasions. He was previously for 10 years and has three children whom he sees regularly. He is currently unemployed and has been on disability since around 2009 or 2010. Per his 05/22/2023 [facility] inpatient psychiatric evaluation: History of Present Illness Radhames pSears is a 32 year old male who presented to the emergency department with the following report: Chief Complaint: Psychiatric Symptoms Stated Complaint: SI Time Seen by Provider: 05/21/23 18:10 History of Present Illness: Patient presents to the ER for evaluation from [facility] [place] for paranoia and hallucinations. Patient worked in the [employer] watching him and shooting at him yesterday and today. Patient denies being suicidal or homicidal. Patient does admit to smoking dabs and snorting meth and drinking all day yesterday when these symptoms started. Patient says he is just not in a good place in his life and wants to get help. Patient does state he is a schizophrenic and has not taken any of his medicine in a long time. He was admitted to the neuropsychiatric unit He was admitted to the neuropsychiatric unit for definitive treatment of those issues. He presents today as a limited historian secondary to altered mental status likely due to addiction. He confirms data that is available in the chart. He reports that he has been hospitalized at least 5 times here the last hospitalization that we can find is 2014. He started coming to [facility] [place] as a child back in 2005. He had his first hospitalization in 2011 here. He reports that he has had significant struggles with addiction reporting challenges from alcohol and methamphetamine. Current drug screen positive for opioids, barbiturates, amphetamines, cannabis. He reports that he has not been taking his medication and that he has had previous treatment with different things for his psychosis and anxiety. He endorses that he does have auditory and visual hallucinations and we were able to have a short conversation about the impact of amphetamines on psychosis. We discussed the risks, benefits and alternatives of initiating Abilify for the psychosis and Lexapro for his anxiety and he understood and agreed to proceed as is documented in this note. He did lobby for a benzodiazepine reporting that he had that before that would really work we discussed concerns about his addiction and polysubstance challenges including alcohol 22 benzodiazepines being a bad option. He was fairly poor historian as he was clearly distraught and exasperated with each question we agreed to work with the social work team to get a better picture of his psychosocial circumstances right now so that we can give him the best treatment. Meds NPU Home Medications Medication Instructions Recorded Confirmed Last Taken Type sennosides 8.6 mg-docusate sodium 2 tab PO DAILY 11/06/23 05/15/24 11/05/23 History 50 mg tablet (Stimulant Laxative Plus) phentermine 37.5 mg capsule 37.5 mg PO DAILY 12/08/23 05/15/24 Unknown History pseudoephedrine HCl 60 mg tablet 60 mg PO Q4H PRN Cold Symptoms 12/08/23 05/15/24 Unknown History aripiprazole 30 mg tablet 30 mg PO BEDTIME 05/15/24 05/15/24 Unknown History escitalopram oxalate 20 mg tablet 20 mg PO DAILY 05/15/24 05/15/24 Unknown History olanzapine 10 mg tablet 10 mg PO DAILY 05/15/24 05/15/24 Unknown History Allergies Allergy/AdvReac Type Severity Reaction Status Date / Time fentanyl Allergy Severe ADR-Seizure Verified 01/19/24 10:53 piperacillin [From Zosyn] Allergy Severe ALGY-Swell Verified 01/19/24 10:53 Lip/Tongue/Throat tazobactam [From Zosyn] Allergy Severe ALGY-Swell Verified 01/19/24 10:53 Lip/Tongue/Throat diphenhydramine Allergy Intermediate headache, Verified 01/19/24 10:53 [From Benadryl] restless leg cyclobenzaprine Allergy Nausea, Verified 01/19/24 10:53 [From Flexeril] vomiting, headache haloperidol [From Haldol] Allergy ADR-Cramping Verified 05/15/24 15:43 of the Muscles quetiapine [From Seroquel] Allergy ADR-Muscle Verified 05/15/24 15:43 Pain hydroxyzine AdvReac Intermediate Muscle Verified 01/19/24 10:53 spasms in arms & legs & increased anxiety. PFSH NPU PFSH: Medical History Psychiatric care Alcohol withdrawal seizure Polysubstance abuse Biliary colic Morbid obesity Homelessness Schizophrenia Smoking addiction Alcohol use disorder Substance use disorder HTN (hypertension) Surgical History H/O esophagogastroduodenoscopy Family History Other Alcohol use disorder Colon cancer Social History Smoking and tobacco/nicotine status: current every day tobacco/nicotine user cigarettes Packs smoked per day: 3 Years cigarettes smoked: 25 and e-cigarettes E-Cigarette Details: e-cigarette and with nicotine E-cig/vape details: 20,000 puffs disposable goes through it in a week or two Quit status (tobacco/nicotine): considering quitting Second hand smoke exposure: No Alcohol intake: former Former alcohol use details: 05/2023 Substance/Drug Use: current Substance/Drug use frequency: daily Adopted: No Caregiver/support person: No Lives independently: Yes Household members: none Housing: Manufactured/Mobile home Marital status: Number of children: 3 Number of grandchildren: 0 Highest education level completed: GED or Equivalent service: No Current occupational status: disabled Current occupation: trying to get disability Pets and animals: Yes Pets & animals: cat(s), dog(s), fish and farm animals Farm Animals: horses/donkey/mule Pets & animal details: cows Leisure activites: other Leisure activities details: watch TV Sexually active: No Do you think of yourself as: Straight/Heterosexual Current gender identity: Male Mariia/Samaritan: Mandaen Special mariia needs: No Agree to transfusion: Yes Mental Status Exam MSE Comments: This is a morbidly obese white male in hospital scrubs with limited grooming and eye contact. Patient unkempt with significant body odor. No abnormal movements except for psychomotor retardation. Somewhat cooperative with exam in moderate distress. Speech was decreased rate but and volume. Mood described as anxious, affect congruent. Thought process linear and mostly organized. Thought content: Patient denies suicidal or homicidal ideation, no delusions reported but some paranoia noted, he endorsed auditory and visual hallucinations. The patient presents with high levels of anxiety and reports hearing voices that won't stop. He denies any current thoughts of self-harm or harm to others. He reports feeling paranoid and believes he is seeing shadow people, which he interprets as spirits or ghosts. Attention and concentration were limited and memory somewhat reliable but none were formally tested. He is alert and oriented x person and place. Insight, judgment and impulse control impaired. Vitals/I&O/Wt Last Vital Signs Temp 98.1 F 05/16/24 07:33 Pulse 80 05/16/24 07:33 Resp 18 05/16/24 07:33 BP 138/78 05/16/24 07:33 Pulse Ox 91 05/16/24 07:33 O2 Del Method Room Air 05/15/24 14:05 Weight last 48 hrs Weight 204.117 kg Data NPU 05/15/24 11:12 05/15/24 11:12 A&P Assessment and plan (1) Drug-induced psychotic disorder: Qualifiers: Complication of substance-induced condition: with hallucinations Qualified Code(s): F19.951 - Other psychoactive substance use, unspecified with psychoactive substance-induced psychotic disorder with hallucinations (2) Chronic schizophrenia: (3) Alcohol use disorder: (4) Homelessness: (5) Morbid obesity: (6) Methamphetamine use disorder, severe: (7) Polysubstance abuse: (8) Chronic alcohol abuse: (9) Substance use disorder: (10) Opioid use disorder, severe, on maintenance therapy, dependence: (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 1. Continue current medication. 2. Continue every 15 minute checks for safety. 3. Encourage individual, group and milieu therapy. 4. Encourage sober living treatment after discharge at the highest level of care to which he is willing to commit. 5. Get collateral information on Suboxone treatment. Involuntary Hold Information 96 Hour Hold: 96 Hour Involuntary Admission: No Attestations NPU Medical Necessity Statement*: Inpatient hospitalization is medically necessary and the clinically appropriate intervention at this time. We will monitor medications and make changes as indicated. He will be in the hospital for over 2 midnights. Likely length of stay 5 to 7 days. Coding Level of Care Code Acute Code for [facility] [employer] [facility] Diagnoses Drug-induced hallucinosis F19.951 Complication of substance-induced condition: with hallucinations Chronic schizophrenia F20.9 Alcohol use disorder F10.90 Homelessness Z59.00 Morbid obesity E66.01 Methamphetamine use disorder, severe F15.20 Polysubstance abuse F19.10 Chronic alcohol abuse F10.10 Substance use disorder F19.90 Opioid use disorder, severe, on maintenance therapy, dependence F11.20 Amphetamine abuse F15.10
--- NOTE | 2024-05-16 08:43 | PC.NURSE ---
PT CURRENTLY DENIES SI/HI. PT CURRENTLY DENIES DEPRESSION. PT CURRENTLY ENDORSES ANXIETY RATING IT AN 8/10 ON A 0-10 SCALE WHERE 0 IS NONE AND 10 IS THE WORST POSSIBLE. PT CURRENTLY ENDORSES AH STATING HE IS HEARING VOICES STATING SHE IS LYING TO YOU, SHE IS A LIAR. PT STATES HE DOES NOT KNOW WHO SHE IS. PT ENDORSES VH STATING HE SEE SHADOW PEOPLE . PT WAS COOPERATIVE WITH ASSESSMENT. PT IS AGITATED THAT THE PHYSICIAN HAS NOT SEEN HIM YET THIS MORNING AT 0833. PT WAS EDUCATED THAT THE PHYSICIAN SEES EVERY PATIENT EVERYDAY BUT IS NOT ON A SPECIFIC TIME SCHEDULE. PT THEN STATED I WONDER IF HE HAS EVER HAD A BLACK EYE . THIS NURSES INFORMED THE PATIENT THAT HE SHOULD NOT BE SAYING THINGS LIKE THAT. PT JUST LAUGHED. THIS NURSE STATED THAT TYPE OF COMMENT AND BEHAVIOR IS NOT BENEFICIAL TO HIS RELEASE AND HE SHOULD RE-EVALUATE HIS RESPONSE. PT WAS RESISTANT TO LEARNING. PT CURRENT NEEDS ARE MET AT THIS TIME.
[2024-05-16 14:00] VITALS: BP 117/71; PULSE 85; RESP 20; TEMP 36.8; O2SAT 97
[2024-05-16 17:26] VITALS: BP 124/81; PULSE 76
[2024-05-16] MEDS: propranolol 20 mg Tablet PO (17:27)
[2024-05-16] MEDS: ARIPiprazole 30 mg Tablet PO (20:20)
[2024-05-16] MEDS: trazodone 50 mg Tablet PO (20:20)
[2024-05-16 20:55] VITALS: BP 128/66; PULSE 72; RESP 16; O2SAT 96
[2024-05-17 06:00] VITALS: BP 123/71; PULSE 62; RESP 18; TEMP 36.7; O2SAT 96
[2024-05-17] MEDS: nicotine 2 mg Gum BUCCAL ×4 (06:34→12:59)
[2024-05-17] MEDS: OLANZapine 10 mg TABLET PO (08:11)
[2024-05-17] MEDS: escitalopram 10 mg Tablet 20 MG PO (08:11)
[2024-05-17] MEDS: propranolol 20 mg Tablet PO (09:47)
[2024-05-17] MEDS: OLANZapine 5 mg ODT PO (13:12)
--- NOTE | 2024-05-17 13:16 | PC.NURSE ---
Patient rates anxiety 06/14. Administered zyprexa 5mg ODT to patient.
[2024-05-17] MEDS: buprenorphine-naloxone 4-1 mg Film 1 EACH SUBLINGUAL (13:31)
[2024-05-17 14:01] VITALS: BP 123/71; PULSE 62; RESP 18; TEMP 36.7; O2SAT 96
--- NOTE | 2024-05-17 14:06 | W.PM.NPUDCS ---
Diagnoses at Discharge Discharge Diagnosis (1) Drug-induced psychotic disorder: Status: Chronic Qualifiers: Complication of substance-induced condition: with hallucinations Qualified Code(s): F19.951 - Other psychoactive substance use, unspecified with psychoactive substance-induced psychotic disorder with hallucinations (2) Chronic schizophrenia: Status: Chronic (3) Alcohol use disorder: Status: Chronic (4) Homelessness: Status: Acute (5) Morbid obesity: Status: Acute (6) Methamphetamine use disorder, severe: Status: Acute Permanent problem details: Early remission (7) Polysubstance abuse: Status: Chronic (8) Chronic alcohol abuse: Status: Acute (9) Substance use disorder: Status: Acute (10) Opioid use disorder, severe, on maintenance therapy, dependence: Status: Acute (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 Patient unkempt with significant body odor. No abnormal movements except for psychomotor retardation. Somewhat cooperative with exam in moderate distress. Speech was decreased rate but and volume. Mood described as anxious, affect congruent. Thought process linear and mostly organized. Thought content: Patient denies suicidal or homicidal ideation, no delusions reported but some paranoia noted, he endorsed auditory and visual hallucinations. The patient presents with high levels of anxiety and reports hearing voices that won't stop. He denies any current thoughts of self-harm or harm to others. He reports feeling paranoid and believes he is seeing shadow people, which he interprets as spirits or ghosts. Attention and concentration were limited and memory somewhat reliable but none were formally tested. He is alert and oriented x person and place. Insight, judgment and impulse control impaired. Discharge Data Studies Completed and Pending: Laboratory Results WBC 9.79 10^3/uL (3.2 9-11.43) 05/15/24 11:12 RBC 5.10 10^6/uL (3.8 5-5.65) 05/15/24 11:12 Hgb 16.20 g/dL (11.27 -16.99) 05/15/24 11:12 Hct 48.0 % (37-53) 05/15/24 11:12 MCV 94.1 fl (82-101) 05/15/24 11:12 MCH 31.8 pg (27-33) 05/15/24 11:12 MCHC 33.8 g/dL (30-55) 05/15/24 11:12 RDW 12.6 % (12.1-15.1 ) 05/15/24 11:12 Plt Count 263 10^3/cmm (157 -399) 05/15/24 11:12 MPV 9.5 fL (7.4-10.4) 05/15/24 11:12 Neut % (Auto) 57.3 % 05/15/24 11:12 Lymph % (Auto) 34.9 % 05/15/24 11:12 [place] % (Auto) 5.2 % 05/15/24 11:12 Eos % (Auto) 1.6 % 05/15/24 11:12 Baso % (Auto) 0.6 % 05/15/24 11:12 Neut # (Auto) 5.60 10^3/uL (1.8 -7.7) 05/15/24 11:12 Lymph # (Auto) 3.4 10^3/uL (0.8- 4.8) 05/15/24 11:12 [place] # (Auto) 0.5 10^3/uL (0.2- 0.9) 05/15/24 11:12 Eos # (Auto) 0.2 10^3/uL (0.0- 0.8) 05/15/24 11:12 Baso # (Auto) 0.1 10^3/uL (0.0- 0.1) 05/15/24 11:12 Nucleated RBC % (a uto) 0 % 05/15/24 11:12 Nucleated RBCs # 0.0 /100WBC 05/15/24 11:12 Sodium 140 mmol/L (136-1 45) 05/15/24 11:12 Potassium 4.0 mmol/L (3.5-5 .1) 05/15/24 11:12 Chloride 104 mmol/L (98-10 7) 05/15/24 11:12 Carbon Dioxide 21 mmol/L (22-29) L 05/15/24 11:12 Anion Gap 19.0 (5-19) 05/15/24 11:12 BUN 13 mg/dL (6-20) 05/15/24 11:12 Creatinine 0.8 mg/dL (0.7-1. 2) 05/15/24 11:12 GFR Calculation 111.3 mL/min (90- 130) 05/15/24 11:12 Glucose 134 mg/dL (65-115 ) H 05/15/24 11:12 Calculated Osmolal ity 292 mOsm/kg (285- 295) 05/15/24 11:12 Calcium 8.9 mg/dL (8.5-10 .5) 05/15/24 11:12 Total Bilirubin 0.4 mg/dL (0.15-1 .2) 05/15/24 11:12 AST 68 U/L (0-40) H 05/15/24 11:12 ALT 84 U/L (0-41) H 05/15/24 11:12 Alkaline Phosphata se 131 U/L (40-130) H 05/15/24 11:12 Total Protein 7.9 g/dL (6.6-8.7 ) 05/15/24 11:12 Albumin 3.6 g/dL (3.5-5.2 ) 05/15/24 11:12 Globulin 4.3 g/dL (1.3-4.6 ) 05/15/24 11:12 Salicylates < 0.3 mg/dL (3-10 ) L 05/15/24 11:12 Urine Opiates Scre en Negative ng/mL (N egative) 05/15/24 11:16 Acetaminophen < 5.0 ug/mL (10-3 0) L 05/15/24 11:12 Ur Barbiturates Sc reen Negative ng/mL (N egative) 05/15/24 11:16 Ur Phencyclidine S crn Negative ng/mL (N egative) 05/15/24 11:16 Ur Amphetamines Sc reen Positive ng/mL (N egative) H 05/15/24 11:16 U Benzodiazepines Scrn Positive ng/mL (N egative) H 05/15/24 11:16 Urine Cocaine Scre en Negative ng/mL (N egative) 05/15/24 11:16 U Marijuana (THC) Screen Positive ng/mL (N egative) H 05/15/24 11:16 Ethyl Alcohol < 10 mg/dL (0-10) 05/15/24 11:12 Vitals: Last Vital Signs Temp 98.0 F 05/17/24 14:01 Pulse 62 05/17/24 14:01 Resp 18 05/17/24 14:01 BP 123/71 05/17/24 14:01 Pulse Ox 96 05/17/24 14:01 O2 Del Method Room Air 05/17/24 06:00 Discharge Plan Discharge Condition: Stable Prescriptions: New trazodone 50 mg Tablet 50 mg PO BEDTIME PRN (Reason: Sleep) 30 Days Qty: 30 1RF propranolol 20 mg Tablet 20 mg PO TID PRN (Reason: Anxiety) 30 Days Qty: 90 1RF Suboxone 4-1 mg film 1 film buccal BID 3 Days Qty: 6 0RF Rx Instructions: place 1 strip/tab under (each) side of tongue Continued sennosides-docusate sodium [Stimulant Laxative Plus] 8.6-50 mg tablet 2 tab PO DAILY olanzapine 10 mg tablet 10 mg PO DAILY 30 Days Qty: 30 1RF escitalopram oxalate 20 mg tablet 20 mg PO DAILY 30 Days Qty: 30 1RF aripiprazole 30 mg tablet 30 mg PO BEDTIME 30 Days Qty: 30 1RF Discontinued pseudoephedrine HCl 60 mg tablet 60 mg PO Q4H PRN (Reason: Cold Symptoms) phentermine 37.5 mg capsule 37.5 mg PO DAILY Rx Instructions: must administer 30 minutes before or 1-2 hours after breakfast Discharge Orders: Discharge Order (Routine); Ordered 05/17/24 Ordered By: Mitchel Weiss Referrals: [facility] [Other] - 05/19/24 6:00 am (Intake appointment. ) Dario Verma MD [Physician] - 05/19/24 12:45 pm (Follow up) Discharge Diet: Regular Discharge Activity: Resume usual activity Patient Instructions: Propranolol (By mouth), Buprenorphine/Naloxone (Into the mouth) ([place], Suboxone,..., Opioid Safety Discharge Attestations NPU Time Spent in Discharge Care*: less than 30 min Specific Discharge Activities: Specific discharge activities: educating patient, discussing with outpatient case manager/social workers/dc planners, documenting/other paperwork and evaluating patient/reviewing data Coding Level of Care Code Acute Code for [facility] Fwd Diagnoses Drug-induced hallucinosis F19.951 Complication of substance-induced condition: with hallucinations Chronic schizophrenia F20.9 Alcohol use disorder F10.90 Homelessness Z59.00 Morbid obesity E66.01 Methamphetamine use disorder, severe F15.20 Polysubstance abuse F19.10 Chronic alcohol abuse F10.10 Substance use disorder F19.90 Opioid use disorder, severe, on maintenance therapy, dependence F11.20 Amphetamine abuse F15.10
== END 2024-05-17 14:31 | disposition home or self-care (01) | DRG 897 ==
LOC: ER 12:14 → NP 12:43
PROVIDERS: Admitting Provider Psychiatry & Neurology Psychiatry; Emergency Provider Emergency Medicine; Visit Provider Psychiatry & Neurology Psychiatry
DX: F19.951 Other psychoactive substance use, unspecified with psychoactive substance-induced psychotic disorder with hallucinations (principal); Z59.00 Homelessness unspecified; F11.20 Opioid dependence, uncomplicated; Z68.44 Body mass index [BMI] 60.0-69.9, adult; F20.9 Schizophrenia, unspecified; F10.90 Alcohol use, unspecified, uncomplicated; E66.01 Morbid (severe) obesity due to excess calories; F15.10 Other stimulant abuse, uncomplicated; F17.290 Nicotine dependence, other tobacco product, uncomplicated; I10 Essential (primary) hypertension
CPT/HCPCS: 36415; 80053; 80306; 80307; 85025; 96372; 97150; 97165; 99285; J0573; J2060

== ENCOUNTER 2024-08-19 12:47 | Inpatient (IN) | payer MEDICAID, SELFPAY ==
[2024-01-29 13:32] VITALS: BP 153/105; BMI 59.1
[2024-08-19 12:49] VITALS: BP 151/89; PULSE 102; RESP 18; TEMP 36.8; O2SAT 94; BMI 62.7
--- NOTE | 2024-08-19 12:56 | ED.C_ITS ---
HPI - Psych 2 General: Chief Complaint: Psychiatric Symptoms Stated Complaint: si Time Seen by Provider: 08/19/24 12:49 Source: patient and EMS Mode of arrival: EMS Limitations: no limitations History of Present Illness: Patient is a 33-year-old male who presents to the ED today via EMS due to worsening depression and suicidal ideations. Patient states he has a plan to walk out for traffic. He states he is hearing voices telling him to harm himself. He reportedly is supposed to be taking psychiatric medications but has not been taking them stating that he forgets . Patient has a longstanding history of homelessness, alcohol abuse, and polysubstance abuse. He states he has been doing well with these issues. He currently has an apartment. He states he has not abused drugs or alcohol in quite some time. He is on Suboxone although has not had this medication in a week or so because he does not have a ride to [facility]. complaint: suicidal ideation and feels depressed Onset (ago): day(s) Duration: constant Associated psychiatric symptoms: depression and suicidal ideation Associated symptoms: Reports auditory hallucinations, depression and suicidal ideation; Deny visual hallucinations or homicidal ideation Treatments prior to arrival: none If self harm: admits thoughts of self harm and has plan Related Data Previous Rx's Medication Instructions Recorded chlorpromazine 100 mg tablet 100 mg PO .AM #30 tabs 08/03/24 escitalopram oxalate 20 mg tablet 20 mg PO DAILY 30 days #30 tabs 08/03/24 Allergies Allergy/AdvReac Type Severity Reaction Status Date / Time fentanyl Allergy Severe ADR-Seizure Verified 08/03/24 12:33 piperacillin [From Zosyn] Allergy Severe ALGY-Swell Verified 08/03/24 12:33 Lip/Tongue/Throat tazobactam [From Zosyn] Allergy Severe ALGY-Swell Verified 08/03/24 12:33 Lip/Tongue/Throat diphenhydramine Allergy Intermediate headache, Verified 08/03/24 12:33 [From Benadryl] restless leg cyclobenzaprine Allergy Nausea, Verified 08/03/24 12:33 [From Flexeril] vomiting, headache haloperidol [From Haldol] Allergy ADR-Cramping Verified 08/03/24 12:33 of the Muscles quetiapine [From Seroquel] Allergy ADR-Muscle Verified 08/03/24 12:33 Pain hydroxyzine AdvReac Intermediate Muscle Verified 08/03/24 12:33 spasms in arms & legs & increased anxiety. Review of Systems 2 Const: Denies: fever(s) or chills Card: Denies: chest pain, palpitations, lightheadedness or syncope Resp: Denies: dyspnea GI: Denies: abdominal pain, nausea, vomiting or diarrhea Skin/Breast: Denies: rash Neuro: Denies: headache(s) Psych: Reports: anxiety, depression, hopelessness, auditory hallucinations and suicidal ideation; Denies: paranoia, visual hallucinations or homicidal ideation PFSH ED 2 PFSH: Medical History Psychiatric care Alcohol withdrawal seizure Polysubstance abuse Biliary colic Morbid obesity Homelessness Schizophrenia Smoking addiction Alcohol use disorder Substance use disorder HTN (hypertension) Surgical History H/O esophagogastroduodenoscopy Family History Other Alcohol use disorder Colon cancer Social History Smoking and tobacco/nicotine status: current every day tobacco/nicotine user cigarettes Packs smoked per day: 3 Years cigarettes smoked: 25 and e-cigarettes E-Cigarette Details: e-cigarette and with nicotine E-cig/vape details: 20,000 puffs disposable goes through it in a week or two Quit status (tobacco/nicotine): considering quitting Second hand smoke exposure: No Alcohol intake: former Former alcohol use details: 05/2023 Substance/Drug Use: current Substance/Drug use frequency: daily Adopted: No Caregiver/support person: No Lives independently: Yes Household members: none Housing: Manufactured/Mobile home Marital status: Number of children: 3 Number of grandchildren: 0 Highest education level completed: GED or Equivalent service: No Current occupational status: disabled Current occupation: trying to get disability Pets and animals: Yes Pets & animals: cat(s), dog(s), fish and farm animals Farm Animals: horses/donkey/mule Pets & animal details: cows Leisure activites: other Leisure activities details: watch TV Sexually active: No Do you think of yourself as: Straight/Heterosexual Current gender identity: Male Mariia/Scientologist: Ep[employer]alian Special mariia needs: No Agree to transfusion: Yes Physical Exam 2 Const: COMMON NORMALS: no acute distress, patient oriented x3, no limitations and alert GENERAL APPEARANCE: cooperative NUTRITIONAL APPEARANCE: obese morbidly obese (super morbid obesity with BMI of 62.8) O RIENTATION/CONSCIOUSNESS: Yes awake, Yes oriented to person, Yes oriented to place and Yes oriented to time Resp: COMMON NORMALS: normal respiratory effort and clear to auscultation bilaterally AUSCULTATION: clear to auscultation bilaterally Cardio: COMMON NORMALS: regular rate and regular rhythm RATE: regular rate RHYTHM: regular rhythm Neuro: COMMON NORMALS: patient oriented x3 SENSORIUM/ORIENTATION: Yes alert, Yes oriented to person, Yes oriented to place and Yes oriented to time Psych: COMMON NORMALS: mental status grossly normal, Normal thought process present, cooperative, normal affect, speech normal and denies homicidal ideation APPEARANCE: Yes grossly normal ATTITUDE: Yes calm ACTIVITY/MOTOR BEHAVIOR: Yes appropriate eye contact, No psychomotor agitation and Yes restless SPEECH: Yes normal speech MOOD & AFFECT: Yes euthymic mood THOUGHT PROCESS: Normal thought process present ATTENTION/CONCENTRATION: Yes attention grossly intact and Yes concentration grossly intact M CHEVY/COGNITION: Yes memory grossly intact and Yes cognition grossly intact I NSIGHT: Good insight present (Psych) JUDGEMENT: Good judgement present (Psych) Course 2 Consultations: Consultation #1: Dr. Weiss-accepts to NPU Vital Signs: Vital signs: Vital Signs Temperature 98.2 F 08/19/24 12:49 Pulse Rate 102 H 08/19/24 12:49 Respiratory Rate 18 08/19/24 12:49 Blood Pressure 151/89 08/19/24 12:49 Pulse Oximetry 94 08/19/24 12:49 Oxygen Delivery Me thod Room Air 08/19/24 12:49 MDM - Psych Medical Decision Making Patient will be an admit to NPU for treatment/evaluation of auditory hallucinations, worsening depression, and suicidal ideations. He will be placed on a 96-hour hold. Apparently he was being dishonest and regarding his alcohol and drug use as his tox screen is positive for amphetamines, marijuana, and his alcohol is 123. Differential Diagnosis Likely suicidal ideation and depression Medical Records I reviewed the patient's medical records. Lab Data I reviewed the patient's lab results. 08/19/24 13:08 08/19/24 13:08 Laboratory Results WBC 8.21 10^3/uL (3.29-11.43) 08/19/24 13:08 RBC 4.95 10^6/uL (3.85-5.65) 08/19/24 13:08 Hgb 16.10 g/dL (11.27-16.99) 08/19/24 13:08 Hct 46.6 % (37-53) 08/19/24 13:08 MCV 94.1 fl (82-101) 08/19/24 13:08 MCH 32.5 pg (27-33) 08/19/24 13:08 MCHC 34.5 g/dL (30-55) 08/19/24 13:08 RDW 13.1 % (12.1-15.1) 08/19/24 13:08 Plt Count 257 10^3/cmm (157-399) 08/19/24 13:08 MPV 9.0 fL (7.4-10.4) 08/19/24 13:08 Neut % (Auto) 45.1 % 08/19/24 13:08 Lymph % (Auto) 46.9 % 08/19/24 13:08 [place] % (Auto) 5.8 % 08/19/24 13:08 Eos % (Auto) 1.0 % 08/19/24 13:08 Baso % (Auto) 0.7 % 08/19/24 13:08 Neut # (Auto) 3.70 10^3/uL (1.8-7.7) 08/19/24 13:08 Lymph # (Auto) 3.9 10^3/uL (0.8-4.8) 08/19/24 13:08 [place] # (Auto) 0.5 10^3/uL (0.2-0.9) 08/19/24 13:08 Eos # (Auto) 0.1 10^3/uL (0.0-0.8) 08/19/24 13:08 Baso # (Auto) 0.1 10^3/uL (0.0-0.1) 08/19/24 13:08 Nucleated RBC % (auto) 0 % 08/19/24 13:08 Nucleated RBCs # 0.0 /100WBC 08/19/24 13:08 Sodium 138 mmol/L (136-145) 08/19/24 13:08 Potassium 3.9 mmol/L (3.5-5.1) 08/19/24 13:08 Chloride 102 mmol/L (98-107) 08/19/24 13:08 Carbon Dioxide 22 mmol/L (22-29) 08/19/24 13:08 Anion Gap 17.9 (5-19) 08/19/24 13:08 BUN 8 mg/dL (6-20) 08/19/24 13:08 Creatinine 0.6 mg/dL (0.7-1.2) L 08/19/24 13:08 GFR Calculation 155.2 mL/min (90-130) H 08/19/24 13:08 Glucose 111 mg/dL (65-115) 08/19/24 13:08 Calculated Osmolality 285 mOsm/kg (285-295) 08/19/24 13:08 Calcium 8.7 mg/dL (8.5-10.5) 08/19/24 13:08 Total Bilirubin 0.3 mg/dL (0.15-1.2) 08/19/24 13:08 AST 67 U/L (0-40) H 08/19/24 13:08 ALT 53 U/L (0-41) H 08/19/24 13:08 Alkaline Phosphatase 97 U/L (40-130) 08/19/24 13:08 Total Protein 8.1 g/dL (6.6-8.7) 08/19/24 13:08 Albumin 4.2 g/dL (3.5-5.2) 08/19/24 13:08 Globulin 3.9 g/dL (1.3-4.6) 08/19/24 13:08 Urine Color Dark yellow (Yellow) A 08/19/24 13:14 Urine Appearance Clear (CLEAR) 08/19/24 13:14 Urine pH 6.5 (5-7) 08/19/24 13:14 Ur Specific [place] 1.019 (1.005-1.030) 08/19/24 13:14 Urine Protein Trace (Negative) A 08/19/24 13:14 Urine Glucose (UA) Negative (Normal) 08/19/24 13:14 Urine Ketones Negative (Negative) 08/19/24 13:14 Urine Blood Negative (Negative) 08/19/24 13:14 Urine Nitrate Negative (Negative) 08/19/24 13:14 Urine Bilirubin Negative (Negative) 08/19/24 13:14 Urine Urobilinogen 1.0 mg/dL (Negative) 08/19/24 13:14 Ur Leukocyte Esterase Negative (Negative) 08/19/24 13:14 Urine RBC 0-2 /hpf (0-2) 08/19/24 13:14 Urine WBC 0-5 /hpf (0-5) 08/19/24 13:14 Ur Squamous Epith Cells 0-5 /hpf (0-5) 08/19/24 13:14 Amorphous Sediment Not Reportable 08/19/24 13:14 Urine Bacteria None seen /hpf (NONE) 08/19/24 13:14 Hyaline Casts 0-4 /lpf H 08/19/24 13:14 Salicylates < 0.3 mg/dL (3-10) L 08/19/24 13:08 Urine Opiates Screen Negative ng/mL (Negative) 08/19/24 13:14 Acetaminophen < 5.0 ug/mL (10-30) L 08/19/24 13:08 Ur Barbiturates Screen Negative ng/mL (Negative) 08/19/24 13:14 Ur Phencyclidine Scrn Negative ng/mL (Negative) 08/19/24 13:14 Ur Amphetamines Screen Positive ng/mL (Negative) H 08/19/24 13:14 U Benzodiazepines Scrn Negative ng/mL (Negative) 08/19/24 13:14 Urine Cocaine Screen Negative ng/mL (Negative) 08/19/24 13:14 U Marijuana (THC) Screen Positive ng/mL (Negative) H 08/19/24 13:14 Ethyl Alcohol 123 mg/dL (0-10) H 08/19/24 13:08 No radiology studies performed this visit Discharge Plan Discharge Patient Disposition: Admitted As Inpatient Clinical Impression: Suicidal ideation Condition: Stable Coding Level of Care Code ED Supervising Producer for Levi Bullard
[2024-08-19 13:23] LABS: Bilirubin Urine Negative (Negative); Blood Urine Negative (Negative); Glucose Urine UA Negative (Normal); Ketones Urine Negative (Negative); Leukocyte Esterase Urine Negative (Negative); Nitrate Urine Negative (Negative); Protein Urine Trace (Negative); Specific Gravity, Urine 1.019 (1.005-1.030); Urine Appearance Clear (CLEAR); Urine Color Dark Yellow (Yellow); pH Urine 6.5 (5-7)
[2024-08-19 13:25] LABS: Basophils # 0.1 10^3/uL (0.0-0.1); Basophils % 0.7 %; Eosinophils # 0.1 10^3/uL (0.0-0.8); Hematocrit 46.6 % (37-53); Lymphocytes # 3.9 10^3/uL (0.8-4.8); Lymphocytes % 46.9 %; Mean Corpuscular HGB Conc 34.5 g/dL (30-55); Mean Corpuscular Hemoglobin 32.5 pg (27-33); Mean Corpuscular Volume 94.1 fl (82-101); Monocytes # 0.5 10^3/uL (0.2-0.9); Monocytes % 5.8 %; Neutrophils % 45.1 %; Nucleated Red Blood Cells % 0 %; Platelet Count 257 10^3/cmm (157-399); Red Blood Count 4.95 10^6/uL (3.85-5.65); Red Cell Distribution Width 13.1 % (12.1-15.1); White Blood Count 8.21 10^3/uL (3.29-11.43)
[2024-08-19 13:28] LABS: Add Urine Microscopic? YES; Bacteria Urine None Seen /hpf; Hyaline Casts Urine 0-4 /lpf; RBC Urine 0-2 /hpf (0-2); Squamous Epithelial Cell Urine 0-5 /hpf (0-5); WBC Urine 0-5 /hpf (0-5)
--- NOTE | 2024-08-19 13:34 | PC.NURSE ---
96 hour hold rights read and reviewed with patient. Patient verbalized understandings. Copy of rights given to patient.
--- NOTE | 2024-08-19 13:34 | PC.PHAR ---
Patient states he was taking tramadol but is out for about a week last fill 07/19/24 30days, also out of Phentermine 37.5 for about a week last fill 07/16/24 30days.. Patient also states he has taken suboxone but has been out 05/17/24 3days.
[2024-08-19 14:04] LABS: Amphetamines Screen Urine Positive (Negative); Barbiturates Screen Urine Negative (Negative); Benzodiazepines Screen Urine Negative (Negative); Cocaine Screen Urine Negative (Negative); Opiate Screen Urine Negative (Negative); PCP Screen Urine Negative (Negative); THC Screen Urine Positive (Negative)
[2024-08-19 14:23] LABS: Alanine Aminotransferase 53 U/L (0-41); Albumin Level 4.2 g/dL (3.5-5.2); Alcohol Level 123 mg/dL (0-10); Alkaline Phosphatase 97 U/L (40-130); Anion Gap 17.9 (5-19); Aspartate Amino Transferase 67 U/L (0-40); Blood Urea Nitrogen 8 mg/dL (6-20); Calcium 8.7 mg/dL (8.5-10.5); Carbon Dioxide 22 mmol/L (22-29); Chloride 102 mmol/L (98-107); Creatinine Clr Calc Pharmacy 314.1312; Globulin 3.9 g/dL (1.3-4.6); Glomerular Filtration Rate 155.2 mL/min (90-130); Glucose 111 mg/dL (65-115); Osmolality Calculated 285 mOsm/kg (285-295); Potassium 3.9 mmol/L (3.5-5.1); Sodium 138 mmol/L (136-145); Total Bilirubin 0.3 mg/dL (0.15-1.2); Total Protein 8.1 g/dL (6.6-8.7)
[2024-08-19 14:29] LABS: Acetaminophen < 5.0 ug/mL (10-30); Salicylate < 0.3 mg/dL (3-10)
[2024-08-19] MEDS: nicotine 21 mg Patch 1 PATCH TRANSDERMA (15:33)
[2024-08-19 17:45] VITALS: BP 176/115; PULSE 89; RESP 16; TEMP 37.3; O2SAT 96
[2024-08-19] MEDS: LORazepam 1 mg Tablet PO (17:53)
[2024-08-19 17:59] VITALS: BP 164/105; PULSE 92; O2SAT 96
[2024-08-19] MEDS: nicotine 4 mg lozenge MUCOUS MEM ×2 (18:48→19:27)
[2024-08-19] MEDS: trazodone 50 mg Tablet PO ×2 (19:27→20:42)
[2024-08-19] MEDS: hyDROXYzine 25 mg Capsule 50 MG PO (19:27)
[2024-08-19 20:00] VITALS: BP 167/109; PULSE 97; RESP 18; TEMP 37; O2SAT 95
[2024-08-19] MEDS: OLANZapine 5 mg ODT PO (20:46)
[2024-08-20] VITALS (7 sets, daily range): BP systolic 111–165; BP diastolic 80–120; PULSE 62–92; RESP 16–18; TEMP 36.6–37.1; O2SAT 94–97
[2024-08-20] MEDS: multivitamin therapeutic Tablet 1 TAB PO (07:56)
[2024-08-20] MEDS: thiamine 100 mg Tablet PO (07:56)
[2024-08-20] MEDS: nicotine 4 mg lozenge MUCOUS MEM ×6 (07:57→21:51)
[2024-08-20] MEDS: folic acid 1 mg Tablet PO (07:57)
--- NOTE | 2024-08-20 08:11 | W.PM.NPUH&PS ---
Providers/Chief Complaint Admitting Physician: Mitchel Weiss MD Chief Complaint: si HPI NPU History of Present Illness Radhames Spears is a 33 year old male who presented to the emergency department with the following report: Chief Complaint: Psychiatric Symptoms Stated Complaint: si Time Seen by Provider: 08/19/24 12:49 Source: patient and EMS Mode of arrival: EMS Limitations: no limitations History of Present Illness: Patient is a 33-year-old male who presents to the ED today via EMS due to worsening depression and suicidal ideations. Patient states he has a plan to walk out for traffic. He states he is hearing voices telling him to harm himself. He reportedly is supposed to be taking psychiatric medications but has not been taking them stating that he forgets . Patient has a longstanding history of homelessness, alcohol abuse, and polysubstance abuse. He states he has been doing well with these issues. He currently has an apartment. He states he has not abused drugs or alcohol in quite some time. He is on Suboxone although has not had this medication in a week or so because he does not have a ride to [facility]. complaint: suicidal ideation and feels depressed Onset (ago): day(s) Duration: constant Associated psychiatric symptoms: depression and suicidal ideation Associated symptoms: Reports auditory hallucinations, depression and suicidal ideation; Deny visual hallucinations or homicidal ideation Treatments prior to arrival: none If self harm: admits thoughts of self harm and has plan. He was admitted to the neuropsychiatric unit for definitive treatment of those issues. He is known to [facility] through inpatient and outpatient services. He was last seen by his outpatient psychiatrist Dr. Verma on 08/03/2024 and his last inpatient hospitalization was in May of this year and an excerpt of his discharge summary is included below for context. It was thought by the ED provider that he had not been seen inpatient since 2022 but he actually was seen a few months ago. He presents today reporting that he had moved into local housing shortly after he had discharged and did not end up going out of town and living with his family. He reports that he ended up going to [facility] but that he started having difficulty with transportation. He reports that it has been about a month since he has had some of his medications and possibly a month since he has been at [facility]. He reports that he started really struggling off of his medications and off of the Suboxone. He denies getting to a point where he was able to get a take-home doses from [facility]. He reports that he is here to try to get back on track before things get too far out of control. He reports that the way that things will be different now is that he now has a bus pass and will be able to use that to get to his appointments and avoid lapses in medication. We discussed the risks, benefits and alternatives of restarting medications, but discussed that we would need to talk to [facility] to ensure that they are going to restart his Suboxone before we would be able to initiated here and he understood and agreed to proceed as is documented in this note. He did report that he has been drinking alcohol more often recently and his UDS was positive for amphetamines, cannabis and alcohol. We did discuss initiating the CIWA protocol as well. Per his 05/17/2024 [facility] inpatient psychiatric discharge summary: Discharge Diagnosis (1) Drug-induced psychotic disorder: Status: Chronic Qualifiers: Complication of substance-induced condition: with hallucinations Qualified Code(s): F19.951 - Other psychoactive substance use, unspecified with psychoactive substance-induced psychotic disorder with hallucinations (2) Chronic schizophrenia: Status: Chronic (3) Alcohol use disorder: Status: Chronic (4) Homelessness: Status: Acute (5) Morbid obesity: Status: Acute (6) Methamphetamine use disorder, severe: Status: Acute Permanent problem details: Early remission (7) Polysubstance abuse: Status: Chronic (8) Chronic alcohol abuse: Status: Acute (9) Substance use disorder: Status: Acute (10) Opioid use disorder, severe, on maintenance therapy, dependence: Status: Acute (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 Reason for Visit Reason for Visit: Anxiety Brief History: History of Present Illness Radhames Spears is a 33 year old male who presented to the emergency department with the following report: Chief Complaint: Anxiety Stated Complaint: Anxiety Time Seen by Provider: 05/15/24 10:55 Source: patient Mode of arrival: ambulatory Limitations: no limitations History of Present Illness: 33-year-old male states that he has multiple psychiatric issues including schizophrenia states he feels like his meds have been working he has some increased hallucinations states been feeling very anxious as well along with some depression. He denies any suicidal homicidal ideations but states he wants to be admitted to the psych evans to get help. Associated symptoms: Deny chest pain, chills, fever(s), headache(s), nausea or vomiting. He was admitted to the neuropsychiatric unit for definitive treatment of those issues. He is known to [facility] through inpatient and outpatient services. His last inpatient stay was in May 2023. An excerpt of his psychiatric evaluation from that stay is included below for history and context. He presented today reporting: Chief complaint The patient is experiencing anxiety and distress related to his mother's declining health and his struggle with substance use. He is also struggling with the effects of his current medication, Lansopine, which he feels is exacerbating his anxiety and making him feel trapped. He is seeking help with managing these issues and is interested in obtaining Suboxone to aid in his recovery from substance use. History of the present complaint The patient expressed significant distress and anxiety related to his current situation. He mentioned that he had been stretching out the medication prescribed by a previous doctor, Suboxone, for two months. The patient reported that his mother's health is deteriorating, which has been a source of stress and anxiety for him. He also expressed concerns about his substance use, specifically mentioning a desire to avoid using heroin or Fentanyl. The patient reported experiencing auditory hallucinations, describing them as voices in his head that won't stop. He also mentioned feeling trapped or confined, likening his experience to being in a coffin. He expressed a desire to quit using substances and seemed frustrated with his current medication regimen, stating that it either doesn't work or makes his symptoms worse. The patient has been previously treated with Suboxone for substance use but reported difficulties in accessing the medication regularly due to logistical issues related to his living situation and the location of the clinic. He expressed a desire to return to using Suboxone and believes it would be more beneficial than his current anxiety medication. The patient reported having been hospitalized for psychiatric issues multiple times in the past, estimating around 30-40 times. He also mentioned having been in rehab twice, with the last time being either last year or the year before. The patient has a history of legal issues, including two DUIs and multiple retirement sentences. The patient reported experiencing hallucinations and paranoia since around the age of 14 or 15. He described seeing what he calls shadow people, which he believes may be spirits or ghosts. His mental health diagnosis has varied over time, initially being identified as schizoaffective but later shifting to an unspecified condition involving persistent hallucinations and paranoia. Regarding his current medications, the patient reported taking Sofia and another unidentified medication. He also mentioned taking Phenergan for the past three to four months. The patient expressed dissatisfaction with his current medications, stating that they either don't work at all or make his symptoms worse. In terms of substance use, the patient reported vaping for about three to four months after previously smoking cigarettes. He also reported drinking alcohol heavily in the past but stopped about four or five months ago. The patient admitted to daily marijuana use when he can access it but noted that he avoids it when on Suboxone due to adverse interactions. He denied current use of cocaine, methamphetamines, and opiates but acknowledged past issues with opiate use. The patient's mood during the consultation was described as anxious. He denied any current thoughts of self-harm or harm towards others but did report experiencing hallucinations and feelings of paranoia. The patient expressed dissatisfaction with his current antipsychotic medication regimen, stating that it initially worked but has become less effective over time. Mental health history The patient has a history of mental health issues beginning around the age of 14 or 15. He has been diagnosed with schizoaffective disorder, but he believes he may be experiencing paranormal phenomena rather than hallucinations. He has been hospitalized for psychiatric issues multiple times, with estimates ranging from 10 to 40 times. His most recent hospitalization was last year. Social history The patient has a history of substance use, including alcohol, cannabis, and opiates. He has been to rehab twice, with the last time being four years ago. He has had two DUIs and has spent time in retirement on multiple occasions. He was previously for 10 years and has three children whom he sees regularly. He is currently unemployed and has been on disability since around 2009 or 2010. Per his 05/22/2023 [facility] inpatient psychiatric evaluation: History of Present Illness Radhames Spears is a 32 year old male who presented to the emergency department with the following report: Chief Complaint: Psychiatric Symptoms Stated Complaint: SI Time Seen by Provider: 05/21/23 18:10 History of Present Illness: Patient presents to the ER for evaluation from [facility] for paranoia and hallucinations. Patient worked in the [employer] watching him and shooting at him yesterday and today. Patient denies being suicidal or homicidal. Patient does admit to smoking dabs and snorting meth and drinking all day yesterday when these symptoms started. Patient says he is just not in a good place in his life and wants to get help. Patient does state he is a schizophrenic and has not taken any of his medicine in a long time. He was admitted to the neuropsychiatric unit He was admitted to the neuropsychiatric unit for definitive treatment of those issues. He presents today as a limited historian secondary to altered mental status likely due to addiction. He confirms data that is available in the chart. He reports that he has been hospitalized at least 5 times here the last hospitalization that we can find is 2014. He started coming to [facility] as a child back in 2005. He had his first hospitalization in 2011 here. He reports that he has had significant struggles with addiction reporting challenges from alcohol and methamphetamine. Current drug screen positive for opioids, barbiturates, amphetamines, cannabis. He reports that he has not been taking his medication and that he has had previous treatment with different things for his psychosis and anxiety. He endorses that he does have auditory and visual hallucinations and we were able to have a short conversation about the impact of amphetamines on psychosis. We discussed the risks, benefits and alternatives of initiating Abilify for the psychosis and Lexapro for his anxiety and he understood and agreed to proceed as is documented in this note. He did lobby for a benzodiazepine reporting that he had that before that would really work we discussed concerns about his addiction and polysubstance challenges including alcohol 22 benzodiazepines being a bad option. He was fairly poor historian as he was clearly distraught and exasperated with each question we agreed to work with the social work team to get a better picture of his psychosocial circumstances right now so that we can give him the best treatment. Hospital Course He acclimated to the individual, group and milieu therapies provided. He presented with active addiction and endorsing a desire and need for reconnection with appropriate services. He did not want to restart his medications because he has been on so many but wanted to work with his outpatient psychiatrist to get that under control. He did identify that there was a need for treatment of his addiction and he worked with the social work team to get appropriate outpatient appointments and referrals. He was referred to [facility] and also being started on Suboxone. We monitored him on medication briefly to ensure safety. He had modest improvement. He was able to contract for safety outside of the hospital prior to discharge. During the hospitalization, he had routine laboratory studies which were within normal limits except for a few outliers. Additionally a general medical evaluation which was also within normal limits and revealed no new acute processes. At the time of discharge, he denied psychosis or lethality. His mood and anxiety was well managed. He endorse a plan to avoid all drugs of abuse and follow-up with the treatment team recommendations after discharge. He was evaluated and deemed to be absent compatible lethality, and had achieved the maximum benefit from inpatient hospitalization. So he was discharged. Meds NPU Home Medications Medication Instructions Recorded Confirmed Last Taken Type chlorpromazine 100 mg tablet 100 mg PO .AM #30 tabs 08/03/24 08/19/24 Unknown Rx escitalopram oxalate 20 mg tablet 20 mg PO DAILY 30 days #30 tabs 08/03/24 08/19/24 08/18/24 Rx Allergies Allergy/AdvReac Type Severity Reaction Status Date / Time fentanyl Allergy Severe ADR-Seizure Verified 08/03/24 12:33 piperacillin [From Zosyn] Allergy Severe ALGY-Swell Verified 08/03/24 12:33 Lip/Tongue/Throat tazobactam [From Zosyn] Allergy Severe ALGY-Swell Verified 08/03/24 12:33 Lip/Tongue/Throat diphenhydramine Allergy Intermediate headache, Verified 08/03/24 12:33 [From Benadryl] restless leg cyclobenzaprine Allergy Nausea, Verified 08/03/24 12:33 [From Flexeril] vomiting, headache haloperidol [From Haldol] Allergy ADR-Cramping Verified 08/03/24 12:33 of the Muscles quetiapine [From Seroquel] Allergy ADR-Muscle Verified 08/03/24 12:33 Pain hydroxyzine AdvReac Intermediate Muscle Verified 08/03/24 12:33 spasms in arms & legs & increased anxiety. PFSH NPU PFSH: Medical History Psychiatric care Alcohol withdrawal seizure Polysubstance abuse Biliary colic Morbid obesity Homelessness Schizophrenia Smoking addiction Alcohol use disorder Substance use disorder HTN (hypertension) Surgical History H/O esophagogastroduodenoscopy Family History Other Alcohol use disorder Colon cancer Social History Smoking and tobacco/nicotine status: current every day tobacco/nicotine user cigarettes Packs smoked per day: 3 Years cigarettes smoked: 25 and e-cigarettes E-Cigarette Details: e-cigarette and with nicotine E-cig/vape details: 20,000 puffs disposable goes through it in a week or two Quit status (tobacco/nicotine): considering quitting Second hand smoke exposure: No Alcohol intake: former Former alcohol use details: 05/2023 Substance/Drug Use: current Substance/Drug use frequency: daily Adopted: No Caregiver/support person: No Lives independently: Yes Household members: none Housing: Manufactured/Mobile home Marital status: Number of children: 3 Number of grandchildren: 0 Highest education level completed: GED or Equivalent service: No Current occupational status: disabled Current occupation: trying to get disability Pets and animals: Yes Pets & animals: cat(s), dog(s), fish and farm animals Farm Animals: horses/donkey/mule Pets & animal details: cows Leisure activites: other Leisure activities details: watch TV Sexually active: No Do you think of yourself as: Straight/Heterosexual Current gender identity: Male Mariia/Jew: Yazidism Special mariia needs: No Agree to transfusion: Yes Mental Status Exam MSE Comments: This is a morbidly obese white male in hospital scrubs with limited grooming and eye contact. Patient unkempt with significant body odor. No abnormal movements except for psychomotor retardation. Somewhat cooperative with exam in moderate distress. Speech was decreased rate but and volume. Mood described as anxious, affect congruent. Thought process linear and mostly organized. Thought content: Patient denies suicidal or homicidal ideation, no delusions reported but some paranoia noted, he endorsed auditory and visual hallucinations. The patient presents with high levels of anxiety and reports hearing voices that won't stop. He denies any current thoughts of self-harm or harm to others. He reports feeling paranoid and believes he is seeing shadow people, which he interprets as spirits or ghosts. Attention and concentration were limited and memory somewhat reliable but none were formally tested. He is alert and oriented x person and place. Insight, judgment and impulse control impaired. Vitals/I&O/Wt Last Vital Signs Temp 98.3 F 08/20/24 07:39 Pulse 83 08/20/24 07:39 Resp 16 08/20/24 07:39 BP 145/80 08/20/24 07:39 Pulse Ox 97 08/20/24 07:39 O2 Del Method Room Air 08/20/24 07:39 Weight last 48 hrs Weight 204.117 kg Data NPU 08/19/24 13:08 08/19/24 13:08 A&P Assessment and plan (1) Drug-induced psychotic disorder: Qualifiers: Complication of substance-induced condition: with hallucinations Qualified Code(s): F19.951 - Other psychoactive substance use, unspecified with psychoactive substance-induced psychotic disorder with hallucinations (2) Chronic schizophrenia: (3) Alcohol use disorder: (4) Homelessness: (5) Morbid obesity: (6) Methamphetamine use disorder, severe: (7) Polysubstance abuse: (8) Chronic alcohol abuse: (9) Substance use disorder: (10) Opioid use disorder, severe, on maintenance therapy, dependence: (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 UDS positive for amphetamines and cannabis. 1. Continue current medication. 2. Continue every 15 minute checks for safety. 3. Encourage individual, group and milieu therapy. 4. Encourage sober living treatment after discharge at the highest level of care to which he is willing to commit. 5. Get collateral information on Suboxone treatment. And identify situation with that treatment as it may be the major clark driver of this presentation. Involuntary Hold Information 96 Hour Hold: 96 Hour Involuntary Admission: Yes 96 Hour Hold Ending Date: 08/25/24 96 Hour Hold Ending Time: 13:00 Attestations NPU Medical Necessity Statement*: Inpatient hospitalization is medically necessary and the clinically appropriate intervention at this time. We will monitor medications and make changes as indicated. He will be in the hospital for over 2 midnights. Likely length of stay 3-5 days. Coding Level of Care Code Acute Code for g Fwd Diagnoses Drug-induced hallucinosis F19.951 Complication of substance-induced condition: with hallucinations Chronic schizophrenia F20.9 Alcohol use disorder F10.90 Homelessness Z59.00 Morbid obesity E66.01 Methamphetamine use disorder, severe F15.20 Polysubstance abuse F19.10 Chronic alcohol abuse F10.10 Substance use disorder F19.90 Opioid use disorder, severe, on maintenance therapy, dependence F11.20 Amphetamine abuse F15.10
[2024-08-20] MEDS: OLANZapine 5 mg ODT PO (10:55)
[2024-08-20] MEDS: LORazepam 2 mg Tablet PO ×4 (12:15→21:12)
--- NOTE | 2024-08-20 14:31 | PC.NURSE ---
Patient requested to be placed on double portions for meals. This RN talked with doctor hart and he said it would be okay to put in orders for the patient to have double portions.
--- NOTE | 2024-08-20 17:21 | PC.NURSE ---
RAMAKRISHNA notified this RN that patient's blood pressure was 160/105 after having given him an ativan approximately 1 hour ago. This RN contacted Dr. Weiss and notified him about the patient's high blood pressure readings and he requested this RN give the patient another ativan 2mg po, wait one hour to recheck, and then contact him again if it was still high.
[2024-08-21] VITALS (11 sets, daily range): BP systolic 129–197; BP diastolic 66–150; PULSE 81–108; RESP 16–20; TEMP 36.4–36.8; O2SAT 94–99
[2024-08-21] MEDS: LORazepam 2 mg Tablet PO ×4 (07:40→22:19)
[2024-08-21] MEDS: nicotine 4 mg lozenge MUCOUS MEM ×6 (07:40→22:19)
[2024-08-21] MEDS: thiamine 100 mg Tablet PO (08:15)
[2024-08-21] MEDS: multivitamin therapeutic Tablet 1 TAB PO (08:15)
[2024-08-21] MEDS: folic acid 1 mg Tablet PO (08:15)
[2024-08-21] MEDS: OLANZapine 5 mg ODT PO ×2 (09:35→15:12)
--- NOTE | 2024-08-21 15:13 | PC.NURSE ---
Patient reports anxiety, requesting ativan. Per [facility] protocol, patient doesn't meet requirements. Administered zyprexa 5mg ODT to patient.
--- NOTE | 2024-08-21 16:10 | PC.NURSE ---
RAMAKRISHNA Che checked patient's 1600 VS. Patient's BP elevated at 197/150 on right arm. On left arm, 173/110. This nurse quickly notified Dr. Burdick who gave verbal for 0.2mg clonidine, once one. Patient reports pounding headache
[2024-08-21] MEDS: cloNIDine 0.1 mg Tablet 0.2 MG PO (16:19)
--- NOTE | 2024-08-21 19:32 | P.NPUPN_ITS ---
Subjective NPU 2 Subjective: 33-year-old male admitted with depressio n and suicidal ideation who had reported struggles with compliance with psychiatric medications. Patient continued to endorse depression. He had reported a significant history of alcohol abuse with some history of alcohol-related withdrawals. The patient had continued to receive Ativan here on the unit. He reported desire to stop the use of alcohol and also reported that Suboxone had been helpful for reducing cravings for opiates. He had reported a past history of prescription schizophrenia but reported that he was not currently taking any medications and endorsed auditory hallucinations. The patient had described psychotic symptoms in the context of use of amphetamines and the patient was positive for amphetamines on admission here. Mental Status Exam 2 MSE Comments: This is a morbidly obese white male in hospital scrubs with limited grooming and eye contact. Patient unkempt with significant body odor. No abnormal movements except for psychomotor retardation. Somewhat cooperative with exam in moderate distress. Speech was decreased rate but normal in volume. Mood described as anxious, affect was mood congruent. Thought process linear and mostly organized. Thought content: Patient denies suicidal or homicidal ideation, no delusions reported but some paranoia noted, he endorsed hearing voices and seeing ghosts. He was alert and oriented person place and situation. His attention span appeared impaired. His insight was poor. His judgment was poor. His impulse control appeared limited. Vitals/I&O/Wt Last Vital Signs Temp 97.8 F 08/21/24 16:00 Pulse 105 H 08/21/24 17:00 Resp 20 H 08/21/24 17:00 BP 137/103 08/21/24 17:00 Pulse Ox 97 08/21/24 17:00 O2 Del Method Room Air 08/21/24 17:00 Weight last 48 hrs Weight 204.389 kg Data NPU 08/19/24 13:08 08/19/24 13:08 A&P Assessment and plan (1) Drug-induced psychotic disorder: Qualifiers: Complication of substance-induced condition: with hallucinations Qualified Code(s): F19.951 - Other psychoactive substance use, unspecified with psychoactive substance-induced psychotic disorder with hallucinations (2) Chronic schizophrenia: (3) Alcohol use disorder: (4) Homelessness: (5) Morbid obesity: (6) Methamphetamine use disorder, severe: (7) Polysubstance abuse: (8) Chronic alcohol abuse: (9) Substance use disorder: (10) Opioid use disorder, severe, on maintenance therapy, dependence: (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 UDS positive for amphetamines and cannabis. 1. Continue current medication. 2. Continue every 15 minute checks for safety. 3. Encourage individual, group and milieu therapy. 4. Encourage sober living treatment after discharge at the highest level of care to which he is willing to commit. 5. CIWA protocol. Add zyprexa 5mg at night and restart suboxone 8mg/2mg bid. Involuntary Hold Information 2 96 Hour Hold: 96 Hour Involuntary Admission: Yes 96 Hour Hold Ending Date: 08/25/24 96 Hour Hold Ending Time: 13:00 Other Hold: Hold End Date: 08/25/24 Attestations NPU 2 Medical Necessity Statement*: Inpatient hospitalization is medically necessary and the clinically appropriate intervention at this time. We will monitor medications and make changes as indicated. Likely length of stay 3-5 days. Coding Level of Care Code Acute Code for [facility] Fwd Diagnoses Drug-induced hallucinosis F19.951 Complication of substance-induced condition: with hallucinations Chronic schizophrenia F20.9 Alcohol use disorder F10.90 Homelessness Z59.00 Morbid obesity E66.01 Methamphetamine use disorder, severe F15.20 Polysubstance abuse F19.10 Chronic alcohol abuse F10.10 Substance use disorder F19.90 Opioid use disorder, severe, on maintenance therapy, dependence F11.20 Amphetamine abuse F15.10
[2024-08-21] MEDS: OLANZapine 5 mg TABLET PO (20:27)
[2024-08-21] MEDS: buprenorphine-naloxone 4-1 mg Film 1 EACH SUBLINGUAL (20:27)
--- NOTE | 2024-08-21 20:35 | PC.NURSE ---
this QUALITY CONTROL HEAD and pt talked about pt using nystatin in the past for yeast. pt would like to try nystatin powder under folds. Charge notified.
--- NOTE | 2024-08-21 23:08 | PC.NURSE ---
this ROULETTE DEALER suppervised this pt clipping finger nails
[2024-08-22] VITALS (9 sets, daily range): BP systolic 115–157; BP diastolic 70–111; PULSE 74–107; RESP 18–20; TEMP 36.4–36.8; O2SAT 94–96
[2024-08-22] MEDS: thiamine 100 mg Tablet PO (08:19)
[2024-08-22] MEDS: multivitamin therapeutic Tablet 1 TAB PO (08:20)
[2024-08-22] MEDS: folic acid 1 mg Tablet PO (08:20)
[2024-08-22] MEDS: buprenorphine-naloxone 4-1 mg Film 1 EACH SUBLINGUAL ×2 (08:20→20:05)
[2024-08-22] MEDS: nicotine 4 mg lozenge MUCOUS MEM ×6 (08:20→21:58)
[2024-08-22] MEDS: acetaminophen 325 mg Tablet 650 MG PO (08:25)
--- NOTE | 2024-08-22 09:24 | PC.NURSE ---
RESTING IN BED, CONTINUES ALCOHOL WITHDRAWAL PROTOCOL. SCORED 3. NO ATIVAN GIVEN. PT IS WITHDRAWN AND ISOLATES TO ROOM. DEPRESSED MOOD NOTED. AFFECT IS FLAT. SPEECH IS CLEAR BUT DELAYED IN ANSWERING QUESTIONS. POOR HYGIENE IS NOTED. SHOWERING WAS ENCOURAGED BUT PT STATES HE IS TOO TIRED, MAYBE LATER. RATES PAIN 6/10 TYLENOL 650 MG GIVEN ORDERED FOR PAIN. PT STATES GOAL FOR THE DAY IS TO SPEAK TO A CATTLE EXAMINER. PT ASSURED THAT THIS RN WOULD LET THE CASEWORKERS KNOW. RATES ANXIETY 5/10 AND DEPRESSION 6/10. SUPPORT WAS VOICED.
[2024-08-22] MEDS: LORazepam 2 mg Tablet PO ×2 (11:30→16:31)
--- NOTE | 2024-08-22 13:04 | PC.NURSE ---
Patient scored 10 on CIWA scale. Per protocol, administered ativan 2mg PO to pt
--- NOTE | 2024-08-22 14:51 | PC.NURSE ---
BP CONTINUES TO BE ELEVATED DESPITE GIVING ATIVAN 2 [address] IBRAHIM GAVE ORDERS TO GIVE CLONIDINE 0.2 MG PO TID PRN FOR SBP GREATER THAN 150 OR DBP GREATER THAN 100. ORDERS PLACED AND EDUCATION PROVIDED TO PT. VERBALIZED UNDERSTANDING. SUPPORT VOICED.
[2024-08-22] MEDS: OLANZapine 5 mg ODT PO (15:16)
[2024-08-22] MEDS: cloNIDine 0.1 mg Tablet 0.2 MG PO (15:16)
--- NOTE | 2024-08-22 15:25 | PC.NURSE ---
PT WAS GIVEN ZYDIS 5 MG FOR INCREASED ANXIETY AND CLONIDINE 0.2 MG ORDERED FOR SBP GREATER THAN 150 AND DBP GREATER THAN 100. WILL RECHECK BP SHORTLY.
[2024-08-22] MEDS: ibuprofen 600 mg Tablet PO (17:06)
--- NOTE | 2024-08-22 18:05 | W.PM.NPUPNS ---
Subjective NPU Subjective: 33-year-old male admitted with suicidal ideation with a history of polysubstance abuse. The patient had reported that he continues to hear voices. He had reported continued opiate use that had been reduced and stopped with the use of daily Suboxone. The patient had reported having problems with concentration. He had reported that he had struggled with compliance with his medication regimen. He had reported having depression. He had reported that he had struggled with alcohol related withdrawals but stated that he had been drinking less recently. He had complained of anxiety and continued to report that he needed to have more help with remaining sober. He had endorsed a history of hallucinations that it predated his use of stimulants. He continued to endorse the prescence of apparitions. Mental Status Exam MSE Comments: This is a morbidly obese white male in hospital scrubs with limited grooming and eye contact. Patient unkempt with significant body odor. No abnormal movements except for psychomotor retardation. He was more cooperative with exam in moderate distress. Speech was decreased rate but normal in volume. Mood described as anxious. Affect was mood congruent and anxious. Thought process was linear and mostly organized. Thought content: Patient denies suicidal or homicidal ideation, no delusions reported but some paranoia noted, he endorsed hearing voices and seeing ghosts. He was alert and oriented person place and situation. His attention span appeared impaired. His insight was poor. His judgment was poor. His impulse control appeared limited. Vitals/I&O/Wt Last Vital Signs Temp 98 F 08/22/24 16:00 Pulse 84 08/22/24 16:00 Resp 18 08/22/24 16:00 BP 147/81 08/22/24 16:00 Pulse Ox 94 08/22/24 16:00 O2 Del Method Room Air 08/22/24 04:00 Weight last 48 hrs Weight 204.389 kg Data NPU 08/19/24 13:08 08/19/24 13:08 A&P Assessment and plan (1) Drug-induced psychotic disorder: Qualifiers: Complication of substance-induced condition: with hallucinations Qualified Code(s): F19.951 - Other psychoactive substance use, unspecified with psychoactive substance-induced psychotic disorder with hallucinations (2) Chronic schizophrenia: (3) Alcohol use disorder: (4) Homelessness: (5) Morbid obesity: (6) Methamphetamine use disorder, severe: (7) Polysubstance abuse: (8) Chronic alcohol abuse: (9) Substance use disorder: (10) Opioid use disorder, severe, on maintenance therapy, dependence: (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 UDS positive for amphetamines and cannabis. 1. Continue current medication. 2. Continue every 15 minute checks for safety. 3. Encourage individual, group and milieu therapy. 4. Encourage sober living treatment after discharge at the highest level of care to which he is willing to commit. 5. CIWA protocol. Increase zyprexa at 10mg at night and continue suboxone 8mg/2mg bid. Restart Lexapro to target anxiety. Involuntary Hold Information 96 Hour Hold: 96 Hour Involuntary Admission: Yes 96 Hour Hold Ending Date: 08/25/24 96 Hour Hold Ending Time: 13:00 Other Hold: Hold End Date: 08/25/24 Attestations U Medical Necessity Statement*: Inpatient hospitalization is medically necessary and the clinically appropriate intervention at this time. We will monitor medications and make changes as indicated. His likely length of stay is 3-5 days. Coding Level of Care Code Acute Code for [facility] Diagnoses Drug-induced hallucinosis F19.951 Complication of substance-induced condition: with hallucinations Chronic schizophrenia F20.9 Alcohol use disorder F10.90 Homelessness Z59.00 Morbid obesity E66.01 Methamphetamine use disorder, severe F15.20 Polysubstance abuse F19.10 Chronic alcohol abuse F10.10 Substance use disorder F19.90 Opioid use disorder, severe, on maintenance therapy, dependence F11.20 Amphetamine abuse F15.10
--- NOTE | 2024-08-22 18:33 | PC.NURSE ---
PT VITALS HAVE IMPROVED BP DOWN TO 134/92, HR 100, RR 18, SPOZ 96% RA. PT CONTINUES TO REPORT ANXIETY AND REQUEST SUBOXONE AND ATIVAN FREQUENTLY. PT WAS RE-EDUCATED ON CIWA PROTOCOL AND THE CRITERIA ON DOSING ATIVAN. PT IS OBSERVED WATCHING TV CALMLY AND INTERACTING WITH STAFF AND PEERS. PT REPORTS HE HAS AN APT WITH DR. GARCIA FOR HIS DISABILITY DETERMINATION ON 08/24 AT 1300. PUBLIC MESSAGE SERVICE SUPERVISOR NOTIFIED AND STATES PT WILL NEED TO MAKE THE APT. PT IS WORRIED HE WILL NOT BE DISCHARGED IN TIME. UPDATED DR. IBRAHIM ON DISABILITY DETERMINATION. PT ASSURED THAT IS AWARE.
--- NOTE | 2024-08-22 19:39 | PC.NURSE ---
NEW ORDERS RECEIVED TO APPLY NYSTATIN POWDER TO ABDOMINAL FOLDS BID UNTIL AREAS ARE HEALED. PT STATES HE WILL TAKE A SHOWER IF THE POWDER IS ORDERED. ORDERS RECEIVED FROM DR. IBRAHIM. PT EDUCATED ON NEW ORDERS. VERBALIZED UNDERSTANDING. SUPPORT VOICED.
[2024-08-22] MEDS: OLANZapine 5 mg TABLET PO (20:05)
[2024-08-22] MEDS: nystatin powder 15 gm Btl 1 APPLIC TOPICAL (21:58)
[2024-08-23 04:00] VITALS: BP 104/66; PULSE 88; RESP 18; TEMP 36.8; O2SAT 96
[2024-08-23] MEDS: ibuprofen 600 mg Tablet PO (07:00)
[2024-08-23] MEDS: nicotine 4 mg lozenge MUCOUS MEM ×5 (07:04→20:30)
[2024-08-23 07:20] VITALS: BP 152/86; PULSE 93; RESP 18; TEMP 36.5; O2SAT 96
[2024-08-23] MEDS: artificial tears Op Soln 15 mL Btl 1 DROP EYE-BOTH (08:05)
[2024-08-23] MEDS: thiamine 100 mg Tablet PO (08:06)
[2024-08-23] MEDS: multivitamin therapeutic Tablet 1 TAB PO (08:06)
[2024-08-23] MEDS: folic acid 1 mg Tablet PO (08:06)
[2024-08-23] MEDS: buprenorphine-naloxone 4-1 mg Film 1 EACH SUBLINGUAL ×2 (08:06→20:29)
[2024-08-23] MEDS: OLANZapine 5 mg ODT PO ×2 (08:06→21:44)
[2024-08-23] MEDS: nystatin powder 15 gm Btl 1 APPLIC TOPICAL ×2 (08:07→18:29)
[2024-08-23] MEDS: LORazepam 2 mg Tablet PO ×2 (09:27→14:30)
[2024-08-23 12:00] VITALS: BP 137/78; PULSE 88; RESP 20; TEMP 37.1; O2SAT 98
[2024-08-23 16:00] VITALS: BP 144/82; PULSE 90; RESP 16; TEMP 36.6; O2SAT 94
--- NOTE | 2024-08-23 18:58 | P.NPUPN_ITS ---
Subjective NPU 2 Subjective: 33-year-old male admitted with suicidal ideation with a history of polysubstance abuse. The patient had patient had reported that he was feeling better. He had stated that he had had a disability hearing scheduled for tomorrow and stated that he felt ready to return home at this time. He had been compliant on the milieu and appeared to be more engaged in self-care today. He had reported no side effects from the Suboxone prescribed. He had reported that the voices had been substantially diminished with reports of not seeing ghosts today. Mental Status Exam 2 MSE Comments: This is a morbidly obese white male in hospital scrubs with limited grooming and eye contact. Patient had some improved hygiene noted. No abnormal movements except for psychomotor retardation. He was more cooperative with exam in mild distress. Speech was decreased in rate but normal in volume. Mood described as better. Affect was blunted. Thought process was linear and mostly organized. Thought content: Patient denies suicidal or homicidal ideation, no delusions reported but some paranoia noted. He denied auditory and visual hallucinations. He was alert and oriented person, place, and situation. His attention span appeared poor. His insight was poor. His judgment was improving. His impulse control appeared limited. Vitals/I&O/Wt Last Vital Signs Temp 98 F 08/23/24 16:00 Pulse 90 08/23/24 16:00 Resp 16 08/23/24 16:00 BP 144/82 08/23/24 16:00 Pulse Ox 94 08/23/24 16:00 O2 Del Method Room Air 08/23/24 16:00 Data NPU 08/19/24 13:08 08/19/24 13:08 A&P Assessment and plan (1) Drug-induced psychotic disorder: Qualifiers: Complication of substance-induced condition: with hallucinations Qualified Code(s): F19.951 - Other psychoactive substance use, unspecified with psychoactive substance-induced psychotic disorder with hallucinations (2) Chronic schizophrenia: (3) Alcohol use disorder: (4) Homelessness: (5) Morbid obesity: (6) Methamphetamine use disorder, severe: (7) Polysubstance abuse: (8) Chronic alcohol abuse: (9) Substance use disorder: (10) Opioid use disorder, severe, on maintenance therapy, dependence: (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 UDS positive for amphetamines and cannabis. 1. Continue current medication. 2. Continue every 15 minute checks for safety. 3. Encourage individual, group and milieu therapy. 4. Encourage sober living treatment after discharge at the highest level of care to which he is willing to commit. 5. CIWA protocol. Continue zyprexa at 10mg at night and continue suboxone 8mg/2mg bid. Restart Lexapro as previously prescribed. Involuntary Hold Information 2 96 Hour Hold: 96 Hour Involuntary Admission: Yes 96 Hour Hold Ending Date: 08/25/24 96 Hour Hold Ending Time: 13:00 Other Hold: Hold End Date: 08/25/24 Attestations NPU 2 Medical Necessity Statement*: Inpatient hospitalization is medically necessary and the clinically appropriate intervention at this time. We will monitor medications and make changes as indicated. His likely length of stay is 1-2 days. Coding Level of Care Code Acute Code for [facility] Fwd Diagnoses Drug-induced hallucinosis F19.951 Complication of substance-induced condition: with hallucinations Chronic schizophrenia F20.9 Alcohol use disorder F10.90 Homelessness Z59.00 Morbid obesity E66.01 Methamphetamine use disorder, severe F15.20 Polysubstance abuse F19.10 Chronic alcohol abuse F10.10 Substance use disorder F19.90 Opioid use disorder, severe, on maintenance therapy, dependence F11.20 Amphetamine abuse F15.10
[2024-08-23 20:00] VITALS: BP 119/85; PULSE 88; RESP 18; TEMP 36.7; O2SAT 95
[2024-08-23] MEDS: OLANZapine 5 mg TABLET 10 MG PO (20:29)
[2024-08-24] MEDS: acetaminophen 325 mg Tablet 650 MG PO (02:46)
[2024-08-24 04:15] VITALS: RESP 16
[2024-08-24] MEDS: ibuprofen 600 mg Tablet PO (04:58)
[2024-08-24 06:06] VITALS: BP 123/74; PULSE 82; RESP 18; O2SAT 95
[2024-08-24] MEDS: folic acid 1 mg Tablet PO (08:02)
[2024-08-24] MEDS: buprenorphine-naloxone 4-1 mg Film 1 EACH SUBLINGUAL (08:02)
[2024-08-24] MEDS: thiamine 100 mg Tablet PO (08:02)
[2024-08-24] MEDS: multivitamin therapeutic Tablet 1 TAB PO (08:02)
[2024-08-24] MEDS: nicotine 4 mg lozenge MUCOUS MEM ×2 (08:02→10:42)
[2024-08-24 10:58] VITALS: BP 123/74; PULSE 82; RESP 18; TEMP 36.7; O2SAT 95
[2024-08-24] MEDS: OLANZapine 5 mg ODT PO (11:07)
--- NOTE | 2024-08-24 17:06 | P.NPUDS_ITS ---
Diagnoses at Discharge Discharge Diagnosis (1) Drug-induced psychotic disorder: Status: Chronic Qualifiers: Complication of substance-induced condition: with hallucinations Qualified Code(s): F19.951 - Other psychoactive substance use, unspecified with psychoactive substance-induced psychotic disorder with hallucinations (2) Chronic schizophrenia: Status: Chronic (3) Alcohol use disorder: Status: Chronic (4) Homelessness: Status: Acute (5) Morbid obesity: Status: Acute (6) Methamphetamine use disorder, severe: Status: Acute Permanent problem details: Early remission (7) Polysubstance abuse: Status: Chronic (8) Chronic alcohol abuse: Status: Acute (9) Substance use disorder: Status: Acute (10) Opioid use disorder, severe, on maintenance therapy, dependence: Status: Acute (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 Reason for Visit Reason for Visit: si Brief History: History of Present Illness Radhames Spears is a 33 year old male who presented to the emergency department with the following report: Chief Complaint: Psychiatric Symptoms Stated Complaint: si Time Seen by Provider: 08/19/24 12:49 Source: patient and EMS Mode of arrival: EMS Limitations: no limitations History of Present Illness: Patient is a 33-year-old male who presents to the ED today via EMS due to worsening depression and suicidal ideations. Patient states he has a plan to walk out for traffic. He states he is hearing voices telling him to harm himself. He reportedly is supposed to be taking psychiatric medications but has not been taking them stating that he forgets . Patient has a longstanding history of homelessness, alcohol abuse, and polysubstance abuse. He states he has been doing well with these issues. He currently has an apartment. He states he has not abused drugs or alcohol in quite some time. He is on Suboxone although has not had this medication in a week or so because [facility] complaint: suicidal ideation and feels depressed Onset (ago): day(s) Duration: constant Associated psychiatric symptoms: depression and suicidal ideation Associated symptoms: Reports auditory hallucinations, depression and suicidal ideation; Deny visual hallucinations or homicidal ideation Treatments prior to arrival: none If self harm: admits thoughts of self harm and has plan. He was admitted to the neuropsychiatric unit for definitive treatment of those issues. He is known to [facility] through inpatient and outpatient services. He was last seen by his outpatient psychiatrist Dr. Verma on 08/03/2024 and his last inpatient hospitalization was in May of this year and an excerpt of his discharge summary is included below for context. It was thought by the ED provider that he had not been seen inpatient since 2022 but he actually was seen a few months ago. He presents today reporting that he had moved into local housing shortly after he had discharged and did not end up going out of town and living with his family. He reports that he ended up going to [facility] but that he started having difficulty with transportation. He reports that it has been about a month since he has had some of his medications and possibly a month since he has been at [facility]. He reports that he started really struggling off of his medications and off of the Suboxone. He denies getting to a point where he was able to get a take-home doses from [facility]. He reports that he is here to try to get back on track before things get too far out of control. He reports that the way that things will be different now is that he now has a bus pass and will be able to use that to get to his appointments and avoid lapses in medication. We discussed the risks, benefits and alternatives of restarting medications, but discussed that we would need to talk to [facility] to ensure that they are going to restart his Suboxone before we would be able to initiated here and he understood and agreed to proceed as is documented in this note. He did report that he has been drinking alcohol more often recently and his UDS was positive for amphetamines, cannabis and alcohol. We did discuss initiating the CIWA protocol as well. Per his 05/17/2024 [facility] inpatient psychiatric discharge summary: Discharge Diagnosis (1) Drug-induced psychotic disorder: Status: Chronic Qualifiers: Complication of substance-induced condition: with hallucinations Qualified Code(s): F19.951 - Other psychoactive substance use, unspecified with psychoactive substance-induced psychotic disorder with hallucinations (2) Chronic schizophrenia: Status: Chronic (3) Alcohol use disorder: Status: Chronic (4) Homelessness: Status: Acute (5) Morbid obesity: Status: Acute (6) Methamphetamine use disorder, severe : Status: Acute Permanent problem details: Early remission (7) Polysubstance abuse: Status: Chronic (8) Chronic alcohol abuse: Status: Acute (9) Substance use disorder: Status: Acute (10) Opioid use disorder, severe, on parminder ntenance therapy, dependence: Status: Acute (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 Reason for Visit Reason for Visit: Anxiety Brief History: History of Present Illness Radhames Spears is a 33 year old male who presented to the emergency department with the following report: Chief Complaint: Anxiety Stated Complaint: Anxiety Time Seen by Provider: 05/15/24 10:55 Source: patient Mode of arrival: ambulatory Limitations: no limitations History of Present Illness: 33-year-old male states that he has mult iple psychiatric issues including schizophrenia states he feels like his meds have been working he has some increased hallucinations states been feeling very anxious as well along with some depression. He denies any suicidal homicidal ideations but states he wants to be admitted to the psych evans to get help. Associated symptoms: Deny chest pain, chills, fever(s), headache(s), nausea or vomiting. He was admitted to the neuropsychiatric unit for definitive treatment of those issues. He is known to [facility] through inpatient and outpatient services. His last inpatient stay was in May 2023. An excerpt of his psychiatric evaluation from that stay is included below for history and context. He presented today reporting: Chief complaint The patient is experiencing anxiety and distress related to his mother's declining health and his struggle with substance use. He is also struggling with the effects of his current medication, Lansopine, which he feels is exacerbating his anxiety and making him feel trapped. He is seeking help with managing these issues and is interested in obtaining Suboxone to aid in his recovery from substance use. History of the present complaint The patient expressed significant distress and anxiety related to his current situation. He mentioned that he had been stretching out the medication prescribed by a previous doctor, Suboxone, for two months. The patient reported that his mother's health is deteriorating, which has been a source of stress and anxiety for him. He also expressed concerns about his substance use, specifically mentioning a desire to avoid using heroin or Fentanyl. The patient reported experiencing auditory hallucinations, describing them as voices in his head that won't stop. He also mentioned feeling trapped or confined, likening his experience to being in a coffin. He expressed a desire to quit using substances and seemed frustrated with his current medication regimen, stating that it either doesn't work or makes his symptoms worse. The patient has been previously treated with Suboxone for substance use but reported difficulties in accessing the medication regularly due to logistical issues related to his living situation and the location of the clinic. He expressed a desire to return to using Suboxone and believes it would be more beneficial than his current anxiety medication. The patient reported having been hospitalized for psychiatric issues multiple times in the past, estimating around 30-40 times. He also mentioned having been in rehab twice, with the last time being either last year or the year before. The patient has a history of legal issues, including two DUIs and multiple [facility] sentences. The patient reported experiencing hallucinations and paranoia since around the age of 14 or 15. He described seeing what he calls shadow people, which he believes may be spirits or ghosts. His mental health diagnosis has varied over time, initially being identified as schizoaffective but later shifting to an unspecified condition involving persistent hallucinations and paranoia. Regarding his current medications, the patient reported taking Sofia and another unidentified medication. He also mentioned taking Phenergan for the past three to four months. The patient expressed dissatisfaction with his current medications, stating that they either don't work at all or make his symptoms worse. In terms of substance use, the patient reported vaping for about three to four months after previously smoking cigarettes. He also reported drinking alcohol heavily in the past but stopped about four or five months ago. The patient admitted to daily marijuana use when he can access it but noted that he avoids it when on Suboxone due to adverse interactions. He denied current use of c ocaine, methamphetamines, and opiates but acknowledged past issues with opiate use. The patient's mood during the consultation was described as anxious. He denied any current thoughts of self-harm or harm towards others but did report experiencing hallucinations and feelings of paranoia. The patient expressed dissatisfaction with his current antipsychotic medication regimen, stating that it initially worked but has become less effective over time. Mental health history The patient has a history of mental health issues beginning around the age of 14 or 15. He has been diagnosed with schizoaffective disorder, but he believes he may be experiencing paranormal phenomena rather than hallucinations. He has been hospitalized for psychiatric issues multiple times, with estimates ranging from 10 to 40 times. His most recent hospitalization was last year. Social history The patient has a history of substance use, including alcohol, cannabis, and opiates. He has been to rehab twice, with the last time being four years ago. He has had two DUIs and has spent time in [facility] on multiple occasions. He was previously for 10 years and has three children whom he sees regularly. He is currently unemployed and has been on disability since around 2009 or 2010. Per his 05/22/2023 [facility] inpatient psychiatric evaluation: History of Present Illness Radhames Spears is a 32 year old male who presented to the emergency department with the following report: Chief Complaint: Psychiatric Symptoms Stated Complaint: SI Time Seen by Provider: 05/21/23 18:10 History of Present Illness: Patient presents to the ER for evaluation from [facility] for paranoia and hallucinations. Patient worked in the [employer] watching him and shooting at him yesterday and today. Patient denies being suicidal or homicidal. Patient does admit to smoking dabs and snorting meth and drinking all day yesterday when these symptoms started. Patient says he is just not in a good place in his life and wants to get help. Patient does state he is a schizophrenic and has not taken any of his medicine in a long time. He was admitted to the neuropsychiatric unit He was admitted to the neuropsychiatric unit for definitive treatment of those issues. He presents today as a limited historian secondary to altered mental status likely due to addiction. He confirms data that is available in the chart. He reports that he has been hospitalized at least 5 times here the last hospitalization that we can find is 2014. He started coming to [facility] as a child back in 2005. He had his first hospitalization in 2011 here. He reports that he has had significant struggles with addiction reporting challenges from alcohol and methamphetamine. Current drug screen positive for opioids, barbiturates, amphetamines, cannabis. He reports that he has not been taking his medication and that he has had previous treatment with different things for his psychosis and anxiety. He endorses that he does have a uditory and visual hallucinations and we were able to have a short conversation about the impact of amphetamines on psychosis. We discussed the risks, benefits and alternatives of initiating Abilify for the psychosis and Lexapro for his anxiety and he understood and agreed to proceed as is documented in this note. He did lobby for a benzodiazepine reporting that he had that before that would really work we discussed concerns about his addiction and polysubstance challenges including alcohol 22 benzodiazepines being a bad option. He was fairly poor historian as he was clearly distraught and exasperated with each question we agreed to work with the social work team to get a better picture of his psychosocial circumstances right now so that we can give him the best treatment. Hospital Course He acclimated to the individual, group and milieu therapies provided. He presented with active addiction and endorsing a desire and need for reconnection with appropriate services. He did not want to restart his medications because he has been on so many but wanted to work with his outpatient psychiatrist to get that under control. He did identify that there was a need for treatment of his addiction and he worked with the social work team to get appropriate outpatient appointments and referrals. He was referred to [facility] and also being started on Suboxone. We monitored him on medication briefly to ensure safety. He had modest improvement. He was able to contract for safety outside of the hospital prior to discharge. During the hospitalization, he had routine laboratory studies which were within normal limits except for a few outliers. Additionally a general medical evaluation which was also within normal limits and revealed no new acute processes. At the time of discharge, he denied psychosis or lethality. His mood and anxiety was well managed. He endorse a plan to avoid all drugs of abuse and follow-up with the treatment team recommendations after discharge. He was e valuated and deemed to be absent compatible lethality, and had achieved the maximum benefit from inpatient hospitalization. So he was discharged. Hospital Course Hospital Course During the hospitalization, the patient had routine laboratory studies which were within normal limits except for a few outliers.? Additionally, there was a general medical evaluation which was also within normal limits and revealed no new acute processes.? At the time of discharge, lethality was denied and psychosis was resolving.? Mood and anxiety were well managed.? The patient endorsed a plan to avoid all drugs of abuse and follow up with the aftercare recommendations of the treatment team.? The patient was evaluated and deemed to be absent credible lethality and had achieved the maximum benefit from an inpatient hospitalization, and so was discharged. ?The patient had tested positive for alcohol, amphetamines, and marijuana on admission. The patient appeared to have some symptoms suggestive alcohol withdrawal. He was ultimately started on Zyprexa and titrated up to a dose of 10 mg to target psychotic symptoms with noted improvement in mood and a reduction in psychotic thinking. He had reported no side effects from his medication on discharge. Suboxone was also initiated to target opiate related withdrawal symptoms with his history of significant opiate dependence also noted. Involuntary Hold Information 96 Hour Hold: 96 Hour Involuntary Admission: Yes 96 Hour Hold Ending Date: 08/25/24 96 Hour Hold Ending Time: 13:00 Other Hold: Hold End Date: 08/25/24 Mental Status Exam MSE Comments: This is a morbidly obese white male in hospital scrubs with limited grooming and eye contact. Patient had some improved hygiene noted. No abnormal movements except for psychomotor retardation. He was more cooperative with exam in mild distress. Speech was decreased in rate but normal in volume. Mood described as better. Affect remained blunted. Thought process was linear and mostly organized. Thought content: Patient denies suicidal or homicidal ideation, no delusions reported but some paranoia noted. He denied auditory and visual hallucinations. He was alert and oriented person, place, and situation. His attention span appeared poor. His insight was poor. His judgment was improving. His impulse control appeared better. Discharge Data Studies Completed and Pending: Laboratory Results WBC 8.21 10^3/uL (3.2 9-11.43) 08/19/24 13:08 RBC 4.95 10^6/uL (3.8 5-5.65) 08/19/24 13:08 Hgb 16.10 g/dL (11.27 -16.99) 08/19/24 13:08 Hct 46.6 % (37-53) 08/19/24 13:08 MCV 94.1 fl (82-101) 08/19/24 13:08 MCH 32.5 pg (27-33) 08/19/24 13:08 MCHC 34.5 g/dL (30-55) 08/19/24 13:08 RDW 13.1 % (12.1-15.1 ) 08/19/24 13:08 Plt Count 257 10^3/cmm (157 -399) 08/19/24 13:08 MPV 9.0 fL (7.4-10.4) 08/19/24 13:08 Neut % (Auto) 45.1 % 08/19/24 13:08 Lymph % (Auto) 46.9 % 08/19/24 13:08 Leslie % (Auto) 5.8 % 08/19/24 13:08 Eos % (Auto) 1.0 % 08/19/24 13:08 Baso % (Auto) 0.7 % 08/19/24 13:08 Neut # (Auto) 3.70 10^3/uL (1.8 -7.7) 08/19/24 13:08 Lymph # (Auto) 3.9 10^3/uL (0.8- 4.8) 08/19/24 13:08 Leslie # (Auto) 0.5 10^3/uL (0.2- 0.9) 08/19/24 13:08 Eos # (Auto) 0.1 10^3/uL (0.0- 0.8) 08/19/24 13:08 Baso # (Auto) 0.1 10^3/uL (0.0- 0.1) 08/19/24 13:08 Nucleated RBC % (a uto) 0 % 08/19/24 13:08 Nucleated RBCs # 0.0 /100WBC 08/19/24 13:08 Sodium 138 mmol/L (136-1 45) 08/19/24 13:08 Potassium 3.9 mmol/L (3.5-5 .1) 08/19/24 13:08 Chloride 102 mmol/L (98-10 7) 08/19/24 13:08 Carbon Dioxide 22 mmol/L (22-29) 08/19/24 13:08 Anion Gap 17.9 (5-19) 08/19/24 13:08 BUN 8 mg/dL (6-20) 08/19/24 13:08 Creatinine 0.6 mg/dL (0.7-1. 2) L 08/19/24 13:08 GFR Calculation 155.2 mL/min (90- 130) H 08/19/24 13:08 Glucose 111 mg/dL (65-115 ) 08/19/24 13:08 Calculated Osmolal ity 285 mOsm/kg (285- 295) 08/19/24 13:08 Calcium 8.7 mg/dL (8.5-10 .5) 08/19/24 13:08 Total Bilirubin 0.3 mg/dL (0.15-1 .2) 08/19/24 13:08 AST 67 U/L (0-40) H 08/19/24 13:08 ALT 53 U/L (0-41) H 08/19/24 13:08 Alkaline Phosphata se 97 U/L (40-130) 08/19/24 13:08 Total Protein 8.1 g/dL (6.6-8.7 ) 08/19/24 13:08 Albumin 4.2 g/dL (3.5-5.2 ) 08/19/24 13:08 Globulin 3.9 g/dL (1.3-4.6 ) 08/19/24 13:08 Urine Color Dark yellow (Yel low) A 08/19/24 13:14 Urine Appearance Clear (CLEAR) 08/19/24 13:14 Urine pH 6.5 (5-7) 08/19/24 13:14 Ur Specific Gravit y 1.019 (1.005-1.0 30) 08/19/24 13:14 Urine Protein Trace (Negative) A 08/19/24 13:14 Urine Glucose (UA) Negative (Normal ) 08/19/24 13:14 Urine Ketones Negative (Negati ve) 08/19/24 13:14 Urine Blood Negative (Negati ve) 08/19/24 13:14 Urine Nitrate Negative (Negati ve) 08/19/24 13:14 Urine Bilirubin Negative (Negati ve) 08/19/24 13:14 Urine Urobilinogen 1.0 mg/dL (Negati ve) 08/19/24 13:14 Ur Leukocyte Cee ase Negative (Negati ve) 08/19/24 13:14 Urine RBC 0-2 /hpf (0-2) 08/19/24 13:14 Urine WBC 0-5 /hpf (0-5) 08/19/24 13:14 Ur Squamous Epith Cells 0-5 /hpf (0-5) 08/19/24 13:14 Amorphous Sediment Not Reportable 08/19/24 13:14 Urine Bacteria None seen /hpf (N ONE) 08/19/24 13:14 Hyaline Casts 0-4 /lpf H 08/19/24 13:14 Salicylates < 0.3 mg/dL (3-10 ) L 08/19/24 13:08 Urine Opiates Scre en Negative ng/mL (N egative) 08/19/24 13:14 Acetaminophen < 5.0 ug/mL (10-3 0) L 08/19/24 13:08 Ur Barbiturates Sc reen Negative ng/mL (N egative) 08/19/24 13:14 Ur Phencyclidine S crn Negative ng/mL (N egative) 08/19/24 13:14 Ur Amphetamines Sc reen Positive ng/mL (N egative) H 08/19/24 13:14 U Benzodiazepines Scrn Negative ng/mL (N egative) 08/19/24 13:14 Urine Cocaine Scre en Negative ng/mL (N egative) 08/19/24 13:14 U Marijuana (THC) Screen Positive ng/mL (N egative) H 08/19/24 13:14 Ethyl Alcohol 123 mg/dL (0-10) H 08/19/24 13:08 Vitals: Last Vital Signs Temp 98.0 F 08/24/24 10:58 Pulse 82 08/24/24 10:58 Resp 18 08/24/24 10:58 BP 123/74 08/24/24 10:58 Pulse Ox 95 08/24/24 10:58 O2 Del Method Room Air 08/23/24 16:00 Discharge Plan Discharge Patient Disposition: Home Condition: Stable Prescriptions: New buprenorphine-naloxone 4-1 mg Film 1 film sublingual [phone] 7 Days Qty: 14 0RF folic acid 1 mg Tablet 1 mg PO DAILY 30 Days Qty: 30 0RF olanzapine 10 mg tablet 10 mg PO BEDTIME 30 Days Qty: 30 1RF thiamine mononitrate (vit B1) [Vitamin B-1 (mononitrate)] 100 mg Tablet 100 mg PO DAILY 30 Days Qty: 30 1RF nicotine (polacrilex) 4 mg lozenge 4 mg mucous membrane Q2H MDD 32mg in 24 hours PRN (Reason: nicotine cravings) Qty: 72 1RF Discontinued escitalopram oxalate 20 mg tablet 20 mg PO DAILY 30 Days Qty: 30 2RF chlorpromazine 100 mg tablet 100 mg PO .AM Qty: 30 2RF Discharge Orders: Discharge Order (Routine); Ordered 08/24/24 Ordered By: Filiberto Burdick Referrals: [facility] [Other] Dario Verma MD [Physician] - 08/26/24 10:15 am Ambar Marr DO [Referring] - 10/12/24 2:40 pm Discharge Diet: Usual diet Discharge Activity: Resume usual activity Patient Instructions: Olanzapine (By mouth) (Zyprexa, Zyprexa Zydis), Buprenorphine/Naloxone (Into the mouth) (Bunavail, Suboxone,..., Depression (DC), Help Prevent Suicide (DC), Opioid Safety Discharge Attestations NPU Time Spent in Discharge Care*: less than 30 min Specific Discharge Activities: Specific discharge activities: educating patient, discussing with keycase assembler/social workers/dc planners and documenting/other paperwork Coding Level of Care Code Acute Code for Chg Fwd Diagnoses Drug-induced hallucinosis F19.951 Complication of substance-induced condition: with hallucinations Chronic schizophrenia F20.9 Alcohol use disorder F10.90 Homelessness Z59.00 Morbid obesity E66.01 Methamphetamine use disorder, severe F15.20 Polysubstance abuse F19.10 Chronic alcohol abuse F10.10 Substance use disorder F19.90 Opioid use disorder, severe, on maintenance therapy, dependence F11.20 Amphetamine abuse F15.10
== END 2024-08-24 12:28 | disposition home or self-care (01) | DRG 897 ==
LOC: ER 16:55 → NP 17:22
PROVIDERS: Emergency Medicine; Admitting Provider Psychiatry & Neurology Psychiatry; Emergency Provider Physician Assistant; Visit Provider Psychiatry & Neurology Psychiatry
DX: F15.151 Other stimulant abuse with stimulant-induced psychotic disorder with hallucinations (principal); R45.851 Suicidal ideations; Z59.00 Homelessness unspecified; Z68.44 Body mass index [BMI] 60.0-69.9, adult; F20.9 Schizophrenia, unspecified; F10.10 Alcohol abuse, uncomplicated; F11.10 Opioid abuse, uncomplicated; F17.210 Nicotine dependence, cigarettes, uncomplicated; E66.01 Morbid (severe) obesity due to excess calories; Z91.128 Patient's intentional underdosing of medication regimen for other reason
CPT/HCPCS: 36415; 80053; 80306; 80307; 81001; 85025; 96372; 97150; 97165; 99285; J0573; J3411

== ENCOUNTER 2024-09-17 17:18 | Emergency (ER) | payer MEDICAID, SELFPAY ==
[2024-08-25 12:35] VITALS: BP 153/105; BMI 59.1
[2024-09-17 17:27] VITALS: BP 118/63; PULSE 101; RESP 20; TEMP 36.9; O2SAT 95; BMI 59.3
--- NOTE | 2024-09-17 17:33 | ED.C_ITS ---
HPI - Psych 2 General: Chief Complaint: Psychiatric Symptoms Stated Complaint: mhe Time Seen by Provider: 09/17/24 17:21 History of Present Illness: 34-year-old man with a history of morbid obesity, alcohol abuse, schizophrenia, polysubstance abuse and depression who presents emergency room by ambulance with suicidal thoughts. He says he wants to walk out into traffic. He also admits to continued drinking. He says he drank his usual amount today. Related Data Previous Rx's Medication Instructions Recorded folic acid 1 mg tablet 1 mg PO DAILY 30 days #30 tabs 08/24/24 nicotine (polacrilex) 4 mg buccal 4 mg mucous membrane Q2H PRN 08/24/24 lozenge nicotine cravings #72 ea olanzapine 10 mg tablet 10 mg PO BEDTIME 30 days #30 tabs 08/24/24 thiamine mononitrate (vit B1) 100 100 mg PO DAILY 30 days #30 tabs 08/24/24 mg tablet (Vitamin B-1 (mononitrate)) Allergies Allergy/AdvReac Type Severity Reaction Status Date / Time fentanyl Allergy Severe ADR-Seizure Verified 08/03/24 12:33 piperacillin [From Zosyn] Allergy Severe ALGY-Swell Verified 08/03/24 12:33 Lip/Tongue/Throat tazobactam [From Zosyn] Allergy Severe ALGY-Swell Verified 08/03/24 12:33 Lip/Tongue/Throat diphenhydramine Allergy Intermediate headache, Verified 08/03/24 12:33 [From Benadryl] restless leg cyclobenzaprine Allergy Nausea, Verified 08/03/24 12:33 [From Flexeril] vomiting, headache haloperidol [From Haldol] Allergy ADR-Cramping Verified 08/03/24 12:33 of the Muscles quetiapine [From Seroquel] Allergy ADR-Muscle Verified 08/03/24 12:33 Pain hydroxyzine AdvReac Intermediate Muscle Verified 08/03/24 12:33 spasms in arms & legs & increased anxiety. Review of Systems 2 Narrative: Constitutional symptoms: Negative except as documented in HPI. Skin symptoms: Negative except as documented in HPI. Eye symptoms: Negative except as documented in HPI. ENMT symptoms: Negative except as documented in HPI. Respiratory symptoms: Negative except as documented in HPI. Cardiovascular symptoms: Negative except as documented in HPI. Gastrointestinal symptoms: Negative except as documented in HPI. Genitourinary symptoms: Negative except as documented in HPI. Musculoskeletal symptoms: Negative except as documented in HPI. Neurologic symptoms: Negative except as documented in HPI. Psychiatric symptoms: Negative except as documented in HPI. Endocrine symptoms: Negative except as documented in HPI. PFSH ED 2 PFSH: Medical History Psychiatric care Alcohol withdrawal seizure Polysubstance abuse Biliary colic Morbid obesity Homelessness Schizophrenia Smoking addiction Alcohol use disorder Substance use disorder HTN (hypertension) Surgical History H/O esophagogastroduodenoscopy Family History Other Alcohol use disorder Colon cancer Social History Smoking and tobacco/nicotine status: current every day tobacco/nicotine user cigarettes Packs smoked per day: 3 Years cigarettes smoked: 25 and e-cigarettes E-Cigarette Details: e-cigarette and with nicotine E-cig/vape details: 20,000 puffs disposable goes through it in a week or two Quit status (tobacco/nicotine): considering quitting Second hand smoke exposure: No Alcohol intake: former Former alcohol use details: 05/2023 Substance/Drug Use: current Substance/Drug use frequency: daily Adopted: No Caregiver/support person: No Lives independently: Yes Household members: none Housing: Manufactured/Mobile home Marital status: Number of children: 3 Number of grandchildren: 0 Highest education level completed: GED or Equivalent service: No Current occupational status: disabled Current occupation: trying to get disability Pets and animals: Yes Pets & animals: cat(s), dog(s), fish and farm animals Farm Animals: horses/donkey/mule Pets & animal details: cows Leisure activites: other Leisure activities details: watch TV Sexually active: No Do you think of yourself as: Straight/Heterosexual Current gender identity: Male Mariia/Sikhism: Religious Special mariia needs: No Agree to transfusion: Yes Physical Exam 2 Narrative: EXAM NARRATIVE: General: Alert. no acute distress Skin: Warm, dry Head: Normocephalic, atraumatic. Neck: Supple, trachea midline. Eye: Extraocular movements are intact. Ears, nose, mouth and throat: Oral mucosa moist. Cardiovascular: Regular rate and rhythm, Normal peripheral perfusion. Respiratory: Lungs are clear to auscultation, respirations are non-labored, breath sounds are equal, Symmetrical chest wall expansion. Gastrointestinal: Soft, Nontender, Non distended, Normal bowel sounds. Musculoskeletal: Normal ROM, no deformity. Neurological: Alert and oriented to person, place, time, and situation, No focal neurological deficit observed. Psychiatric: Cooperative, depressed, expresses suicidal ideation. Course 2 Vital Signs: Vital signs: Vital Signs Temperature 98.5 F 09/17/24 17:27 Pulse Rate 101 H 09/17/24 17:27 Respiratory Rate 24 H 09/17/24 18:40 Blood Pressure 118/63 09/17/24 17:27 Pulse Oximetry 95 09/17/24 17:27 Oxygen Delivery Me thod Room Air 09/17/24 17:27 MDM - Psych Medical Decision Making Differential diagnosis: Patient with reported depression and suicidal ideation. concerns for infection, alcohol intoxication, cardiac issues or other medical problems prior to psychiatric admission. Workup: labwork, ekg ordered to evaluate the pathologies and to clear the patient medically prior to psychiatric admission EKG: Time 1734. Rate 105. Sinus tachycardia. No ST-T changes, no ectopy, normal VT & QRS intervals, This was reviewed and interpreted by myself the ER physician Chest x-ray: No acute process. No infiltrate. No pneumothorax. This was reviewed and interpreted by myself the emergency room physician. I also reviewed the radiology report. Lab Review: Laboratory results were reviewed and interpreted by myself the emergency room physician. - Medically cleared. - EKG shows no ischemic changes. - Blood alcohol level is -Tylenol and salicylate levels are negative. - Drug screen is - No signs of infection, urinalysis clear and white count is not elevated - No anemia. - BUN and creatinine are within normal limits. ?Flu COVID and RSV are negative. Assessment and plan: Suicidal ideation Alcohol intoxication Alcohol dependence ?Patient has a 96-hour hold placed. ?Start looking for transfer and wait for blood alcohol level to come down. Patient is chronic alcoholic and is awake and alert with his blood alcohol level. -Patient will require admission to neuropsychiatric unit for continued evaluation and treatment. - All lab work was reviewed and interpreted personally by myself, the ER physician - Evaluation and treatment of this problem were appropriate in the emergency setting Lab Data 09/17/24 17:32 09/17/24 17:32 Laboratory Results WBC 10.01 10^3/uL (3.29-11.43) 09/17/24 17:32 RBC 4.73 10^6/uL (3.85-5.65) 09/17/24 17:32 Hgb 15.20 g/dL (11.27-16.99) 09/17/24 17:32 Hct 45.0 % (37-53) 09/17/24 17:32 MCV 95.1 fl (82-101) 09/17/24 17:32 MCH 32.1 pg (27-33) 09/17/24 17:32 MCHC 33.8 g/dL (30-55) 09/17/24 17:32 RDW 12.9 % (12.1-15.1) 09/17/24 17:32 Plt Count 270 10^3/cmm (157-399) 09/17/24 17:32 MPV 9.3 fL (7.4-10.4) 09/17/24 17:32 Neut % (Auto) 37.1 % 09/17/24 17:32 Lymph % (Auto) 55.7 % 09/17/24 17:32 Centre % (Auto) 5.0 % 09/17/24 17:32 Eos % (Auto) 1.1 % 09/17/24 17:32 Baso % (Auto) 0.8 % 09/17/24 17:32 Neut # (Auto) 3.71 10^3/uL (1.8-7.7) 09/17/24 17:32 Lymph # (Auto) 5.6 10^3/uL (0.8-4.8) H 09/17/24 17:32 [place] # (Auto) 0.5 10^3/uL (0.2-0.9) 09/17/24 17:32 Eos # (Auto) 0.1 10^3/uL (0.0-0.8) 09/17/24 17:32 Baso # (Auto) 0.1 10^3/uL (0.0-0.1) 09/17/24 17:32 Nucleated RBC % (auto) 0 % 09/17/24 17:32 Nucleated RBCs # 0.0 /100WBC 09/17/24 17:32 Sodium 139 mmol/L (136-145) 09/17/24 17:32 Potassium 3.9 mmol/L (3.5-5.1) 09/17/24 17:32 Chloride 102 mmol/L (98-107) 09/17/24 17:32 Carbon Dioxide 23 mmol/L (22-29) 09/17/24 17:32 Anion Gap 17.9 (5-19) 09/17/24 17:32 BUN 9 mg/dL (6-20) 09/17/24 17:32 Creatinine 0.7 mg/dL (0.7-1.2) 09/17/24 17:32 GFR Calculation 129.1 mL/min (90-130) 09/17/24 17:32 Glucose 93 mg/dL (65-115) 09/17/24 17:32 Calculated Osmolality 286 mOsm/kg (285-295) 09/17/24 17:32 Calcium 8.7 mg/dL (8.5-10.5) 09/17/24 17:32 Total Bilirubin 0.2 mg/dL (0.15-1.2) 09/17/24 17:32 AST 44 U/L (0-40) H 09/17/24 17:32 ALT 43 U/L (0-41) H 09/17/24 17:32 Alkaline Phosphatase 95 U/L (40-130) 09/17/24 17:32 Total Protein 7.7 g/dL (6.6-8.7) 09/17/24 17:32 Albumin 3.9 g/dL (3.5-5.2) 09/17/24 17:32 Globulin 3.8 g/dL (1.3-4.6) 09/17/24 17:32 TSH 0.92 uIU/mL (0.27-4.20) 09/17/24 17:32 Salicylates < 0.3 mg/dL (3-10) L 09/17/24 17:32 Acetaminophen < 5.0 ug/mL (10-30) L 09/17/24 17:32 Ethyl Alcohol 263 mg/dL (0-10) H 09/17/24 17:32 Coronavirus (PCR) Negative (Negative) 09/17/24 17:36 Influenza A (PCR) Negative (Negative) 09/17/24 17:36 Influenza Type B (PCR) Negative (Negative) 09/17/24 17:36 RSV (PCR) Negative (Negative) 09/17/24 17:36 All radiology interpretation(s) finalized by discharge Discharge Plan Discharge Patient Disposition: Xfer Psychiatric Hosp Clinical Impression: Chronic alcohol abuse, Suicidal ideation, Alcohol intoxication Condition: Stable Discharge Diet: Usual diet Coding Level of Care Code ED Corn Sheller Operator for Levi Bullard
--- NOTE | 2024-09-17 17:34 | ECG_ITS ---
[facility] Date: 2024-09-17 Pat Name: Radhames Spears Department: Room: Gender: Male Control Tower Operator: : 1990 Requested By: Caryn Soria Order Number: [id number] Gaffney MD: Vanita Patel M.D. Measurements Intervals [place] Rate: 105 P: 56 AK: 161 QRS: 82 QRSD: 105 T: 40 QT: 339 QTc: 449 Interpretive Statements SINUS TACHYCARDIA ABNORMAL RHYTHM ECG Compared to ECG 11/06/2023 14:04:11 Sinus rhythm no longer present Intraventricular conduction delay no longer present Electronically Signed On 09-18-2024 22:30:11 SENIOR LIVING SALES COUNSELOR by Vanita Patel M.D. [email or web address]
[2024-09-17 17:39] LABS: Basophils # 0.1 10^3/uL (0.0-0.1); Basophils % 0.8 %; Eosinophils # 0.1 10^3/uL (0.0-0.8); Eosinophils % 1.1 %; Lymphocytes # 5.6 10^3/uL (0.8-4.8); Lymphocytes % 55.7 %; Mean Corpuscular HGB Conc 33.8 g/dL (30-55); Mean Corpuscular Hemoglobin 32.1 pg (27-33); Mean Corpuscular Volume 95.1 fl (82-101); Mean Platelet Volume 9.3 fL (7.4-10.4); Monocytes # 0.5 10^3/uL (0.2-0.9); Neutrophils # 3.71 10^3/uL (1.8-7.7); Neutrophils % 37.1 %; Nucleated Red Blood Cells % 0 %; Platelet Count 270 10^3/cmm (157-399); Red Blood Count 4.73 10^6/uL (3.85-5.65); Red Cell Distribution Width 12.9 % (12.1-15.1); White Blood Count 10.01 10^3/uL (3.29-11.43)
[2024-09-17 18:10] LABS: Acetaminophen < 5.0 ug/mL (10-30); Alanine Aminotransferase 43 U/L (0-41); Albumin Level 3.9 g/dL (3.5-5.2); Alcohol Level 263 mg/dL (0-10); Alkaline Phosphatase 95 U/L (40-130); Anion Gap 17.9 (5-19); Aspartate Amino Transferase 44 U/L (0-40); Blood Urea Nitrogen 9 mg/dL (6-20); Calcium 8.7 mg/dL (8.5-10.5); Carbon Dioxide 23 mmol/L (22-29); Chloride 102 mmol/L (98-107); Creatinine Clr Calc Pharmacy 272.5437; Globulin 3.8 g/dL (1.3-4.6); Glomerular Filtration Rate 129.1 mL/min (90-130); Glucose 93 mg/dL (65-115); Osmolality Calculated 286 mOsm/kg (285-295); Potassium 3.9 mmol/L (3.5-5.1); Salicylate < 0.3 mg/dL (3-10); Sodium 139 mmol/L (136-145); Thyroid Stimulating Hormone 0.92 uIU/mL (0.27-4.20); Total Bilirubin 0.2 mg/dL (0.15-1.2); Total Protein 7.7 g/dL (6.6-8.7)
[2024-09-17] MEDS: ziprasidone 20 mg/mL SDV IM (18:33)
[2024-09-17] MEDS: LORazepam 2 mg/mL INJ 1 mL IM (18:33)
[2024-09-17 18:40] VITALS: RESP 24
--- NOTE | 2024-09-17 18:48 | PC.NURSE ---
96 HOUR HOLD PT RIGHTS READ. PT IS AGITATED AND BREATHING HEAVY. SECURITY IS PRESENT. PTS QUESTIONS ANSWERED AND EDUCATION PROVIDED. SUPPORT VOICED.
[2024-09-17 19:20] LABS: Covid PCR NEGATIVE (Negative); Influenza A NEGATIVE (Negative); Influenza B NEGATIVE (Negative); Respiratory Syncytial Virus Ce NEGATIVE (Negative)
--- NOTE | 2024-09-17 19:55 | XRR_ITS ---
PROCEDURE INFORMATION: Exam: XR Chest Exam date and time: 09/17/2024 8:15 PM Age: 34 years old Clinical indication: Other: Medical clearance for psych transfer TECHNIQUE: Imaging protocol: Radiologic exam of the chest. Views: 1 view. COMPARISON: CR XR chest 1V portable [id number] 11/06/2023 2:36 PM FINDINGS: Lungs: No consolidation. Pleural spaces: No pleural effusion. No pneumothorax. Heart/Mediastinum: Stable cardiac contour. Bones/joints: No acute findings. XR/XR chest 1V portable [id number] IMPRESSION: No acute findings.
[2024-09-17 20:51] LABS: Bilirubin Urine Negative (Negative); Blood Urine Negative (Negative); Glucose Urine UA Negative (Normal); Ketones Urine Negative (Negative); Leukocyte Esterase Urine Negative (Negative); Nitrate Urine Negative (Negative); Protein Urine Negative (Negative); Specific Gravity, Urine 1.016 (1.005-1.030); Urine Appearance Clear (CLEAR); Urine Color Yellow (Yellow); pH Urine 5.5 (5-7)
[2024-09-17 20:53] LABS: Bacteria Urine None Seen /hpf; Hyaline Casts Urine 0.81 /lpf; RBC Urine 0-2 /hpf (0-2); Squamous Epithelial Cell Urine 0-5 /hpf (0-5); WBC Urine 0-5 /hpf (0-5)
[2024-09-17 20:58] LABS: Amphetamines Screen Urine Negative (Negative); Barbiturates Screen Urine Negative (Negative); Benzodiazepines Screen Urine Negative (Negative); Cocaine Screen Urine Negative (Negative); Opiate Screen Urine Negative (Negative); PCP Screen Urine Negative (Negative); THC Screen Urine Positive (Negative)
--- NOTE | 2024-09-18 03:57 | PC.NURSE ---
Rounded on pt. Pt given sandwich and drink. Pt calm and cooperative.
[2024-09-18 04:07] LABS: Alcohol Level < 10 mg/dL (0-10)
[2024-09-18] MEDS: nicotine 21 mg Patch 1 PATCH TRANSDERMA (04:15)
[2024-09-18 06:47] VITALS: BP 151/98; PULSE 90; RESP 16; O2SAT 93
--- NOTE | 2024-09-18 06:47 | PC.NURSE ---
pt currently denying SI/HI to this RN. notified. pt states that he only said it because he was drunk.
[2024-09-18] MEDS: LORazepam 2 mg/mL INJ 1 mL IM ×2 (07:47→15:04)
--- NOTE | 2024-09-18 15:06 | PC.NURSE ---
PT STATES HE IS BECOMING MORE ANXIOUS. DR. BENJAMIN NOTIFIED, VERBAL ORDER FOR ATIVAN GIVEN.
--- NOTE | 2024-09-18 16:14 | ED.C_ITS ---
HPI - Psych 2 General: Chief Complaint: Psychiatric Symptoms Stated Complaint: mhe Time Seen by Provider: 09/17/24 17:21 History of Present Illness: 34-year-old man who I saw yesterday was placed on a 96-hour hold. He was intoxicated and saying he wanted to walk out in traffic and that he was drunk. Today he tells me he is all better now. Says he just said all the things he said because he was drunk. He is sober now. He has been declined at several facilities today secondary to this. Related Data Home Medications Medication Instructions Recorded Confirmed buprenorphine 4 mg-naloxone 1 mg 1 film buccal BID 09/18/24 09/18/24 sublingual film (Suboxone) buspirone 10 mg tablet 10 mg PO TID 09/18/24 09/18/24 cetirizine 10 mg tablet 10 mg PO DAILY 09/18/24 09/18/24 chlorpromazine 100 mg tablet 100 mg PO QAM 09/18/24 09/18/24 escitalopram oxalate 20 mg tablet 20 mg PO DAILY 09/18/24 09/18/24 tramadol 50 mg tablet 50 mg PO TID PRN Pain 09/18/24 09/18/24 Previous Rx's Medication Instructions Recorded folic acid 1 mg tablet 1 mg PO DAILY 30 days #30 tabs 08/24/24 nicotine (polacrilex) 4 mg buccal 4 mg mucous membrane Q2H PRN 08/24/24 lozenge nicotine cravings #72 ea olanzapine 10 mg tablet 10 mg PO BEDTIME 30 days #30 tabs 08/24/24 thiamine mononitrate (vit B1) 100 100 mg PO DAILY 30 days #30 tabs 08/24/24 mg tablet (Vitamin B-1 (mononitrate)) Allergies Allergy/AdvReac Type Severity Reaction Status Date / Time fentanyl Allergy Severe ADR-Seizure Verified 08/03/24 12:33 piperacillin [From Zosyn] Allergy Severe ALGY-Swell Verified 08/03/24 12:33 Lip/Tongue/Throat tazobactam [From Zosyn] Allergy Severe ALGY-Swell Verified 08/03/24 12:33 Lip/Tongue/Throat diphenhydramine Allergy Intermediate headache, Verified 08/03/24 12:33 [From Benadryl] restless leg cyclobenzaprine Allergy Nausea, Verified 08/03/24 12:33 [From Flexeril] vomiting, headache haloperidol [From Haldol] Allergy ADR-Cramping Verified 08/03/24 12:33 of the Muscles quetiapine [From Seroquel] Allergy ADR-Muscle Verified 08/03/24 12:33 Pain hydroxyzine AdvReac Intermediate Muscle Verified 08/03/24 12:33 spasms in arms & legs & increased anxiety. Review of Systems 2 Narrative: Constitutional symptoms: Negative except as documented in HPI. Skin symptoms: Negative except as documented in HPI. Eye symptoms: Negative except as documented in HPI. ENMT symptoms: Negative except as documented in HPI. Respiratory symptoms: Negative except as documented in HPI. Cardiovascular symptoms: Negative except as documented in HPI. Gastrointestinal symptoms: Negative except as documented in HPI. Genitourinary symptoms: Negative except as documented in HPI. Musculoskeletal symptoms: Negative except as documented in HPI. Neurologic symptoms: Negative except as documented in HPI. Psychiatric symptoms: Negative except as documented in HPI. Endocrine symptoms: Negative except as documented in HPI. PFSH ED 2 PFSH: Medical History Psychiatric care Alcohol withdrawal seizure Polysubstance abuse Biliary colic Morbid obesity Homelessness Schizophrenia Smoking addiction Alcohol use disorder Substance use disorder HTN (hypertension) Surgical History H/O esophagogastroduodenoscopy Family History Other Alcohol use disorder Colon cancer Social History Smoking and tobacco/nicotine status: current every day tobacco/nicotine user cigarettes Packs smoked per day: 3 Years cigarettes smoked: 25 and e-cigarettes E-Cigarette Details: e-cigarette and with nicotine E-cig/vape details: 20,000 puffs disposable goes through it in a week or two Quit status (tobacco/nicotine): considering quitting Second hand smoke exposure: No Alcohol intake: former Former alcohol use details: 05/2023 Substance/Drug Use: current Substance/Drug use frequency: daily Adopted: No Caregiver/support person: No Lives independently: Yes Household members: none Housing: Manufactured/Mobile home Marital status: Number of children: 3 Number of grandchildren: 0 Highest education level completed: GED or Equivalent service: No Current occupational status: disabled Current occupation: trying to get disability Pets and animals: Yes Pets & animals: cat(s), dog(s), fish and farm animals Farm Animals: horses/donkey/mule Pets & animal details: cows Leisure activites: other Leisure activities details: watch TV Sexually active: No Do you think of yourself as: Straight/Heterosexual Current gender identity: Male Mariia/Restorationism: Yarsani Special mariia needs: No Agree to transfusion: Yes Physical Exam 2 Narrative: EXAM NARRATIVE: General: Alert, no acute distress. Skin: Warm, dry. Head: Normocephalic, atraumatic. Neck: Supple, trachea midline. Eye: Extraocular movements are intact. Ears, nose, mouth and throat: mucosa moist. Cardiovascular: Regular, Normal peripheral perfusion. Respiratory: Lungs are clear to auscultation, respirations are non-labored, breath sounds are equal, Symmetrical chest wall expansion. Gastrointestinal: Soft, Nontender, Non distended Musculoskeletal: Normal ROM, no deformity. Neurological: Alert and oriented, No focal neurological deficit observed. Psychiatric: Cooperative, appropriate mood & affect. Course 2 Vital Signs: Vital signs: Vital Signs Temperature 98.5 F 09/17/24 17:27 Pulse Rate 90 09/18/24 06:47 Respiratory Rate 16 09/18/24 06:47 Blood Pressure 151/98 09/18/24 06:47 Pulse Oximetry 93 09/18/24 06:47 Oxygen Delivery Me thod Room Air 09/18/24 06:47 MDM - Psych Medical Decision Making Patient's alcohol level is down to 0. He is stated that he is not suicidal anymore. However I talk with Dr. Espino who says that he needs to be admitted. He was admitted for a long time previously. Patient remained stable. Lab Data 09/17/24 17:32 09/17/24 17:32 Radiology Impressions Chest X-Ray 09/17/24 19:55 IMPRESSION: No acute findings. Laboratory Results WBC 10.01 10^3/uL (3.29-11.43) 09/17/24 17:32 RBC 4.73 10^6/uL (3.85-5.65) 09/17/24 17:32 Hgb 15.20 g/dL (11.27-16.99) 09/17/24 17:32 Hct 45.0 % (37-53) 09/17/24 17:32 MCV 95.1 fl (82-101) 09/17/24 17:32 MCH 32.1 pg (27-33) 09/17/24 17:32 MCHC 33.8 g/dL (30-55) 09/17/24 17:32 RDW 12.9 % (12.1-15.1) 09/17/24 17:32 Plt Count 270 10^3/cmm (157-399) 09/17/24 17:32 MPV 9.3 fL (7.4-10.4) 09/17/24 17:32 Neut % (Auto) 37.1 % 09/17/24 17:32 Lymph % (Auto) 55.7 % 09/17/24 17:32 [place] % (Auto) 5.0 % 09/17/24 17:32 Eos % (Auto) 1.1 % 09/17/24 17:32 Baso % (Auto) 0.8 % 09/17/24 17:32 Neut # (Auto) 3.71 10^3/uL (1.8-7.7) 09/17/24 17:32 Lymph # (Auto) 5.6 10^3/uL (0.8-4.8) H 09/17/24 17:32 [place] # (Auto) 0.5 10^3/uL (0.2-0.9) 09/17/24 17:32 Eos # (Auto) 0.1 10^3/uL (0.0-0.8) 09/17/24 17:32 Baso # (Auto) 0.1 10^3/uL (0.0-0.1) 09/17/24 17:32 Nucleated RBC % (auto) 0 % 09/17/24 17:32 Nucleated RBCs # 0.0 /100WBC 09/17/24 17:32 Sodium 139 mmol/L (136-145) 09/17/24 17:32 Potassium 3.9 mmol/L (3.5-5.1) 09/17/24 17:32 Chloride 102 mmol/L (98-107) 09/17/24 17:32 Carbon Dioxide 23 mmol/L (22-29) 09/17/24 17:32 Anion Gap 17.9 (5-19) 09/17/24 17:32 BUN 9 mg/dL (6-20) 09/17/24 17:32 Creatinine 0.7 mg/dL (0.7-1.2) 09/17/24 17:32 GFR Calculation 129.1 mL/min (90-130) 09/17/24 17:32 Glucose 93 mg/dL (65-115) 09/17/24 17:32 Calculated Osmolality 286 mOsm/kg (285-295) 09/17/24 17:32 Calcium 8.7 mg/dL (8.5-10.5) 09/17/24 17:32 Total Bilirubin 0.2 mg/dL (0.15-1.2) 09/17/24 17:32 AST 44 U/L (0-40) H 09/17/24 17:32 ALT 43 U/L (0-41) H 09/17/24 17:32 Alkaline Phosphatase 95 U/L (40-130) 09/17/24 17:32 Total Protein 7.7 g/dL (6.6-8.7) 09/17/24 17:32 Albumin 3.9 g/dL (3.5-5.2) 09/17/24 17:32 Globulin 3.8 g/dL (1.3-4.6) 09/17/24 17:32 TSH 0.92 uIU/mL (0.27-4.20) 09/17/24 17:32 Urine Color Yellow (Yellow) 09/17/24 18:01 Urine Appearance Clear (CLEAR) 09/17/24 18:01 Urine pH 5.5 (5-7) 09/17/24 18:01 Ur Specific [place] 1.016 (1.005-1.030) 09/17/24 18:01 Urine Protein Negative (Negative) 09/17/24 18:01 Urine Glucose (UA) Negative (Normal) 09/17/24 18:01 Urine Ketones Negative (Negative) 09/17/24 18:01 Urine Blood Negative (Negative) 09/17/24 18:01 Urine Nitrate Negative (Negative) 09/17/24 18:01 Urine Bilirubin Negative (Negative) 09/17/24 18:01 Urine Urobilinogen 1.0 mg/dL (Negative) 09/17/24 18:01 Ur Leukocyte Esterase Negative (Negative) 09/17/24 18:01 Urine RBC 0-2 /hpf (0-2) 09/17/24 18:01 Urine WBC 0-5 /hpf (0-5) 09/17/24 18:01 Ur Squamous Epith Cells 0-5 /hpf (0-5) 09/17/24 18:01 Amorphous Sediment Not Reportable 09/17/24 18:01 Urine Bacteria None seen /hpf (NONE) 09/17/24 18:01 Hyaline Casts 0.81 /lpf 09/17/24 18:01 Salicylates < 0.3 mg/dL (3-10) L 09/17/24 17:32 Urine Opiates Screen Negative ng/mL (Negative) 09/17/24 18:01 Acetaminophen < 5.0 ug/mL (10-30) L 09/17/24 17:32 Ur Barbiturates Screen Negative ng/mL (Negative) 09/17/24 18:01 Ur Phencyclidine Scrn Negative ng/mL (Negative) 09/17/24 18:01 Ur Amphetamines Screen Negative ng/mL (Negative) 09/17/24 18:01 U Benzodiazepines Scrn Negative ng/mL (Negative) 09/17/24 18:01 Urine Cocaine Screen Negative ng/mL (Negative) 09/17/24 18:01 U Marijuana (THC) Screen Positive ng/mL (Negative) H 09/17/24 18:01 Ethyl Alcohol < 10 mg/dL (0-10) 09/18/24 03:39 Coronavirus (PCR) Negative (Negative) 09/17/24 17:36 Influenza A (PCR) Negative (Negative) 09/17/24 17:36 Influenza Type B (PCR) Negative (Negative) 09/17/24 17:36 RSV (PCR) Negative (Negative) 09/17/24 17:36 All radiology interpretation(s) finalized by discharge Discharge Plan Discharge Patient Disposition: Xfer Psychiatric Hosp Clinical Impression: Chronic alcohol abuse, Suicidal ideation, Alcohol intoxication Condition: Stable Discharge Diet: Usual diet Coding Level of Care Code ED Excel Vba Developer for Levi Bullard
[2024-09-18] MEDS: LORazepam 2 mg/mL INJ 1 mL 1 MG IM (19:05)
--- NOTE | 2024-09-18 19:07 | PC.NURSE ---
Took over care of this pt at this time. Pt sitting in chair watching tv. Calm and cooperative. Meds given as ordered. Denies further needs.
[2024-09-18] MEDS: TRAMadol 50 mg Tablet PO (19:48)
--- NOTE | 2024-09-19 07:11 | PC.NURSE ---
took over pt care from KATY Moss @ [phone]
[2024-09-19 07:23] VITALS: BP 156/87; PULSE 101; O2SAT 96
[2024-09-19] MEDS: LORazepam 2 mg Tablet PO (10:07)
[2024-09-19] MEDS: nicotine 21 mg Patch 1 PATCH TRANSDERMA (10:28)
[2024-09-19] MEDS: ziprasidone 20 mg/mL SDV IM (16:15)
[2024-09-19] MEDS: LORazepam 2 mg/mL INJ 1 mL IM (16:27)
[2024-09-19 18:00] VITALS: BP 165/115; PULSE 84; O2SAT 96
--- NOTE | 2024-09-19 19:44 | ED.C_ITS ---
HPI - Psych 2 General: Chief Complaint: Psychiatric Symptoms Stated Complaint: mhe Time Seen by Provider: 09/17/24 17:21 History of Present Illness: Patient has been awaiting placement for about 3 days now. I saw him again today. He is complaining of anxiety and wanting pain medication. No other acute complaints. He is standing at the doorway. Related Data Home Medications Medication Instructions Recorded Confirmed buprenorphine 4 mg-naloxone 1 mg 1 film buccal BID 09/18/24 09/18/24 sublingual film (Suboxone) buspirone 10 mg tablet 10 mg PO TID 09/18/24 09/18/24 cetirizine 10 mg tablet 10 mg PO DAILY 09/18/24 09/18/24 chlorpromazine 100 mg tablet 100 mg PO QAM 09/18/24 09/18/24 escitalopram oxalate 20 mg tablet 20 mg PO DAILY 09/18/24 09/18/24 tramadol 50 mg tablet 50 mg PO TID PRN Pain 09/18/24 09/18/24 Previous Rx's Medication Instructions Recorded folic acid 1 mg tablet 1 mg PO DAILY 30 days #30 tabs 08/24/24 nicotine (polacrilex) 4 mg buccal 4 mg mucous membrane Q2H PRN 08/24/24 lozenge nicotine cravings #72 ea olanzapine 10 mg tablet 10 mg PO BEDTIME 30 days #30 tabs 08/24/24 thiamine mononitrate (vit B1) 100 100 mg PO DAILY 30 days #30 tabs 08/24/24 mg tablet (Vitamin B-1 (mononitrate)) Allergies Allergy/AdvReac Type Severity Reaction Status Date / Time fentanyl Allergy Severe ADR-Seizure Verified 08/03/24 12:33 piperacillin [From Zosyn] Allergy Severe ALGY-Swell Verified 08/03/24 12:33 Lip/Tongue/Throat tazobactam [From Zosyn] Allergy Severe ALGY-Swell Verified 08/03/24 12:33 Lip/Tongue/Throat diphenhydramine Allergy Intermediate headache, Verified 08/03/24 12:33 [From Benadryl] restless leg cyclobenzaprine Allergy Nausea, Verified 08/03/24 12:33 [From Flexeril] vomiting, headache haloperidol [From Haldol] Allergy ADR-Cramping Verified 08/03/24 12:33 of the Muscles quetiapine [From Seroquel] Allergy ADR-Muscle Verified 08/03/24 12:33 Pain hydroxyzine AdvReac Intermediate Muscle Verified 08/03/24 12:33 spasms in arms & legs & increased anxiety. Review of Systems 2 Narrative: Constitutional symptoms: Negative except as documented in HPI. Skin symptoms: Negative except as documented in HPI. Eye symptoms: Negative except as documented in HPI. ENMT symptoms: Negative except as documented in HPI. Respiratory symptoms: Negative except as documented in HPI. Cardiovascular symptoms: Negative except as documented in HPI. Gastrointestinal symptoms: Negative except as documented in HPI. Genitourinary symptoms: Negative except as documented in HPI. Musculoskeletal symptoms: Negative except as documented in HPI. Neurologic symptoms: Negative except as documented in HPI. Psychiatric symptoms: Negative except as documented in HPI. Endocrine symptoms: Negative except as documented in HPI. PFSH ED 2 PFSH: Medical History Psychiatric care Alcohol withdrawal seizure Polysubstance abuse Biliary colic Morbid obesity Homelessness Schizophrenia Smoking addiction Alcohol use disorder Substance use disorder HTN (hypertension) Surgical History H/O esophagogastroduodenoscopy Family History Other Alcohol use disorder Colon cancer Social History Smoking and tobacco/nicotine status: current every day tobacco/nicotine user cigarettes Packs smoked per day: 3 Years cigarettes smoked: 25 and e-cigarettes E-Cigarette Details: e-cigarette and with nicotine E-cig/vape details: 20,000 puffs disposable goes through it in a week or two Quit status (tobacco/nicotine): considering quitting Second hand smoke exposure: No Alcohol intake: former Former alcohol use details: 05/2023 Substance/Drug Use: current Substance/Drug use frequency: daily Adopted: No Caregiver/support person: No Lives independently: Yes Household members: none Housing: Manufactured/Mobile home Marital status: Number of children: 3 Number of grandchildren: 0 Highest education level completed: GED or Equivalent service: No Current occupational status: disabled Current occupation: trying to get disability Pets and animals: Yes Pets & animals: cat(s), dog(s), fish and farm animals Farm Animals: horses/donkey/mule Pets & animal details: cows Leisure activites: other Leisure activities details: watch TV Sexually active: No Do you think of yourself as: Straight/Heterosexual Current gender identity: Male Mariia/Bahai: Confucianist Special mariia needs: No Agree to transfusion: Yes Physical Exam 2 Narrative: EXAM NARRATIVE: General: Alert, no acute distress. Skin: warm and dry Head: Normocephalic Neck: Trachea midline Eye: Extraocular movements are intact. Ears, nose, mouth and throat: Oral mucosa moist Respiratory: Respirations are non-labored Musculoskeletal: Normal ROM Neurological: Alert and oriented, No focal neurological deficit observed. Psychiatric: Cooperative, patient is anxious Course 2 Vital Signs: Vital signs: Vital Signs Temperature 98.5 F 09/17/24 17:27 Pulse Rate 84 09/19/24 18:00 Respiratory Rate 16 09/18/24 06:47 Blood Pressure 165/115 09/19/24 18:00 Pulse Oximetry 96 09/19/24 18:00 Oxygen Delivery Me thod Room Air 09/18/24 06:47 MDM - Psych Medical Decision Making Patient has been accepted to a psychiatric facility. Awaiting transport. Lab Data 09/17/24 17:32 09/17/24 17:32 Radiology Impressions Chest X-Ray 09/17/24 19:55 IMPRESSION: No acute findings. Laboratory Results WBC 10.01 10^3/uL (3.29-11.43) 09/17/24 17:32 RBC 4.73 10^6/uL (3.85-5.65) 09/17/24 17:32 Hgb 15.20 g/dL (11.27-16.99) 09/17/24 17:32 Hct 45.0 % (37-53) 09/17/24 17:32 MCV 95.1 fl (82-101) 09/17/24 17:32 MCH 32.1 pg (27-33) 09/17/24 17:32 MCHC 33.8 g/dL (30-55) 09/17/24 17:32 RDW 12.9 % (12.1-15.1) 09/17/24 17:32 Plt Count 270 10^3/cmm (157-399) 09/17/24 17:32 MPV 9.3 fL (7.4-10.4) 09/17/24 17:32 Neut % (Auto) 37.1 % 09/17/24 17:32 Lymph % (Auto) 55.7 % 09/17/24 17:32 [place] % (Auto) 5.0 % 09/17/24 17:32 Eos % (Auto) 1.1 % 09/17/24 17:32 Baso % (Auto) 0.8 % 09/17/24 17:32 Neut # (Auto) 3.71 10^3/uL (1.8-7.7) 09/17/24 17:32 Lymph # (Auto) 5.6 10^3/uL (0.8-4.8) H 09/17/24 17:32 [place] # (Auto) 0.5 10^3/uL (0.2-0.9) 09/17/24 17:32 Eos # (Auto) 0.1 10^3/uL (0.0-0.8) 09/17/24 17:32 Baso # (Auto) 0.1 10^3/uL (0.0-0.1) 09/17/24 17:32 Nucleated RBC % (auto) 0 % 09/17/24 17:32 Nucleated RBCs # 0.0 /100WBC 09/17/24 17:32 Sodium 139 mmol/L (136-145) 09/17/24 17:32 Potassium 3.9 mmol/L (3.5-5.1) 09/17/24 17:32 Chloride 102 mmol/L (98-107) 09/17/24 17:32 Carbon Dioxide 23 mmol/L (22-29) 09/17/24 17:32 Anion Gap 17.9 (5-19) 09/17/24 17:32 BUN 9 mg/dL (6-20) 09/17/24 17:32 Creatinine 0.7 mg/dL (0.7-1.2) 09/17/24 17:32 GFR Calculation 129.1 mL/min (90-130) 09/17/24 17:32 Glucose 93 mg/dL (65-115) 09/17/24 17:32 Calculated Osmolality 286 mOsm/kg (285-295) 09/17/24 17:32 Calcium 8.7 mg/dL (8.5-10.5) 09/17/24 17:32 Total Bilirubin 0.2 mg/dL (0.15-1.2) 09/17/24 17:32 AST 44 U/L (0-40) H 09/17/24 17:32 ALT 43 U/L (0-41) H 09/17/24 17:32 Alkaline Phosphatase 95 U/L (40-130) 09/17/24 17:32 Total Protein 7.7 g/dL (6.6-8.7) 09/17/24 17:32 Albumin 3.9 g/dL (3.5-5.2) 09/17/24 17:32 Globulin 3.8 g/dL (1.3-4.6) 09/17/24 17: TSH 0.92 uIU/mL (0.27-4.20) 09/17/24 17:32 Urine Color Yellow (Yellow) 09/17/24 18:01 Urine Appearance Clear (CLEAR) 09/17/24 18:01 Urine pH 5.5 (5-7) 09/17/24 18:01 Ur Specific [place] 1.016 (1.005-1.030) 09/17/24 18:01 Urine Protein Negative (Negative) 09/17/24 18:01 Urine Glucose (UA) Negative (Normal) 09/17/24 18:01 Urine Ketones Negative (Negative) 09/17/24 18:01 Urine Blood Negative (Negative) 09/17/24 18:01 Urine Nitrate Negative (Negative) 09/17/24 18:01 Urine Bilirubin Negative (Negative) 09/17/24 18:01 Urine Urobilinogen 1.0 mg/dL (Negative) 09/17/24 18:01 Ur Leukocyte Esterase Negative (Negative) 09/17/24 18:01 Urine RBC 0-2 /hpf (0-2) 09/17/24 18:01 Urine WBC 0-5 /hpf (0-5) 09/17/24 18:01 Ur Squamous Epith Cells 0-5 /hpf (0-5) 09/17/24 18:01 Amorphous Sediment Not Reportable 09/17/24 18:01 Urine Bacteria None seen /hpf (NONE) 09/17/24 18:01 Hyaline Casts 0.81 /lpf 09/17/24 18:01 Salicylates < 0.3 mg/dL (3-10) L 09/17/24 17:32 Urine Opiates Screen Negative ng/mL (Negative) 09/17/24 18:01 Acetaminophen < 5.0 ug/mL (10-30) L 09/17/24 17:32 Ur Barbiturates Screen Negative ng/mL (Negative) 09/17/24 18:01 Ur Phencyclidine Scrn Negative ng/mL (Negative) 09/17/24 18:01 Ur Amphetamines Screen Negative ng/mL (Negative) 09/17/24 18:01 U Benzodiazepines Scrn Negative ng/mL (Negative) 09/17/24 18:01 Urine Cocaine Screen Negative ng/mL (Negative) 09/17/24 18:01 U Marijuana (THC) Screen Positive ng/mL (Negative) H 09/17/24 18:01 Ethyl Alcohol < 10 mg/dL (0-10) 09/18/24 03:39 Coronavirus (PCR) Negative (Negative) 09/17/24 17:36 Influenza A (PCR) Negative (Negative) 09/17/24 17:36 Influenza Type B (PCR) Negative (Negative) 09/17/24 17:36 RSV (PCR) Negative (Negative) 09/17/24 17:36 No radiology studies performed this visit Discharge Plan Discharge Patient Disposition: Xfer Psychiatric Hosp Clinical Impression: Chronic alcohol abuse, Suicidal ideation, Alcohol intoxication Condition: Stable Discharge Diet: Usual diet Coding Level of Care Code ED Space Control Agent for Levi Bullard
[2024-09-19] MEDS: ibuprofen 800 mg tablet PO (19:58)
[2024-09-19] MEDS: LORazepam 1 mg Tablet PO (19:58)
[2024-09-19 20:05] VITALS: BP 162/107; PULSE 96; O2SAT 95
== END 2024-09-19 20:12 ==
PROVIDERS: Emergency Medicine; Emergency Provider Emergency Medicine
DX: F10.10 Alcohol abuse, uncomplicated (principal); R45.851 Suicidal ideations; F17.290 Nicotine dependence, other tobacco product, uncomplicated; I10 Essential (primary) hypertension
CPT/HCPCS: 0241U; 36415; 71045; 80053; 80306; 80307; 81001; 84443; 85025; 93005; 96372; 99285; J2060; J3486

== ENCOUNTER 2025-01-12 12:53 | Inpatient (IN) | payer MEDICAID, SELFPAY ==
[2024-08-25 12:35] VITALS: BP 153/105; BMI 59.1
[2025-01-12 12:58] VITALS: BP 130/80; PULSE 107; RESP 20; TEMP 36.8; O2SAT 94
--- NOTE | 2025-01-12 13:12 | W.ED.PSYCHS ---
HPI - Psych General: Chief Complaint: Psychiatric Symptoms Stated Complaint: SI Time Seen by Provider: 01/12/25 12:58 History of Present Illness: 34-year-old male presents emergency room complaining of depression and suicidal ideation. He has a history of paranoid schizophrenia he is usually seen by Dr. Verma he seen Dr. Verma about 4 weeks ago he states he is seen about every 6 weeks. He was at [facility] [place] today and expressed suicidal ideation. He wanted to get started on some depression medications. He did state he would walk into traffic. Related Data Home Medications ?Medication ?Instructions ?Recorded ?Confirmed quetiapine 100 mg tablet 100 mg PO BEDTIME 01/12/25 01/12/25 tramadol 50 mg tablet 100 mg PO DAILY 01/12/25 01/12/25 Previous Rx's ?Medication ?Instructions ?Recorded chlorpromazine 100 mg tablet 100 mg PO DAILY #30 tabs 12/14/24 chlorpromazine 200 mg tablet 200 mg PO .HS #30 tabs 12/14/24 divalproex 500 mg tablet,extended 500 mg PO BID #60 tabs 12/14/24 release 24 hr (Depakote ER) Allergies Allergy/AdvReac Type Severity Reaction Status Date / Time fentanyl Allergy Severe ADR-Seizure Verified 12/14/24 12:30 piperacillin (From Zosyn) Allergy Severe ALGY-Swell Verified 12/14/24 12:30 Lip/Tongue/Throat tazobactam (From Zosyn) Allergy Severe ALGY-Swell Verified 12/14/24 12:30 Lip/Tongue/Throat diphenhydramine (From Allergy Intermediate headache, Verified 12/14/24 12:30 Benadryl) restless leg cyclobenzaprine (From Allergy Nausea, Verified 12/14/24 12:30 Flexeril) vomiting, headache haloperidol (From Haldol) Allergy ADR-Cramping Verified 12/14/24 12:30 of the Muscles quetiapine (From Seroquel) Allergy ADR-Muscle Verified 12/14/24 12:30 Pain hydroxyzine AdvReac Intermediate Muscle Verified 12/14/24 12:30 spasms in arms & legs & increased anxiety. Review of Systems Const: Denies: fever(s) or chills Card: Denies: chest pain Resp: Denies: dyspnea GI: Denies: abdominal pain : Denies: dysuria, urinary frequency or urinary urgency Musc: Denies: neck pain or back pain Skin/Breast: Denies: rash PFSH ED PFSH: Medical History Psychiatric care Alcohol withdrawal seizure Polysubstance abuse Biliary colic Morbid obesity Homelessness Schizophrenia Smoking addiction Alcohol use disorder Substance use disorder HTN (hypertension) Surgical History H/O esophagogastroduodenoscopy Family History Other Alcohol use disorder Colon cancer Social History Smoking and tobacco/nicotine status: current every day tobacco/nicotine user cigarettes Packs smoked per day: 3 Years cigarettes smoked: 25 and e-cigarettes E-Cigarette Details: e-cigarette and with nicotine E-cig/vape details: 20,000 puffs disposable goes through it in a week or two Quit status (tobacco/nicotine): considering quitting Second hand smoke exposure: No Alcohol intake: former Former alcohol use details: 05/2023 Substance/Drug Use: current Substance/Drug use frequency: daily Adopted: No Caregiver/support person: No Lives independently: Yes Household members: none Housing: Manufactured/Mobile home Marital status: Number of children: 3 Number of grandchildren: 0 Highest education level completed: GED or Equivalent service: No Current occupational status: disabled Current occupation: trying to get disability Pets and animals: Yes Pets & animals: cat(s), dog(s), fish and farm animals Farm Animals: horses/donkey/mule Pets & animal details: cows Leisure activites: other Leisure activities details: watch TV Sexually active: No Do you think of yourself as: Straight/Heterosexual Current gender identity: Male Mariia/Evangelical: Sabianism Special mariia needs: No Agree to transfusion: Yes Physical Exam Const: COMMON NORMALS: no acute distress GENERAL APPEARANCE: cooperative and comfortable ORIENTATION/CONSCIOUSNESS: Yes awake, Yes oriented to person, Yes oriented to place and Yes oriented to time HENMT: COMMON NORMALS: normocephalic, atraumatic and hearing grossly normal bilaterally HEAD & SCALP: normocephalic and atraumatic Resp: COMMON NORMALS: normal respiratory effort, No retractions, No use of accessory muscles and clear to auscultation bilaterally AUSCULTATION: clear to auscultation bilaterally Cardio: COMMON NORMALS: regular rate, regular rhythm and No murmurs present (Cardio) RATE: regular rate RHYTHM: regular rhythm GI: COMMON NORMALS: Soft to palpation and No hepatosplenomegaly present AUSCULTATION: Yes normoactive bowel sounds PALPATION: Yes Soft to palpation, No Tenderness to palpation present (GI), No Guarding due to palpation present (GI) and Yes No hepatosplenomegaly present Extremity: COMMON NORMALS: normal to inspection, capillary refill normal, no clubbing, cyanosis or edema, no calf tenderness and no pedal edema Neuro: SENSORIUM/ORIENTATION: Yes oriented to person, Yes oriented to place and Yes oriented to time Skin: COMMON NORMALS: no rashes or lesions noted GENERAL SKIN EXAM: no rashes or lesions noted Course Vital Signs: Vital signs: Vital Signs Temperature 98.3 F 01/12/25 12:58 Pulse Rate 107 H 01/12/25 12:58 Respiratory Rate 20 H 01/12/25 12:58 Blood Pressure 130/80 01/12/25 12:58 Pulse Oximetry 94 01/12/25 12:58 Oxygen Delivery Me thod Room Air 01/12/25 12:58 MDM - Psych Medical Decision Making Patient presents with suicidal ideation with specific plan. [facility] [place] had filled out an affidavit to be filled out an affidavit here as well patient be placed on 96-hour hold discussed with Dr. Espino orders written for admission Lab Data 01/12/25 13:08 01/12/25 13:08 Laboratory Results WBC 9.15 10^3/uL (3.29-11.43) 01/12/25 13:08 RBC 4.69 10^6/uL (3.85-5.65) 01/12/25 13:08 Hgb 15.00 g/dL (11.27-16.99) 01/12/25 13:08 Hct 44.6 % (37-53) 01/12/25 13:08 MCV 95.1 fl (82-101) 01/12/25 13:08 MCH 32.0 pg (27-33) 01/12/25 13:08 MCHC 33.6 g/dL (30-55) 01/12/25 13:08 RDW 12.0 % (12.1-15.1) L 01/12/25 13:08 Plt Count 250 10^3/cmm (157-399) 01/12/25 13:08 MPV 9.4 fL (7.4-10.4) 01/12/25 13:08 Neut % (Auto) 47.2 % 01/12/25 13:08 Lymph % (Auto) 45.1 % 01/12/25 13:08 [place] % (Auto) 5.4 % 01/12/25 13:08 Eos % (Auto) 1.5 % 01/12/25 13:08 Baso % (Auto) 0.5 % 01/12/25 13:08 Neut # (Auto) 4.31 10^3/uL (1.8-7.7) 01/12/25 13:08 Lymph # (Auto) 4.1 10^3/uL (0.8-4.8) 01/12/25 13:08 [place] # (Auto) 0.5 10^3/uL (0.2-0.9) 01/12/25 13:08 Eos # (Auto) 0.1 10^3/uL (0.0-0.8) 01/12/25 13:08 Baso # (Auto) 0.1 10^3/uL (0.0-0.1) 01/12/25 13:08 Nucleated RBC % (auto) 0 % 01/12/25 13:08 Nucleated RBCs # 0.0 /100WBC 01/12/25 13:08 Sodium 140 mmol/L (136-145) 01/12/25 13:08 Potassium 4.0 mmol/L (3.5-5.1) 01/12/25 13:08 Chloride 103 mmol/L (98-107) 01/12/25 13:08 Carbon Dioxide 24 mmol/L (22-29) 01/12/25 13:08 Anion Gap 17.0 (5-19) 01/12/25 13:08 BUN 10 mg/dL (6-20) 01/12/25 13:08 Creatinine 0.7 mg/dL (0.7-1.2) 01/12/25 13:08 GFR Calculation 129.1 mL/min (90-130) 01/12/25 13:08 Glucose 119 mg/dL (65-115) H 01/12/25 13:08 Calculated Osmolality 290 mOsm/kg (285-295) 01/12/25 13:08 Calcium 8.7 mg/dL (8.5-10.5) 01/12/25 13:08 Total Bilirubin 0.2 mg/dL (0.15-1.2) 01/12/25 13:08 AST 20 U/L (0-40) 01/12/25 13:08 ALT 26 U/L (0-41) 01/12/25 13:08 Alkaline Phosphatase 70 U/L (40-130) 01/12/25 13:08 Total Protein 7.7 g/dL (6.6-8.7) 01/12/25 13:08 Albumin 4.1 g/dL (3.5-5.2) 01/12/25 13:08 Globulin 3.6 g/dL (1.3-4.6) 01/12/25 13:08 Salicylates < 0.3 mg/dL (3-10) L 01/12/25 13:08 Acetaminophen < 5.0 ug/mL (10-30) L 01/12/25 13:08 No radiology studies performed this visit Discharge Plan Discharge Patient Disposition: Admitted As Inpatient Clinical Impression: Suicidal ideation, Depression, Morbid obesity Condition: Stable Prescriptions: No Action chlorpromazine 100 mg tablet 100 mg PO DAILY Qty: 30 2RF chlorpromazine 200 mg tablet 200 mg PO .HS Qty: 30 2RF divalproex [Depakote ER] 500 mg tablet extended release 24 hr 500 mg PO BID Qty: 60 2RF tramadol 50 mg tablet 100 mg PO DAILY quetiapine 100 mg tablet 100 mg PO BEDTIME Print Language: Vietnamese Coding Level of Care Code ED Check Weigher for Levi Bullard
[2025-01-12 13:14] LABS: Basophils # 0.1 10^3/uL (0.0-0.1); Basophils % 0.5 %; Eosinophils # 0.1 10^3/uL (0.0-0.8); Eosinophils % 1.5 %; Hematocrit 44.6 % (37-53); Lymphocytes # 4.1 10^3/uL (0.8-4.8); Lymphocytes % 45.1 %; Mean Corpuscular HGB Conc 33.6 g/dL (30-55); Mean Corpuscular Volume 95.1 fl (82-101); Mean Platelet Volume 9.4 fL (7.4-10.4); Monocytes # 0.5 10^3/uL (0.2-0.9); Monocytes % 5.4 %; Neutrophils # 4.31 10^3/uL (1.8-7.7); Neutrophils % 47.2 %; Nucleated Red Blood Cells % 0 %; Platelet Count 250 10^3/cmm (157-399); Red Blood Count 4.69 10^6/uL (3.85-5.65); White Blood Count 9.15 10^3/uL (3.29-11.43)
[2025-01-12 13:31] LABS: Acetaminophen < 5.0 ug/mL (10-30); Alanine Aminotransferase 26 U/L (0-41); Albumin Level 4.1 g/dL (3.5-5.2); Alkaline Phosphatase 70 U/L (40-130); Aspartate Amino Transferase 20 U/L (0-40); Blood Urea Nitrogen 10 mg/dL (6-20); Calcium 8.7 mg/dL (8.5-10.5); Carbon Dioxide 24 mmol/L (22-29); Chloride 103 mmol/L (98-107); Creatinine Clr Calc Pharmacy 269.6413; Globulin 3.6 g/dL (1.3-4.6); Glomerular Filtration Rate 129.1 mL/min (90-130); Glucose 119 mg/dL (65-115); Osmolality Calculated 290 mOsm/kg (285-295); Salicylate < 0.3 mg/dL (3-10); Sodium 140 mmol/L (136-145); Total Bilirubin 0.2 mg/dL (0.15-1.2); Total Protein 7.7 g/dL (6.6-8.7)
--- NOTE | 2025-01-12 13:41 | PC.PHAR ---
Patient states he wasn't sure if he took his meds today and he is pretty sure he took them yesterday 01/11/25.
--- NOTE | 2025-01-12 14:02 | PC.NURSE ---
96 hour hold rights read and reviewed with patient. Patient verbalized understandings. Copy of rights given to patient.
[2025-01-12 15:28] VITALS: BP 122/85; PULSE 98; RESP 18; TEMP 36.7; O2SAT 94
[2025-01-12] MEDS: nicotine 4 mg lozenge MUCOUS MEM (16:05)
[2025-01-12] MEDS: OLANZapine 5 mg ODT PO (16:39)
--- NOTE | 2025-01-12 16:41 | PC.NURSE ---
Patient requested something for anxiety, administered Zyprexa as ordered. He denies further questions or concerns at this time.
[2025-01-12 19:54] VITALS: BP 120/74; PULSE 93; RESP 17; TEMP 37.1; O2SAT 96
[2025-01-13 06:00] VITALS: BP 158/96; PULSE 85; RESP 16; TEMP 37; O2SAT 98
--- NOTE | 2025-01-13 09:23 | W.PM.NPUH&PS ---
Providers/Chief Complaint Admitting Physician: Filiberto Burdick MD Chief Complaint: SI HPI NPU History of Present Illness Radhames Spears is a 34 year old male who presents to the emergency department with complaints of having depression and stating that he would like to walk into traffic. He reports that he was last hospitalized in [facility] in [place] approximately 2 months ago. He reports compliance with his medications and reports no overall change in stressors since his last hospitalization here on the behavioral health unit at [facility] in August 2024. He reports having chronic problems with anxiety. He reports that he had been taken off of his Suboxone recently. He had reported that he had previously consumed alcohol on a daily basis but reports that he has not been drinking routinely. He reports difficulties with falling asleep. Previous records on outpatient basis had revealed concern that the psychiatrist had with patient having sleep apnea but the patient reports that he has not been scheduled for an evaluation of his sleep patterns. He had continued to complain of having restless legs at night. He reports having chronic problems with controlling worry. He had reported that the auditory hallucinations have been the same. He endorses significant social isolation. He reports that he is frequently bored and often depressed while staying alone in his apartment. He had reported some difficulties with managing anhedonia and complained of having low energy and low motivation. Patient reports no substantiative changes since his last hospitalization here. Patient did not have a urine drug screen completed on admission. The patient was a poor historian while minimizing his previous prominent substance abuse history. Current psychiatric medications: Chlorpromazine 100 mg in the morning and 200 mg at night, Depakote 500 mg twice a day Seroquel 100 mg at night, gabapentin 600 mg 3 times a day, Tramadol 50mg tid. Excerpt from Discharge Summary from 08/24/2024 Discharge Diagnosis (1) Drug-induced psychotic disorder: Status: Chronic Qualifiers: Complication of substance-induced condition: with hallucinations Qualified Code(s): F19.951 - Other psychoactive substance use, unspecified with psychoactive substance-induced psychotic disorder with hallucinations (2) Chronic schizophrenia: Status: Chronic (3) Alcohol use disorder: Status: Chronic (4) Homelessness: Status: Acute (5) Morbid obesity: Status: Acute (6) Methamphetamine use disorder, severe: Status: Acute Permanent problem details: Early remission (7) Polysubstance abuse: Status: Chronic (8) Chronic alcohol abuse: Status: Acute (9) Substance use disorder: Status: Acute (10) Opioid use disorder, severe, on maintenance therapy, dependence: Status: Acute (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 Reason for Visit Brief History: History of Present Illness Radhames Spears is a 33 year old male who presented to the emergency department with the following report: Chief Complaint: Psychiatric Symptoms Stated Complaint: si Time Seen by Provider: 08/19/24 12:49 Source: patient and EMS Mode of arrival: EMS Limitations: no limitations History of Present Illness: Patient is a 33-year-old male who presents to the ED today via EMS due to worsening depression and suicidal ideations. Patient states he has a plan to walk out for traffic. He states he is hearing voices telling him to harm himself. He reportedly is supposed to be taking psychiatric medications but has not been taking them stating that he forgets . Patient has a longstanding history of homelessness, alcohol abuse, and polysubstance abuse. He states he has been doing well with these issues. He currently has an apartment. He states he has not abused drugs or alcohol in quite some time. He is on Suboxone although has not had this medication in a week or so because he does not have a ride to [facility]. MD complaint: suicidal ideation and feels depressed Onset (ago): day(s) Duration: constant Associated psychiatric symptoms: depression and suicidal ideation Associated symptoms: Reports auditory hallucinations, depression and suicidal ideation; Deny visual hallucinations or homicidal ideation Treatments prior to arrival: none If self harm: admits thoughts of self harm and has plan. He was admitted to the neuropsychiatric unit for definitive treatment of those issues. He is known to [facility] through inpatient and outpatient services. He was last seen by his outpatient psychiatrist Dr. Verma on 08/03/2024 and his last inpatient hospitalization was in May of this year and an excerpt of his discharge summary is included below for context. It was thought by the ED provider that he had not been seen inpatient since 2022 but he actually was seen a few months ago. He presents today reporting that he had moved into local housing shortly after he had discharged and did not end up going out of town and living with his family. He reports that he ended up going to [facility] but that he started having difficulty with transportation. He reports that it has been about a month since he has had some of his medications and possibly a month since he has been at [facility]. He reports that he started really struggling off of his medications and off of the Suboxone. He denies getting to a point where he was able to get a take-home doses from [facility]. He reports that he is here to try to get back on track before things get too far out of control. He reports that the way that things will be different now is that he now has a bus pass and will be able to use that to get to his appointments and avoid lapses in medication. We discussed the risks, benefits and alternatives of restarting medications, but discussed that we would need to talk to [facility] to ensure that they are going to restart his Suboxone before we would be able to initiated here and he understood and agreed to proceed as is documented in this note. He did report that he has been drinking alcohol more often recently and his UDS was positive for amphetamines, cannabis and alcohol. We did discuss initiating the CIWA protocol as well. Per his 05/17/2024 [facility] inpatient psychiatric discharge summary: Discharge Diagnosis (1) Drug-induced psychotic disorder: Status: Chronic Qualifiers: Complication of substance-induced condition: with hallucinations Qualified Code(s): F19.951 - Other psychoactive substance use, unspecified with psychoactive substance-induced psychotic disorder with hallucinations (2) Chronic schizophrenia: Status: Chronic (3) Alcohol use disorder: Status: Chronic (4) Homelessness: Status: Acute (5) Morbid obesity: Status: Acute (6) Methamphetamine use disorder, severe: Status: Acute Permanent problem details: Early remission (7) Polysubstance abuse: Status: Chronic (8) Chronic alcohol abuse: Status: Acute (9) Substance use disorder: Status: Acute (10) Opioid use disorder, severe, on maintenance therapy, dependence: Status: Acute (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 Reason for Visit Reason for Visit: Anxiety Brief History: History of Present Illness Radhames Spears is a 33 year old male who presented to the emergency department with the following report: Chief Complaint: Anxiety Stated Complaint: Anxiety Time Seen by Provider: 05/15/24 10:55 Source: patient Mode of arrival: ambulatory Limitations: no limitations History of Present Illness: 33-year-old male states that he has multiple psychiatric issues including schizophrenia states he feels like his meds have been working he has some increased hallucinations states been feeling very anxious as well along with some depression. He denies any suicidal homicidal ideations but states he wants to be admitted to the psych evans to get help. Associated symptoms: Deny chest pain, chills, fever(s), headache(s), nausea or vomiting. He was admitted to the neuropsychiatric unit for definitive treatment of those issues. He is known to [facility] through inpatient and outpatient services. His last inpatient stay was in May 2023. An excerpt of his psychiatric evaluation from that stay is included below for history and context. He presented today reporting: Chief complaint The patient is experiencing anxiety and distress related to his mother's declining health and his struggle with substance use. He is also struggling with the effects of his current medication, Lansopine, which he feels is exacerbating his anxiety and making him feel trapped. He is seeking help with managing these issues and is interested in obtaining Suboxone to aid in his recovery from substance use. History of the present complaint The patient expressed significant distress and anxiety related to his current situation. He mentioned that he had been stretching out the medication prescribed by a previous doctor, Suboxone, for two months. The patient reported that his mother's health is deteriorating, which has been a source of stress and anxiety for him. He also expressed concerns about his substance use, specifically mentioning a desire to avoid using heroin or Fentanyl. The patient reported experiencing auditory hallucinations, describing them as voices in his head that won't stop. He also mentioned feeling trapped or confined, likening his experience to being in a coffin. He expressed a desire to quit using substances and seemed frustrated with his current medication regimen, stating that it either doesn't work or makes his symptoms worse. The patient has been previously treated with Suboxone for substance use but reported difficulties in accessing the medication regularly due to logistical issues related to his living situation and the location of the clinic. He expressed a desire to return to using Suboxone and believes it would be more beneficial than his current anxiety medication. The patient reported having been hospitalized for psychiatric issues multiple times in the past, estimating around 30-40 times. He also mentioned having been in rehab twice, with the last time being either last year or the year before. The patient has a history of legal issues, including two DUIs and multiple [place] [facility] sentences. The patient reported experiencing hallucinations and paranoia since around the age of 14 or 15. He described seeing what he calls shadow people, which he believes may be spirits or ghosts. His mental health diagnosis has varied over time, initially being identified as schizoaffective but later shifting to an unspecified condition involving persistent hallucinations and paranoia. Regarding his current medications, the patient reported taking Sofia and another unidentified medication. He also mentioned taking Phenergan for the past three to four months. The patient expressed dissatisfaction with his current medications, stating that they either don't work at all or make his symptoms worse. In terms of substance use, the patient reported vaping for about three to four months after previously smoking cigarettes. He also reported drinking alcohol heavily in the past but stopped about four or five months ago. The patient admitted to daily marijuana use when he can access it but noted that he avoids it when on Suboxone due to adverse interactions. He denied current use of cocaine, methamphetamines, and opiates but acknowledged past issues with opiate use. The patient's mood during the consultation was described as anxious. He denied any current thoughts of self-harm or harm towards others but did report experiencing hallucinations and feelings of paranoia. The patient expressed dissatisfaction with his current antipsychotic medication regimen, stating that it initially worked but has become less effective over time. Mental health history The patient has a history of mental health issues beginning around the age of 14 or 15. He has been diagnosed with schizoaffective disorder, but he believes he may be experiencing paranormal phenomena rather than hallucinations. He has been hospitalized for psychiatric issues multiple times, with estimates ranging from 10 to 40 times. His most recent hospitalization was last year. Social history The patient has a history of substance use, including alcohol, cannabis, and opiates. He has been to rehab twice, with the last time being four years ago. He has had two DUIs and has spent time in [place] on multiple occasions. He was previously for 10 years and has three children whom he sees regularly. He is currently unemployed and has been on disability since around 2009 or 2010. Per his 05/22/2023 [facility] inpatient psychiatric evaluation: History of Present Illness Radhames Spears is a 32 year old male who presented to the emergency department with the following report: Chief Complaint: Psychiatric Symptoms Stated Complaint: SI Time Seen by Provider: 05/21/23 18:10 History of Present Illness: Patient presents to the ER for evaluation from [facility] for paranoia and hallucinations. 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 Patient denies being suicidal or homicidal. Patient does admit to smoking dabs and snorting meth and drinking all day yesterday when these symptoms started. Patient says he is just not in a good place in his life and wants to get help. Patient does state he is a schizophrenic and has not taken any of his medicine in a long time. He was admitted to the neuropsychiatric unit He was admitted to the neuropsychiatric unit for definitive treatment of those issues. He presents today as a limited historian secondary to altered mental status likely due to addiction. He confirms data that is available in the chart. He reports that he has been hospitalized at least 5 times here the last hospitalization that we can find is 2014. He started coming to [facility] as a child back in 2005. He had his first hospitalization in 2011 here. He reports that he has had significant struggles with addiction reporting challenges from alcohol and methamphetamine. Current drug screen positive for opioids, barbiturates, amphetamines, cannabis. He reports that he has not been taking his medication and that he has had previous treatment with different things for his psychosis and anxiety. He endorses that he does have auditory and visual hallucinations and we were able to have a short conversation about the impact of amphetamines on psychosis. We discussed the risks, benefits and alternatives of initiating Abilify for the psychosis and Lexapro for his anxiety and he understood and agreed to proceed as is documented in this note. He did lobby for a benzodiazepine reporting that he had that before that would really work we discussed concerns about his addiction and polysubstance challenges including alcohol 22 benzodiazepines being a bad option. He was fairly poor historian as he was clearly distraught and exasperated with each question we agreed to work with the social work team to get a better picture of his psychosocial circumstances right now so that we can give him the best treatment. Hospital Course He acclimated to the individual, group and milieu therapies provided. He presented with active addiction and endorsing a desire and need for reconnection with appropriate services. He did not want to restart his medications because he has been on so many but wanted to work with his outpatient psychiatrist to get that under control. He did identify that there was a need for treatment of his addiction and he worked with the social work team to get appropriate outpatient appointments and referrals. He was referred to [facility] and also being started on Suboxone. We monitored him on medication briefly to ensure safety. He had modest improvement. He was able to contract for safety outside of the hospital prior to discharge. During the hospitalization, he had routine laboratory studies which were within normal limits except for a few outliers. Additionally a general medical evaluation which was also within normal limits and revealed no new acute processes. At the time of discharge, he denied psychosis or lethality. His mood and anxiety was well managed. He endorse a plan to avoid all drugs of abuse and follow-up with the treatment team recommendations after discharge. He was evaluated and deemed to be absent compatible lethality, and had achieved the maximum benefit from inpatient hospitalization. So he was discharged. Hospital Course Hospital Course During the hospitalization, the patient had routine laboratory studies which were within normal limits except for a few outliers.? Additionally, there was a general medical evaluation which was also within normal limits and revealed no new acute processes.? At the time of discharge, lethality was denied and psychosis was resolving.? Mood and anxiety were well managed.? The patient endorsed a plan to avoid all drugs of abuse and follow up with the aftercare recommendations of the treatment team.? The patient was evaluated and deemed to be absent credible lethality and had achieved the maximum benefit from an inpatient hospitalization, and so was discharged. ?The patient had tested positive for alcohol, amphetamines, and marijuana on admission. The patient appeared to have some symptoms suggestive alcohol withdrawal. He was ultimately started on Zyprexa and titrated up to a dose of 10 mg to target psychotic symptoms with noted improvement in mood and a reduction in psychotic thinking. He had reported no side effects from his medication on discharge. Suboxone was also initiated to target opiate related withdrawal symptoms with his history of significant opiate dependence also noted. Meds NPU Home Medications ?Medication ?Instructions ?Recorded ?Confirmed ?Last Taken ?Type chlorpromazine 100 mg tablet 100 mg PO DAILY #30 tabs 12/14/24 01/12/25 01/11/25 Rx chlorpromazine 200 mg tablet 200 mg PO .HS #30 tabs 12/14/24 01/12/25 01/11/25 20:00 Rx divalproex 500 mg tablet,extended 500 mg PO BID #60 tabs 12/14/24 01/12/25 01/11/25 Rx release 24 hr (Depakote ER) quetiapine 100 mg tablet 100 mg PO BEDTIME 01/12/25 01/12/25 01/11/25 History tramadol 50 mg tablet 100 mg PO DAILY 01/12/25 01/12/25 01/11/25 History Allergies Allergy/AdvReac Type Severity Reaction Status Date / Time fentanyl Allergy Severe ADR-Seizure Verified 12/14/24 12:30 piperacillin (From Zosyn) Allergy Severe ALGY-Swell Verified 12/14/24 12:30 Lip/Tongue/Throat tazobactam (From Zosyn) Allergy Severe ALGY-Swell Verified 12/14/24 12:30 Lip/Tongue/Throat diphenhydramine (From Allergy Intermediate headache, Verified 12/14/24 12:30 Benadryl) restless leg cyclobenzaprine (From Allergy Nausea, Verified 12/14/24 12:30 Flexeril) vomiting, headache haloperidol (From Haldol) Allergy ADR-Cramping Verified 12/14/24 12:30 of the Muscles quetiapine (From Seroquel) Allergy ADR-Muscle Verified 12/14/24 12:30 Pain hydroxyzine AdvReac Intermediate Muscle Verified 12/14/24 12:30 spasms in arms & legs & increased anxiety. PFSH NPU PFSH: Medical History Psychiatric care Alcohol withdrawal seizure Polysubstance abuse Biliary colic Morbid obesity Homelessness Schizophrenia Smoking addiction Alcohol use disorder Substance use disorder HTN (hypertension) Surgical History H/O esophagogastroduodenoscopy Family History Other Alcohol use disorder Colon cancer Social History Smoking and tobacco/nicotine status: current every day tobacco/nicotine user cigarettes Packs smoked per day: 3 Years cigarettes smoked: 25 and e-cigarettes E-Cigarette Details: e-cigarette and with nicotine E-cig/vape details: 20,000 puffs disposable goes through it in a week or two Quit status (tobacco/nicotine): considering quitting Second hand smoke exposure: No Alcohol intake: former Former alcohol use details: 05/2023 Substance/Drug Use: current Substance/Drug use frequency: daily Adopted: No Caregiver/support person: No Lives independently: Yes Household members: none Housing: Manufactured/Mobile home Marital status: Number of children: 3 Number of grandchildren: 0 Highest education level completed: GED or Equivalent service: No Current occupational status: disabled Current occupation: trying to get disability Pets and animals: Yes Pets & animals: cat(s), dog(s), fish and farm animals Farm Animals: horses/donkey/mule Pets & animal details: cows Leisure activites: other Leisure activities details: watch TV Sexually active: No Do you think of yourself as: Straight/Heterosexual Current gender identity: Male Mariia/Mandaen: Caodaism Special mariia needs: No Agree to transfusion: Yes Mental Status Exam MSE Comments: This is a morbidly obese white male in hospital scrubs with limited grooming and eye contact. Patient unkempt with significant body odor. No abnormal movements except for psychomotor retardation. He was cooperative with exam in moderate distress. Speech was decreased in rate but normal in volume. Mood described as anxious. His affect was mood incongruent and blunted. Thought process was linear, logical and goal directed. Thought content: Patient denies suicidal or homicidal ideation. There was no evidence of delusional thinking and he minimized paranoia. He endorsed suicidal ideation with plan to walk into traffic . He endorsed auditory hallucinations but did not appear to be responding to internal stimuli. Attention and concentration were limited and memory somewhat reliable but none were formally tested. He is alert and oriented x person and place. Insight, judgment and impulse control impaired. Vitals/I&O/Wt Last Vital Signs Temp 98.1 F 01/12/25 15:28 Pulse 98 01/12/25 15:28 Resp 18 01/12/25 15:28 BP 122/85 01/12/25 15:28 Pulse Ox 94 01/12/25 15:28 O2 Del Method Room Air 01/12/25 14:44 Weight last 48 hrs Weight 204.117 kg Data NPU 01/12/25 13:08 01/12/25 13:08 A&P Assessment and plan (1) Drug-induced psychotic disorder: Qualifiers: Complication of substance-induced condition: with hallucinations Qualified Code(s): F19.951 - Other psychoactive substance use, unspecified with psychoactive substance-induced psychotic disorder with hallucinations (2) Chronic schizophrenia: (3) Opioid use disorder, severe, on maintenance therapy, dependence: (4) Alcohol use disorder: (5) Homelessness: (6) Morbid obesity: (7) Methamphetamine use disorder, severe: (8) Polysubstance abuse: (9) Chronic alcohol abuse: (10) Substance use disorder: Plan This is a 34-year-old white male with a long history of depression and polysubstance abuse currently reporting anxiety with reported history of psychotic symptoms. 1. Continue current medication. 2. Continue every 15 minute checks for safety. 3. Encourage individual, group and milieu therapy. 4. Encourage sober living treatment after discharge at the highest level of care to which he is willing to commit. 5. Restart outpatient medications. Add antidepressant. PDMP PDMP Reviewed: Not Reviewed Involuntary Hold Information Hold Status: Legal Status: 96 Hour Hold 96 Hour Hold: 96 Hour Involuntary Admission: Yes Other Hold: Hold End Date: 08/25/24 Attestations NPU Medical Necessity Statement*: Inpatient hospitalization is medically necessary and the clinically appropriate intervention at this time. We will monitor medications and make changes as indicated. He will be in the hospital for over 2 midnights. Likely length of stay 3-5 days. Coding Level of Care Code Acute Code for [facility] Fwd Diagnoses Drug-induced hallucinosis F19.951 Complication of substance-induced condition: with hallucinations Chronic schizophrenia F20.9 Opioid use disorder, severe, on maintenance therapy, dependence F11.20 Alcohol use disorder F10.90 Homelessness Z59.00 Morbid obesity E66.01 Methamphetamine use disorder, severe F15.20 Polysubstance abuse F19.10 Chronic alcohol abuse F10.10 Substance use disorder F19.90
--- NOTE | 2025-01-13 09:30 | PC.NURSE ---
Pt states that he slept alright Reports his anxiety and depression a 05/14. Denies SI/HI. He states that his hallucinations are yelling stop bm was yesterday.
[2025-01-13] MEDS: nicotine 4 mg lozenge MUCOUS MEM ×3 (10:21→16:47)
[2025-01-13] MEDS: OLANZapine 5 mg ODT PO (11:36)
[2025-01-13 13:12] LABS: Amphetamines Screen Urine Negative (Negative); Barbiturates Screen Urine Negative (Negative); Benzodiazepines Screen Urine Negative (Negative); Cocaine Screen Urine Negative (Negative); Opiate Screen Urine Negative (Negative); PCP Screen Urine Negative (Negative); THC Screen Urine Positive (Negative)
[2025-01-13 14:00] VITALS: BP 153/101; PULSE 78; RESP 18; TEMP 36.6; O2SAT 96
[2025-01-13] MEDS: sertraline 50 mg Tablet 25 MG PO (15:55)
[2025-01-13] MEDS: divalproex DR 500 mg Tablet PO (18:15)
[2025-01-13 20:43] VITALS: BP 137/89; PULSE 77; RESP 17; TEMP 36.6; O2SAT 96
[2025-01-13] MEDS: chlorPROMazine 50 mg Tablet 200 MG PO (21:56)
[2025-01-14 06:00] VITALS: BP 117/63; PULSE 98; RESP 17; TEMP 36.4; O2SAT 94
[2025-01-14] MEDS: nicotine 4 mg lozenge MUCOUS MEM ×4 (08:13→16:23)
[2025-01-14] MEDS: chlorPROMazine 50 mg Tablet 100 MG PO (08:14)
[2025-01-14] MEDS: sertraline 50 mg Tablet 25 MG PO (08:14)
[2025-01-14] MEDS: OLANZapine 5 mg ODT PO (08:14)
[2025-01-14] MEDS: divalproex DR 500 mg Tablet PO ×2 (08:14→17:55)
--- NOTE | 2025-01-14 10:31 | W.PM.NPUPNS ---
Subjective NPU Subjective: 34-year-old male admitted with suicidal ideation with a history of polysubstance abuse and psychosis. The patient reported struggles with depression and continued to report having suicidal thoughts. He continued to have extremely poor self-care and had not showered or gone to the bathroom. He had continued to report feeling excessively tired and had to be woken up as he was snoring loudly. He reported not feeling rested in the morning. He had reported excessive daytime sleepiness. He had reported that he felt that he could take care of himself at home. Despite this, the patient continued to struggle with completing any activities of daily living. He had reported continuing to hear voices but reported that the voices had always been there. He had reported depressed mood and stated that he needed medications for anxiety. He had reported a past history of opiate abuse but reported that he had not been fully compliant with his Suboxone. He had reported that he had struggled with making his appointments and this is why his Suboxone was discontinued Mental Status Exam MSE Comments: This is a morbidly obese white male in hospital scrubs with limited grooming and minimal eye contact. Patient unkempt with significant body odor. No abnormal movements except for psychomotor retardation. He was cooperative with exam in mild distress. Speech was decreased in rate but normal in volume. Mood described as anxious. His affect was mood incongruent and blunted. Thought process was linear, logical but superficial. Thought content: Patient denies suicidal or homicidal ideation. There was no evidence of delusional thinking and he minimized paranoia. He endorsed suicidal ideation with plan to walk into traffic . He endorsed auditory hallucinations but did not appear to be responding to internal stimuli. Attention and concentration were limited and memory somewhat reliable but none were formally tested. He is alert and oriented x person and place. Insight, judgment and impulse control impaired. Vitals/I&O/Wt Last Vital Signs Temp 97.5 F L 01/14/25 06:00 Pulse 98 01/14/25 06:00 Resp 17 01/14/25 06:00 BP 117/63 01/14/25 06:00 Pulse Ox 94 01/14/25 06:00 O2 Del Method Room Air 01/14/25 06:00 Weight last 48 hrs Weight 204.117 kg Data NPU 01/12/25 13:08 01/12/25 13:08 A&P Assessment and plan (1) Chronic schizophrenia: (2) Drug-induced psychotic disorder: Qualifiers: Complication of substance-induced condition: with hallucinations Qualified Code(s): F19.951 - Other psychoactive substance use, unspecified with psychoactive substance-induced psychotic disorder with hallucinations (3) Opioid use disorder, severe, on maintenance therapy, dependence: (4) Alcohol use disorder: (5) Homelessness: (6) Morbid obesity: (7) Methamphetamine use disorder, severe: (8) Polysubstance abuse: (9) Chronic alcohol abuse: (10) Substance use disorder: Plan This is a 34-year-old white male with a long history of depression and polysubstance abuse currently reporting anxiety with reported history of psychotic symptoms. 1. Continue current medication. 2. Continue every 15 minute checks for safety. 3. Encourage individual, group and milieu therapy. 4. Encourage sober living treatment after discharge at the highest level of care to which he is willing to commit. 5. Increase Chlorpromazine 100mg am , 250mg at night, increase zoloft 50mg daily to target anxiety. Continue Depakote as prescribed 6. Patient has poor self care, excessive daytime sleepiness, snoring, large body habitus. R/O Obstructive sleep apnea. PDMP PDMP Reviewed: Not Reviewed Involuntary Hold Information Hold Status: Legal Status: 96 Hour Hold Date/Time Hold Expires: 01/18/25 @ 13:15 96 Hour Hold: 96 Hour Involuntary Admission: Yes Other Hold: Hold End Date: 08/25/24 Attestations NPU Medical Necessity Statement*: Inpatient hospitalization is medically necessary and the clinically appropriate intervention at this time. We will monitor medications and make changes as indicated. Likely length of stay 3-5 days. Coding Level of Care Code Acute Code for [facility] Fwd Diagnoses Chronic schizophrenia F20.9 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
[2025-01-14] MEDS: ibuprofen 600 mg Tablet PO (12:38)
[2025-01-14 14:00] VITALS: BP 116/76; PULSE 90; RESP 18; TEMP 36.6; O2SAT 92
[2025-01-14 20:41] VITALS: BP 133/82; PULSE 93; RESP 17; TEMP 36.7; O2SAT 93
[2025-01-14] MEDS: chlorPROMazine 50 mg Tablet 300 MG PO (21:11)
[2025-01-15 06:00] VITALS: BP 101/61; PULSE 104; RESP 16; TEMP 36.6; O2SAT 95
--- NOTE | 2025-01-15 09:02 | PC.NURSE ---
Pt states that he slept good last night. He rates his anxiety a 6/10 and Depression a 0/10. Denies DI/HI. He cont to report auditory hallucinations, states that are like a mumble. He states he still has back pain of 6/10, denied tylenol and ibuprofen.
[2025-01-15] MEDS: divalproex DR 500 mg Tablet PO ×2 (09:22→17:50)
[2025-01-15] MEDS: chlorPROMazine 50 mg Tablet 100 MG PO (09:22)
[2025-01-15] MEDS: nicotine 4 mg lozenge MUCOUS MEM ×6 (09:22→20:41)
[2025-01-15] MEDS: sertraline 50 mg Tablet PO (09:25)
[2025-01-15] MEDS: OLANZapine 5 mg ODT PO (13:52)
[2025-01-15 14:00] VITALS: BP 130/76; PULSE 93; RESP 16; TEMP 36.4; O2SAT 95
--- NOTE | 2025-01-15 14:52 | P.NPUPN_ITS ---
Subjective NPU 2 Subjective: 34-year-old male admitted with suicidal ideation with a history of polysubstance abuse and psychosis. The patient had showered today. He had reported that he had been feeling better. He had reported an extended history of opiate abuse and stated that the absence of Suboxone had actually caused him to have more anxiety and more desire to obtain alcohol and opiates. He had requested that Suboxone be restarted to help as he continued to struggle with cravings for opiates. He had reported that the suicidal thoughts were starting to diminish. He had stated that he had always heard voices but stated that they had been quieter. He continued to report feeling worried and nervous. He reported no side effects otherwise from his medications and no side effects from the increase in Thorazine. Mental Status Exam 2 MSE Comments: This is a morbidly obese white male in hospital scrubs with improved grooming and improved eye contact. No abnormal movements except for psychomotor retardation. He was cooperative with exam in mild distress. Speech was slightly decreased in rate but normal in volume. Mood described as better. His affect was odd. Thought process was linear, logical and goal directed. Thought content: Patient denies suicidal or homicidal ideation. There was no evidence of delusional thinking and he minimized paranoia. He denied suicidal ideation. He endorsed auditory hallucinations but did not appear to be responding to internal stimuli. Attention and concentration were limited and memory somewhat reliable but none were formally tested. He is alert and oriented x person and place. Insight, judgment and impulse control impaired. Vitals/I&O/Wt Last Vital Signs Temp 97.8 F 01/15/25 06:00 Pulse 104 H 01/15/25 06:00 Resp 16 01/15/25 06:00 BP 101/61 01/15/25 06:00 Pulse Ox 95 01/15/25 06:00 O2 Del Method Room Air 01/15/25 06:00 Data NPU 01/12/25 13:08 01/12/25 13:08 A&P Assessment and plan (1) Chronic schizophrenia: (2) Drug-induced psychotic disorder: Qualifiers: Complication of substance-induced condition: with hallucinations Q ualified Code(s): F19.951 - Other psychoactive substance use, unspecified with psychoactive substance-induced psychotic disorder with hallucinations (3) Opioid use disorder, severe, on maintenance therapy, dependence: (4) Alcohol use disorder: (5) Homelessness: (6) Morbid obesity: (7) Methamphetamine use disorder, severe: (8) Polysubstance abuse: (9) Chronic alcohol abuse: (10) Substance use disorder: Plan This is a 34-year-old white male with a long history of depression and polysubstance abuse currently reporting anxiety with reported history of psychotic symptoms. 1. Continue current medication. 2. Continue every 15 minute checks for safety. 3. Encourage individual, group and milieu therapy. 4. Encourage sober living treatment after discharge at the highest level of care to which he is willing to commit. 5. Continue Chlorpromazine 100mg am , 250mg at night, Continue zoloft 50mg daily to target anxiety. Continue Depakote as prescribed 6. Patient has poor self care, excessive daytime sleepiness, snoring, large body habitus. R/O Obstructive sleep apnea. Restart Suboxone 8mg/2mg daily PDMP PDMP Reviewed: Not Reviewed Involuntary Hold Information 2 Hold Status: Legal Status: 96 Hour Hold Date/Time Hold Expires: 01/18/25 @ 13:15 96 Hour Hold: 96 Hour Involuntary Admission: Yes Other Hold: Hold End Date: 08/25/24 Attestations NPU 2 Medical Necessity Statement*: Inpatient hospitalization is medically necessary and the clinically appropriate intervention at this time. We will monitor medications and make changes as indicated. Likely length of stay 3-5 days. Coding Level of Care Code Acute Code for [facility] Fwd Diagnoses Chronic schizophrenia F20.9 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
[2025-01-15] MEDS: chlorPROMazine 50 mg Tablet 300 MG PO (20:36)
[2025-01-15] MEDS: buprenorphine-naloxone 4-1 mg Film 2 EACH SUBLINGUAL (20:37)
[2025-01-15 21:57] VITALS: BP 139/98; PULSE 119; RESP 18; TEMP 36.9; O2SAT 94
[2025-01-16 06:00] VITALS: BP 115/71; PULSE 95; RESP 16; O2SAT 94
[2025-01-16] MEDS: sertraline 50 mg Tablet PO (08:39)
[2025-01-16] MEDS: chlorPROMazine 50 mg Tablet 100 MG PO (08:39)
[2025-01-16] MEDS: nicotine 4 mg lozenge MUCOUS MEM ×4 (08:39→16:51)
[2025-01-16] MEDS: divalproex DR 500 mg Tablet PO (08:39)
[2025-01-16 14:00] VITALS: BP 123/90; PULSE 86; RESP 18; TEMP 36.5; O2SAT 94
--- NOTE | 2025-01-16 15:02 | W.PM.NPUPNS ---
Subjective NPU Subjective: 34-year-old male admitted with suicidal ideation with a history of polysubstance abuse and psychosis. The patient had reported that he had been feeling better today. He had reported no side effects from his Suboxone. He had reported some diminishment in anxiety and did not ask for Klonopin today. He had reported that Suboxone had been helpful for managing his anxiety and his quest to obtain opiates. He reported that his voices were substantially diminished with the increase in Thorazine. He had reported adequate sleep. He had continued to report struggles with isolation at home and stated that he was bored and had limited contact with others his own age. He had expressed interest in engaging with his peers in daily activities. No side effects were reported from his medication regimen. Mental Status Exam MSE Comments: This is a morbidly obese white male in hospital scrubs with improved grooming and improved eye contact. No abnormal movements except for psychomotor retardation. He was cooperative with exam in mild distress. Speech was slightly decreased in rate but normal in volume. Mood described as okay. His affect was remained blunted. Thought process was linear, logical and goal directed. Thought content: Patient denies suicidal or homicidal ideation. There was no evidence of delusional thinking and he minimized paranoia. He denied suicidal ideation. Heminimized auditory hallucinations and did not appear to be responding to internal stimuli. Attention and concentration were limited and memory somewhat reliable but none were formally tested. He is alert and oriented x person and place. Insight was limited. judgment and impulse control were improving. Vitals/I&O/Wt Last Vital Signs Temp 98.5 F 01/15/25 21:57 Pulse 95 01/16/25 06:00 Resp 16 01/16/25 06:00 BP 115/71 01/16/25 06:00 Pulse Ox 94 01/16/25 06:00 O2 Del Method Room Air 01/16/25 06:00 Data NPU 01/12/25 13:08 01/12/25 13:08 A&P Assessment and plan (1) Chronic schizophrenia: (2) Drug-induced psychotic disorder: Qualifiers: Complication of substance-induced condition: with hallucinations Qualified Code(s): F19.951 - Other psychoactive substance use, unspecified with psychoactive substance-induced psychotic disorder with hallucinations (3) Opioid use disorder, severe, on maintenance therapy, dependence: (4) Alcohol use disorder: (5) Homelessness: (6) Morbid obesity: (7) Methamphetamine use disorder, severe: (8) Polysubstance abuse: (9) Chronic alcohol abuse: (10) Substance use disorder: Plan This is a 34-year-old white male with a long history of depression and polysubstance abuse currently reporting anxiety with reported history of psychotic symptoms. 1. Continue current medication. 2. Continue every 15 minute checks for safety. 3. Encourage individual, group and milieu therapy. 4. Encourage sober living treatment after discharge at the highest level of care to which he is willing to commit. 5. Continue Chlorpromazine 100mg am , 250mg at night, Continue zoloft 50mg daily to target anxiety. Continue Depakote as prescribed 6. Patient has poor self care, excessive daytime sleepiness, snoring, large body habitus. R/O Obstructive sleep apnea. Restart Suboxone 8mg/2mg daily PDMP PDMP Reviewed: Not Reviewed Involuntary Hold Information Hold Status: Legal Status: 96 Hour Hold Date/Time Hold Expires: 01/18/25 @ 13:15 96 Hour Hold: 96 Hour Involuntary Admission: Yes Other Hold: Hold End Date: 08/25/24 Attestations NPU Medical Necessity Statement*: Inpatient hospitalization is medically necessary and the clinically appropriate intervention at this time. We will monitor medications and make changes as indicated. Likely length of stay 2-3 days. Coding Level of Care Code Acute Code for [facility] Fwd Diagnoses Chronic schizophrenia F20.9 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
[2025-01-16] MEDS: buprenorphine-naloxone 4-1 mg Film 2 EACH SUBLINGUAL ×2 (15:05→20:11)
[2025-01-16 19:50] VITALS: BP 103/58; PULSE 78; RESP 16; O2SAT 94
[2025-01-16] MEDS: chlorPROMazine 50 mg Tablet 300 MG PO (20:05)
[2025-01-17 06:00] VITALS: BP 107/61; PULSE 69; RESP 16; O2SAT 94
[2025-01-17] MEDS: nicotine 2 mg Gum BUCCAL (08:00)
[2025-01-17] MEDS: divalproex ER 500 mg Tablet (24H) 1000 MG PO (08:00)
[2025-01-17] MEDS: buprenorphine-naloxone 4-1 mg Film 2 EACH SUBLINGUAL (08:00)
[2025-01-17] MEDS: chlorPROMazine 50 mg Tablet 100 MG PO (08:00)
[2025-01-17] MEDS: sertraline 50 mg Tablet PO (08:01)
[2025-01-17] MEDS: nicotine 4 mg lozenge MUCOUS MEM ×2 (11:00→13:33)
--- NOTE | 2025-01-17 12:17 | W.PM.NPUDCS ---
Diagnoses at Discharge Discharge Diagnosis (1) Chronic schizophrenia: Status: Chronic (2) Drug-induced psychotic disorder: Status: Resolved Qualifiers: Complication of substance-induced condition: with hallucinations Qualified Code(s): F19.951 - Other psychoactive substance use, unspecified with psychoactive substance-induced psychotic disorder with hallucinations (3) Opioid use disorder, severe, on maintenance therapy, dependence: Status: Acute (4) Alcohol use disorder: Status: Chronic (5) Homelessness: Status: Resolved (6) Morbid obesity: Status: Acute (7) Methamphetamine use disorder, severe: Status: Resolved Permanent problem details: Early remission (8) Polysubstance abuse: Status: Chronic (9) Chronic alcohol abuse: Status: Acute (10) Substance use disorder: Status: Acute Reason for Visit Reason for Visit: SI Brief History: History of Present Illness Radhames Spears is a 34 year old male who presents to the emergency department with complaints of having depression and stating that he would like to walk into traffic. He reports that he was last hospitalized in [facility] in [place] approximately 2 months ago. He reports compliance with his medications and reports no overall change in stressors since his last hospitalization here on the behavioral health unit at [facility] in August 2024. He reports having chronic problems with anxiety. He reports that he had been taken off of his Suboxone recently. He had reported that he had previously consumed alcohol on a daily basis but reports that he has not been drinking routinely. He reports difficulties with falling asleep. Previous records on outpatient basis had revealed concern that the psychiatrist had with patient having sleep apnea but the patient reports that he has not been scheduled for an evaluation of his sleep patterns. He had continued to complain of having restless legs at night. He reports having chronic problems with controlling worry. He had reported that the auditory hallucinations have been the same. He endorses significant social isolation. He reports that he is frequently bored and often depressed while staying alone in his apartment. He had reported some difficulties with managing anhedonia and complained of having low energy and low motivation. Patient reports no substantiative changes since his last hospitalization here. Patient did not have a urine drug screen completed on admission. The patient was a poor historian while minimizing his previous prominent substance abuse history. Current psychiatric medications: Chlorpromazine 100 mg in the morning and 200 mg at night, Depakote 500 mg twice a day Seroquel 100 mg at night, gabapentin 600 mg 3 times a day, Tramadol 50mg tid. Excerpt from Discharge Summary from 08/24/2024 Discharge Diagnosis (1) Drug-induced psychotic disorder: Status: Chronic Qualifiers: Complication of substance-induced condition: with hallucinations Qualified Code(s): F19.951 - Other psychoactive substance use, unspecified with psychoactive substance-induced psychotic disorder with hallucinations (2) Chronic schizophrenia: Status: Chronic (3) Alcohol use disorder: Status: Chronic (4) Homelessness: Status: Acute (5) Morbid obesity: Status: Acute (6) Methamphetamine use disorder, severe: Status: Acute Permanent problem details: Early remission (7) Polysubstance abuse: Status: Chronic (8) Chronic alcohol abuse: Status: Acute (9) Substance use disorder: Status: Acute (10) Opioid use disorder, severe, on maintenance therapy, dependence: Status: Acute (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 Reason for Visit Brief History: History of Present Illness Radhames Spears is a 33 year old male who presented to the emergency department with the following report: Chief Complaint: Psychiatric Symptoms Stated Complaint: si Time Seen by Provider: 08/19/24 12:49 Source: patient and EMS Mode of arrival: EMS Limitations: no limitations History of Present Illness: Patient is a 33-year-old male who presents to the ED today via EMS due to worsening depression and suicidal ideations. Patient states he has a plan to walk out for traffic. He states he is hearing voices telling him to harm himself. He reportedly is supposed to be taking psychiatric medications but has not been taking them stating that he forgets . Patient has a longstanding history of homelessness, alcohol abuse, and polysubstance abuse. He states he has been doing well with these issues. He currently has an apartment. He states he has not abused drugs or alcohol in quite some time. He is on Suboxone although has not had this medication in a week or so because he does not have a ride to [facility]. complaint: suicidal ideation and feels depressed Onset (ago): day(s) Duration: constant Associated psychiatric symptoms: depression and suicidal ideation Associated symptoms: Reports auditory hallucinations, depression and suicidal ideation; Deny visual hallucinations or homicidal ideation Treatments prior to arrival: none If self harm: admits thoughts of self harm and has plan. He was admitted to the neuropsychiatric unit for definitive treatment of those issues. He is known to [facility] through inpatient and outpatient services. He was last seen by his outpatient psychiatrist Dr. Verma on 08/03/2024 and his last inpatient hospitalization was in May of this year and an excerpt of his discharge summary is included below for context. It was thought by the ED provider that he had not been seen inpatient since 2022 but he actually was seen a few months ago. He presents today reporting that he had moved into local housing shortly after he had discharged and did not end up going out of town and living with his family. He reports that he ended up going to [facility] but that he started having difficulty with transportation. He reports that it has been about a month since he has had some of his medications and possibly a month since he has been at [facility]. He reports that he started really struggling off of his medications and off of the Suboxone. He denies getting to a point where he was able to get a take-home doses from [facility]. He reports that he is here to try to get back on track before things get too far out of control. He reports that the way that things will be different now is that he now has a bus pass and will be able to use that to get to his appointments and avoid lapses in medication. We discussed the risks, benefits and alternatives of restarting medications, but discussed that we would need to talk to [facility] to ensure that they are going to restart his Suboxone before we would be able to initiated here and he understood and agreed to proceed as is documented in this note. He did report that he has been drinking alcohol more often recently and his UDS was positive for amphetamines, cannabis and alcohol. We did discuss initiating the CIWA protocol as well. Per his 05/17/2024 [facility] inpatient psychiatric discharge summary: Discharge Diagnosis (1) Drug-induced psychotic disorder: Status: Chronic Qualifiers: Complication of substance-induced condition: with hallucinations Qualified Code(s): F19.951 - Other psychoactive substance use, unspecified with psychoactive substance-induced psychotic disorder with hallucinations (2) Chronic schizophrenia: Status: Chronic (3) Alcohol use disorder: Status: Chronic (4) Homelessness: Status: Acute (5) Morbid obesity: Status: Acute (6) Methamphetamine use disorder, severe: Status: Acute Permanent problem details: Early remission (7) Polysubstance abuse: Status: Chronic (8) Chronic alcohol abuse: Status: Acute (9) Substance use disorder: Status: Acute (10) Opioid use disorder, severe, on maintenance therapy, dependence: Status: Acute (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 Reason for Visit Reason for Visit: Anxiety Brief History: History of Present Illness Radhames Spears is a 33 year old male who presented to the emergency department with the following report: Chief Complaint: Anxiety Stated Complaint: Anxiety Time Seen by Provider: 05/15/24 10:55 Source: patient Mode of arrival: ambulatory Limitations: no limitations History of Present Illness: 33-year-old male states that he has multiple psychiatric issues including schizophrenia states he feels like his meds have been working he has some increased hallucinations states been feeling very anxious as well along with some depression. He denies any suicidal homicidal ideations but states he wants to be admitted to the psych evans to get help. Associated symptoms: Deny chest pain, chills, fever(s), headache(s), nausea or vomiting. He was admitted to the neuropsychiatric unit for definitive treatment of those issues. He is known to [facility] through inpatient and outpatient services. His last inpatient stay was in May 2023. An excerpt of his psychiatric evaluation from that stay is included below for history and context. He presented today reporting: Chief complaint The patient is experiencing anxiety and distress related to his mother's declining health and his struggle with substance use. He is also struggling with the effects of his current medication, Lansopine, which he feels is exacerbating his anxiety and making him feel trapped. He is seeking help with managing these issues and is interested in obtaining Suboxone to aid in his recovery from substance use. History of the present complaint The patient expressed significant distress and anxiety related to his current situation. He mentioned that he had been stretching out the medication prescribed by a previous doctor, Suboxone, for two months. The patient reported that his mother's health is deteriorating, which has been a source of stress and anxiety for him. He also expressed concerns about his substance use, specifically mentioning a desire to avoid using heroin or Fentanyl. The patient reported experiencing auditory hallucinations, describing them as voices in his head that won't stop. He also mentioned feeling trapped or confined, likening his experience to being in a coffin. He expressed a desire to quit using substances and seemed frustrated with his current medication regimen, stating that it either doesn't work or makes his symptoms worse. The patient has been previously treated with Suboxone for substance use but reported difficulties in accessing the medication regularly due to logistical issues related to his living situation and the location of the clinic. He expressed a desire to return to using Suboxone and believes it would be more beneficial than his current anxiety medication. The patient reported having been hospitalized for psychiatric issues multiple times in the past, estimating around 30-40 times. He also mentioned having been in rehab twice, with the last time being either last year or the year before. The patient has a history of legal issues, including two DUIs and multiple long term sentences. The patient reported experiencing hallucinations and paranoia since around the age of 14 or 15. He described seeing what he calls shadow people, which he believes may be spirits or ghosts. His mental health diagnosis has varied over time, initially being identified as schizoaffective but later shifting to an unspecified condition involving persistent hallucinations and paranoia. Regarding his current medications, the patient reported taking Sofia and another unidentified medication. He also mentioned taking Phenergan for the past three to four months. The patient expressed dissatisfaction with his current medications, stating that they either don't work at all or make his symptoms worse. In terms of substance use, the patient reported vaping for about three to four months after previously smoking cigarettes. He also reported drinking alcohol heavily in the past but stopped about four or five months ago. The patient admitted to daily marijuana use when he can access it but noted that he avoids it when on Suboxone due to adverse interactions. He denied current use of cocaine, methamphetamines, and opiates but acknowledged past issues with opiate use. The patient's mood during the consultation was described as anxious. He denied any current thoughts of self-harm or harm towards others but did report experiencing hallucinations and feelings of paranoia. The patient expressed dissatisfaction with his current antipsychotic medication regimen, stating that it initially worked but has become less effective over time. Mental health history The patient has a history of mental health issues beginning around the age of 14 or 15. He has been diagnosed with schizoaffective disorder, but he believes he may be experiencing paranormal phenomena rather than hallucinations. He has been hospitalized for psychiatric issues multiple times, with estimates ranging from 10 to 40 times. His most recent hospitalization was last year. Social history The patient has a history of substance use, including alcohol, cannabis, and opiates. He has been to rehab twice, with the last time being four years ago. He has had two DUIs and has spent time in long term on multiple occasions. He was previously for 10 years and has three children whom he sees regularly. He is currently unemployed and has been on disability since around 2009 or 2010. Per his 05/22/2023 [facility] inpatient psychiatric evaluation: History of Present Illness Radhames Spears is a 32 year old male who presented to the emergency department with the following report: Chief Complaint: Psychiatric Symptoms Stated Complaint: SI Time Seen by Provider: 05/21/23 18:10 History of Present Illness: Patient presents to the ER for evaluation from [facility] for paranoia and hallucinations. Patient worked in the [employer] watching him and shooting at him yesterday and today. Patient denies being suicidal or homicidal. Patient does admit to smoking dabs and snorting meth and drinking all day yesterday when these symptoms started. Patient says he is just not in a good place in his life and wants to get help. Patient does state he is a schizophrenic and has not taken any of his medicine in a long time. He was admitted to the neuropsychiatric unit He was admitted to the neuropsychiatric unit for definitive treatment of those issues. He presents today as a limited historian secondary to altered mental status likely due to addiction. He confirms data that is available in the chart. He reports that he has been hospitalized at least 5 times here the last hospitalization that we can find is 2014. He started coming to [facility] as a child back in 2005. He had his first hospitalization in 2011 here. He reports that he has had significant struggles with addiction reporting challenges from alcohol and methamphetamine. Current drug screen positive for opioids, barbiturates, amphetamines, cannabis. He reports that he has not been taking his medication and that he has had previous treatment with different things for his psychosis and anxiety. He endorses that he does have auditory and visual hallucinations and we were able to have a short conversation about the impact of amphetamines on psychosis. We discussed the risks, benefits and alternatives of initiating Abilify for the psychosis and Lexapro for his anxiety and he understood and agreed to proceed as is documented in this note. He did lobby for a benzodiazepine reporting that he had that before that would really work we discussed concerns about his addiction and polysubstance challenges including alcohol 22 benzodiazepines being a bad option. He was fairly poor historian as he was clearly distraught and exasperated with each question we agreed to work with the social work team to get a better picture of his psychosocial circumstances right now so that we can give him the best treatment. Hospital Course He acclimated to the individual, group and milieu therapies provided. He presented with active addiction and endorsing a desire and need for reconnection with appropriate services. He did not want to restart his medications because he has been on so many but wanted to work with his outpatient psychiatrist to get that under control. He did identify that there was a need for treatment of his addiction and he worked with the social work team to get appropriate outpatient appointments and referrals. He was referred to [facility] and also being started on Suboxone. We monitored him on medication briefly to ensure safety. He had modest improvement. He was able to contract for safety outside of the hospital prior to discharge. During the hospitalization, he had routine laboratory studies which were within normal limits except for a few outliers. Additionally a general medical evaluation which was also within normal limits and revealed no new acute processes. At the time of discharge, he denied psychosis or lethality. His mood and anxiety was well managed. He endorse a plan to avoid all drugs of abuse and follow-up with the treatment team recommendations after discharge. He was evaluated and deemed to be absent compatible lethality, and had achieved the maximum benefit from inpatient hospitalization. So he was discharged. Hospital Course Hospital Course During the hospitalization, the patient had routine laboratory studies which were within normal limits except for a few outliers.? Additionally, there was a general medical evaluation which was also within normal limits and revealed no new acute processes.? At the time of discharge, lethality was denied and psychosis was resolving.? Mood and anxiety were well managed.? The patient endorsed a plan to avoid all drugs of abuse and follow up with the aftercare recommendations of the treatment team.? The patient was evaluated and deemed to be absent credible lethality and had achieved the maximum benefit from an inpatient hospitalization, and so was discharged. ?The patient had tested positive for alcohol, amphetamines, and marijuana on admission. The patient appeared to have some symptoms suggestive alcohol withdrawal. He was ultimately started on Zyprexa and titrated up to a dose of 10 mg to target psychotic symptoms with noted improvement in mood and a reduction in psychotic thinking. He had reported no side effects from his medication on discharge. Suboxone was also initiated to target opiate related withdrawal symptoms with his history of significant opiate dependence also noted. Involuntary Hold Information Hold Status: Legal Status: 96 Hour Hold Date/Time Hold Expires: 01/18/25 @ 13:15 Hold Status Comments: The patient had presented with depression and suicidal ideation along with auditory hallucinations. The patient had reported significant anxiety and was desirous of receiving Klonopin. He had reported that since his Suboxone had been stopped that he was more anxious. Suboxone was restarted to target opiate dependence and was titrated up to 16 mg/day with a noticeable improvement in mood and a reduction in anxiety as well. Thorazine was increased to 100 mg in the morning and 300 mg at night to target psychosis. Seroquel was not restarted. Zoloft was also added and titrated up to a dose of 50 mg a day to target depression. During the hospitalization, the patient had routine laboratory studies which were within normal limits except for a few outliers.? Additionally, there was a general medical evaluation which was also within normal limits and revealed no new acute processes.? At the time of discharge, lethality was denied and psychosis was resolving.? Mood and anxiety were well managed.? The patient endorsed a plan to avoid all drugs of abuse and follow up with the aftercare recommendations of the treatment team.? The patient was evaluated and deemed to be absent credible lethality and had achieved the maximum benefit from an inpatient hospitalization, and so was discharged. ?Strongly encouraged the patient be evaluated for obstructive sleep apnea. There was significant examples here on the unit of excessive daytime sleepiness and symptoms such as diminished energy and loud snoring which was prominent here. 96 Hour Hold: 96 Hour Involuntary Admission: Yes Other Hold: Hold End Date: 08/25/24 Mental Status Exam MSE Comments: This is a morbidly obese white male in hospital scrubs with improved grooming and improved eye contact. No abnormal movements except for mild psychomotor retardation. He was cooperative with exam in mild distress. Speech was slightly decreased in rate but normal in volume. Mood described as okay. His affect was remained blunted. Thought process was linear, logical and goal directed. Thought content: Patient denies suicidal or homicidal ideation. There was no evidence of delusional thinking and he minimized paranoia. He denied suicidal ideation. He minimized auditory hallucinations and did not appear to be responding to internal stimuli. Attention and concentration were limited and memory somewhat reliable but none were formally tested. He is alert and oriented x person and place. Insight was limited. Judgment and impulse control were improving. Discharge Data Studies Completed and Pending: Laboratory Results WBC 9.15 10^3/uL (3.2 9-11.43) 01/12/25 13:08 RBC 4.69 10^6/uL (3.8 5-5.65) 01/12/25 13:08 Hgb 15.00 g/dL (11.27 -16.99) 01/12/25 13:08 Hct 44.6 % (37-53) 01/12/25 13:08 MCV 95.1 fl (82-101) 01/12/25 13:08 MCH 32.0 pg (27-33) 01/12/25 13:08 MCHC 33.6 g/dL (30-55) 01/12/25 13:08 RDW 12.0 % (12.1-15.1 ) L 01/12/25 13:08 Plt Count 250 10^3/cmm (157 -399) 01/12/25 13:08 MPV 9.4 fL (7.4-10.4) 01/12/25 13:08 Neut % (Auto) 47.2 % 01/12/25 13:08 Lymph % (Auto) 45.1 % 01/12/25 13:08 Erath % (Auto) 5.4 % 01/12/25 13:08 Eos % (Auto) 1.5 % 01/12/25 13:08 Baso % (Auto) 0.5 % 01/12/25 13:08 Neut # (Auto) 4.31 10^3/uL (1.8 -7.7) 01/12/25 13:08 Lymph # (Auto) 4.1 10^3/uL (0.8- 4.8) 01/12/25 13:08 Erath # (Auto) 0.5 10^3/uL (0.2- 0.9) 01/12/25 13:08 Eos # (Auto) 0.1 10^3/uL (0.0- 0.8) 01/12/25 13:08 Baso # (Auto) 0.1 10^3/uL (0.0- 0.1) 01/12/25 13:08 Nucleated RBC % (a uto) 0 % 01/12/25 13:08 Nucleated RBCs # 0.0 /100WBC 01/12/25 13:08 Sodium 140 mmol/L (136-1 45) 01/12/25 13:08 Potassium 4.0 mmol/L (3.5-5 .1) 01/12/25 13:08 Chloride 103 mmol/L (98-10 7) 01/12/25 13:08 Carbon Dioxide 24 mmol/L (22-29) 01/12/25 13:08 Anion Gap 17.0 (5-19) 01/12/25 13:08 BUN 10 mg/dL (6-20) 01/12/25 13:08 Creatinine 0.7 mg/dL (0.7-1. 2) 01/12/25 13:08 GFR Calculation 129.1 mL/min (90- 130) 01/12/25 13:08 Glucose 119 mg/dL (65-115 ) H 01/12/25 13:08 Calculated Osmolal ity 290 mOsm/kg (285- 295) 01/12/25 13:08 Calcium 8.7 mg/dL (8.5-10 .5) 01/12/25 13:08 Total Bilirubin 0.2 mg/dL (0.15-1 .2) 01/12/25 13:08 AST 20 U/L (0-40) 01/12/25 13:08 ALT 26 U/L (0-41) 01/12/25 13:08 Alkaline Phosphata se 70 U/L (40-130) 01/12/25 13:08 Total Protein 7.7 g/dL (6.6-8.7 ) 01/12/25 13:08 Albumin 4.1 g/dL (3.5-5.2 ) 01/12/25 13:08 Globulin 3.6 g/dL (1.3-4.6 ) 01/12/25 13:08 Salicylates < 0.3 mg/dL (3-10 ) L 01/12/25 13:08 Urine Opiates Scre en Negative ng/mL (N egative) 01/13/25 12:00 Acetaminophen < 5.0 ug/mL (10-3 0) L 01/12/25 13:08 Ur Barbiturates Sc reen Negative ng/mL (N egative) 01/13/25 12:00 Ur Phencyclidine S crn Negative ng/mL (N egative) 01/13/25 12:00 Ur Amphetamines Sc reen Negative ng/mL (N egative) 01/13/25 12:00 U Benzodiazepines Scrn Negative ng/mL (N egative) 01/13/25 12:00 Urine Cocaine Scre en Negative ng/mL (N egative) 01/13/25 12:00 U Marijuana (THC) Screen Positive ng/mL (N egative) H 01/13/25 12:00 Vitals: Last Vital Signs Temp 97.7 F 01/16/25 14:00 Pulse 69 01/17/25 06:00 Resp 16 01/17/25 06:00 BP 107/61 01/17/25 06:00 Pulse Ox 94 01/17/25 06:00 O2 Del Method Room Air 01/16/25 06:00 Discharge Plan Discharge Patient Disposition: Home Condition: Stable Prescriptions: New divalproex 500 mg Tablet Extended Release 24 Hr 1,000 mg PO DAILY 30 Days Qty: 60 1RF sertraline 50 mg Tablet 50 mg PO DAILY 30 Days Qty: 30 1RF chlorpromazine 200 mg tablet 200 mg PO 2100 Qty: 30 1RF buprenorphine-naloxone [Suboxone] 8-2 mg film 1 film sublingual BID 15 Days Qty: 30 0RF Continued tramadol 50 mg tablet 100 mg PO DAILY Changed chlorpromazine 100 mg tablet 100 mg PO BID 30 Days Qty: 60 1RF Discontinued chlorpromazine 200 mg tablet 200 mg PO .HS Qty: 30 2RF divalproex [Depakote ER] 500 mg tablet extended release 24 hr 500 mg PO BID Qty: 60 2RF quetiapine 100 mg tablet 100 mg PO BEDTIME Discharge Orders: Discharge Order (Routine); Ordered 01/17/25 Ordered By: Filiberto Burdick Referrals: Dario Verma MD [Physician] - 01/18/25 12:45 pm (Follow up) Discharge Diet: Usual diet Discharge Activity: Resume usual activity Patient Instructions: Opioid Safety Discharge Attestations NPU Time Spent in Discharge Care*: less than 30 min Specific Discharge Activities: Specific discharge activities: educating patient and documenting/other paperwork Coding Level of Care Code Acute Code for g Fwd Diagnoses Chronic schizophrenia F20.9 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
[2025-01-17 12:27] VITALS: BP 107/71; PULSE 69; RESP 16; O2SAT 94
== END 2025-01-17 15:04 | disposition home or self-care (01) | DRG 885 ==
LOC: ER 14:11 → NP 14:13
PROVIDERS: Admitting Provider Psychiatry & Neurology Psychiatry; Emergency Provider Family Medicine; Visit Provider Psychiatry & Neurology Psychiatry
DX: F20.9 Schizophrenia, unspecified (principal); F11.20 Opioid dependence, uncomplicated; Z68.44 Body mass index [BMI] 60.0-69.9, adult; R45.851 Suicidal ideations; E66.01 Morbid (severe) obesity due to excess calories; F10.10 Alcohol abuse, uncomplicated; F17.210 Nicotine dependence, cigarettes, uncomplicated; F15.21 Other stimulant dependence, in remission
CPT/HCPCS: 36415; 80053; 80061; 80306; 80307; 83036; 85025; 97150; 97165; 99285; J0573; J9999; Q0161

== ENCOUNTER → 2025-02-22 12:52 | Outpatient (BNVA) | payer MEDICAID, SELFPAY ==
[2025-01-20 13:47] VITALS: BP 126/93; BMI 61.0
== END ==
PROVIDERS: Visit Provider Psychiatry & Neurology Psychiatry
DX: F15.21 Other stimulant dependence, in remission (principal); F11.20 Opioid dependence, uncomplicated; Z79.899 Other long term (current) drug therapy; F10.90 Alcohol use, unspecified, uncomplicated
CPT/HCPCS: 80307